=== PATIENT | male | born 1955 | race Caucasian/White ===

== ENCOUNTER → 2018-02-17 12:24 | Outpatient (CLI) | payer MEDICARE, SELFPAY ==
[2018-02-17 13:35] VITALS: PULSE 75; PULSE 78; PULSE 81; PULSE 89; PULSE 92; PULSE 93; PULSE 96; O2SAT 96; O2SAT 97; O2SAT 98
--- NOTE | 2018-02-17 17:23 | WT_ITS ---
PSN 6 Minute Walk Test - 6 Minute Walk Test 6 Minute Walk Test: 6 Minute Walk Test PSN:6-Minute Walk Test Start: 02/17/18 13: 35 Freq: Status: Active Protocol: RESP.6MINW Document 02/17/18 13:35 [facility] (Rec: 02/17/18 13:38 [facility] [id number]) 6 Minute Walk Test Date Performed 02/17/18 Time Performed 12:30 Height 6 ft 3 in Weight: 109.316 kg Weight in Pounds 241.[address]: Lexi Arceo Assistive device used: None Pre-test Oxygen Delivery Method Room Air Pulse Ox (%) 97 Pulse Rate (60-100 beats/min) 75 Dyspnea Jeimy Scale (0-10) 1 1st minute Oxygen Delivery Method Room Air Pulse Ox (%) 98 Pulse Rate (60-100 beats/min) 78 Dyspnea Jeimy Scale (0-10) 1 2nd minute Oxygen Delivery Method Room Air Pulse Ox (%) 96 Pulse Rate (60-100 beats/min) 81 Dyspnea Jeimy Scale (0-10) 1 3rd minute Oxygen Delivery Method Room Air Pulse Ox (%) 97 Pulse Rate (60-100 beats/min) 89 Dyspnea Jeimy Scale (0-10) 2 Reported Symptoms Increased Work of Breathing 4th minute Oxygen Delivery Method Room Air Pulse Ox (%) 98 Pulse Rate (60-100 beats/min) 92 Dyspnea Jeimy Scale (0-10) 2 Reported Symptoms Increased Work of Breathing 5th minute Oxygen Delivery Method Room Air Pulse Ox (%) 97 Pulse Rate (60-100 beats/min) 93 Dyspnea Jeimy Scale (0-10) 2 Reported Symptoms Increased Work of Breathing 6th minute Oxygen Delivery Method Room Air Pulse Ox (%) 97 Pulse Rate (60-100 beats/min) 96 Dyspnea Jeimy Scale (0-10) 2 Reported Symptoms Increased Work of Breathing Post-test Oxygen Delivery Method Room Air Pulse Ox (%) 98 Pulse Rate (60-100 beats/min) 78 Dyspnea Jeimy Scale (0-10) 1 Full Laps Walked 21 Partial Lap, Number of Tiles Walked 22 Total Distance Walked (ft) 1261 - Interpretation Interpretation: The patient was able to ambulate 1261 feet over the course of 6 minutes on room air with no significant desaturation or tachycardia. These findings are consistent with a normal exercise oximetry. - Recommendations Recommendations: No supplemental oxygen is indicated at this time.
== END ==
PROVIDERS: Visit Provider Nurse Practitioner Acute Care
DX: R06.02 Shortness of breath (principal)
CPT/HCPCS: 94618

== ENCOUNTER → 2018-02-18 09:44 | Outpatient (CLI) | payer MEDICARE, SELFPAY ==
--- NOTE | 2018-02-19 06:58 | PFTCOMP_ITS ---
COMPLETE PULMONARY FUNCTION TEST INTERPRETATION Brief HPI: Patient is a 62 year old male, currently under the care of Lexi Arceo, who presents to [facility] for complete pulmonary function tests secondary to diagnosis of dyspnea. Respiratory therapist reports good effort and reproducible results. Interpretation: Forced expiration spirometry shows a mild large airways obstructive ventilatory defect with an FEV1 of 72 % predicted. There is no significant bronchodilator response by ATS criteria. Spirograms are of good quality and plateau slowly, indicating slowly emptying areas of the lungs. The respiratory flow volume loop shows decreased expiratory flow rates at high lung volumes consistent with small airways obstruction. Lung volumes by body plethysmography show a normal total lung capacity at 7.5 L , 102 % predicted. All other lung volumes are within normal limits. Diffusion capacity by carbon monoxide is normal at 79 % predicted. The airway resistance is normal. No previous pulmonary function tests were available for review. Impression: Irreversible mild large airways obstructive ventilatory defect with preserved lung volumes and diffusing capacity, consistent with a diagnosis of chronic bronchitis.
== END ==
PROVIDERS: Visit Provider Nurse Practitioner Acute Care
DX: R06.02 Shortness of breath (principal)
CPT/HCPCS: 94060; 94726; 94729

== ENCOUNTER → 2018-09-22 15:25 | Outpatient (CLI) | payer MEDICARE, SELFPAY | PROVIDERS: Referring Provider Nurse Practitioner Acute Care; Visit Provider Nurse Practitioner Acute Care | DX: R05 Cough (principal) | CPT/HCPCS: 87070; 87205 ==

== ENCOUNTER 2018-10-07 12:44 | Emergency (ER) | payer MEDICARE, SELFPAY ==
[2018-10-07 12:47] VITALS: BP 174/97; PULSE 81; RESP 20; TEMP 36.6; O2SAT 97; BMI 33.1
--- NOTE | 2018-10-07 12:56 | EKG12_ITS ---
Test Reason : CP/SOB Blood Pressure : / mmHG Vent. Rate : 080 BPM Atrial Rate : 080 BPM P-R Int : 162 ms QRS Dur : 088 ms QT Int : 384 ms P-R-T Axes : 033 007 025 degrees QTc Int : 442 ms Normal sinus rhythm Inferior infarct , age undetermined Abnormal ECG Confirmed by KAITLIN TARANGO ([id number]), editorial project manager BETSY FLEMING ([id number]) on 10/11/2018 2:25:59 PM Referred By: ANA/TERENCE Confirmed By:KAITLIN TARANGO
[2018-10-07 13:08] LABS: Absolute Lymphocyte Count 2.49 X10^3/ul (0.83-4.51); Absolute Neutrophil Count 6.1 X10^3/uL (2.0-7.7); Basophil# 0.02 X10^3/uL; Basophil% 0.2 % (0-1); Eosinophils% 1.1 % (0-5); Hematocrit 47.9 % (40-54); Hemoglobin 16.8 g/dl (13.0-16.5); Lymphocyte # 2.49 X10^3/ul (4.0); Lymphocyte % 26.7 % (19-41); Mean Corp Hgb Conc 35.1 g/gl (32-36); Mean Corpuscular Hgb 30.7 pg (27.0-32.0); Mean Corpuscular Volume 87.4 fL (80-94); Mean Platelet Vol. 11.1 fl (6.2-12.0); Monocyte% 6.4 % (0-10); Neutrophil # 6.06 X10^3/uL (2.7-7.7); Neutrophil % 65.2 % (47-70); POSITIVE COUNT NO; POSITIVE DIFFERENTIAL NO; POSITIVE MORPHOLOGY NO; Platelet Count 191 K/mm3 (150-450); RBC Distribution Width CV 12.5 % (11.6-14.6); Red Blood Count 5.48 M/mm3 (4.6-6.2); White Blood Count 9.3 K/mm3 (4.4-11.0)
--- NOTE | 2018-10-07 13:10 | RAD_ITS ---
STUDY: X-RAY CHEST REASON FOR EXAM: Male, 63 years old. Chest pain. TECHNIQUE: Single AP portable view of the chest. COMPARISON: None. FINDINGS: EKG electrodes are seen. Minimal increased markings at the lung bases suggestive of mild basilar linear atelectasis. There is no demonstrated pleural abnormality. Normal size heart. Normal mediastinum and juan diego. Normal visualized pulmonary arteries. There is atherosclerotic tortuosity of the aortic arch and descending thoracic aorta. There are diffuse degenerative changes of the visualized thoracic spine. Normal visualized ribs, clavicles, and shoulders. There is no demonstrated abnormality of the visualized soft tissue structures of the upper abdomen. RAD/Chest 1 View (Portable) IMPRESSION: Mild degree of increased linear markings at the lung bases suggest mild degree of bibasilar atelectasis. Electronically Signed: Boris Huff MD at 13:33 EST Tel [phone], Service support ,
[2018-10-07] MEDS: 0.9% Normal Saline 1,000 ML 150 ML IV (13:21)
[2018-10-07] MEDS: Aspirin 81 MG TAB.CHEW 324 MG PO (13:21)
[2018-10-07 13:24] LABS: Anion Gap 7 (5-15); BUN 14 mg/dL (7-18); BUN/Creat Ratio 12.6 RATIO (10-20); Calcium,Total 9.1 mg/dL (8.5-10.1); Chloride 101 mmol/L (98-107); Creatinine, Serum 1.11 mg/dL (0.70-1.30); EST Glomerular Filtration Rate 71 mL/min (>60); Est Glom Filt Rate - Afr Amer 86 mL/min (>60); Estimated Creatinine Clearance 77.98 ml/min; Glucose 67 mg/dL (74-106); Potassium 3.7 mmol/L (3.5-5.1); Sodium Level 136 mmol/L (136-145)
--- NOTE | 2018-10-07 13:57 | ED.VISSUMM ---
- ER Visit Summary Date of Service: 10/07/18 Chief Complaint: Chest pain History of Present Illness: The patient is a [address] Trujillo, Dr. Elijah Estrada, and Dr. Rossi. He reports that he was admitted at [facility] on September 24 for shortness of breath and chest pain. At that time he had a CT of the chest that showed no PE. It showed atelectasis. No infiltrate or effusion. He had an extensive workup obtained which ultimately showed that he had human rhinovirus. He reports that he saw Dr. Rossi yesterday and was scheduled to have PFTs today. Patient reports that today he walked a distance through the parking lot that was further than he walked since September 13. He had to sit down when he got to the entrance because he was short of breath and was having chest pain. States that the chest pain actually began on the drive here. It is a pressure that is 8 out of 10 at worst and 3-10 currently. Is worsened by exertion relieved by rest. He denies any associated nausea, vomiting, or diaphoresis. Physical Examination: Vitals: Stable. Afebrile. General: Well-nourished and well-developed. Head: Normocephalic atraumatic. Neck: Supple, no lymphadenopathy. No JVD. Nontender. Cardiovascular: Regular rate and rhythm. No murmurs. Respiratory: No respiratory distress. Clear to auscultation bilaterally. Abdominal: Soft, nontender, nondistended, normal bowel sounds. No guarding, rebound, or peritoneal signs. Back: Nontender. Extremities: Nontender, no edema. Skin: Normal color, no rash. Neurologic: Alert and oriented ?3. Cranial nerves II through XII are intact. Normal strength and sensation. Psych: Normal affect. Test Results: EKG is sinus at [address] changes. Troponin is negative despite greater than 3 hours of constant pain. Chem-7 is more for glucose 67. CBC is more for hemoglobin 16.8. Chest x-ray shows atelectasis. Emergency Department Course and Treatment: Patient was treated with aspirin. He is resting comfortably. Treatment Plan: Patient was discussed with Dr. Rossi who states patient will need to reschedule his PFTs and from a pulmonary perspective is fine to go home. I had a prolonged discussion with the patient about the possible cardiac etiology of this. He states that he is spoken with his philosophy faculty and it is felt that this is not cardiac in nature. His last stress test was in January of this year. I did offer to admit him for rule out and stress test and he does not want to do this. He has an appointment to see his primary care physician tomorrow. I did discuss with him the possibility that his primary care physician could arrange a stress test as an outpatient if he does not want to be hospitalized. He is instructed to follow-up with his philosophy faculty as soon as possible. Return to the emergency department for any worsening symptoms. Disposition: To home in improved and stable condition. Impression: 1. Atypical chest pain. 2. Dyspnea. 3. Recent infection with human rhinovirus. This note was generated with [employer] dictation software. It may contain incorrect words, spelling, and punctuation that were not noted in review of the chart prior to signing ED Disposition - Plan for ED Patient: Disposition: Home or Assisted Living Chief Complaint: Chest Pain Instructions: ED Dyspnea Shortness of Breath Referrals: Doctor,Your [STAFF PHYSICIAN] - 1 Day for another exam Additional Instructions: Follow up with Dr. Trujillo as soon as possible.
[2018-10-07 15:03] VITALS: BP 164/99; PULSE 76; RESP 18; O2SAT 98
== END 2018-10-07 15:05 | disposition home or self-care (01) ==
PROVIDERS: Emergency Provider Emergency Medicine
DX: R07.89 Other chest pain (principal); R06.02 Shortness of breath; Z86.19 Personal history of other infectious and parasitic diseases; I25.10 Atherosclerotic heart disease of native coronary artery without angina pectoris; I10 Essential (primary) hypertension; I73.9 Peripheral vascular disease, unspecified; J45.909 Unspecified asthma, uncomplicated; F32.9 Major depressive disorder, single episode, unspecified; M19.90 Unspecified osteoarthritis, unspecified site; G47.33 Obstructive sleep apnea (adult) (pediatric); Z87.891 Personal history of nicotine dependence; Z79.82 Long term (current) use of aspirin; Z79.899 Other long term (current) drug therapy; Z86.73 Personal history of transient ischemic attack (TIA), and cerebral infarction without residual deficits
CPT/HCPCS: 71045; 80048; 84484; 85025; 93005; 96360; 96361; 99284; J7030; A4216

== ENCOUNTER → 2018-10-18 09:33 | Outpatient (CLI) | payer MEDICARE, SELFPAY ==
--- NOTE | 2018-10-18 11:50 | PFT ---
INTRODUCTION: The patient is a 63-year-old male that presents for pulmonary function studies secondary to a diagnosis of chronic bronchitis. Respiratory therapy reports good patient effort. Bronchodilators were used during testing. INTERPRETATION: Forced expiration spirometry demonstrates the presence of a severe large airways obstructive ventilatory defect. Although there was no significant response to aerosolized bronchodilators, based upon strict ATS criteria, the patient did have a relatively robust mid flow bronchodilator response. Spirograms are of good quality do not plateau indicating slow emptying of the lungs. Body plethysmography was performed and reveals a decreased TLC to 5.8 L, 77% of predicted, indicative of a mild restrictive ventilatory defect. The remainder of the lung volumes are symmetrically reduced. Diffusing capacity by single breath CO is mildly reduced at 64% of predicted. When compared to previous pulmonary function studies dated January 2018, there has been a 35% reduction in the patient's FEV1, 23% reduction in TLC and 17% reduction in DLCO. IMPRESSION: These pulmonary function studies demonstrate the presence of an irreversible severe mixed ventilatory defect with a mild reduction in diffusing capacity. There has been significant changes in the patient's PFTs since they were last completed in January 2018, as noted above.
== END ==
PROVIDERS: Referring Provider Internal Medicine Critical Care Medicine; Visit Provider Internal Medicine Critical Care Medicine
DX: T73.2XXA Exhaustion due to exposure, initial encounter (principal); J41.0 Simple chronic bronchitis
CPT/HCPCS: 94060; 94726; 94729

== ENCOUNTER → 2018-10-22 13:41 | Outpatient (CLI) | payer MEDICARE, SELFPAY ==
--- NOTE | 2018-10-22 13:43 | ECHOCS_ITS ---
Reason For Study: Dyspnea/SOB Procedure This was a 2D Doppler, Color Flow transthoracic echocardiogram. Exam performed in department. Left Ventricle Normal LV size. Left ventricular systolic function is normal. The estimated ejection fraction is 65 %. Stage 1 diastolic dysfunction. No regional wall motion abnormalities noted. Right Ventricle Normal RV size. Normal systolic function. Atria Normal left atrium. Normal right atrium. Mitral Valve Normal mitral valve. Trivial mitral valve insufficiency. Tricuspid Valve Normal tricuspid valve. Mild (1+) tricuspid valve insufficiency. Pulmonary artery systolic pressure is 36 mmHg. Aortic Valve Normal aortic valve. Pulmonic Valve Normal pulmonic valve. Great Vessels Normal aortic root. The pulmonary artery is normal size. Normal inferior vena cava. Pericardium/Pleural No pericardial effusion. Medication [id number] given slow IV push to enhance endocardial definition. MMode/2D Measurements & Calculations LVIDd: 5.3 cm IVSd: 0.87 cm Ao root diam: 3.4 cm LVIDs: 2.6 cm LVPWd: 0.85 cm RVDd: 4.3 cm FS: 50.9 % LAV(MOD-bp): 46.3 ml LVAd ap4: 33.5 cm2 SV(MOD-sp4): 89.8 ml LAV(MOD-bp) Indexed: 19.6 ml/m2 EDV(MOD-sp4): 115.0 ml LAV(MOD-sp2): 53.6 ml EDV(sp4-el): 119.0 ml LAV(MOD-sp4): 35.7 ml LVAs ap4: 13.1 cm2 ESV(MOD-sp4): 25.2 ml ESV(sp4-el): 24.5 ml EF(MOD-sp4): 78.1 % EF(sp4-el): 79.4 % SV(sp4-el): 94.5 ml LA A4 area: 15.1 cm2 LA dimension(2D): 3.3 cm RA A4 area: 16.7 cm2 Doppler Measurements & Calculations MV E max jhony: 79.4 cm/sec Lat Peak E' Jhony: 7.0 cm/sec Med Peak E' Jhony: 6.3 cm/sec MV A max jhony: 101.2 cm/sec E/E' lat: 11.3 E/E' med: 12.5 MV E/A: 0.78 Ao V2 max: 183.3 cm/sec LV V1 max: 167.1 cm/sec PA V2 max: 82.1 cm/sec Ao max P.4 mmHg LV V1 max P.2 mmHg Ao V2 mean: 126.8 cm/sec Ao mean P.2 mmHg Ao V2 VTI: 38.6 cm TR max jhony: 278.8 cm/sec TR max P.1 mmHg Interpretation Summary Normal LV size. Left ventricular systolic function is normal. The estimated ejection fraction is 65 %. Stage 1 diastolic dysfunction. Mild (1+) tricuspid valve insufficiency. Contrast injection was performed. Ordering Physician: Lexi Arceo Referring Physician: Lexi Arceo Performed By: Sue Ricks, NEYMAR, RVT
== END ==
PROVIDERS: Referring Provider Nurse Practitioner Acute Care; Visit Provider Nurse Practitioner Acute Care
DX: R06.02 Shortness of breath (principal)
CPT/HCPCS: 93306; Q9957; A4216; C8929

== ENCOUNTER → 2018-11-01 15:01 | Outpatient (CLI) | payer MEDICARE, SELFPAY ==
[2018-11-01 14:04] VITALS: BMI 33.5
[2018-11-01 15:55] LABS: Rheumatoid Factor < 10.0 IU/mL (<15)
[2018-11-01 23:14] LABS: Xtra Tube EP Lab EXTRA TUBE
[2018-11-03 14:21] LABS: ANTINUCLEAR ANTIBODIES DIRECT Negative (Negative)
[2018-11-04 08:19] LABS: CCP IgG Antibodies 15 units (0-19); Cytoplasmic Ab (C-ANCA) <1:20 titer (Neg:<1:20); Perinuclear Ab (P-ANCA) <1:20 titer (Neg:<1:20)
== END ==
PROVIDERS: Referring Provider Nurse Practitioner Acute Care; Visit Provider Nurse Practitioner Acute Care
DX: R06.02 Shortness of breath (principal)
CPT/HCPCS: 36415; 86038; 86200; 86225; 86235; 86256; 86431

== ENCOUNTER → 2018-11-04 08:37 | Outpatient (CLI) | payer MEDICARE, SELFPAY ==
[2018-11-01 14:04] VITALS: BMI 33.5
[2018-11-04 08:30] VITALS: PULSE 57; PULSE 59; PULSE 60; PULSE 62; PULSE 63; PULSE 64; PULSE 65; PULSE 70; O2SAT 96; O2SAT 97
--- NOTE | 2018-11-04 11:46 | PCM.PSN.6M ---
PSN 6 Minute Walk Test - 6 Minute Walk Test 6 Minute Walk Test: 6 Minute Walk Test PSN:6-Minute Walk Test Start: 11/04/18 09:05 Freq: Status: Active Protocol: RESP.6MINW Document 11/04/18 08:30 [facility] (Rec: 11/04/18 09:08 [facility] [id number]) 6 Minute Walk Test Date Performed 11/04/18 Time Performed 08:30 Height 6 ft 1 in Weight: 254 lb Weight in Pounds 254.[address]: Lexi Arceo Assistive device used: None Pre-test Oxygen Delivery Method Room Air Pulse Ox (%) 96 Pulse Rate (60-100 beats/min) 63 Dyspnea Jeimy Scale (0-10) 3 Exertion Jeimy Scale (6-20) 13 1st minute Oxygen Delivery Method Room Air Pulse Ox (%) 97 Pulse Rate (60-100 beats/min) 70 2nd minute Oxygen Delivery Method Room Air Pulse Ox (%) 96 Pulse Rate (60-100 beats/min) 65 Number of Rests Taken 1 Reported Symptoms Increased Work of Breathing 3rd minute Oxygen Delivery Method Room Air Pulse Ox (%) 96 Pulse Rate (60-100 beats/min) 62 Number of Rests Taken 1 Reported Symptoms Increased Work of Breathing 4th minute Oxygen Delivery Method Room Air Pulse Ox (%) 96 Pulse Rate (60-100 beats/min) 64 Number of Rests Taken 1 Reported Symptoms Increased Work of Breathing 5th minute Oxygen Delivery Method Room Air Pulse Ox (%) 96 Pulse Rate (60-100 beats/min) 60 Number of Rests Taken 1 Reported Symptoms Increased Work of Breathing 6th minute Oxygen Delivery Method Room Air Pulse Ox (%) 96 Pulse Rate (60-100 beats/min) 59 L Post-test Oxygen Delivery Method Room Air Pulse Ox (%) 97 Pulse Rate (60-100 beats/min) 57 L Dyspnea Jeimy Scale (0-10) 4 Exertion Jeimy Scale (6-20) 14 Full Laps Walked 6 Partial Lap, Number of Tiles Walked 0 Total Distance Walked (ft) 354 - Interpretation Interpretation: The patient ambulated 354 feet over the course of 6 minutes beginning on room air without assistive devices or breaks. Pretesting oxygen saturation was noted to be 96% on room air. With ambulation, the katerine oxygen saturation was 96%. Although there was evidence of impaired walk distance, there was no significant exertional oxygen desaturation. - Recommendations Recommendations: There is no indication for the use of supplemental oxygen at this time.
== END ==
PROVIDERS: Referring Provider Nurse Practitioner Acute Care; Visit Provider Nurse Practitioner Acute Care
DX: R06.02 Shortness of breath (principal)
CPT/HCPCS: 94618

== ENCOUNTER 2018-11-15 11:36 | Observation (INO) | payer MEDICARE, SELFPAY ==
[2018-11-01 14:04] VITALS: BMI 33.5
[2018-11-15] VITALS (11 sets, daily range): BP systolic 142–170; BP diastolic 76–90; PULSE 53–70; RESP 13–20; TEMP 36.3–36.6; O2SAT 94–98; BMI 33.3; BMI 33.0
--- NOTE | 2018-11-15 12:01 | RAD_ITS ---
STUDY: X-RAY CHEST REASON FOR EXAM: Male, 63 years old. Chest pain, short of breath TECHNIQUE: Single AP portable view of the chest. COMPARISON: October 07, 2018 FINDINGS: Cardiac monitoring leads are present. The lungs are clear and expanded. Improved appearance of the lung bases when compared to previous study. There is no demonstrated pleural abnormality. Normal size heart. Normal mediastinum and juan diego. Normal visualized pulmonary arteries. Mild tortuosity of the thoracic aorta noted. There are diffuse degenerative changes of the visualized thoracic spine. Normal visualized ribs, clavicles, and shoulders. There is no demonstrated abnormality of the visualized soft tissue structures of the upper abdomen. RAD/Chest 1 View (Portable) IMPRESSION: No acute intrathoracic process. Electronically Signed: Tracie Zelaya MD at 12:27 EST , Service support ,
--- NOTE | 2018-11-15 12:01 | EKG12_ITS ---
Test Reason : PALPITATIONS Blood Pressure : / mmHG Vent. Rate : 091 BPM Atrial Rate : 091 BPM P-R Int : 148 ms QRS Dur : 088 ms QT Int : 350 ms P-R-T Axes : 024 015 046 degrees QTc Int : 430 ms Normal sinus rhythm Inferior infarct , age undetermined Abnormal ECG When compared with ECG of 16-NOV-2018 05:42, MANUAL COMPARISON REQUIRED, DATA IS UNCONFIRMED Confirmed by BEULAH GIMENEZ, RANDALL ([id number]), newspaper photo editor BETSY FLEMING ([id number]) on 11/19/2018 2:12:30 PM Referred By: Ino Vazquez Confirmed By:RANDALL RIOJAS MD
[2018-11-15 12:38] LABS: Absolute Lymphocyte Count 2.12 X10^3/ul (0.83-4.51); Absolute Neutrophil Count 4.6 X10^3/uL (2.0-7.7); Basophil# 0.02 X10^3/uL; Basophil% 0.3 % (0-1); Eosinophil# 0.07 X10^3/uL; Eosinophils% 0.9 % (0-5); Hematocrit 45.3 % (40-54); Hemoglobin 15.2 g/dl (13.0-16.5); Lymphocyte # 2.12 X10^3/ul (4.0); Lymphocyte % 27.6 % (19-41); Mean Corp Hgb Conc 33.6 g/gl (32-36); Mean Corpuscular Hgb 30.1 pg (27.0-32.0); Mean Corpuscular Volume 89.7 fL (80-94); Mean Platelet Vol. 10.9 fl (6.2-12.0); Monocyte# 0.82 X10^3/uL; Monocyte% 10.7 % (0-10); Neutrophil # 4.63 X10^3/uL (2.7-7.7); Neutrophil % 60.4 % (47-70); Platelet Count 180 K/mm3 (150-450); RBC Distribution Width CV 12.5 % (11.6-14.6); RBC Distribution Width SD 40.5 fl (35.1-43.9); Red Blood Count 5.05 M/mm3 (4.6-6.2); White Blood Count 7.7 K/mm3 (4.4-11.0)
[2018-11-15 12:39] LABS: POSITIVE COUNT NO; POSITIVE DIFFERENTIAL NO; POSITIVE MORPHOLOGY NO
[2018-11-15] MEDS: Aspirin 81 MG TAB.CHEW 324 MG PO (12:45)
[2018-11-15 12:59] LABS: Anion Gap 5 (5-15); BUN 13 mg/dL (7-18); BUN/Creat Ratio 11.4 RATIO (10-20); Calcium,Total 8.8 mg/dL (8.5-10.1); Chloride 106 mmol/L (98-107); Creatinine, Serum 1.14 mg/dL (0.70-1.30); EST Glomerular Filtration Rate 69 mL/min (>60); Est Glom Filt Rate - Afr Amer 84 mL/min (>60); Estimated Creatinine Clearance 75.93 ml/min; Glucose 96 mg/dL (74-106); Potassium 3.9 mmol/L (3.5-5.1); Sodium Level 142 mmol/L (136-145)
--- NOTE | 2018-11-15 13:06 | PCM.CONS.C ---
Problem List (1) Atherosclerosis of coronary artery of [place] heart with angina pectoris Status: Acute (2) Atherosclerotic heart disease of [place] coronary artery with other forms of angina pectoris Status: Acute Comment: Acute inferior infarct, SAMSON to ostial-proximal RCA using 2.75 X 32 mm everolimus SAMSON per Dr. Geiger, [facility] 09/05/2014 (3) Pulmonary hypertension Status: Acute Comment: RVSP 36 mmHg (4) SOB (shortness of breath) on exertion Status: Acute (5) Carotid artery disease Status: Chronic Comment: Chronically occluded left ICA (6) PAD (peripheral artery disease) Status: Chronic Comment: Pt on Pletal therapy (7) PTSD (post-traumatic stress disorder) Status: Chronic (8) S/P AAA repair Status: Chronic Comment: 06/03/[address] Stephanie Sosa @ [facility]: Endovascular repair with [place] excluder device (9) Sleep apnea Status: Chronic (10) Stented coronary artery Status: Chronic Comment: Acute inferior infarct, SAMSON to ostial-proximal RCA using 2.75 X 32 mm everolimus SAMSON per Dr. Geiger, [facility] Reason for Consult Date of Consultation: 11/15/18 Reason for Consultation: Coronary disease status post angioplasty and stenting of LAD, peripheral vascular disease status post AAA, occluded left carotid artery, hypertension, pulmonary hypertension, obstructive sleep apnea hypertension and hypercholesterolemia. History of Present Illness: The patient is a 63 year old M with noncombat PTSD, hypertension, hypercholesterolemia, coronary artery disease status post acute ST elevation myocardial infarction and underwent emergent angioplasty and stenting to the RCA by Dr. Edwards at [facility] on 09/05/2014. At that time he received a 2.75 ex-32 Promus Premier stent to his proximal RCA postdilated with a 3.0 mm balloon. His LAD and left circumflex artery apparently had nonobstructive disease. At that time he was reportedly told the rest of his coronary arteries required no intervention. Patient also has a history of peripheral vascular disease status post percutaneous AAA stent grafting, and occluded left carotid artery which is known. He also has a history of pulmonary hypertension, and obstructive sleep apnea but does not use CPAP. He tried CPAP for about a year, was unable to tolerate it. Since August 2018 the patient has had intermittent substernal chest pressure, which is somewhat similar to his previous anginal symptoms, but are both typical and atypical with respect to exertion. He underwent a non-walking dobs echo test apparently at [facility] January 2018, was told it was within normal limits, but has had no subsequent catheterization. Recently the patient has been diagnosed with sinusitis is an outside facility in [facility] at which time he underwent CAT scan and MRI of his head. Those results are not available immediately. More specifically, over the last several weeks patient has had substernal chest pressure which he describes as a 10 out of 10 this past Thursday, with associated nausea but no vomiting, and shortness of breath. He states that this kind of pain appears to be more superficial than his deep pain that he experienced during his STEMI, and this pain appears to be at rest as well as with exertion. He is on chronic baby aspirin and Plavix. He was treated with antibiotic therapy for presumed sinusitis however his headaches have continued. Patient does not formally exercise disease had 4 surgeries on his right knee, and does not use his CPAP currently. He has a [id number] smoking history, who quit several years ago. He did have pulmonary function test and Dr. Rossi's office on 10/18/18 which showed the following: These pulmonary function studies demonstrate the presence of an irreversible severe mixed ventilatory defect with a mild reduction in diffusing capacity. His most recent echocardiogram dated 10/22/18 showed intact LV function with an EF of 65%, mild tricuspid regurgitation, and estimated RVSP of 36 mmHg and stage I diastolic dysfunction. His EKG today demonstrates normal sinus rhythm, no acute changes. Chest x-ray is negative. Troponin is negative. [] Past Medical History Allergies/Adverse Reactions: Allergies chlorzoxazone Adverse Reaction (Severe, Verified 11/15/18 11:39) also known as Parafon Forte: pt becomes disoriented Home Medications: Ambulatory Orders Medication Instructions Recorded aspirin 81 mg tablet,delayed 81 mg PO QDAY tab 02/10/18 release atorvastatin 80 mg tablet 80 mg PO QDAY 02/10/18 cilostazol 100 mg tablet 100 mg PO BID 02/10/18 clopidogrel 75 mg tablet 75 mg PO QDAY tab 02/10/18 lisinopril 20 1 tab PO QDAY tab 02/10/18 mg-hydrochlorothiazide 12.5 mg tablet albuterol sulfate HFA 90 2 puff INHALATION Q4H #1 inh 03/15/18 mcg/actuation aerosol inhaler clonazepam 0.5 mg tablet 0.5 mg PO BID PRN 09/22/18 isosorbide mononitrate ER 30 mg 30 mg PO DAILY 09/22/18 tablet,extended release 24 hr multivit,tx with iron 27 1 tab PO DAILY 09/22/18 ju-mxaoyeq-sjupy acid 0.4 mg-minerals tablet nitroglycerin 0.4 mg sublingual 0.4 mg SUBLINGUAL Q5-15M PRN 09/22/18 tablet trazodone 100 mg tablet 200 mg PO QHS tab 09/22/18 venlafaxine ER 150 mg 75 mg PO QDAY cap 09/22/18 capsule,extended release 24 hr furosemide 40 mg tablet 40 mg PO DAILY #10 tab 09/29/18 metoprolol tartrate 25 mg tablet 25 mg PO BID tab 10/05/18 doxycycline hyclate 50 mg tablet 50 mg PO DAILY tab 11/15/18 gabapentin 300 mg capsule 300 mg PO TID 11/15/18 hydrocodone 5 mg-acetaminophen 325 1 tab PO Q6H PRN 11/15/18 mg tablet lamotrigine 100 mg tablet 100 mg PO BID 11/15/18 Past Medical History (Chronic Problems): Chronic Problems (Last Updated 11/15/18 @ 12:40 by Ruth Echevarria) PAD (peripheral artery disease) (Chronic) Pt on Pletal therapy Carotid artery disease (Chronic) Chronically occluded left ICA PTSD (post-traumatic stress disorder) (Chronic) History of inferior wall myocardial infarction (Chronic 09/05/14) Treated at [facility] Stented coronary artery (Chronic 09/05/14) Acute inferior infarct, SAMSON to ostial-proximal RCA using 2.75 X 32 mm everolimus SAMSON per Dr. Geiger, [facility] Asthma (Chronic) Sleep apnea (Chronic) HTN (hypertension) (Chronic) Peripheral vascular disease (Chronic) Depression (Chronic) S/P AAA repair (Chronic 06/03/15) 06/03/[address] Stephanie Sosa @ [facility]: Endovascular repair with [place] excluder device TIA (transient ischemic attack) (Chronic) 04/13 Chronic bronchitis (Chronic) DIMAS (obstructive sleep apnea) (Chronic) Tobacco abuse (Chronic) Smoking Status: Former smoker Review of Systems - Review of Systems General: Denies: Fever, Night Sweats, Fatigue Cardiovascular: Reports: Chest Discomfort, Chest Discomfort at Rest, Chest Discomfort with Exertion, Shortness of Breath with Exertion. Denies: Shortness of Breath, Orthopnea, PND, Peripheral Edema, Palpitations, Lightheadedness, Dizziness, Near Syncope, Syncope Respiratory: Denies: Cough, Sputum Production, Hemoptysis Gastrointestinal: Denies: Hematemesis, Hematochezia, Melena Genitourinary: Denies: Dysuria, Hematuria Skin: Denies: Rash Subjectve: Patient resting comfortably in the emergency room. No acute distress. Vital signs stable. Objective: Vital Signs Temp Pulse Resp BP Pulse Ox 97.4 F L 59 L 14 160/83 H 97 11/15/18 11:37 11/15/18 13:03 11/15/18 13:03 11/15/18 13:03 11/15/18 13:03 Oxygen Delivery Method Room Air Weight: 252 lb 13.923 oz Body Mass Index (BMI) 33.3 General: Awake, Alert, Oriented x 3 HEENT: PERRL, EOMI, Sclera Non Icteric Neck: Supple, Good ROM, No Lymph Node Enlargement Lungs: Clear to auscultation Cardiovascular: Regular Rhythm, Normal S1, Normal S2, No Murmurs, No Rubs, No Gallops Vascular: No Carotid Bruits, Normal Femoral Pulses, Normal Radial Pulses, Normal Dorsalis Pedal Pulse, Normal Posterior Tibial Pulses Abdomen: Bowel Sounds Present, Soft, Non Tender, No HSM, No Organomegaly Extremities: No Cyanosis, No Clubbing, No edema Neurological: No Focal Motor or Sensory Deficit 11/15/18 12:30: WBC 7.7, RBC 5.05, Hgb 15.2, Hct 45.3, MCV 89.7, MCH 30.1, MCHC 33.6, RDW 12.5, RDW Differential 40.5, Plt Count 180, MPV 10.9, Immature Gran % (Auto) 0.100, Neut % (Auto) 60.4, Lymph % (Auto) 27.6, [place] % (Auto) 10.7 H, Eos % (Auto) 0.9, Baso % (Auto) 0.3, Absolute Neuts (auto) 4.6, Total Counted Not Reportable 11/15/18 12:30: Sodium 142, Potassium 3.9, Chloride 106, Carbon Dioxide 31.0, Anion Gap 5, BUN 13, Creatinine 1.14, Est GFR (MDRD) Af Amer 84, Est GFR (MDRD) Non-Af 69, BUN/Creatinine Ratio 11.4, Glucose 96, Calcium 8.8, Troponin I < 0.015 Rhythm: EKG: ECHO: Stress Test: Cardiac Cath: PCI: CT Surgery: Holter monitor: EPS: PPM: CXR: Chest CT Scan: Assessment/Plan 1. Unstable angina: The patient has new onset angina at least since August 2018, with has both typical and atypical features, but appears to be worsening and accelerating. He had a vitamin stress test according to him in January 2018 was admitted to [facility], and his chest pain was deemed to be atypical in nature.. Patient has had no repeat catheterization since his STEMI in 2013. Given the patient's risk factors, chest pain, normal stress test less than 1 year ago, and accelerating nature of his symptoms, and previous stenting to his RCA in 2013 I recommended he undergo a repeat left her catheterization tomorrow morning. We will use a long 35 cm to negotiate his previous aortoiliac stent graft. He is already on chronic baby aspirin and Plavix as well as cilostazol. Should the patient have any significant coronary disease we will proceed with angioplasty assuming that is appropriate to do so. If his catheterization shows widely patent stents, and no additional disease, we will redirect her efforts to workup his noncardiac chest pain. 2. Hyperlipidemia: We will obtain a fasting lipid profile. Continue statin based medications. His LDL should be less than 70. 3. COPD: Patient is evidence of COPD. 4. Fatigue: The patient complains mostly of fatigue, tiredness, and lack of energy. Patient may require reevaluation for obstructive sleep apnea and may benefit from adjustment of his CPAP. Graft 5. Headaches: The patient is on aspirin Plavix and cilostazol, and that his headaches have not improved despite antibiotic therapy, I recommended the patient undergo a CT scan to determine if he has any significant sinusitis or cerebral vascular event. 5. Thank you very much for the opportunity to participate in the cardiac care of your patient. Consultation time took place between 1230 and 1 PM. Catheterization tomorrow morning to follow. Code Visit Inpatient E&M: 02705 Init Hosp L2
--- NOTE | 2018-11-15 13:10 | CON.PCM_ITS ---
Problem List (1) Atherosclerosis of coronary artery of [place] heart with angina pectoris Status: Acute (2) Atherosclerotic heart disease of [place] coronary artery with other forms of angina pectoris Status: Acute Comment: Acute inferior infarct, SAMSON to ostial-proximal RCA using 2.75 X 32 mm everolimus SAMSON per Dr. Geiger, [facility] 09/05/2014 (3) Pulmonary hypertension Status: Acute Comment: RVSP 36 mmHg (4) SOB (shortness of breath) on exertion Status: Acute (5) Carotid artery disease Status: Chronic Comment: Chronically occluded left ICA (6) PAD (peripheral artery disease) Status: Chronic Comment: Pt on Pletal therapy (7) PTSD (post-traumatic stress disorder) Status: Chronic (8) S/P AAA repair Status: Chronic Comment: 06/03/[address] Stephanie Sosa @ [facility]: Endovascular repair with [place] excluder device (9) Sleep apnea Status: Chronic (10) Stented coronary artery Status: Chronic Comment: Acute inferior infarct, SAMSON to ostial-proximal RCA using 2.75 X 32 mm everolimus SAMSON per Dr. Geiger, [facility] Reason for Consult Date of Consultation: 11/15/18 Reason for Consultation: Coronary disease status post angioplasty and stenting of LAD, peripheral vascular disease status post AAA, occluded left carotid artery, hypertension, pulmonary hypertension, obstructive sleep apnea hypertension and hypercholesterolemia. History of Present Illness: The patient is a 63 year old M with noncombat PTSD, hypertension, hypercholesterolemia, coronary artery disease status post acute ST elevation myocardial infarction and underwent emergent angioplasty and stenting to the RCA by Dr. Edwards at [facility] on 09/05/2014. At that time he received a 2.75 ex-32 Promus Premier stent to his proximal RCA postdilated with a 3.0 mm balloon. His LAD and left circumflex artery apparently had nonobstructive disease. At that time he was reportedly told the rest of his coronary arteries required no intervention. Patient also has a history of peripheral vascular disease status post percutaneous AAA stent grafting, and occluded left carotid artery which is known. He also has a history of pulmonary hypertension, and obstructive sleep apnea but does not use CPAP. He tried CPAP for about a year, was unable to tolerate it. Since August 2018 the patient has had intermittent substernal chest pressure, which is somewhat similar to his previous anginal symptoms, but are both typical and atypical with respect to exertion. He underwent a non-walking dobs echo test apparently at [facility] January 2018, was told it was within normal limits, but has had no subsequent catheterization. Recently the patient has been diagnosed with sinusitis is an outside facility in [facility] at which time he underwent CAT scan and MRI of his head. Those results are not available immediately. More specifically, over the last several weeks patient has had substernal chest pressure which he describes as a 10 out of 10 this past Thursday, with associated nausea but no vomiting, and shortness of breath. He states that this kind of pain appears to be more superficial than his deep pain that he experienced during his STEMI, and this pain appears to be at rest as well as with exertion. He is on chronic baby aspirin and Plavix. He was treated with antibiotic therapy for presumed sinusitis however his headaches have continued. Patient does not formally exercise disease had 4 surgeries on his right knee, and does not use his CPAP currently. He has a [id number] smoking history, who quit several years ago. He did have pulmonary function test and Dr. Rossi's office on 10/18/18 which showed the following: These pulmonary function studies demonstrate the presence of an irreversible severe mixed ventilatory defect with a mild reduction in diffusing capacity. His most recent echocardiogram dated 10/22/18 showed intact LV function with an EF of 65%, mild tricuspid regurgitation, and estimated RVSP of 36 mmHg and stage I diastolic dysfunction. His EKG today demonstrates normal sinus rhythm, no acute changes. Chest x-ray is negative. Troponin is negative. [] Past Medical History Allergies/Adverse Reactions: Allergies chlorzoxazone Adverse Reaction (Severe, Verified 11/15/18 11:39) also known as Parafon Forte: pt becomes disoriented Home Medications: Ambulatory Orders Medication Instructions Recorded aspirin 81 mg tablet,delayed 81 mg PO QDAY tab 02/10/18 release atorvastatin 80 mg tablet 80 mg PO QDAY 02/10/18 cilostazol 100 mg tablet 100 mg PO BID 02/10/18 clopidogrel 75 mg tablet 75 mg PO QDAY tab 02/10/18 lisinopril 20 1 tab PO QDAY tab 02/10/18 mg-hydrochlorothiazide 12.5 mg tablet albuterol sulfate HFA 90 2 puff INHALATION Q4H #1 inh 03/15/18 mcg/actuation aerosol inhaler clonazepam 0.5 mg tablet 0.5 mg PO BID PRN 09/22/18 isosorbide mononitrate ER 30 mg 30 mg PO DAILY 09/22/18 tablet,extended release 24 hr multivit,tx with iron 27 1 tab PO DAILY 09/22/18 zk-gljdygl-dmqcg acid 0.4 mg-minerals tablet nitroglycerin 0.4 mg sublingual 0.4 mg SUBLINGUAL Q5-15M PRN 09/22/18 tablet trazodone 100 mg tablet 200 mg PO QHS tab 09/22/18 venlafaxine ER 150 mg 75 mg PO QDAY cap 09/22/18 capsule,extended release 24 hr furosemide 40 mg tablet 40 mg PO DAILY #10 tab 09/29/18 metoprolol tartrate 25 mg tablet 25 mg PO BID tab 10/05/18 doxycycline hyclate 50 mg tablet 50 mg PO DAILY tab 11/15/18 gabapentin 300 mg capsule 300 mg PO TID 11/15/18 hydrocodone 5 mg-acetaminophen 325 1 tab PO Q6H PRN 11/15/18 mg tablet lamotrigine 100 mg tablet 100 mg PO BID 11/15/18 Past Medical History (Chronic Problems): Chronic Problems (Last Updated 11/15/18 @ 12:40 by Ruth Echevarria) PAD (peripheral artery disease) (Chronic) Pt on Pletal therapy Carotid artery disease (Chronic) Chronically occluded left ICA PTSD (post-traumatic stress disorder) (Chronic) History of inferior wall myocardial infarction (Chronic 09/05/14) Treated at [facility] Stented coronary artery (Chronic 09/05/14) Acute inferior infarct, SAMSON to ostial-proximal RCA using 2.75 X 32 mm everolimus SAMSON per Dr. Geiger, [facility] Asthma (Chronic) Sleep apnea (Chronic) HTN (hypertension) (Chronic) Peripheral vascular disease (Chronic) Depression (Chronic) S/P AAA repair (Chronic 06/03/15) 06/03/[address] Stephanie Sosa @ [facility]: Endovascular repair with [place] excluder device TIA (transient ischemic attack) (Chronic) 04/13 Chronic bronchitis (Chronic) DIMAS (obstructive sleep apnea) (Chronic) Tobacco abuse (Chronic) Smoking Status: Former smoker Review of Systems - Review of Systems General: Denies: Fever, Night Sweats, Fatigue Cardiovascular: Reports: Chest Discomfort, Chest Discomfort at Rest, Chest Discomfort with Exertion, Shortness of Breath with Exertion. Denies: Shortness of Breath, Orthopnea, PND, Peripheral Edema, Palpitations, Lightheadedness, Dizziness, Near Syncope, Syncope Respiratory: Denies: Cough, Sputum Production, Hemoptysis Gastrointestinal: Denies: Hematemesis, Hematochezia, Melena Genitourinary: Denies: Dysuria, Hematuria Skin: Denies: Rash Subjectve: Patient resting comfortably in the emergency room. No acute distress. Vital signs stable. Objective: Vital Signs Temp Pulse Resp BP Pulse Ox 97.4 F L 59 L 14 160/83 H 97 11/15/18 11:37 11/15/18 13:03 11/15/18 13:03 11/15/18 13:03 11/15/18 13:03 Oxygen Delivery Method Room Air Weight: 252 lb 13.923 oz Body Mass Index (BMI) 33.3 General: Awake, Alert, Oriented x 3 HEENT: PERRL, EOMI, Sclera Non Icteric Neck: Supple, Good ROM, No Lymph Node Enlargement Lungs: Clear to auscultation Cardiovascular: Regular Rhythm, Normal S1, Normal S2, No Murmurs, No Rubs, No Gallops Vascular: No Carotid Bruits, Normal Femoral Pulses, Normal Radial Pulses, Normal Dorsalis Pedal Pulse, Normal Posterior Tibial Pulses Abdomen: Bowel Sounds Present, Soft, Non Tender, No HSM, No Organomegaly Extremities: No Cyanosis, No Clubbing, No edema Neurological: No Focal Motor or Sensory Deficit 11/15/18 12:30: WBC 7.7, RBC 5.05, Hgb 15.2, Hct 45.3, MCV 89.7, MCH 30.1, MCHC 33.6, RDW 12.5, RDW Differential 40.5, Plt Count 180, MPV 10.9, Immature Gran % (Auto) 0.100, Neut % (Auto) 60.4, Lymph % (Auto) 27.6, [place] % (Auto) 10.7 H, Eos % (Auto) 0.9, Baso % (Auto) 0.3, Absolute Neuts (auto) 4.6, Total Counted Not Reportable 11/15/18 12:30: Sodium 142, Potassium 3.9, Chloride 106, Carbon Dioxide 31.0, Anion Gap 5, BUN 13, Creatinine 1.14, Est GFR (MDRD) Af Amer 84, Est GFR (MDRD) Non-Af 69, BUN/Creatinine Ratio 11.4, Glucose 96, Calcium 8.8, Troponin I < 0.015 Rhythm: EKG: ECHO: Stress Test: Cardiac Cath: PCI: CT Surgery: Holter monitor: EPS: PPM: CXR: Chest CT Scan: Assessment/Plan 1. Unstable angina: The patient has new onset angina at least since August 2018, with has both typical and atypical features, but appears to be worsening and accelerating. He had a vitamin stress test according to him in January 2018 was admitted to [facility], and his chest pain was deemed to be atypical in nature.. Patient has had no repeat catheterization since his STEMI in 2013. Given the patient's risk factors, chest pain, normal stress test less than 1 year ago, and accelerating nature of his symptoms, and previous stenting to his RCA in 2013 I recommended he undergo a repeat left her catheterization tomorrow morning. We will use a long 35 cm to negotiate his previous aortoiliac stent graft. He is already on chronic baby aspirin and Plavix as well as cilostazol. Should the patient have any significant coronary disease we will proceed with angioplasty assuming that is appropriate to do so. If his catheterization shows widely patent stents, and no additional disease, we will redirect her efforts to workup his noncardiac chest pain. 2. Hyperlipidemia: We will obtain a fasting lipid profile. Continue statin based medications. His LDL should be less than 70. 3. COPD: Patient is evidence of COPD. 4. Fatigue: The patient complains mostly of fatigue, tiredness, and lack of energy. Patient may require reevaluation for obstructive sleep apnea and may benefit from adjustment of his CPAP. Graft 5. Headaches: The patient is on aspirin Plavix and cilostazol, and that his headaches have not improved despite antibiotic therapy, I recommended the patient undergo a CT scan to determine if he has any significant sinusitis or cerebral vascular event. 5. Thank you very much for the opportunity to participate in the cardiac care of your patient. Consultation time took place between 1230 and 1 PM. Catheterization tomorrow morning to follow. Code Visit Inpatient E&M: 93162 Init Hosp L2
--- NOTE | 2018-11-15 13:52 | ED.VISSUMM ---
- ER Visit Summary Date of Service: 11/15/18 Chief Complaint: Chest pain History of Present Illness: The patient is a 63 M who presents with chest pain. Is been intermittent for the past couple of months but worse over the past 24 hours. It is a heaviness in the left side of his chest. Worse with exertion, talking and any activity. It is better with rest. He also has associated shortness of breath. He also admits to a headache behind the left eye for 2 weeks. He tells me he has a history of a blocked internal carotid artery with no residual deficits. He was supposed to follow-up with Dr. Torres tomorrow as a new patient. He does have one stent in the left anterior descending artery. Physical Examination: Pain exam Test Results: EKG is sinus rhythm with a rate of 60. Nonspecific ST and T wave changes. Chest x-ray unremarkable. Laboratory studies normal. Emergency Department Course and Treatment: Patient was given aspirin. Dr. Torres came and physically saw the patient in the emergency department. He is scheduling a heart catheterization for tomorrow. Patient was discussed with hospitalist for admission Treatment Plan: [] Disposition: Admit Impression: Chest pain/unstable angina This note was generated with [employer] dictation software. It may contain incorrect words, spelling, and punctuation that were not noted in review of the chart prior to signing ED Disposition - Plan for ED Patient: Chief Complaint: Chest Pain Referrals: Elijah Perez DO [Primary Care Provider] -
--- NOTE | 2018-11-15 14:28 | CASEMGMT ---
According to the [facility] website, the following are in-network tertiary facilities: [facility], [place], [facility], [place], [facility], [facility], [facility], [facility], and . Antonina ALBERTO CM
--- NOTE | 2018-11-15 15:42 | EKG12_ITS ---
Test Reason : CP Blood Pressure : / mmHG Vent. Rate : 060 BPM Atrial Rate : 060 BPM P-R Int : 174 ms QRS Dur : 094 ms QT Int : 426 ms P-R-T Axes : 049 014 049 degrees QTc Int : 426 ms Normal sinus rhythm Normal ECG Confirmed by BEUALH GIMENEZ, RANDALL ([id number]), senior editor BETSY FLEMING ([id number]) on 11/19/2018 1:20:14 PM Referred By: Ino Vazquez Confirmed By:RANDALL RIOJAS MD
[2018-11-15] MEDS: HYDROcodone Bitartrate/Apap 5/325 Tablet PO (16:12)
[2018-11-15] MEDS: CLARIFY ORDER NOTE (17:44)
--- NOTE | 2018-11-15 19:51 | PCM.HP.STD ---
Problem List (1) Chest pain Status: Acute Qualifiers: Chest pain type: precordial pain Qualified Code(s): R07.2 - Precordial pain History of Present Illness Date of Admission: 11/15/18 Chief Complaint: Precordial chest pain The patient is a 63 year old M who was seen in the emergency room at [facility] with a chief complaint of left-sided precordial chest pain located underneath the left breast and radiating into the left axilla. Patient states that this discomfort started at 3 PM yesterday, patient confirms it was continuous since 3 PM yesterday and had not gone away. Patient has a remote history of MT with stent placement in 2015. Patient states that the chest pain is dull in nature, it does not radiate into the arm or jaw, he does complain of some vague left neck pain that he has had for the past 2 weeks. Patient also complains of shortness of breath with the chest discomfort, he does not complain of any nausea or vomiting however. Finally, patient complains of a headache he has had over the last 2 weeks with left eye pressure. He also states that he has had left neck pain along with this headache. Workup in the emergency room included an EKG which showed a normal sinus rhythm without evidence of ischemic changes, chest x-ray was unremarkable, CBC was unremarkable, chemistry profile was unremarkable, and patient's troponin was negative. Patient was seen in the emergency room by Dr. Torres, he is agreed to perform a heart catheterization tomorrow on the patient, patient will be placed and observation status on PCU, cardiac enzymes will be cycled, he will be monitored on telemetry. Further note: Patient appears to this examiner to have a severe psychological overlay, he admits to having PTSD and some of the patient's symptoms appear very atypical of coronary artery disease, however, due to the patient's history of coronary artery disease, cardiac catheterization appears to be the best route to choose to eliminate obstructive coronary disease. Past Medical History Past Medical History (Chronic Problems): Chronic Problems (Last Updated 11/15/18 @ 20:04 by Ino Vazquez DO) PAD (peripheral artery disease) (Chronic) Pt on Pletal therapy Carotid artery disease (Chronic) Chronically occluded left ICA PTSD (post-traumatic stress disorder) (Chronic) History of inferior wall myocardial infarction (Chronic 09/05/14) Treated at [facility] Atherosclerotic heart disease of [place] coronary artery with other forms of angina pectoris (Chronic) Acute inferior infarct, SAMSON to ostial-proximal RCA using 2.75 X 32 mm everolimus SAMSON per Dr. Geiger, [facility] 09/05/2014 Stented coronary artery (Chronic 09/05/14) Acute inferior infarct, SAMSON to ostial-proximal RCA using 2.75 X 32 mm everolimus SAMSON per Dr. Geiger, [facility] Asthma (Chronic) Sleep apnea (Chronic) HTN (hypertension) (Chronic) Peripheral vascular disease (Chronic) Depression (Chronic) S/P AAA repair (Chronic 06/03/15) 06/03/[address] Stephanie Sosa @ [facility]: Endovascular repair with Sharon excluder device TIA (transient ischemic attack) (Chronic) 04/13 Atherosclerosis of coronary artery of [place] heart with angina pectoris (Chronic) Pulmonary hypertension (Chronic) RVSP 36 mmHg Chronic bronchitis (Chronic) DIMAS (obstructive sleep apnea) (Chronic) Tobacco abuse (Chronic) Medical History: Medical History (Last Updated 11/15/18 @ 20:04 by Ino Vazquez DO) PAD (peripheral artery disease) (Chronic) I73.9 Pt on Pletal therapy Carotid artery disease (Chronic) I77.9 Chronically occluded left ICA PTSD (post-traumatic stress disorder) (Chronic) F43.10 History of inferior wall myocardial infarction (Chronic) Onset Date: 09/05/14 I25.2 Treated at [facility] Atherosclerotic heart disease of [place] coronary artery with other forms of angina pectoris (Chronic) I25.118 Acute inferior infarct, SAMSON to ostial-proximal RCA using 2.75 X 32 mm everolimus SAMSON per Dr. Geiger, [facility] 09/05/2014 History of abdominal aortic aneurysm (Resolved) Z86.[address] Sosa @ [facility] Asthma (Chronic) J45.909 Sleep apnea (Chronic) G47.30 HTN (hypertension) (Chronic) I10 Peripheral vascular disease (Chronic) I73.9 Depression (Chronic) F32.9 TIA (transient ischemic attack) (Chronic) G45.9 04/13 Chronic sinusitis J32.9 Osteoarthritis M19.90 Allergies chlorzoxazone Adverse Reaction (Severe, Verified 11/15/18 11:39) also known as Parafon Forte: pt becomes disoriented Home Medications: Ambulatory Orders Medication Instructions Recorded lisinopril 20 1 tab PO QHS tab 02/10/18 mg-hydrochlorothiazide 12.5 mg tablet multivit,tx with iron 27 1 tab PO DAILY 09/22/18 [id number] acid 0.4 mg-minerals tablet nitroglycerin 0.4 mg sublingual 0.4 mg SUBLINGUAL Q5-15M PRN 09/22/18 tablet Albuterol Sulfate [Ventolin Hfa] 2 puff INHALATION Q4H PRN 11/15/18 Amox/Clavulanate Tablet [Augmentin 875 mg PO Q12H 11/15/18 Tablet] Aspirin [Aspirin, Baby] 81 mg PO QHS 11/15/18 Atorvastatin Calcium [Lipitor] 80 mg PO QHS 11/15/18 Cilostazol [Pletal] 100 mg PO BID 11/15/18 Clonazepam 0.5 mg PO BID PRN 11/15/18 Clopidogrel Bisulfate [Plavix] 75 mg PO QHS 11/15/18 Metoprolol Tartrate [Lopressor 25 mg PO BID 11/15/18 (beta ian)] Venlafaxine HCl [Effexor] 225 mg PO DAILY 11/15/18 doxycycline hyclate 50 mg tablet 50 mg PO DAILY tab 11/15/18 hydrocodone 5 mg-acetaminophen 325 1 tab PO Q8H PRN 11/15/18 mg tablet lamotrigine 100 mg tablet 100 mg PO BID 11/15/18 traZODone [Desyrel] 200 mg PO QHS 11/15/18 Surgical History: Surgical History (Last Updated 11/15/18 @ 12:14 by Ruth Echevarria) Stented coronary artery (Chronic) Onset Date: 09/05/14 Z95.5 Acute inferior infarct, SAMSON to ostial-proximal RCA using 2.75 X 32 mm everolimus SAMSON per Dr. Geiger, [facility] S/P AAA repair (Chronic) Onset Date: 06/03/15 Z98.890, Z86.79 06/03/[address] Stephanie Sosa @ [facility]: Endovascular repair with Sharon excluder device History of total right knee replacement Onset Date: ~2009 Z96.651 Hx of cataract surgery Z98.49 08/16 Surgical History: appendectomy, tonsillectomy, - - Cardiac stent placement 2014, several knee surgeries including knee replacement, AAA repair-endovascular Psychiatric History: Depression, - - PTSD Lives: Spouse/ Significant Other Smoking Status: Former smoker Tobacco Use: Cigarettes, Cigars, Pipe Alcohol: None Drugs: None - *Family History Maternal History Items: No pertinent history - in motor vehicle accident Paternal History Items: Cancer - from brain cancer Review of Systems Constitutional: Denies: Anorexia, Chills, Fever, Night Sweats, Malaise, Weakness, Weight Change, Fatigue Eyes: Reports: Pain - Patient complains of pain in back of his left eye times 2 weeks. Denies: Cataracts, Conjunctivae Inflammation, Double vision, Drainage, Redness, Vision Change HEENT: Denies: Difficulty Hearing, Difficulty Swallowing, Dysphasia, Ear Pain, Eye Pain, Head Aches, Hearing Changes, Nasal bleeding, Nasal Congestion, Post Nasal Drip, Sinus Drainage Cardiovascular: Reports: Chest Pain. Denies: Claudication, Chest Pressure, Chest Tightness, Edema, Heaviness, Orthopnea, Palpitations, Paroxysmal Noc. Dyspnea, Syncope Respiratory: Reports: Shortness of Breath - Since his chest pain started yesterday. Denies: Cough, Hemoptysis, Pleuritic Pain, Shortness of breath at rest, Shortness of breath upon exertion Gastrointestinal: Denies: Abdominal Pain, Constipation, Diarrhea, Hematemesis, Hematochezia, Nausea, Melena, Vomiting Genitourinary: Denies: Dysuria, Frequency, Hematuria, Hesitancy, Incontinence, Nocturia, Urgency Musculoskeletal: Denies: Back Pain, Foot Pain, Hand Pain, Joint Pain, Joint stiffness, Joint swelling Skin: Denies: Dryness, Pruritis, Rash Neurological: Reports: Headaches. Denies: Blurred vision, Double vision, Change in Speech, Slurred speech, Difficulty swallowing, Focal weakness, Incoordination, Numbness, Tingling Psychiatric: Reports: Depression. Denies: Anxiety, Homicidal Ideations, Suicidal Ideations Endocrine: Denies: Change in Body Habitus, Heat/ Cold Intolerance, Polydipsia, Polyuria Hematologic/ Lymphatic: Denies: Adenopathy, Anemia, Easy Bruising, Easy Bleeding, Petechiae, Purpura VTE Information - Inpt Only VTE Present on Admission: No VTE Mechan Device Prophylaxis: None VTE Pharm Prophylaxis ordered?: Yes Patient Problems: Active and Suspected Problems (Last Updated 11/15/18 @ 20:04 by SHERRI Chua Chest pain (Acute) - Physical Exam General: Alert, Oriented x3, Cooperative, No apparent distress, Well developed, Well nourished HEENT: Atraumatic, PERRLA, EOMI, Normocephalic Oral: Moist Mucosa Neck: Supple, No JVD, Negative Carotid Bruits, No Nuchal Rigidity, Trachea Midline, Thyroid Normal Size and Texture Lungs: Clear to auscultation, Normal air movement, No rhonchi, No wheeze, No rales Cardiovascular: Regular rate, Regular Rhythm, Normal S1, Normal S2, No murmurs, No Ectopic Activity, PMI Normal, No rub noted, No Gallop Abdomen: Bowel Sounds Present, Soft, Non Tender, Non-Distended, No hernias noted Extremities: No clubbing, No cyanosis, No edema, Capillary Refill Less than 3 Seconds Skin: No rashes, No breakdown Musculoskeletal: No Tenderness to Palpation of Joints or Extremities Neurological: Cranial nerves II-XII grossly intact, Neuro grossly intact, Sensory exam intact to light touch and pain, Coordination normal Psych/Mental Status: Normal Affect, Appropriate, Alert and oriented to time, place, person, mood and affect Vital Signs Temp Pulse Resp BP Pulse Ox 97.5 F L 70 20 H 147/78 H 97 11/15/18 15:44 11/15/18 19:00 11/15/18 15:44 11/15/18 15:46 11/15/18 15:44 Oxygen Delivery Method Room Air Weight: 113.6 kg Body Mass Index (BMI) 33.0 Intake and Output for Last 24 Hours 11/13/18 11/14/18 11/15/18 23:59 23:59 23:59 Intake Total 360 / 360 Balance 360 / 360 Laboratory Tests Past 24 Hrs 11/15/18 11/15/18 11/15/18 12:30 12:30 15:48 WBC 7.7 RBC 5.05 Hgb 15.2 Hct 45.3 MCV 89.7 MCH 30.1 MCHC 33.6 RDW 12.5 RDW Differential 40.5 Plt Count 180 MPV 10.9 Immature Gran % (Auto) 0.100 Neut % (Auto) 60.4 Lymph % (Auto) 27.6 Avery % (Auto) 10.7 H Eos % (Auto) 0.9 Baso % (Auto) 0.3 Absolute Neuts (auto) 4.6 Absolute Lymphs (auto) 2.12 Total Counted Not Reportable Sodium 142 Potassium 3.9 Chloride 106 Carbon Dioxide 31.0 Anion Gap 5 BUN 13 Creatinine 1.14 Estim Creat Clear Calc 75.93 Est GFR (MDRD) Af Amer 84 Est GFR (MDRD) Non-Af 69 BUN/Creatinine Ratio 11.4 Glucose 96 Calcium 8.8 Troponin I < 0.015 < 0.015 11/15/18 18:54 WBC RBC Hgb Hct MCV MCH MCHC RDW RDW Differential Plt Count MPV Immature Gran % (Auto) Neut % (Auto) Lymph % (Auto) Avery % (Auto) Eos % (Auto) Baso % (Auto) Absolute Neuts (auto) Absolute Lymphs (auto) Total Counted Sodium Potassium Chloride Carbon Dioxide Anion Gap BUN Creatinine Estim Creat Clear Calc Est GFR (MDRD) Af Amer Est GFR (MDRD) Non-Af BUN/Creatinine Ratio Glucose Calcium Troponin I < 0.015 Assessment/Plan All Active Problems (Last Updated 11/15/18 @ 20:04 by Ino Vazquez DO) Chest pain (Acute) History of abdominal aortic aneurysm (Resolved) History of coronary artery stent placement (Resolved) SOB (shortness of breath) on exertion (Acute) #1 chest pain in a patient with known coronary artery disease-this chest pain again appears atypical, patient will be placed and observation status on PCU, serial enzymes will be obtained, if these remain negative, patient will undergo a cardiac catheterization tomorrow by Dr. Torres. #2 shortness of breath-this appears to be chronic in nature as the patient sees pulmonary medicine, patient's showed me the results of the patient's last pulmonary function test which showed a mixed severe pulmonary disease, patient also has a history of obstructive sleep apnea but is noncompliant with CPAP. #3 pulmonary hypertension-patient's showed me the results of the patient's recent echocardiogram which showed mild pulmonary hypertension with a normal EF. #4 posttraumatic stress disorder-unfortunately, I believe this causes additional problems with sorting out whether the patient currently has obstructive coronary artery disease. #5 cephalgia-patient has had a history of headache for the last 2 weeks, he was seen on 11/08/18 at [facility] in [facility] and diagnosed with ethmoid sinusitis, at that time, an MRI of the brain showed no evidence of acute infarct and it was believed that his headache was secondary to sinusitis. It appears that the patient was placed on doxycycline 100 mg every 12 hours for 14 days at that time. It appears the patient was also placed on Diflucan 200 mg 1 every 72 hours for 28 days, I had nursing asked the patient why he was prescribed Diflucan, patient does not know but patient did not have it filled and is not taking this medication. Patient was placed on Augmentin by his PCP and he is not taking doxycycline that was prescribed in [place]. Patient is on chronic low-dose doxycycline for blepharitis. #6 history of left carotid occlusive disease per patient-patient's MRI result on 11/08/18 showed loss of normal flow of the left MCA compatible with occlusion or trickle flow, a follow-up CTA of the head neck was recommended when appropriate for follow-up by the hospital in [facility]. Patient had a remote history of the left carotid occlusion in the past which was total, he had seen Dr. Neves in the past and there was no specific treatment for this. This was diagnosed several years ago. I talked to the patient's kenneth by phone, she says the patient has an appointment to see Dr. Gray this week concerning his headaches, I asked that she bring this recent abnormal MRI of the brain to his attention so she could discuss the need for further testing on this patient. She confirmed that she would discuss this with Dr. Gray. Code Visit OBS E&M: 30030 Initial observation care L3
--- NOTE | 2018-11-15 19:56 | HP.PCM_ITS ---
Problem List (1) Chest pain Status: Acute Qualifiers: Chest pain type: precordial pain Qualified Code(s): R07.2 - Precordial pain History of Present Illness Date of Admission: 11/15/18 Chief Complaint: Precordial chest pain The patient is a 63 year old M who was seen in the emergency room at [facility] with a chief complaint of left-sided precordial chest pain located underneath the left breast and radiating into the left axilla. Patient states that this discomfort started at 3 PM yesterday, patient confirms it was continuous since 3 PM yesterday and had not gone away. Patient has a remote history of [place] with stent placement in 2015. Patient states that the chest pain is dull in nature, it does not radiate into the arm or jaw, he does complain of some vague left neck pain that he has had for the past 2 weeks. Patient also complains of shortness of breath with the chest discomfort, he does not complain of any nausea or vomiting however. Finally, patient complains of a headache he has had over the last 2 weeks with left eye pressure. He also states that he has had left neck pain along with this headache. Workup in the emergency room included an EKG which showed a normal sinus rhythm without evidence of ischemic changes, chest x-ray was unremarkable, CBC was unremarkable, chemistry profile was unremarkable, and patient's troponin was negative. Patient was seen in the emergency room by Dr. Torres, he is agreed to perform a heart catheterization tomorrow on the patient, patient will be placed and observation status on PCU, cardiac enzymes will be cycled, he will be monitored on telemetry. Further note: Patient appears to this examiner to have a severe psychological overlay, he admits to having PTSD and some of the patient's symptoms appear very atypical of coronary artery disease, however, due to the patient's history of coronary artery disease, cardiac catheterization appears to be the best route to choose to eliminate obstructive coronary disease. Past Medical History Past Medical History (Chronic Problems): Chronic Problems (Last Updated 11/15/18 @ 20:04 by Ino Vazquez DO) PAD (peripheral artery disease) (Chronic) Pt on Pletal therapy Carotid artery disease (Chronic) Chronically occluded left ICA PTSD (post-traumatic stress disorder) (Chronic) History of inferior wall myocardial infarction (Chronic 09/05/14) Treated at [facility] Atherosclerotic heart disease of [place] coronary artery with other forms of angina pectoris (Chronic) Acute inferior infarct, SAMSON to ostial-proximal RCA using 2.75 X 32 mm everolimus SAMSON per Dr. Geiger, [facility] 09/05/2014 Stented coronary artery (Chronic 09/05/14) Acute inferior infarct, SAMSON to ostial-proximal RCA using 2.75 X 32 mm everolimus SAMSON per Dr. Geiger, [facility] Asthma (Chronic) Sleep apnea (Chronic) HTN (hypertension) (Chronic) Peripheral vascular disease (Chronic) Depression (Chronic) S/P AAA repair (Chronic 06/03/15) 06/03/[address] Stephanie Sosa @ [facility]: Endovascular repair with Auxier excluder device TIA (transient ischemic attack) (Chronic) 04/13 Atherosclerosis of coronary artery of [place] heart with angina pectoris (Chronic) Pulmonary hypertension (Chronic) RVSP 36 mmHg Chronic bronchitis (Chronic) DIMAS (obstructive sleep apnea) (Chronic) Tobacco abuse (Chronic) Medical History: Medical History (Last Updated 11/15/18 @ 20:04 by Ino Vazquez DO) PAD (peripheral artery disease) (Chronic) I73.9 Pt on Pletal therapy Carotid artery disease (Chronic) I77.9 Chronically occluded left ICA PTSD (post-traumatic stress disorder) (Chronic) F43.10 History of inferior wall myocardial infarction (Chronic) Onset Date: 09/05/14 I25.2 Treated at [facility] Atherosclerotic heart disease of [place] coronary artery with other forms of angina pectoris (Chronic) I25.118 Acute inferior infarct, SAMSON to ostial-proximal RCA using 2.75 X 32 mm everolimus SAMSON per Dr. Geiger, [facility] 09/05/2014 History of abdominal aortic aneurysm (Resolved) Z86.[address] Sosa @ [facility] Asthma (Chronic) J45.909 Sleep apnea (Chronic) G47.30 HTN (hypertension) (Chronic) I10 Peripheral vascular disease (Chronic) I73.9 Depression (Chronic) F32.9 TIA (transient ischemic attack) (Chronic) G45.9 04/13 Chronic sinusitis J32.9 Osteoarthritis M19.90 Allergies chlorzoxazone Adverse Reaction (Severe, Verified 11/15/18 11:39) also known as Parafon Forte: pt becomes disoriented Home Medications: Ambulatory Orders Medication Instructions Recorded lisinopril 20 1 tab PO QHS tab 02/10/18 mg-hydrochlorothiazide 12.5 mg tablet multivit,tx with iron 27 1 tab PO DAILY 09/22/18 or-iycebuz-kdybq acid 0.4 mg-minerals tablet nitroglycerin 0.4 mg sublingual 0.4 mg SUBLINGUAL Q5-15M PRN 09/22/18 tablet Albuterol Sulfate [Ventolin Hfa] 2 puff INHALATION Q4H PRN 11/15/18 Amox/Clavulanate Tablet [Augmentin 875 mg PO Q12H 11/15/18 Tablet] Aspirin [Aspirin, Baby] 81 mg PO QHS 11/15/18 Atorvastatin Calcium [Lipitor] 80 mg PO QHS 11/15/18 Cilostazol [Pletal] 100 mg PO BID 11/15/18 Clonazepam 0.5 mg PO BID PRN 11/15/18 Clopidogrel Bisulfate [Plavix] 75 mg PO QHS 11/15/18 Metoprolol Tartrate [Lopressor 25 mg PO BID 11/15/18 (beta ian)] Venlafaxine HCl [Effexor] 225 mg PO DAILY 11/15/18 doxycycline hyclate 50 mg tablet 50 mg PO DAILY tab 11/15/18 hydrocodone 5 mg-acetaminophen 325 1 tab PO Q8H PRN 11/15/18 mg tablet lamotrigine 100 mg tablet 100 mg PO BID 11/15/18 traZODone [Desyrel] 200 mg PO QHS 11/15/18 Surgical History: Surgical History (Last Updated 11/15/18 @ 12:14 by Ruth Echevarria) Stented coronary artery (Chronic) Onset Date: 09/05/14 Z95.5 Acute inferior infarct, SAMSON to ostial-proximal RCA using 2.75 X 32 mm everolimus SAMSON per Dr. Geiger, [facility] S/P AAA repair (Chronic) Onset Date: 06/03/15 Z98.890, Z86.79 06/03/[address] Stephanie Sosa @ [facility]: Endovascular repair with Auxier excluder device History of total right knee replacement Onset Date: ~2009 Z96.651 Hx of cataract surgery Z98.49 08/16 Surgical History: appendectomy, tonsillectomy, - - Cardiac stent placement 2014, several knee surgeries including knee replacement, AAA repair-endovascular Psychiatric History: Depression, - - PTSD Lives: Spouse/ Significant Other Smoking Status: Former smoker Tobacco Use: Cigarettes, Cigars, Pipe Alcohol: None Drugs: None - *Family History Maternal History Items: No pertinent history - in motor vehicle accident Paternal History Items: Cancer - from brain cancer Review of Systems Constitutional: Denies: Anorexia, Chills, Fever, Night Sweats, Malaise, Weakness, Weight Change, Fatigue Eyes: Reports: Pain - Patient complains of pain in back of his left eye times 2 weeks. Denies: Cataracts, Conjunctivae Inflammation, Double vision, Drainage, Redness, Vision Change HEENT: Denies: Difficulty Hearing, Difficulty Swallowing, Dysphasia, Ear Pain, Eye Pain, Head Aches, Hearing Changes, Nasal bleeding, Nasal Congestion, Post Nasal Drip, Sinus Drainage Cardiovascular: Reports: Chest Pain. Denies: Claudication, Chest Pressure, Chest Tightness, Edema, Heaviness, Orthopnea, Palpitations, Paroxysmal Noc. Dyspnea, Syncope Respiratory: Reports: Shortness of Breath - Since his chest pain started yeste rday. Denies: Cough, Hemoptysis, Pleuritic Pain, Shortness of breath at rest, Shortness of breath upon exertion Gastrointestinal: Denies: Abdominal Pain, Constipation, Diarrhea, Hematemesis, Hematochezia, Nausea, Melena, Vomiting Genitourinary: Denies: Dysuria, Frequency, Hematuria, Hesitancy, Incontinence, Nocturia, Urgency Musculoskeletal: Denies: Back Pain, Foot Pain, Hand Pain, Joint Pain, Joint stiffness, Joint swelling Skin: Denies: Dryness, Pruritis, Rash Neurological: Reports: Headaches. Denies: Blurred vision, Double vision, Change in Speech, Slurred speech, Difficulty swallowing, Focal weakness, Incoordination, Numbness, Tingling Psychiatric: Reports: Depression. Denies: Anxiety, Homicidal Ideations, Suicidal Ideations Endocrine: Denies: Change in Body Habitus, Heat/ Cold Intolerance, Polydipsia, Polyuria Hematologic/ Lymphatic: Denies: Adenopathy, Anemia, Easy Bruising, Easy Bleeding, Petechiae, Purpura VTE Information - Inpt Only VTE Present on Admission: No VTE Mechan Device Prophylaxis: None VTE Pharm Prophylaxis ordered?: Yes Patient Problems: Active and Suspected Problems (Last Updated 11/15/18 @ 20:04 by SHERRI Chua Chest pain (Acute) - Physical Exam General: Alert, Oriented x3, Cooperative, No apparent distress, Well developed, Well nourished HEENT: Atraumatic, PERRLA, EOMI, Normocephalic Oral: Moist Mucosa Neck: Supple, No JVD, Negative Carotid Bruits, No Nuchal Rigidity, Trachea Midline, Thyroid Normal Size and Texture Lungs: Clear to auscultation, Normal air movement, No rhonchi, No wheeze, No rales Cardiovascular: Regular rate, Regular Rhythm, Normal S1, Normal S2, No murmurs, No Ectopic Activity, PMI Normal, No rub noted, No Gallop Abdomen: Bowel Sounds Present, Soft, Non Tender, Non-Distended, No hernias noted Extremities: No clubbing, No cyanosis, No edema, Capillary Refill Less than 3 Seconds Skin: No rashes, No breakdown Musculoskeletal: No Tenderness to Palpation of Joints or Extremities Neurological: Cranial nerves II-XII grossly intact, Neuro grossly intact, Sensory exam intact to light touch and pain, Coordination normal Psych/Mental Status: Normal Affect, Appropriate, Alert and oriented to time, place, person, mood and affect Vital Signs Temp Pulse Resp BP Pulse Ox 97.5 F L 70 20 H 147/78 H 97 11/15/18 15:44 11/15/18 19:00 11/15/18 15:44 11/15/18 15:46 11/15/18 15:44 Oxygen Delivery Method Room Air Weight: 113.6 kg Body Mass Index (BMI) 33.0 Intake and Output for Last 24 Hours 11/13/18 11/14/18 11/15/18 23:59 23:59 23:59 Intake Total 360 / 360 Balance 360 / 360 Laboratory Tests Past 24 Hrs 11/15/18 11/15/18 11/15/18 12:30 12:30 15:48 WBC 7.7 RBC 5.05 Hgb 15.2 Hct 45.3 MCV 89.7 MCH 30.1 MCHC 33.6 RDW 12.5 RDW Differential 40.5 Plt Count 180 MPV 10.9 Immature Gran % (Auto) 0.100 Neut % (Auto) 60.4 Lymph % (Auto) 27.6 [place] % (Auto) 10.7 H Eos % (Auto) 0.9 Baso % (Auto) 0.3 Absolute Neuts (auto) 4.6 Absolute Lymphs (auto) 2.12 Total Counted Not Reportable Sodium 142 Potassium 3.9 Chloride 106 Carbon Dioxide 31.0 Anion Gap 5 BUN 13 Creatinine 1.14 Estim Creat Clear Calc 75.93 Est GFR (MDRD) Af Amer 84 Est GFR (MDRD) Non-Af 69 BUN/Creatinine Ratio 11.4 Glucose 96 Calcium 8.8 Troponin I < 0.015 < 0.015 11/15/18 18:54 WBC RBC Hgb Hct MCV MCH MCHC RDW RDW Differential Plt Count MPV Immature Gran % (Auto) Neut % (Auto) Lymph % (Auto) [place] % (Auto) Eos % (Auto) Baso % (Auto) Absolute Neuts (auto) Absolute Lymphs (auto) Total Counted Sodium Potassium Chloride Carbon Dioxide Anion Gap BUN Creatinine Estim Creat Clear Calc Est GFR (MDRD) Af Amer Est GFR (MDRD) Non-Af BUN/Creatinine Ratio Glucose Calcium Troponin I < 0.015 Assessment/Plan All Active Problems (Last Updated 11/15/18 @ 20:04 by Ino Vazquez DO) Chest pain (Acute) History of abdominal aortic aneurysm (Resolved) History of coronary artery stent placement (Resolved) SOB (shortness of breath) on exertion (Acute) #1 chest pain in a patient with known coronary artery disease-this chest pain again appears atypical, patient will be placed and observation status on PCU, serial enzymes will be obtained, if these remain negative, patient will undergo a cardiac catheterization tomorrow by Dr. Torres. #2 shortness of breath-this appears to be chronic in nature as the patient sees pulmonary medicine, patient's showed me the results of the patient's last pulmonary function test which showed a mixed severe pulmonary disease, patient also has a history of obstructive sleep apnea but is noncompliant with CPAP. #3 pulmonary hypertension-patient's showed me the results of the patient's recent echocardiogram which showed mild pulmonary hypertension with a normal EF. #4 posttraumatic stress disorder-unfortunately, I believe this causes additional problems with sorting out whether the patient currently has obstructive coronary artery disease. #5 cephalgia-patient has had a history of headache for the last 2 weeks, he was seen on 11/08/18 at [facility] in [facility] and diagnosed with ethmoid sinusitis, at that time, an MRI of the brain showed no evidence of acute infarct and it was believed that his headache was secondary to sinusitis. It appears that the patient was placed on doxycycline 100 mg every 12 hours for 14 days at that time. It appears the patient was also placed on Diflucan 200 mg 1 every 72 hours for 28 days, I had nursing asked the patient why he was prescribed Diflucan, patient does not know but patient did not have it filled and is not taking this medication. Patient was placed on Augmentin by his PCP and he is not taking doxycycline that was prescribed in [place]. Patient is on chronic low-dose doxycycline for blepharitis. #6 history of left carotid occlusive disease per patient-patient's MRI result on 11/08/18 showed loss of normal flow of the left MCA compatible with occlusion or trickle flow, a follow-up CTA of the head neck was recommended when appropriate for follow-up by the hospital in [facility]. Patient had a remote history of the left carotid occlusion in the past which was total, he had seen Dr. Neves in the past and there was no specific treatment for this. This was diagnosed several years ago. I talked to the patient's kenneth by phone, she says the patient has an appointment to see Dr. Gray this week concerning his headaches, I asked that she bring this recent abnormal MRI of the brain to his attention so she could discuss the need for further testing on this patient. She confirmed that she would discuss this with Dr. Gray. Code Visit OBS E&M: [id number] Initial observation care L3
[2018-11-15] MEDS: Cilostazol 50 MG Tablet 100 MG PO (21:01)
[2018-11-15] MEDS: clonazePAM 0.5 MG Tablet PO (21:01)
[2018-11-15] MEDS: Metoprolol Tartrate 25 MG Tablet PO (21:01)
[2018-11-15] MEDS: traZODone 100 MG Tablet 200 MG PO (21:02)
[2018-11-15] MEDS: Aspirin E.C. 81 MG Tablet PO (21:02)
[2018-11-15] MEDS: Atorvastatin Calcium 80 MG Tablet PO (21:03)
[2018-11-15] MEDS: lamoTRIgine 100 MG Tablet PO (21:03)
[2018-11-15] MEDS: Amox/Clavulanate 875 MG Tablet PO (21:03)
[2018-11-16] VITALS (21 sets, daily range): BP systolic 109–166; BP diastolic 57–86; PULSE 53–86; RESP 16–20; TEMP 36.4–36.8; O2SAT 94–100
--- NOTE | 2018-11-16 04:00 | EKG12_ITS ---
Test Reason : AM EKG Blood Pressure : / mmHG Vent. Rate : 062 BPM Atrial Rate : 062 BPM P-R Int : 170 ms QRS Dur : 086 ms QT Int : 426 ms P-R-T Axes : 045 017 037 degrees QTc Int : 432 ms Normal sinus rhythm Normal ECG When compared with ECG of 15-NOV-2018 17:20, MANUAL COMPARISON REQUIRED, DATA IS UNCONFIRMED Confirmed by BEULAH GIMENEZ, RANDALL ([id number]), sound editor BETSY FLEMING ([id number]) on 11/19/2018 2:13:58 PM Referred By: Ino Vazquez Confirmed By:RANDALL RIOJAS MD
[2018-11-16 04:16] LABS: Absolute Lymphocyte Count 2.28 X10^3/ul (0.83-4.51); Absolute Neutrophil Count 3.8 X10^3/uL (2.0-7.7); Basophil# 0.02 X10^3/uL; Basophil% 0.3 % (0-1); Eosinophil# 0.06 X10^3/uL; Eosinophils% 0.9 % (0-5); Hemoglobin 14.1 g/dl (13.0-16.5); Lymphocyte # 2.28 X10^3/ul (4.0); Lymphocyte % 33.8 % (19-41); Mean Corp Hgb Conc 33.6 g/gl (32-36); Mean Corpuscular Volume 89.4 fL (80-94); Mean Platelet Vol. 10.7 fl (6.2-12.0); Monocyte# 0.62 X10^3/uL; Monocyte% 9.2 % (0-10); Neutrophil # 3.76 X10^3/uL (2.7-7.7); Neutrophil % 55.7 % (47-70); Platelet Count 161 K/mm3 (150-450); RBC Distribution Width CV 12.5 % (11.6-14.6); RBC Distribution Width SD 40.6 fl (35.1-43.9); White Blood Count 6.8 K/mm3 (4.4-11.0)
[2018-11-16 04:17] LABS: POSITIVE COUNT NO; POSITIVE DIFFERENTIAL NO; POSITIVE MORPHOLOGY NO
[2018-11-16 04:21] LABS: International Normalized Ratio 1.1; Prothrombin Time (Protime)PT. 14.4 SECONDS (11.7-14.9)
[2018-11-16 04:22] LABS: Partial Thromboplast Time 29.3 Seconds (24.1-36.2)
[2018-11-16 04:24] LABS: Anion Gap 6 (5-15); BUN 13 mg/dL (7-18); BUN/Creat Ratio 10.6 RATIO (10-20); Calcium,Total 8.5 mg/dL (8.5-10.1); Chloride 108 mmol/L (98-107); Creatinine, Serum 1.23 mg/dL (0.70-1.30); EST Glomerular Filtration Rate 63 mL/min (>60); Est Glom Filt Rate - Afr Amer 77 mL/min (>60); Estimated Creatinine Clearance 70.37 ml/min; Glucose 88 mg/dL (74-106); Potassium 4.3 mmol/L (3.5-5.1); Sodium Level 144 mmol/L (136-145)
[2018-11-16] MEDS: Metoprolol Tartrate 25 MG Tablet PO ×2 (06:16→21:07)
[2018-11-16] MEDS: Lisinopril 20 MG Tablet PO (06:16)
[2018-11-16] MEDS: Clopidogrel Bisulfate 75 MG Tablet PO (06:16)
[2018-11-16] MEDS: Aspirin E.C. 81 MG Tablet PO (06:16)
[2018-11-16] MEDS: DiphenhydrAMINE 25 MG Capsule 50 MG PO (07:25)
[2018-11-16] MEDS: 0.9% NaCl Peripheral Flush Adult/Peds IV ×2 (07:26→18:10)
--- NOTE | 2018-11-16 07:32 | NURSING ---
Report called to [employer] RN
--- NOTE | 2018-11-16 10:42 | CL.D_ITS ---
Patient Name: ALLEN VALDES Study Date: 11/16/2018 Performing: Sual Torres MD Ht: 73 inches 185 cm : 1955 Wt: 251.7 lbs 114 kg Age: 63 Gender: male BSA: 2.37 PROCEDURE(S) PERFORMED [id number]/COR/LV CLINICAL PROFILE AND INDICATIONS Indications: ACS > 24 hrs, New Onset Angina <= 2 months, Stable Known CAD Heart Failure: None Stress/Imaging Stress Test w/SPECT MPI: Yes Result: NegativeStress Test with SPECT MPI: Negative Angina Classification Anginal Classification w/in 2 Weeks: CCS IV CAD Presentations: Symptom unlikely to be ischemic. Comorbidities/Risk Factors: Hypertension Dyslipidemia Current/Recent Smoker (< 1year) Prior PCI Diabetes Mellitus: Diabetes Therapy: Oral CONCLUSIONS Perserved Left Ventricular systolic function with normal EDP Non obstructive coronary arteries Known occluded small OM#1 with L to L and R to L collaterals; too small and occluded for too long to benefit from PCI. RECOMMENDATIONS Risk factor modification Increase lisinopril to 40mg po qd. Cont DAPT for life given CAD and PVD. Eval for non cardiac, atypical CP. DESCRIPTION OF PROCEDURE The patient arrived to the procedure lab. The risks and benefits of the procedure as well as a full d escription of our services here and current unavailability of surgical backup were fully explained to the patient and/or their significant other prior to the catheterization. The Timeout was completed, verifying the correct patient and procedure. The patient's procedural site was prepped and draped in the usual fashion. Local anesthetic was given subcutaneously to right groin region with Lidocaine 2%. Using a modified Seldinger technique, arterial access was obtained via the right femoral artery, a 4 Fr 45cm sheath was inserted Left Coronary Artery selective angiography was performed in multiple vi ews using a 4 Fr. JL5 catheter. Right Coronary Artery selective angiography was then performed in mul tiple views using a 4 Fr. 3DRC catheter. Left Ventriculography was performed in SINGH projection using a 4 Fr. Pigtail catheter. LV to AO pullback pressures were then recorded.The arterial sheath was pulled and manual compression applied until hemostasis is achieved. CORONARY ANGIOGRAPHY DOMINANCE: Right Dominant LEFT HEART ASSESSMENT Left Ventricular Ejection Fraction: by LV Gram 55 % Inferior Basal Hypokinesis - Mild Depressed Left Ventricular systolic function LEFT MAIN: Angiographically normal LEFT ANTERIOR DECENDING ARTERY: PROX LAD: Non-obstructive DIAGONAL 1: Proximal - Non-obstructive CIRCUMFLEX ARTERY: Non-obstructive OM 1: Proximal - is occluded RIGHT CORONARY ARTERY: PROX RCA: Previously placed stent is patent COLLATERAL FLOW: Collateral flow from Left to Left Collateral flow from Right to Left COMPLICATIONS No Complications PROCEDURE MEDICATIONS Versed 1 mg IV Oxygen: 2 L/min via nasal cannula SUMMARY OF HEMODYNAMIC DATA Time AIR REST ECG 08:15:14 AO 137/79 (105) SA 10:12:21 LV 139/-15, 11 10:18:35 LV 142/-15, 20 10:18:42 LVp 139/52, 52 10:18:48 AOp 145/73 (104) 10:18:53 Signed By Saul Torres MD On 11/16/2018 10:41:07 Saul Torres MD
[2018-11-16] MEDS: lamoTRIgine 100 MG Tablet PO ×2 (12:40→21:06)
[2018-11-16] MEDS: hydroCHLOROthiazide 12.5mg 12.5 MG PO (12:41)
[2018-11-16] MEDS: Cilostazol 50 MG Tablet 100 MG PO ×2 (12:41→21:07)
[2018-11-16] MEDS: Amox/Clavulanate 875 MG Tablet PO ×2 (12:41→21:05)
[2018-11-16] MEDS: Venlafaxine XR 75 MG Capsule 150 MG PO (12:41)
--- NOTE | 2018-11-16 12:50 | NURSING ---
All AM meds given late due to heart cath
--- NOTE | 2018-11-16 13:45 | CPS ---
Nurse called informing this therapist that there was an order for Duoneb x 1. This therapist proceeded to go to accudose to pull med to start aerosol immediately. Nurse called this therapist back while medication was being pulled from accudose to inform that pt did not want the aerosol to be given until he was off of bed rest. Nurse was informed that this therapist will come back at end of rest period. Med dispense was canceled.
--- NOTE | 2018-11-16 14:45 | NURSING ---
RN ambulated pt post heart cath recovery. Tolerated well. Dressing C/D/I.
--- NOTE | 2018-11-16 14:46 | CT_ITS ---
STUDY: CT CHEST WITHOUT CONTRAST REASON FOR EXAM: Male, 63 years old. Chest pain shortness of breath cough RADIATION DOSAGE (If Supplied By Facility): CTDIvol = ( 19.56 ) mGy, DLP = ( 769.51 ) mGycm TECHNIQUE: Transaxial imaging was performed without the administration of intravenous contrast material. Multiplanar coronal and sagittal images were reformatted. Individualized dose optimization techniques were used for this CT. COMPARISON: Chest x-ray November 15, 2018 FINDINGS: There is trace linear scarring within the lung bases. There is no visualized focal consolidation pleural effusion or pulmonary edema and pneumothorax. There is no evidence of large emphysematous blebs or areas of suspicious interstitial thickening or significant fibrotic change. Normal pleura. There is dense calcification of the coronary arteries. There is mild cardiac enlargement. There is a trace pericardial effusion. A few nonspecific subcentimeter lymph nodes. Normal hilar regions. Normal unenhanced pulmonary arteries. There is partial calcification of the aorta. There are minimal multi-level degenerative changes of the thoracic spine. There is abundant stool in the visualized colon is a suggestion of a punctate stone left kidney there is mild thickening of the left greater than right adrenal glands. CT/Chest without Contrast IMPRESSION: Coronary artery calcification. No evidence of focal infiltrate or findings to suggest fibrosis or emphysematous change. Electronically Signed: Melissa Barrera MD at 19:34 EST Tel , Service support ,
--- NOTE | 2018-11-16 14:55 | PCM.PROGNOTE ---
Patient Problems: Active and Suspected Problems (Last Updated 11/15/18 @ 20:04 by Ino Vazquez DO) Chest pain (Acute) Subjective: Pt has ongoing chest pain across the left side of his chest. He is not SOB at rest, but c.o ongoing worsening SOB with mild activity and feels that this is not being appropriately addressed. He follows Dr. Tesfaye as an outpatient. He had a CTA chest in august that was negative for PE. He does have COPD and appears to only use an albuterol inhaler for this. He has had recent PFTs that show his lung function has worsened. He is very upset frustrated today. He also complains of ongoing left eye pain and headache. - Physical Exam General: Alert, Oriented x3, Cooperative HEENT: Atraumatic, PERRLA, EOMI, Normocephalic Neck: Supple, No JVD, Negative Carotid Bruits Lungs: Clear to auscultation, Normal air movement Cardiovascular: Regular rate, No murmurs Abdomen: Bowel Sounds Present, Soft, Non Tender Extremities: No edema, Capillary Refill Less than 3 Seconds Skin: No rashes, No breakdown Musculoskeletal: No Tenderness to Palpation of Joints or Extremities Neurological: Cranial nerves II-XII grossly intact Psych/Mental Status: Normal Affect, Appropriate, Alert and oriented to time, place, person, mood and affect Vital Signs Temp Pulse Resp BP Pulse Ox 97.6 F L 67 18 166/78 H 96 11/16/18 14:30 11/16/18 14:30 11/16/18 14:30 11/16/18 14:30 11/16/18 14:30 Oxygen Delivery Method Room Air Weight: 250 lb 7.122 oz Body Mass Index (BMI) 33.0 Intake and Output for Last 24 Hours 11/14/18 11/15/18 11/16/18 23:59 23:59 23:59 Intake Total 700 / 700 240 / 240 Balance 700 / 700 240 / 240 Laboratory Tests Past 24 Hrs 11/15/18 11/15/18 11/16/18 15:48 18:54 03:55 WBC 6.8 RBC 4.70 Hgb 14.1 Hct 42.0 MCV 89.4 MCH 30.0 MCHC 33.6 RDW 12.5 RDW Differential 40.6 Plt Count 161 MPV 10.7 Immature Gran % (Auto) 0.100 Neut % (Auto) 55.7 Lymph % (Auto) 33.8 [place] % (Auto) 9.2 Eos % (Auto) 0.9 Baso % (Auto) 0.3 Absolute Neuts (auto) 3.8 Absolute Lymphs (auto) 2.28 Total Counted Not Reportable PT INR APTT Sodium Potassium Chloride Carbon Dioxide Anion Gap BUN Creatinine Estim Creat Clear Calc Est GFR (MDRD) Af Amer Est GFR (MDRD) Non-Af BUN/Creatinine Ratio Glucose Calcium Troponin I < 0.015 < 0.015 11/16/18 11/16/18 03:55 03:55 WBC RBC Hgb Hct MCV MCH MCHC RDW RDW Differential Plt Count MPV Immature Gran % (Auto) Neut % (Auto) Lymph % (Auto) [place] % (Auto) Eos % (Auto) Baso % (Auto) Absolute Neuts (auto) Absolute Lymphs (auto) Total Counted PT 14.4 INR 1.1 APTT 29.3 Sodium 144 Potassium 4.3 Chloride 108 H Carbon Dioxide 30.0 Anion Gap 6 BUN 13 Creatinine 1.23 Estim Creat Clear Calc 70.37 Est GFR (MDRD) Af Amer 77 Est GFR (MDRD) Non-Af 63 BUN/Creatinine Ratio 10.6 Glucose 88 Calcium 8.5 Troponin I Medical Necessity - Tobacco Use Smoking Status: Former smoker Tobacco Use: Cigarettes, Cigars, Pipe Assessment/Plan All Active Problems (Last Updated 11/15/18 @ 20:04 by Ino Vazquez DO) Chest pain (Acute) History of abdominal aortic aneurysm (Resolved) History of coronary artery stent placement (Resolved) SOB (shortness of breath) on exertion (Acute) 1. Chest pain, hx CAD, MD - unclear etiology. Negative cath with Dr. Torres today. Trop negs. Will obtain a new CT chest. CXR was negative. Lifelong dual antiplatelets per cardiology. 2. COPD - not acute exacerbation. hanh.w Dr. Goss - he confirmed his last PFTs showed worsening function, and that he does have COPD. Will trial albuterol to see if chest pain improves. May be bronchospasm induced chest pain. He will need close follow up with pulmonary medicine. He has a rheumatoid panel result in the computer that was negative. 3. Pulmonary HTN - mild per recent echo. 4. DIMAS - noncompliant with CPAP, has significant PTSD - hopefully with additional klonopin his anxiety/PTSD will be better controlled to help allow him to tolerate CPAP more. 5. PTSD/anxiety - increase klonopin as above. Also on effexor, lamictal, trazodone. 6. Former heavy smoker - quit in november, smoked since teenager. 7. Obesity - weight loss will also be of benefit to his pulmonary function, but his exercise tolerance is very low. 8. HTN - running high, Dr. Torres increased his lisinopril today. Will monitor. 9. Hx AAA with prior graft, also on pletal 10. Sinusitis - recent dx, on augmentin per PCP. DVT ppx: heparin DC planning: ongoing sob and cp, will be monitored overnight This patient was seen by Mohit Abdi PA-C under the supervision of Doctor Grimes.
[2018-11-16] MEDS: HYDROcodone Bitartrate/Apap 5/325 Tablet PO (15:01)
[2018-11-16] MEDS: ALPRAZolam 0.5 MG Tablet PO (15:01)
[2018-11-16 15:21] LABS: Erythrocyte Sedimentation Rate 2 mm/hr (0-20)
[2018-11-16] MEDS: Ipratropium/Albuterol Sulfate 3 ML AMPUL.NEB INHALATION (15:29)
[2018-11-16 15:38] LABS: CRP < 2.90 mg/L (0.0-3.0)
[2018-11-16] MEDS: MethylPREDNISolone 125 MG/2 ML Vial 60 MG IV (18:07)
--- NOTE | 2018-11-16 18:49 | NURSING ---
Reviewed and agreed on all charting with Daniel Lind RN
[2018-11-16] MEDS: Atorvastatin Calcium 80 MG Tablet PO (21:06)
[2018-11-16] MEDS: traZODone 100 MG Tablet 200 MG PO (21:06)
[2018-11-16] MEDS: clonazePAM 1 MG Tablet PO (21:18)
[2018-11-17] VITALS (13 sets, daily range): BP systolic 120–146; BP diastolic 75–91; PULSE 62–103; RESP 12–23; TEMP 36.3–36.9; O2SAT 93–97
[2018-11-17] MEDS: MethylPREDNISolone 125 MG/2 ML Vial 60 MG IV ×4 (00:20→17:30)
[2018-11-17] MEDS: 0.9% NaCl Peripheral Flush Adult/Peds IV ×9 (00:20→19:36)
[2018-11-17] MEDS: Amox/Clavulanate 875 MG Tablet PO ×2 (09:48→22:18)
[2018-11-17] MEDS: Venlafaxine XR 75 MG Capsule 150 MG PO (09:48)
[2018-11-17] MEDS: Clopidogrel Bisulfate 75 MG Tablet PO (09:49)
[2018-11-17] MEDS: Metoprolol Tartrate 25 MG Tablet PO ×2 (09:49→22:20)
[2018-11-17] MEDS: lamoTRIgine 100 MG Tablet PO ×2 (09:49→22:20)
[2018-11-17] MEDS: Cilostazol 50 MG Tablet 100 MG PO ×2 (09:51→22:20)
[2018-11-17] MEDS: clonazePAM 1 MG Tablet PO ×2 (09:52→22:21)
--- NOTE | 2018-11-17 11:34 | PCM.CONS.GEN ---
Reason for Consult Date of Consultation: 11/17/18 Reason for Consultation: Shortness of breath History of Present Illness: Patient is a 63-year-old male, with a history as outlined below, who initially presented to the emergency department on November 15 with complaints of chest pain and shortness of breath. The patient currently follows with Dr. Rossi in the pulmonary medicine clinic. His shortness of breath has been worked up extensively in the past. The patient was last seen in the pulmonary medicine clinic by our nurse practitioner on November 01. His last pulmonary function studies last completed in mid September revealed evidence of an irreversible severe mixed ventilatory defect with a mild reduction in diffusing capacity. When compared to previous pulmonary function studies dated January 2018, there had been a 35% reduction in the patient's FEV1, 23% reduction in TLC at 17% reduction in DLCO. A 6-minute walk test was also completed at that time. The patient was able to ambulate 354 feet, which indicates impaired walk distance. The katerine oxygen saturation with exertion was 96%. The patient was evaluated by cardiology upon admission to the hospital. On November 16, the patient underwent a cardiac catheterization. The procedure indicated nonobstructive coronary arteries with preserved left ventricular systolic function and normal end-diastolic pressures. Surface echocardiogram last completed in September 2018 revealed evidence of stage I diastolic dysfunction with a mildly elevated pulmonary artery systolic pressure of 36 mmHg. A high resolution chest CT was then obtained on November 16 revealed grossly clear lung parenchyma bilaterally without any evidence of emphysematous changes or interstitial lung disease. Previously, through the pulmonary medicine clinic, the patient has been trialed on both diuretics and albuterol, neither of which she responded to symptomatically. 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 Atherosclerotic heart disease of [place] coronary artery with other forms of angina pectoris (Chronic) Acute inferior infarct, SAMSON to ostial-proximal RCA using 2.75 X 32 mm everolimus SAMSON per Dr. Geiger, [facility] 09/05/2014 Stented coronary artery (Chronic 09/05/14) Acute inferior infarct, SAMSON to ostial-proximal RCA using 2.75 X 32 mm everolimus SAMSON per Dr. Geiger, [facility] Asthma (Chronic) Sleep apnea (Chronic) HTN (hypertension) (Chronic) Peripheral vascular disease (Chronic) Depression (Chronic) S/P AAA repair (Chronic 06/03/15) 06/03/[address] Stephanie Sosa @ [facility]: Endovascular repair with [place] excluder device TIA (transient ischemic attack) (Chronic) 04/13 Atherosclerosis of coronary artery of [place] heart with angina pectoris (Chronic) Pulmonary hypertension (Chronic) RVSP 36 mmHg Chronic bronchitis (Chronic) DIMAS (obstructive sleep apnea) (Chronic) Tobacco abuse (Chronic) Medical History: Medical History (Last Updated 11/15/18 @ 20:04 by Ino Vazquez DO) PAD (peripheral artery disease) (Chronic) I73.9 Pt on Pletal therapy Carotid artery disease (Chronic) I77.9 Chronically occluded left ICA PTSD (post-traumatic stress disorder) (Chronic) F43.10 History of inferior wall myocardial infarction (Chronic) Onset Date: 09/05/14 I25.2 Treated at [facility] Atherosclerotic heart disease of [place] coronary artery with other forms of angina pectoris (Chronic) I25.118 Acute inferior infarct, SAMSON to ostial-proximal RCA using 2.75 X 32 mm everolimus SAMSON per Dr. Geiger, [facility] 09/05/2014 History of abdominal aortic aneurysm (Resolved) Z86.[address] Sosa @ [facility] Asthma (Chronic) J45.909 Sleep apnea (Chronic) G47.30 HTN (hypertension) (Chronic) I10 Peripheral vascular disease (Chronic) I73.9 Depression (Chronic) F32.9 TIA (transient ischemic attack) (Chronic) G45.9 04/13 Chronic sinusitis J32.9 Osteoarthritis M19.90 Allergies chlorzoxazone Adverse Reaction (Severe, Verified 11/15/18 11:39) also known as Parafon Forte: pt becomes disoriented Home Medications: Ambulatory Orders Medication Instructions Recorded lisinopril 20 1 tab PO QHS tab 02/10/18 mg-hydrochlorothiazide 12.5 mg tablet multivit,tx with iron 27 1 tab PO DAILY 09/22/18 vz-[id number]-qpbgl acid 0.4 mg-minerals tablet nitroglycerin 0.4 mg sublingual 0.4 mg SUBLINGUAL Q5-15M PRN 09/22/18 tablet Albuterol Sulfate [Ventolin Hfa] 2 puff INHALATION Q4H PRN 11/15/18 Amox/Clavulanate Tablet [Augmentin 875 mg PO Q12H 11/15/18 Tablet] Aspirin [Aspirin, Baby] 81 mg PO QHS 11/15/18 Atorvastatin Calcium [Lipitor] 80 mg PO QHS 11/15/18 Cilostazol [Pletal] 100 mg PO BID 11/15/18 Clonazepam 0.5 mg PO BID PRN 11/15/18 Clopidogrel Bisulfate [Plavix] 75 mg PO QHS 11/15/18 Metoprolol Tartrate [Lopressor 25 mg PO BID 11/15/18 (beta ian)] Venlafaxine HCl [Effexor] 225 mg PO DAILY 11/15/18 doxycycline hyclate 50 mg tablet 50 mg PO DAILY tab 11/15/18 hydrocodone 5 mg-acetaminophen 325 1 tab PO Q8H PRN 11/15/18 mg tablet lamotrigine 100 mg tablet 100 mg PO BID 11/15/18 traZODone [Desyrel] 200 mg PO QHS 11/15/18 Surgical History: Surgical History (Last Updated 11/15/18 @ 12:14 by Ruth Echevarria) Stented coronary artery (Chronic) Onset Date: 09/05/14 Z95.5 Acute inferior infarct, SAMSON to ostial-proximal RCA using 2.75 X 32 mm everolimus SAMSON per Dr. Geiger, [facility] S/P AAA repair (Chronic) Onset Date: 06/03/15 Z98.890, Z86.79 06/03/[address] Stephanie Sosa @ [facility]: Endovascular repair with [place] excluder device History of total right knee replacement Onset Date: ~2009 Z96.651 Hx of cataract surgery Z98.49 08/16 Surgical History: appendectomy, tonsillectomy, - - Cardiac stent placement 2014, several knee surgeries including knee replacement, AAA repair-endovascular Psychiatric History: Depression, - - PTSD Lives: Spouse/ Significant Other Smoking Status: Former smoker Tobacco Use: Cigarettes, Cigars, Pipe Alcohol: None Drugs: None - *Family History Maternal History Items: No pertinent history - in motor vehicle accident Paternal History Items: Cancer - from brain cancer Review of Systems Constitutional: Denies: Anorexia, Chills, Fever Eyes: Denies: Blurred vision, Double vision HEENT: Denies: Head Aches, Sinus Congestion, Sinus Drainage Cardiovascular: Denies: Chest Pain, Palpitations Respiratory: Reports: Cough, Shortness of Breath Gastrointestinal: Denies: Abdominal Pain, Nausea, Vomiting Genitourinary: Denies: Dysuria Musculoskeletal: Denies: Joint Pain, Joint Tenderness Skin: Denies: Rash, Wounds Neurological: Denies: Numbness, Tingling, Focal weakness Psychiatric: Reports: Anxiety Hematologic/ Lymphatic: Denies: Easy Bruising, Easy Bleeding Patient Problems: Active and Suspected Problems (Last Updated 11/15/18 @ 20:04 by Ino Vazquez DO) Chest pain (Acute) Objective: The patient's most recent lab work, culture data and imaging studies have all been personally reviewed. - Physical Exam General: Alert, Oriented x3, Cooperative, No apparent distress, - - is present at the bedside. HEENT: Atraumatic, PERRLA, Normocephalic Oral: Moist Mucosa, No Gingival or Mucosal Lesions/ Ulcerations Neck: Supple, No Nodes, Trachea Midline Lungs: Normal air movement, No rhonchi, No wheeze, No rales Cardiovascular: Regular rate, Regular Rhythm, Normal S1, Normal S2, No murmurs Abdomen: Bowel Sounds Present, Soft, Non Tender, Obese Extremities: No clubbing, No cyanosis, No edema Skin: No breakdown Musculoskeletal: No Tenderness to Palpation of Joints or Extremities, No Muscle Wasting Lymphatic: No Cervical, Supraclavicular, or Inguinal Adenopathy Neurological: Cranial nerves II-XII grossly intact, Neuro grossly intact Psych/Mental Status: Alert and oriented to time, place, person, mood and affect Vital Signs Temp Pulse Resp BP Pulse Ox 36.6 C 92 16 120/75 94 11/17/18 08:55 11/17/18 09:49 11/17/18 08:55 11/17/18 09:49 11/17/18 08:55 Oxygen Delivery Method Room Air Weight: 250 lb 7.122 oz Body Mass Index (BMI) 33.0 Intake and Output for Last 24 Hours 11/15/18 11/16/18 11/17/18 23:59 23:59 23:59 Intake Total 700 / 700 805 / 805 40 / 40 Output Total 0 / 0 Balance 700 / 700 805 / 805 40 / 40 Laboratory Tests Past 24 Hrs 11/16/18 11/16/18 03:55 03:55 ESR 2 C-React Prot Ext Range < 2.90 Labs (Last 48 Hours) 11/15/18 11/15/18 11/15/18 12:30 12:30 15:48 WBC 7.7 RBC 5.05 Hgb 15.2 Hct 45.3 MCV 89.7 MCH 30.1 MCHC 33.6 RDW 12.5 RDW Differential 40.5 Plt Count 180 MPV 10.9 Immature Gran % (Auto) 0.100 Neut % (Auto) 60.4 Lymph % (Auto) 27.6 [place] % (Auto) 10.7 H Eos % (Auto) 0.9 Baso % (Auto) 0.3 Absolute Neuts (auto) 4.6 Absolute Lymphs (auto) 2.12 Total Counted Not Reportable ESR PT INR APTT Sodium 142 Potassium 3.9 Chloride 106 Carbon Dioxide 31.0 Anion Gap 5 BUN 13 Creatinine 1.14 Estim Creat Clear Calc 75.93 Est GFR (MDRD) Af Amer 84 Est GFR (MDRD) Non-Af 69 BUN/Creatinine Ratio 11.4 Glucose 96 Calcium 8.8 Troponin I < 0.015 < 0.015 C-React Prot Ext Range 11/15/18 11/16/18 11/16/18 18:54 03:55 03:55 WBC 6.8 RBC 4.70 Hgb 14.1 Hct 42.0 MCV 89.4 MCH 30.0 MCHC 33.6 RDW 12.5 RDW Differential 40.6 Plt Count 161 MPV 10.7 Immature Gran % (Auto) 0.100 Neut % (Auto) 55.7 Lymph % (Auto) 33.8 [place] % (Auto) 9.2 Eos % (Auto) 0.9 Baso % (Auto) 0.3 Absolute Neuts (auto) 3.8 Absolute Lymphs (auto) 2.28 Total Counted Not Reportable ESR PT 14.4 INR 1.1 APTT 29.3 Sodium Potassium Chloride Carbon Dioxide Anion Gap BUN Creatinine Estim Creat Clear Calc Est GFR (MDRD) Af Amer Est GFR (MDRD) Non-Af BUN/Creatinine Ratio Glucose Calcium Troponin I < 0.015 C-React Prot Ext Range 11/16/18 11/16/18 11/16/18 03:55 03:55 03:55 WBC RBC Hgb Hct MCV MCH MCHC RDW RDW Differential Plt Count MPV Immature Gran % (Auto) Neut % (Auto) Lymph % (Auto) [place] % (Auto) Eos % (Auto) Baso % (Auto) Absolute Neuts (auto) Absolute Lymphs (auto) Total Counted ESR 2 PT INR APTT Sodium 144 Potassium 4.3 Chloride 108 H Carbon Dioxide 30.0 Anion Gap 6 BUN 13 Creatinine 1.23 Estim Creat Clear Calc 70.37 Est GFR (MDRD) Af Amer 77 Est GFR (MDRD) Non-Af 63 BUN/Creatinine Ratio 10.6 Glucose 88 Calcium 8.5 Troponin I C-React Prot Ext Range < 2.90 Clinical Impression(s) from Imaging Studies Chest X-Ray 11/15/18 12:01 IMPRESSION: No acute intrathoracic process. Electronically Signed: Tracie Zelaya MD at 12:27 EST , Service support , Chest CT 11/16/18 14:46 IMPRESSION: Coronary artery calcification. No evidence of focal infiltrate or findings to suggest fibrosis or emphysematous change. Electronically Signed: Melissa Barrera MD at 19:34 EST Tel , Service support , Assessment/Plan All Active Problems (Last Updated 11/15/18 @ 20:04 by Ino Vazquez DO) Chest pain (Acute) History of abdominal aortic aneurysm (Resolved) History of coronary artery stent placement (Resolved) SOB (shortness of breath) on exertion (Acute) RECOMMENDATIONS: 1. We will proceed with basic bronchoscopy for airway evaluation tomorrow at 8 AM. Please make patient n.p.o. after midnight. 2. If bronchoscopy is unrevealing, may need to consider speech therapy evaluation for laryngeal control therapy. 3. Given the patient's intermittent cough complaints, would recommend discontinuing NIYA inhibitor and transitioning to ARB. IMPRESSIONS: 1. Unexplained dyspnea/cough/baseline obstructive lung disease noted on PFTs Full of the patient's prior pulmonary workup and history has been reviewed. The exact etiology for his underlying dyspnea remains a bit unclear. Extensive cardiac workup has also been completed without significant abnormalities identified. The patient's recent CT chest completed during this hospitalization revealed no significant parenchymal abnormalities that would explain his degree of dyspnea. While the patient did previously have an obstructive ventilatory impairment noted on PFTs, the impairment worsened on follow-up testing from September. Again, the exact reason for this change is a bit unclear, given that no significant findings were noted on CT chest imaging. The patient has never responded favorably to the use of bronchodilators or Lasix. Given all of the aforementioned, I discussed proceeding with a bronchoscopy tomorrow with the patient. This will allow us to evaluate for potential vocal cord dysfunction and for any evidence of tracheomalacia. The patient is in agreement with this plan. The bronchoscopy is currently scheduled for 8 AM tomorrow morning. Please make patient n.p.o. after midnight. 2. Obstructive sleep apnea The patient is noncompliant with use of nocturnal positive pressure ventilation. 3. Prior tobacco dependence/PTSD/anxiety/hypertension Complicates care, management, recovery and prognosis. Continue home medications as indicated. This note was generated with [employer] dictation software. It may contain incorrect words, spelling, and punctuation that were not noted in checking the note before signing. Code Visit Inpatient E&M: 36145 Init Hosp L3
--- NOTE | 2018-11-17 11:42 | CON.PCM_ITS ---
Reason for Consult Date of Consultation: 11/17/18 Reason for Consultation: Shortness of breath History of Present Illness: Patient is a 63-year-old male, with a history as outlined below, who initially presented to the emergency department on November 15 with complaints of chest pain and shortness of breath. The patient currently follows with Dr. Rossi in the pulmonary medicine clinic. His shortness of breath has been worked up extensively in the past. The patient was last seen in the pulmonary medicine clinic by our nurse practitioner on November 01. His last pulmonary function studies last completed in mid September revealed evidence of an irreversible severe mixed ventilatory defect with a mild reduction in diffusing capacity. When compared to previous pulmonary function studies dated January 2018, there had been a 35% reduction in the patient's FEV1, 23% reduction in TLC at 17% reduction in DLCO. A 6-minute walk test was also completed at that time. The patient was able to ambulate 354 feet, which indicates impaired walk distance. The katerine oxygen saturation with exertion was 96%. The patient was evaluated by cardiology upon admission to the hospital. On November 16, the patient underwent a cardiac catheterization. The procedure indicated nonobstructive coronary arteries with preserved left ventricular systolic function and normal end-diastolic pressures. Surface echocardiogram last completed in September 2018 revealed evidence of stage I diastolic dysfunction with a mildly elevated pulmonary artery systolic pressure of 36 mmHg. A high resolution chest CT was then obtained on November 16 revealed grossly clear lung parenchyma bilaterally without any evidence of emphysematous changes or interstitial lung disease. Previously, through the pulmonary medicine clinic, the patient has been trialed on both diuretics and albuterol, neither of which she responded to symptomatically. Past Medical History Past Medical History (Chronic Problems): Chronic Problems (Last Updated 11/15/18 @ 20:04 by Ino Vazquez DO) PAD (peripheral artery disease) (Chronic) Pt on Pletal therapy Carotid artery disease (Chronic) Chronically occluded left ICA PTSD (post-traumatic stress disorder) (Chronic) History of inferior wall myocardial infarction (Chronic 09/05/14) Treated at [facility] Atherosclerotic heart disease of [place] coronary artery with other forms of angina pectoris (Chronic) Acute inferior infarct, SAMSON to ostial-proximal RCA using 2.75 X 32 mm everolimus SAMSON per Dr. Geiger, [facility] 09/05/2014 Stented coronary artery (Chronic 09/05/14) Acute inferior infarct, SAMSON to ostial-proximal RCA using 2.75 X 32 mm everolimus SAMSON per Dr. Geiger, [facility] Asthma (Chronic) Sleep apnea (Chronic) HTN (hypertension) (Chronic) Peripheral vascular disease (Chronic) Depression (Chronic) S/P AAA repair (Chronic 06/03/15) 06/03/[address] 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 with angina pectoris (Chronic) Pulmonary hypertension (Chronic) RVSP 36 mmHg Chronic bronchitis (Chronic) DIMAS (obstructive sleep apnea) (Chronic) Tobacco abuse (Chronic) Medical History: Medical History (Last Updated 11/15/18 @ 20:04 by Ino Vazquez DO) PAD (peripheral artery disease) (Chronic) I73.9 Pt on Pletal therapy Carotid artery disease (Chronic) I77.9 Chronically occluded left ICA PTSD (post-traumatic stress disorder) (Chronic) F43.10 History of inferior wall myocardial infarction (Chronic) Onset Date: 09/05/14 I25.2 Treated at [facility] Atherosclerotic heart disease of [place] coronary artery with other forms of angina pectoris (Chronic) I25.118 Acute inferior infarct, SAMSON to ostial-proximal RCA using 2.75 X 32 mm everolimus SAMSON per Dr. Geiger, [facility] 09/05/2014 History of abdominal aortic aneurysm (Resolved) Z86.[address] Sosa @ [facility] Asthma (Chronic) J45.909 Sleep apnea (Chronic) G47.30 HTN (hypertension) (Chronic) I10 Peripheral vascular disease (Chronic) I73.9 Depression (Chronic) F32.9 TIA (transient ischemic attack) (Chronic) G45.9 04/13 Chronic sinusitis J32.9 Osteoarthritis M19.90 Allergies chlorzoxazone Adverse Reaction (Severe, Verified 11/15/18 11:39) also known as Parafon Forte: pt becomes disoriented Home Medications: Ambulatory Orders Medication Instructions Recorded lisinopril 20 1 tab PO QHS tab 02/10/18 mg-hydrochlorothiazide 12.5 mg tablet multivit,tx with iron 27 1 tab PO DAILY 09/22/18 [id number] acid 0.4 mg-minerals tablet nitroglycerin 0.4 mg sublingual 0.4 mg SUBLINGUAL Q5-15M PRN 09/22/18 tablet Albuterol Sulfate [Ventolin Hfa] 2 puff INHALATION Q4H PRN 11/15/18 Amox/Clavulanate Tablet [Augmentin 875 mg PO Q12H 11/15/18 Tablet] Aspirin [Aspirin, Baby] 81 mg PO QHS 11/15/18 Atorvastatin Calcium [Lipitor] 80 mg PO QHS 11/15/18 Cilostazol [Pletal] 100 mg PO BID 11/15/18 Clonazepam 0.5 mg PO BID PRN 11/15/18 Clopidogrel Bisulfate [Plavix] 75 mg PO QHS 11/15/18 Metoprolol Tartrate [Lopressor 25 mg PO BID 11/15/18 (beta ian)] Venlafaxine HCl [Effexor] 225 mg PO DAILY 11/15/18 doxycycline hyclate 50 mg tablet 50 mg PO DAILY tab 11/15/18 hydrocodone 5 mg-acetaminophen 325 1 tab PO Q8H PRN 11/15/18 mg tablet lamotrigine 100 mg tablet 100 mg PO BID 11/15/18 traZODone [Desyrel] 200 mg PO QHS 11/15/18 Surgical History: Surgical History (Last Updated 11/15/18 @ 12:14 by Ruth Echevarria) Stented coronary artery (Chronic) Onset Date: 09/05/14 Z95.5 Acute inferior infarct, SAMSON to ostial-proximal RCA using 2.75 X 32 mm everolimus SAMSON per Dr. Geiger, [facility] S/P AAA repair (Chronic) Onset Date: 06/03/15 Z98.890, Z86.79 06/03/[address] Stephanie Sosa @ [facility]: Endovascular repair with [place] excluder device History of total right knee replacement Onset Date: ~2009 Z96.651 Hx of cataract surgery Z98.49 08/16 Surgical History: appendectomy, tonsillectomy, - - Cardiac stent placement 2014, several knee surgeries including knee replacement, AAA repair-endovascular Psychiatric History: Depression, - - PTSD Lives: Spouse/ Significant Other Smoking Status: Former smoker Tobacco Use: Cigarettes, Cigars, Pipe Alcohol: None Drugs: None - *Family History Maternal History Items: No pertinent history - in motor vehicle accident Paternal History Items: Cancer - from brain cancer Review of Systems Constitutional: Denies: Anorexia, Chills, Fever Eyes: Denies: Blurred vision, Double vision HEENT: Denies: Head Aches, Sinus Congestion, Sinus Drainage Cardiovascular: Denies: Chest Pain, Palpitations Respiratory: Reports: Cough, Shortness of Breath Gastrointestinal: Denies: Abdominal Pain, Nausea, Vomiting Genitourinary: Denies: Dysuria Musculoskeletal: Denies: Joint Pain, Joint Tenderness Skin: Denies: Rash, Wounds Neurological: Denies: Numbness, Tingling, Focal weakness Psychiatric: Reports: Anxiety Hematologic/ Lymphatic: Denies: Easy Bruising, Easy Bleeding Patient Problems: Active and Suspected Problems (Last Updated 11/15/18 @ 20:04 by Ino Vazquez DO) Chest pain (Acute) Objective: The patient's most recent lab work, culture data and imaging studies have all been personally reviewed. - Physical Exam General: Alert, Oriented x3, Cooperative, No apparent distress, - - is present at the bedside. HEENT: Atraumatic, PERRLA, Normocephalic Oral: Moist Mucosa, No Gingival or Mucosal Lesions/ Ulcerations Neck: Supple, No Nodes, Trachea Midline Lungs: Normal air movement, No rhonchi, No wheeze, No rales Cardiovascular: Regular rate, Regular Rhythm, Normal S1, Normal S2, No murmurs Abdomen: Bowel Sounds Present, Soft, Non Tender, Obese Extremities: No clubbing, No cyanosis, No edema Skin: No breakdown Musculoskeletal: No Tenderness to Palpation of Joints or Extremities, No Muscle Wasting Lymphatic: No Cervical, Supraclavicular, or Inguinal Adenopathy Neurological: Cranial nerves II-XII grossly intact, Neuro grossly intact Psych/Mental Status: Alert and oriented to time, place, person, mood and affect Vital Signs Temp Pulse Resp BP Pulse Ox 36.6 C 92 16 120/75 94 11/17/18 08:55 11/17/18 09:49 11/17/18 08:55 11/17/18 09:49 11/17/18 08:55 Oxygen Delivery Method Room Air Weight: 250 lb 7.122 oz Body Mass Index (BMI) 33.0 Intake and Output for Last 24 Hours 11/15/18 11/16/18 11/17/18 23:59 23:59 23:59 Intake Total 700 / 700 805 / 805 40 / 40 Output Total 0 / 0 Balance 700 / 700 805 / 805 40 / 40 Laboratory Tests Past 24 Hrs 11/16/18 11/16/18 03:55 03:55 ESR 2 C-React Prot Ext Range < 2.90 Labs (Last 48 Hours) 11/15/18 11/15/18 11/15/18 12:30 12:30 15:48 WBC 7.7 RBC 5.05 Hgb 15.2 Hct 45.3 MCV 89.7 MCH 30.1 MCHC 33.6 RDW 12.5 RDW Differential 40.5 Plt Count 180 MPV 10.9 Immature Gran % (Auto) 0.100 Neut % (Auto) 60.4 Lymph % (Auto) 27.6 [place] % (Auto) 10.7 H Eos % (Auto) 0.9 Baso % (Auto) 0.3 Absolute Neuts (auto) 4.6 Absolute Lymphs (auto) 2.12 Total Counted Not Reportable ESR PT INR APTT Sodium 142 Potassium 3.9 Chloride 106 Carbon Dioxide 31.0 Anion Gap 5 BUN 13 Creatinine 1.14 Estim Creat Clear Calc 75.93 Est GFR (MDRD) Af Amer 84 Est GFR (MDRD) Non-Af 69 BUN/Creatinine Ratio 11.4 Glucose 96 Calcium 8.8 Troponin I < 0.015 < 0.015 C-React Prot Ext Range 11/15/18 11/16/18 11/16/18 18:54 03:55 03:55 WBC 6.8 RBC 4.70 Hgb 14.1 Hct 42.0 MCV 89.4 MCH 30.0 MCHC 33.6 RDW 12.5 RDW Differential 40.6 Plt Count 161 MPV 10.7 Immature Gran % (Auto) 0.100 Neut % (Auto) 55.7 Lymph % (Auto) 33.8 [place] % (Auto) 9.2 Eos % (Auto) 0.9 Baso % (Auto) 0.3 Absolute Neuts (auto) 3.8 Absolute Lymphs (auto) 2.28 Total Counted Not Reportable ESR PT 14.4 INR 1.1 APTT 29.3 Sodium Potassium Chloride Carbon Dioxide Anion Gap BUN Creatinine Estim Creat Clear Calc Est GFR (MDRD) Af Amer Est GFR (MDRD) Non-Af BUN/Creatinine Ratio Glucose Calcium Troponin I < 0.015 C-React Prot Ext Range 11/16/18 11/16/18 11/16/18 03:55 03:55 03:55 WBC RBC Hgb Hct MCV MCH MCHC RDW RDW Differential Plt Count MPV Immature Gran % (Auto) Neut % (Auto) Lymph % (Auto) [place] % (Auto) Eos % (Auto) Baso % (Auto) Absolute Neuts (auto) Absolute Lymphs (auto) Total Counted ESR 2 PT INR APTT Sodium 144 Potassium 4.3 Chloride 108 H Carbon Dioxide 30.0 Anion Gap 6 BUN 13 Creatinine 1.23 Estim Creat Clear Calc 70.37 Est GFR (MDRD) Af Amer 77 Est GFR (MDRD) Non-Af 63 BUN/Creatinine Ratio 10.6 Glucose 88 Calcium 8.5 Troponin I C-React Prot Ext Range < 2.90 Clinical Impression(s) from Imaging Studies Chest X-Ray 11/15/18 12:01 IMPRESSION: No acute intrathoracic process. Electronically Signed: Tracie Zelaya MD at 12:27 EST , Service support , Chest CT 11/16/18 14:46 IMPRESSION: Coronary artery calcification. No evidence of focal infiltrate or findings to suggest fibrosis or emphysematous change. Electronically Signed: Melissa Barrera MD at 19:34 EST Tel , Service support , Assessment/Plan All Active Problems (Last Updated 11/15/18 @ 20:04 by Ino Vazquez DO) Chest pain (Acute) History of abdominal aortic aneurysm (Resolved) History of coronary artery stent placement (Resolved) SOB (shortness of breath) on exertion (Acute) RECOMMENDATIONS: 1. We will proceed with basic bronchoscopy for airway evaluation tomorrow at 8 AM. Please make patient n.p.o. after midnight. 2. If bronchoscopy is unrevealing, may need to consider speech therapy evaluation for laryngeal control therapy. 3. Given the patient's intermittent cough complaints, would recommend discontinuing NIYA inhibitor and transitioning to ARB. IMPRESSIONS: 1. Unexplained dyspnea/cough/baseline obstructive lung disease noted on PFTs Full of the patient's prior pulmonary workup and history has been reviewed. The exact etiology for his underlying dyspnea remains a bit unclear. Extensive car diac workup has also been completed without significant abnormalities identified. The patient's recent CT chest completed during this hospitalization revealed no significant parenchymal abnormalities that would explain his degree of dyspnea. While the patient did previously have an obstructive ventilatory impairment noted on PFTs, the impairment worsened on follow-up testing from September. Again, the exact reason for this change is a bit unclear, given that no significant findings were noted on CT chest imaging. The patient has never responded favorably to the use of bronchodilators or Lasix. Given all of the aforementioned, I discussed proceeding with a bronchoscopy tomorrow with the patient. This will allow us to evaluate for potential vocal cord dysfunction and for any evidence of tracheomalacia. The patient is in agreement with this plan. The bronchoscopy is currently scheduled for 8 AM tomorrow morning. Please make patient n.p.o. after midnight. 2. Obstructive sleep apnea The patient is noncompliant with use of nocturnal positive pressure ventilation. 3. Prior tobacco dependence/PTSD/anxiety/hypertension Complicates care, management, recovery and prognosis. Continue home medications as indicated. This note was generated with [employer] dictation software. It may contain incorrect words, spelling, and punctuation that were not noted in checking the note before signing. Code Visit Inpatient E&M: 14694 Init Hosp L3
--- NOTE | 2018-11-17 13:46 | PCM.PROGNOTE ---
Patient Problems: Active and Suspected Problems (Last Updated 11/15/18 @ 20:04 by Ino Vazquez DO) Chest pain (Acute) Subjective: patient complained of more coughing spells, during showering, during CT, where he felt very SOB. He has difficulty with deep breathing due to this as well. He continues to have the same left sided chest pain. The aerosol treatment did not help at all with the chest pain. He states aerosols do not help at all with his SOB either. No LE edema. No wheezing. Non productive cough. No fever or chills. - Physical Exam General: Alert, Oriented x3, Cooperative HEENT: Atraumatic, PERRLA, EOMI, Normocephalic Neck: Supple, No JVD, Negative Carotid Bruits Lungs: Clear to auscultation, Normal air movement Cardiovascular: Regular rate, No murmurs Abdomen: Bowel Sounds Present, Soft, Non Tender, Obese Extremities: No edema, Capillary Refill Less than 3 Seconds Skin: No rashes, No breakdown Musculoskeletal: No Tenderness to Palpation of Joints or Extremities Neurological: Cranial nerves II-XII grossly intact Psych/Mental Status: Normal Affect, Appropriate, Alert and oriented to time, place, person, mood and affect Vital Signs Temp Pulse Resp BP Pulse Ox 97.9 F 79 16 120/75 94 11/17/18 08:55 11/17/18 11:09 11/17/18 08:55 11/17/18 09:49 11/17/18 08:55 Oxygen Delivery Method Room Air Weight: 250 lb 7.122 oz Body Mass Index (BMI) 33.0 Intake and Output for Last 24 Hours 11/15/18 11/16/18 11/17/18 23:59 23:59 23:59 Intake Total 700 / 700 805 / 805 40 / 40 Output Total 0 / 0 Balance 700 / 700 805 / 805 40 / 40 Laboratory Tests Past 24 Hrs 11/16/18 11/16/18 03:55 03:55 ESR 2 C-React Prot Ext Range < 2.90 Medical Necessity - Tobacco Use Smoking Status: Former smoker Tobacco Use: Cigarettes, Cigars, Pipe Assessment/Plan All Active Problems (Last Updated 11/15/18 @ 20:04 by Ino Vazquez DO) Chest pain (Acute) History of abdominal aortic aneurysm (Resolved) History of coronary artery stent placement (Resolved) SOB (shortness of breath) on exertion (Acute) 1. Chest pain, hx CAD, [place] - Negative cath with Dr. Torres yesterday. Trop negs. Will obtain a new CT chest. CXR was negative. Lifelong dual antiplatelets per cardiology. Bronchodilators did not help. August negative CTA chest for PE. 2. COPD - not acute exacerbation. Pulm consulted. High res CT done - some coronary calcification noted by radiology. Negative CRP/ESR, neg ANCA, neg Rheumatoid panel. PFTs did show decline this year. His ambulatory oxygen tests as outpatient did not show hypoxia. Further workup per pulmonary medicine. 3. Pulmonary HTN - mild per recent echo. 4. DIMAS - noncompliant with CPAP, has significant PTSD that interferes with his ability to tolerate this. 5. PTSD/anxiety - increased klonopin yesterday.. Also on effexor, lamictal, trazodone. 6. Former heavy smoker - quit in november, smoked since teenager. 7. Obesity - weight loss will also be of benefit to his pulmonary function, but his exercise tolerance is very low. 8. HTN - running high, Dr. Torres increased his lisinopril today. Will monitor. 9. Hx AAA with prior graft, also on pletal 10. Sinusitis - recent dx, on augmentin per PCP. DVT ppx: heparin DC planning: dispo pending further workup per pulmonary medicine. This patient was seen by Mohit Abdi PA-C under the supervision of Doctor Grimes.
--- NOTE | 2018-11-17 16:00 | CHAPLAIN ---
Type of Pastoral Visit _x__ Initial Visit ___ Follow-up Visit ___ On-call Visit ___ General Patient Visit ___ Spiritual Assessment ___ Family Conference ___ Bereavement ___ Rapid Response ___ Code Blue ___ Other (describe below) Pastoral Care Referral From _x__ Patient ___ Family ___ Nurse ___ Physician ___ Special Projects Coordinator ___ Burr Bench Operator ___ Other (describe below) Sacrament/Intervention _x__ Active listening ___ Anointing ___ Confucianist ___ Bereavement ___ Communion _x__ Gricelda exploration ___ _x__ Life review _x__ Prayer ___ Reconciliation ___ Sacrament of Sick _x__ Supportive presence ___ Wedding ___ Other (describe below) Pastoral Comments
--- NOTE | 2018-11-17 18:14 | NURSING ---
Reviewed and agreed on all charting with Daniel Lind RN
[2018-11-17] MEDS: LORazepam 2 MG/ML Syringe 1 MG IV ×2 (18:29→19:35)
[2018-11-17] MEDS: hydroCHLOROthiazide 12.5mg 12.5 MG PO (22:19)
[2018-11-17] MEDS: traZODone 100 MG Tablet 200 MG PO (22:19)
[2018-11-17] MEDS: Aspirin E.C. 81 MG Tablet PO (22:19)
[2018-11-17] MEDS: Atorvastatin Calcium 80 MG Tablet PO (22:20)
[2018-11-17] MEDS: Lisinopril 40 MG Tablet PO (22:21)
--- NOTE | 2018-11-17 22:23 | NURSING ---
Pt c/o palpitations. EKG ordered. No significant changes noted to EKG.
[2018-11-18] VITALS (16 sets, daily range): BP systolic 105–136; BP diastolic 58–109; PULSE 59–74; RESP 14–18; TEMP 36.2–36.9; O2SAT 78–99; BMI 33.1
[2018-11-18 06:43] LABS: International Normalized Ratio 1.1; Prothrombin Time (Protime)PT. 14.2 SECONDS (11.7-14.9)
[2018-11-18 06:44] LABS: Partial Thromboplast Time 24.9 Seconds (24.1-36.2)
[2018-11-18 06:47] LABS: Platelet Count 186 K/mm3 (150-450)
--- NOTE | 2018-11-18 07:02 | NURSING ---
Report called to [facility] in [place].
--- NOTE | 2018-11-18 07:06 | PN_ITS ---
Patient Problems: Active and Suspected Problems (Last Updated 11/15/18 @ 20:04 by Ino Vazquez DO) Chest pain (Acute) Subjective: The patient was seen and examined at the bedside this morning. Events from the last 24 hours have been reviewed. The patient is currently afebrile, hemodynamically stable and maintaining appropriate oxygen saturations on room air. The patient was evaluated in person prior to his bronchoscopy procedure this morning. There have been no significant interval changes. The patient's bronchoscopy only revealed evidence of a trachea which was mildly oblong in appearance, without any evidence of dynamic airway collapse with respiration. The patient's vocal cords were normal in appearance and moved normally with respiration. Only a scant amount of distal airway secretions were noted. There was nothing from my perspective noted on the patient's bronchoscopy that would explain his dyspnea. Objective: The patient's most recent lab work, culture data and imaging studies have all been personally reviewed. His last pulmonary function studies last completed in mid September revealed evidence of an irreversible severe mixed ventilatory defect with a mild reduction in diffusing capacity. When compared to previous pulmonary function studies dated January 2018, there had been a 35% reduction in the patient's FEV1, 23% reduction in TLC at 17% reduction in DLCO. A 6-minute walk test was also completed at that time. The patient was able to ambulate 354 feet, which indicates impaired walk distance. The katerine oxygen saturation with exertion was 96%. Cardiac catheterization indicated nonobstructive coronary arteries with preserved left ventricular systolic function and normal end- diastolic pressures. Surface echocardiogram last completed in September 2018 revealed evidence of stage I diastolic dysfunction with a mildly elevated pulmonary artery systolic pressure of 36 mmHg. A high resolution chest CT was then obtained on November 16 revealed grossly clear lung parenchyma bilaterally without any evidence of emphysematous changes or interstitial lung disease. - Physical Exam General: Alert, Cooperative, No apparent distress HEENT: Atraumatic, PERRLA, Normocephalic Oral: No Gingival or Mucosal Lesions/ Ulcerations Neck: Supple, No Nodes, Trachea Midline Lungs: Normal air movement, No rhonchi, No wheeze, No rales Cardiovascular: Regular rate, Regular Rhythm, Normal S1, Normal S2, No murmurs Abdomen: Bowel Sounds Present, Soft, Non Tender, Obese Extremities: No clubbing, No cyanosis, No edema Skin: No breakdown Musculoskeletal: No Tenderness to Palpation of Joints or Extremities, No Muscle Wasting Lymphatic: No Cervical, Supraclavicular, or Inguinal Adenopathy Neurological: Cranial nerves II-XII grossly intact, Neuro grossly intact Psych/Mental Status: Alert and oriented to time, place, person, mood and affect Vital Signs Temp Pulse Resp BP Pulse Ox 36.9 C 72 17 106/58 L 95 11/18/18 06:35 11/18/18 06:35 11/18/18 06:35 11/18/18 06:35 11/18/18 06:35 Oxygen Delivery Method Room Air Weight: 250 lb 3.594 oz Body Mass Index (BMI) 33.1 Intake and Output for Last 24 Hours 11/16/18 11/17/18 11/18/18 23:59 23:59 23:59 Intake Total 805 / 805 1297 / 1297 0 / 0 Output Total 0 / 0 Balance 805 / 805 1297 / 1297 0 / 0 Laboratory Tests Past 24 Hrs 11/18/18 11/18/18 06:09 06:09 Plt Count 186 PT 14.2 INR 1.1 APTT 24.9 Labs (Last 48 Hours) 11/16/18 11/16/18 11/18/18 03:55 03:55 06:09 Plt Count 186 ESR 2 PT INR APTT C-React Prot Ext Range < 2.90 11/18/18 06:09 Plt Count ESR PT 14.2 INR 1.1 APTT 24.9 C-React Prot Ext Range Clinical Impression(s) from Imaging Studies Chest X-Ray 11/15/18 12:01 IMPRESSION: No acute intrathoracic process. Electronically Signed: Tracie Zelaya MD at 12:27 EST , Service support , Chest CT 11/16/18 14:46 IMPRESSION: Coronary artery calcification. No evidence of focal infiltrate or findings to suggest fibrosis or emphysematous change. Electronically Signed: Melissa Barrera MD at 19:34 EST Tel , Service support , Medical Necessity - Tobacco Use Smoking Status: Former smoker Tobacco Use: Cigarettes, Cigars, Pipe Assessment/Plan All Active Problems (Last Updated 11/15/18 @ 20:04 by Ino Vazquez DO) Chest pain (Acute) History of abdominal aortic aneurysm (Resolved) History of coronary artery stent placement (Resolved) SOB (shortness of breath) on exertion (Acute) RECOMMENDATIONS: 1. Bronchoscopy revealed no significant etiology that would explain the patient's shortness of breath. Recommend evaluation by speech therapy in consideration for laryngeal control therapy. 2. The patient has been advised to follow-up with Dr. Rossi in the pulmonary medicine clinic as previously scheduled. IMPRESSIONS: 1. Unexplained dyspnea/cough/baseline obstructive lung disease noted on PFTs The patient's prior pulmonary workup and history has been reviewed. The exact etiology for his underlying dyspnea remains a bit unclear. Extensive cardiac workup has also been completed without significant abnormalities identified. The patient's recent CT chest completed during this hospitalization revealed no significant parenchymal abnormalities that would explain his degree of dyspnea. While the patient did previously have an obstructive ventilatory impairment noted on PFTs, the impairment worsened on follow-up testing from September. Again, the exact reason for this change is a bit unclear, given that no significant findings were noted on CT chest imaging. The patient has never responded favorably to the use of bronchodilators or Lasix. Therefore, the patient was taken for a bronchoscopy this morning. While the patient had an oblong appearing trachea, there was no evidence of dynamic airway collapse. The patient's vocal cords were normal in appearance and moved normally with respiration. There was no evidence of any endobronchial lesions that would explain the patient's dyspnea. Given all of this, I recommended that the patient be evaluated by speech therapy for potential laryngeal control therapy. The patient is in agreement. Orders have been placed accordingly. 2. Obstructive sleep apnea The patient is noncompliant with use of nocturnal positive pressure ventilation. 3. Prior tobacco dependence/PTSD/anxiety/hypertension Complicates care, management, recovery and prognosis. Continue home medications as indicated. This note was generated with Out[employer]ination software. It may contain incorrect words, spelling, and punctuation that were not noted in checking the note before signing. Code Visit Inpatient E&M: 23315 Subs Hosp L2
[2018-11-18] MEDS: 0.9% NaCl Peripheral Flush Adult/Peds IV ×2 (07:13→17:24)
--- NOTE | 2018-11-18 08:26 | OP.ENDO_ITS ---
Patient Name: Wally Romero Procedure Date: 11/18/2018 7:27 AM Date of : 1955 Age: 63 Procedure: Bronchoscopy Indications: Shortness of breath Providers: Ralph Goss MD Referring MD: Ino Vazquez Medicines: Fentanyl 75 mcg IV, Midazolam 4 mg IV Complications: No immediate complications Procedure: Pre-Anesthesia Assessment: - The risks and benefits of the procedure and the sedation options and risks were discussed with the patient. All questions were answered and informed consent was obtained. - [place] Protocol: - Pre-procedure Verification: Prior to the procedure, the patient's identity was verified by full name and date of . The patient's identity was verified on all pertinent medical records, including History and Physical. Also prior to the procedure, a History and Physical was performed, and patient medications, allergies and sensitivities were reviewed. The patient's tolerance of previous anesthesia was reviewed. The risks and benefits of the procedure and the sedation options and risks were discussed with the patient. All questions were answered and informed consent was obtained. - Time-Out: Prior to the start of the procedure, the patient's identification, proposed procedure, accurate signed consent, correctly labeled images and records, and need for prophylactic antibiotics were verified by the physician and the nurse in the endoscopy suite. After I obtained informed consent, the scope was passed under direct vision. Throughout the procedure, the patient's blood pressure, pulse, and oxygen saturations were monitored continuously. The bronchoscope was introduced through the mouth and advanced to the tracheobronchial tree. The procedure was accomplished without difficulty. The patient tolerated the procedure well. Moderate Sedation: Moderate (conscious) sedation was administered by the endoscopy nurse and supervised by the endoscopist. The following parameters were monitored: oxygen saturation, heart rate, blood pressure, and response to care. Findings: The oropharynx appears normal. The larynx appears normal. The vocal cords appear normal. The vocal cords investigative writer normally with respiration. The subglottic space is normal. The trachea is a bit oblong in shape. However, there was no evidence of dynamic airway collapse with respiration. The alma rosa is sharp. The tracheobronchial tree was examined to at least the first subsegmental level. Bronchial mucosa and anatomy are normal; there are no endobronchial lesions. Scant non obstructing sccretions were noted in the distal airways. Impression: - Shortness of breath - The airway examination was grossly normal, with only scant secretions noted in the distal airway. - The trachea was somewhat oblong in appearance, but there was not dynamic airway collapse with respiration. - No specimens collected. Recommendation: - Follow up with bronchoscopist as previously scheduled. Procedure Code(s): --- Professional --- 83738, Bronchoscopy, rigid or flexible, including fluoroscopic guidance, when performed; diagnostic, with cell washing, when performed (separate procedure) Diagnosis Code(s): --- Professional --- R06.02, Shortness of breath CPT copyright 2017 [employer]. All rights reserved. The codes documented in this report are preliminary and upon medical biller coder review may be revised to meet current compliance requirements. DO Ralph Aponte MD 11/18/2018 8:26:10 AM This report has been signed electronically. Number of Addenda: 0 Note Initiated On: 11/18/2018 7:27 AM
--- NOTE | 2018-11-18 10:00 | CASEMGMT ---
This RN CM to room with CRUZ form at this time and explanation done. Pt states that he was told in ED by registration that he was admitted as an inpt. This RN CM advised pt that he has been observation since the beginning, pt is upset but is understanding at this time. This RN CM explained inpt vs obs and criteria for inpt admission at this time, pt/ voice understanding. Pt signs form at this time. Original to chart and copy to pt. [place], PCU director, aware of all as she had been in with pt earlier this week regarding some issues, voices understanding. SStaten RN CM
[2018-11-18] MEDS: lamoTRIgine 100 MG Tablet PO (11:02)
[2018-11-18] MEDS: Amox/Clavulanate 875 MG Tablet PO (11:03)
[2018-11-18] MEDS: Clopidogrel Bisulfate 75 MG Tablet PO (11:03)
[2018-11-18] MEDS: Metoprolol Tartrate 25 MG Tablet PO (11:03)
[2018-11-18] MEDS: Cilostazol 50 MG Tablet 100 MG PO (11:04)
[2018-11-18] MEDS: Venlafaxine XR 75 MG Capsule 150 MG PO (11:04)
[2018-11-18] MEDS: clonazePAM 1 MG Tablet PO (11:08)
--- NOTE | 2018-11-18 14:08 | CHAPLAIN ---
Type of Pastoral Visit ___ Initial Visit _x__ Follow-up Visit ___ On-call Visit ___ General Patient Visit ___ Spiritual Assessment ___ Family Conference ___ Bereavement ___ Rapid Response ___ Code Blue ___ Other (describe below) Pastoral Care Referral From _x__ Patient ___ Family ___ Nurse ___ Physician ___ Frit Coater ___ Ed Physicians ___ Other (describe below) Sacrament/Intervention _x__ Active listening ___ Anointing ___ Episcopalian ___ Bereavement ___ Communion _x__ Gricelda exploration ___ _x__ Life review _x__ Prayer ___ Reconciliation ___ Sacrament of Sick _x__ Supportive presence ___ Wedding ___ Other (describe below) Pastoral Comments patient requested follow up visit; pt had difficult night and reveals more life history and emotions today; pt would benefit from further support emotionally and spiritually; pt is seeking answers as well for physical needs
--- NOTE | 2018-11-18 15:01 | CASEMGMT ---
Speech therapy recommends OP speech therapy for pt at this time. Pt given original script for OP at this time and states would like script faxed to [facility] at this time. Referral faxed to [facility] at this time and pt advised to call [facility] if he doesn't hear from them in 2 business days, pt voices understanding. Pt voices no further questions/concerns/needs at this time. SStky ALBERTO CM
--- NOTE | 2018-11-18 16:16 | DCINST_ITS ---
- Discharge Diagnoses Current Active Problems: Current Active and Chronic Problems (Last Updated 11/15/18 @ 20:04 by Ino Vazquez DO) Chest pain (Acute) You will use the following diet at home:: Cardiac Your food should be the consistency of: Regular Your liquids should be the consistency of: Regular/Thin Discharge Activity: - - activity as tolerated May resume sexual activity in: No Restrictions Call your doctor if you observe: Fever of 101 or Higher, Fainting spells, Uncontrolled pain Additional Instructions: The cardiac cath showed no significant narrowing of the coronary arteries. The CT of the chest was normal. The bronchoscopy revealed no abnormalities. The work up for rheumatologic diseases is negative. Dr. Goss recommends that you follow up with speech therapy to work on laryngeal control. I think possibly your anxiety contributesa to the sensation of being short of breath. I recommend you take Klonopin 0.5 mg every 12 H. I have given you a prescription for a weeks worth of Klonopin. Dr. Perez will be able to give you a longer prescription if it is helping. Allergies/Adverse Reactions: Allergies chlorzoxazone Adverse Reaction (Severe, Verified 11/15/18 11:39) also known as Parafon Forte: pt becomes disoriented Medications to take at Discharge lisinopril 20 mg-hydrochlorothiazide 12.5 mg tablet 1 tab PO QHS tab 02/10/18 multivit,tx with iron 27 qh-jmfwgfu-pdaiv acid 0.4 mg-minerals tablet 1 tab PO DAILY 09/22/18 nitroglycerin 0.4 mg sublingual tablet 0.4 mg SUBLINGUAL Q5-15M PRN 09/22/18 Albuterol Sulfate [Ventolin Hfa] 2 puff INHALATION Q4H PRN 11/15/18 Amox/Clavulanate Tablet [Augmentin Tablet] 875 mg PO Q12H 11/15/18 Aspirin [Aspirin, Baby] 81 mg PO QHS 11/15/18 Atorvastatin Calcium [Lipitor] 80 mg PO QHS 11/15/18 Cilostazol [Pletal] 100 mg PO BID 11/15/18 Clopidogrel Bisulfate [Plavix] 75 mg PO QHS 11/15/18 Metoprolol Tartrate [Lopressor (beta ian)] 25 mg PO BID 11/15/18 Venlafaxine HCl [Effexor] 225 mg PO DAILY 11/15/18 doxycycline hyclate 50 mg tablet 50 mg PO DAILY tab 11/15/18 hydrocodone 5 mg-acetaminophen 325 mg tablet 1 tab PO Q8H PRN 11/15/18 lamotrigine 100 mg tablet 100 mg PO BID 11/15/18 traZODone [Desyrel] 200 mg PO QHS 11/15/18 Clonazepam 0.5 mg PO BID 7 Days #14 tab 11/18/18 The following prescriptions were given: Clonazepam 0.5 mg PO BID 7 Days #14 tab Primary Care Physician: Elijah Perez DO [Primary Care Provider] - Test Results: Test results from this visit will be discussed in further detail at your follow- up appointment, if applicable.
--- NOTE | 2018-11-18 16:23 | PCM.DC.SUM ---
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 Atherosclerotic heart disease of [place] coronary artery with other forms of angina pectoris (Chronic) Acute inferior infarct, SAMSON to ostial-proximal RCA using 2.75 X 32 mm everolimus SAMSON per Dr. Geiger, [facility] 09/05/2014 Stented coronary artery (Chronic 09/05/14) Acute inferior infarct, SAMSON to ostial-proximal RCA using 2.75 X 32 mm everolimus SAMSON per Dr. Geiger, [facility] Asthma (Chronic) Sleep apnea (Chronic) HTN (hypertension) (Chronic) Peripheral vascular disease (Chronic) Depression (Chronic) S/P AAA repair (Chronic 06/03/15) 06/03/[address] Stephanie Sosa @ [facility]: Endovascular repair with [place] excluder device TIA (transient ischemic attack) (Chronic) 04/13 Atherosclerosis of coronary artery of [place] heart with angina pectoris (Chronic) Pulmonary hypertension (Chronic) RVSP 36 mmHg Chronic bronchitis (Chronic) DIMAS (obstructive sleep apnea) (Chronic) Tobacco abuse (Chronic) Hospital Course and Treatment Imaging Results: Clinical Impression(s) from Imaging Studies Chest X-Ray 11/15/18 12:01 IMPRESSION: No acute intrathoracic process. Electronically Signed: Tracie Zelaya MD at 12:27 EST , Service support , Chest CT 11/16/18 14:46 IMPRESSION: Coronary artery calcification. No evidence of focal infiltrate or findings to suggest fibrosis or emphysematous change. Electronically Signed: Melissa Barrera MD at 19:34 EST Tel , Service support , Laboratory Tests 11/18/18 11/18/18 11/16/18 Range/Units 06:09 06:09 03:55 WBC (4.4-11.0) K/mm3 RBC (4.6-6.2) M/mm3 Hgb (13.0-16.5) g/dl Hct (40-54) % MCV (80-94) fL MCH (27.0-32.0) pg MCHC (32-36) g/gl RDW (11.6-14.6) % RDW Differential (35.1-43.9) fl Plt Count 186 (150-450) K/mm3 MPV (6.2-12.0) fl Immature Gran % (Auto) (0.0-0.9) % Neut % (Auto) (47-70) % Lymph % (Auto) (19-41) % [place] % (Auto) (0-10) % Eos % (Auto) (0-5) % Baso % (Auto) (0-1) % Absolute Neuts (auto) (2.0-7.7) X10^3/uL Absolute Lymphs (auto) (0.83-4.51) X10^3/ul Total Counted ESR (0-20) mm/hr PT 14.2 (11.7-14.9) SECONDS INR 1.1 APTT 24.9 (24.1-36.2) Seconds Sodium (136-145) mmol/L Potassium (3.5-5.1) mmol/L Chloride (98-107) mmol/L Carbon Dioxide (21.0-32.0) mmol/L Anion Gap (5-15) BUN (7-18) mg/dL Creatinine (0.70-1.30) mg/dL Estim Creat Clear Calc ml/min Est GFR (MDRD) Af Amer (>60) mL/min Est GFR (MDRD) Non-Af (>60) mL/min BUN/Creatinine Ratio (10-20) RATIO Glucose (74-106) mg/dL Calcium (8.5-10.1) mg/dL Troponin I (<0.045) ng/mL C-React Prot Ext Range < 2.90 (0.0-3.0) mg/L 11/16/18 11/16/18 11/16/18 Range/Units 03:55 03:55 03:55 WBC (4.4-11.0) K/mm3 RBC (4.6-6.2) M/mm3 Hgb (13.0-16.5) g/dl Hct (40-54) % MCV (80-94) fL MCH (27.0-32.0) pg MCHC (32-36) g/gl RDW (11.6-14.6) % RDW Differential (35.1-43.9) fl Plt Count (150-450) K/mm3 MPV (6.2-12.0) fl Immature Gran % (Auto) (0.0-0.9) % Neut % (Auto) (47-70) % Lymph % (Auto) (19-41) % [place]vier % (Auto) (0-10) % Eos % (Auto) (0-5) % Baso % (Auto) (0-1) % Absolute Neuts (auto) (2.0-7.7) X10^3/uL Absolute Lymphs (auto) (0.83-4.51) X10^3/ul Total Counted ESR 2 (0-20) mm/hr PT 14.4 (11.7-14.9) SECONDS INR 1.1 APTT 29.3 (24.1-36.2) Seconds Sodium 144 (136-145) mmol/L Potassium 4.3 (3.5-5.1) mmol/L Chloride 108 H (98-107) mmol/L Carbon Dioxide 30.0 (21.0-32.0) mmol/L Anion Gap 6 (5-15) BUN 13 (7-18) mg/dL Creatinine 1.23 (0.70-1.30) mg/dL Estim Creat Clear Calc 70.37 ml/min Est GFR (MDRD) Af Amer 77 (>60) mL/min Est GFR (MDRD) Non-Af 63 (>60) mL/min BUN/Creatinine Ratio 10.6 (10-20) RATIO Glucose 88 (74-106) mg/dL Calcium 8.5 (8.5-10.1) mg/dL Troponin I (<0.045) ng/mL C-React Prot Ext Range (0.0-3.0) mg/L 11/16/18 11/15/18 11/15/18 Range/Units 03:55 18:54 15:48 WBC 6.8 (4.4-11.0) K/mm3 RBC 4.70 (4.6-6.2) M/mm3 Hgb 14.1 (13.0-16.5) g/dl Hct 42.0 (40-54) % MCV 89.4 (80-94) fL MCH 30.0 (27.0-32.0) pg MCHC 33.6 (32-36) g/gl RDW 12.5 (11.6-14.6) % RDW Differential 40.6 (35.1-43.9) fl Plt Count 161 (150-450) K/mm3 MPV 10.7 (6.2-12.0) fl Immature Gran % (Auto) 0.100 (0.0-0.9) % Neut % (Auto) 55.7 (47-70) % Lymph % (Auto) 33.8 (19-41) % [place] % (Auto) 9.2 (0-10) % Eos % (Auto) 0.9 (0-5) % Baso % (Auto) 0.3 (0-1) % Absolute Neuts (auto) 3.8 (2.0-7.7) X10^3/uL Absolute Lymphs (auto) 2.28 (0.83-4.51) X10^3/ul Total Counted Not Reportable ESR (0-20) mm/hr PT (11.7-14.9) SECONDS INR APTT (24.1-36.2) Seconds Sodium (136-145) mmol/L Potassium (3.5-5.1) mmol/L Chloride (98-107) mmol/L Carbon Dioxide (21.0-32.0) mmol/L Anion Gap (5-15) BUN (7-18) mg/dL Creatinine (0.70-1.30) mg/dL Estim Creat Clear Calc ml/min Est GFR (MDRD) Af Amer (>60) mL/min Est GFR (MDRD) Non-Af (>60) mL/min BUN/Creatinine Ratio (10-20) RATIO Glucose (74-106) mg/dL Calcium (8.5-10.1) mg/dL Troponin I < 0.015 < 0.015 (<0.045) ng/mL C-React Prot Ext Range (0.0-3.0) mg/L 11/15/18 11/15/18 Range/Units 12:30 12:30 WBC 7.7 (4.4-11.0) K/mm3 RBC 5.05 (4.6-6.2) M/mm3 Hgb 15.2 (13.0-16.5) g/dl Hct 45.3 (40-54) % MCV 89.7 (80-94) fL MCH 30.1 (27.0-32.0) pg MCHC 33.6 (32-36) g/gl RDW 12.5 (11.6-14.6) % RDW Differential 40.5 (35.1-43.9) fl Plt Count 180 (150-450) K/mm3 MPV 10.9 (6.2-12.0) fl Immature Gran % (Auto) 0.100 (0.0-0.9) % Neut % (Auto) 60.4 (47-70) % Lymph % (Auto) 27.6 (19-41) % [place] % (Auto) 10.7 H (0-10) % Eos % (Auto) 0.9 (0-5) % Baso % (Auto) 0.3 (0-1) % Absolute Neuts (auto) 4.6 (2.0-7.7) X10^3/uL Absolute Lymphs (auto) 2.12 (0.83-4.51) X10^3/ul Total Counted Not Reportable ESR (0-20) mm/hr PT (11.7-14.9) SECONDS INR APTT (24.1-36.2) Seconds Sodium 142 (136-145) mmol/L Potassium 3.9 (3.5-5.1) mmol/L Chloride 106 (98-107) mmol/L Carbon Dioxide 31.0 (21.0-32.0) mmol/L Anion Gap 5 (5-15) BUN 13 (7-18) mg/dL Creatinine 1.14 (0.70-1.30) mg/dL Estim Creat Clear Calc 75.93 ml/min Est GFR (MDRD) Af Amer 84 (>60) mL/min Est GFR (MDRD) Non-Af 69 (>60) mL/min BUN/Creatinine Ratio 11.4 (10-20) RATIO Glucose 96 (74-106) mg/dL Calcium 8.8 (8.5-10.1) mg/dL Troponin I < 0.015 (<0.045) ng/mL C-React Prot Ext Range (0.0-3.0) mg/L Dr. Ralph Goss-pulmonary medicine Dr. Saul Torres-[facility] Operations: None Procedures: Bronchoscopy - 11/[address] Goss.....grossly normal with no evidence of dynamic air way collapse with respiration, Cardiac catheterization - Preserved left ventricular ejection fraction, nonobstructive coronaries, known occluded small OM #1 with left to left and right to left collaterals Summary of Care Provided: The patient is a 63 year old M with a past medical history of carotid artery disease, peripheral arterial disease, posttraumatic stress disorder, prior inferior wall OR, CAD, stented coronary artery, asthma, obstructive sleep apnea, hypertension, depression, TIA, pulmonary hypertension, obstructive sleep apnea and tobacco dependence who presented to the emergency room at [facility] on 11/15/2018 complaining of chest pain which was constant. This has been an ongoing complaint for several weeks. He also complained of shortness of breath and his related that when he attempts to get up and ambulate to the bathroom he looks great and as if he is going to pass out. EKG in the emergency room showed normal sinus rhythm with no evidence of any ischemic change. Chest x-ray was unremarkable. Lab was unremarkable. Troponin was within normal limits. He was seen in the emergency department by Dr. Torres who agreed to perform a heart catheterization and this showed nonobstructive coronary disease with preserved ejection fraction. A high resolution CT scan of the chest was done to look for a pulmonary cause of his symptoms and this showed no evidence of focal infiltrate or findings to suggest fibrosis or emphysematous change. He was seen in consultation by Dr. Ralph Goss from pulmonary who performed a bronchoscopy on 11/18/2018. The airway examination was grossly normal with only scant secretions noted in the distal airway. The trachea was somewhat oblong in appearance but there was not dynamic airway collapse with respiration. No specimens were collected. He was discharged home on 11/18 and will follow up with speech therapy for Laryngeal control training. PHYSICAL EXAM: GENERAL: alert, oriented X 3, Cooperative, NAD ORAL: moist mucosa, no mucosal lesions NECK: No JVD, supple, trachea midline LUNGS: CTA, symmetric chest expansion HEART: RRR, Normal S1 and S2, no rub, no gallop ABDOMEN: soft, NT, ND, BS present, no guarding with palpation EXTREMITIES: no edema, no cyanosis, no calf tenderness SKIN: No rashes, no breakdown NEUROLOGIC: no focal neurologic deficits PSYCH: appropriate, normal affect, pleasant This note was generated with [employer] dictation software. It may contain incorrect words, spelling, and punctuation that were not noted in checking the note before signing. - Physical Exam Vital Signs Temp Pulse Resp BP Pulse Ox 97.5 F L 59 L 14 122/79 H 94 11/18/18 09:53 11/18/18 11:03 11/18/18 09:53 11/18/18 11:03 11/18/18 09:53 Oxygen Delivery Method Room Air Weight: 250 lb 3.594 oz Body Mass Index (BMI) 33.1 Intake and Output for Last 24 Hours 11/16/18 11/17/18 11/18/18 23:59 23:59 23:59 Intake Total 805 / 805 1297 / 1297 580 / 580 Output Total 0 / 0 Balance 805 / 805 1297 / 1297 580 / 580 Laboratory Tests Past 24 Hrs 11/18/18 11/18/18 06:09 06:09 Plt Count 186 PT 14.2 INR 1.1 APTT 24.9 Discharge Activity: - - activity as tolerated May resume sexual activity in: No Restrictions Call your doctor if you observe: Fever of 101 or Higher, Fainting spells, Uncontrolled pain Home Medications: Medications to take at Discharge lisinopril 20 mg-hydrochlorothiazide 12.5 mg tablet 1 tab PO QHS tab 02/10/18 multivit,tx with iron 27 cw-wyspgsn-dcjln acid 0.4 mg-minerals tablet 1 tab PO DAILY 09/22/18 nitroglycerin 0.4 mg sublingual tablet 0.4 mg SUBLINGUAL Q5-15M PRN 09/22/18 Albuterol Sulfate [Ventolin Hfa] 2 puff INHALATION Q4H PRN 11/15/18 Amox/Clavulanate Tablet [Augmentin Tablet] 875 mg PO Q12H 11/15/18 Aspirin [Aspirin, Baby] 81 mg PO QHS 11/15/18 Atorvastatin Calcium [Lipitor] 80 mg PO QHS 11/15/18 Cilostazol [Pletal] 100 mg PO BID 11/15/18 Clopidogrel Bisulfate [Plavix] 75 mg PO QHS 11/15/18 Metoprolol Tartrate [Lopressor (beta ian)] 25 mg PO BID 11/15/18 Venlafaxine HCl [Effexor] 225 mg PO DAILY 11/15/18 doxycycline hyclate 50 mg tablet 50 mg PO DAILY tab 11/15/18 hydrocodone 5 mg-acetaminophen 325 mg tablet 1 tab PO Q8H PRN 11/15/18 lamotrigine 100 mg tablet 100 mg PO BID 11/15/18 traZODone [Desyrel] 200 mg PO QHS 11/15/18 Clonazepam 0.5 mg PO BID 7 Days #14 tab 11/18/18 prednisone 20 mg tablet 40 mg PO QDAY #20 tab 11/22/18 Following Prescrptions Were Given to Patient: Clonazepam 0.5 mg PO BID 7 Days #14 tab Primary Care Physician: Elijah Perez DO [Primary Care Provider] - Disposition: Home Minutes spent on discharge:: 30 Patient Condition:: Good Medical Necessity - Tobacco Use Smoking Status: Former smoker Tobacco Use: Cigarettes, Cigars, Pipe Meaningful Use Info Meaningful Use Diagnoses (Choose all that apply): None applicable Code Visit OBSV E&M: 13511 Observation care discharge
[2018-11-18] MEDS: Metoclopramide 10 MG/2 ML Vial 5 MG IV (17:24)
--- OUTSIDE RECORDS SUMMARY | 2019-02-17 02:32 | XMS RPT_ITS ---
:1955 Author Organization OHIP Support Name Relationship Address Phone D Unavailable Unavailable Unavailable [facility] Unavailable [address] + [place] [address] D Unavailable Unavailable Unavailable [facility] Unavailable [address] + [place] [address] D Unavailable Unavailable Unavailable [facility] Unavailable [address] + [place] [address] D Unavailable Unavailable Unavailable [facility] Unavailable [address] + [place] [address] D Unavailable Unavailable Unavailable [facility] Unavailable [address] + [place] [address] D Unavailable Unavailable Unavailable [facility] Unavailable [address] + [place] [address] D Unavailable Unavailable Unavailable [facility] Unavailable [address] + [place] [address] D Unavailable Unavailable Unavailable [facility] Unavailable [address] + [place] [address] D Unavailable Unavailable Unavailable [facility] Unavailable [address] + [place] [address] D Unavailable Unavailable Unavailable [facility] Unavailable [address] + [place] [address] D Unavailable Unavailable Unavailable [facility] Unavailable [address] + [place] [address] D Unavailable Unavailable Unavailable [facility] Unavailable [address] + [place] [address] D Unavailable Unavailable Unavailable [facility] Unavailable [address] + [place] [address] D Unavailable Unavailable Unavailable [facility] Unavailable [address] + [place] [address] D Unavailable Unavailable Unavailable [facility] Unavailable [address] + [place] [address] D Unavailable Unavailable Unavailable [facility] Unavailable [address] + [place] [address] D Unavailable Unavailable Unavailable [facility] Unavailable [address] + [place] [address] D Unavailable Unavailable Unavailable [facility] Unavailable [address] + [place] [address] D Unavailable Unavailable Unavailable [facility] Unavailable [address] + [place] [address] D Unavailable Unavailable [facility] Unavailable [address] + [place] [address] D Unavailable Unavailable [facility] Unavailable [address] + [place] [address] D Unavailable Unavailable Unavailable [facility] Unavailable [address] + [place] [address] D Unavailable Unavailable [facility] Unavailable [address] + [place] [address] [facility] Unavailable Unavailable + [facility] Unavailable [address] + [place] [address] R Unavailable Unavailable Unavailable [facility] Unavailable [address] + [place] [address] R Unavailable Unavailable Unavailable [facility] Unavailable Unavailable + [facility] Unavailable [address] + [place] [address] R Unavailable Unavailable Unavailable [facility] Unavailable . + [place] [address] R Unavailable Unavailable Unavailable [facility] Unavailable Unavailable + [facility] Unavailable Unavailable + [facility] Unavailable Unavailable + [facility] Unavailable . + [place] [address] R Unavailable Unavailable Unavailable [facility] Unavailable Unavailable + [place] [address] R Unavailable Unavailable Unavailable [facility] Unavailable Unavailable + [facility] Unavailable Unavailable + [place] [address] R Unavailable Unavailable Unavailable [facility] Unavailable Unavailable + [place] [address] R Unavailable Unavailable Unavailable [facility] Unavailable Unavailable + [place] [address] R Unavailable Unavailable Unavailable R Unavailable Unavailable Unavailable [facility] Unavailable [address] + [place] [address] [facility] Unavailable [address] [address] + [place] [address] [facility] Unavailable Unavailable + Care Team Providers Name Role Phone Ino Vazquez Admitting Unavailable Ino Vazquez Referring Unavailable Saul Tarango Consulting Unavailable Alycia Grimes Attending Unavailable Niranjan Soaresa Primary Care Unavailable Ralph Goss D.O. Consulting Unavailable Alycia Grimes Attending Unavailable Alycia Grimes Referring Unavailable Niranjan Soaresa Primary Care Unavailable Saul Tarango Attending Unavailable Ino Vazquez Referring Unavailable Ino Vazquez Admitting Unavailable Ino Vazquez Referring Unavailable Fany Silvestre Primary Care Unavailable Saul Tarango Consulting Unavailable Alycia Grimes Attending Unavailable Ralph Goss D.O. Consulting Unavailable Alycia Grimes Consulting Unavailable Tereletsky, Ino Admitting Unavailable Tereletsky, Ino Attending Unavailable Tereletsky, Ino Referring Unavailable HINA GILLESPIE Primary Care Unavailable Saul Tarango Consulting Unavailable Tereletsky, Ino Consulting Unavailable Saul Tarango Attending Unavailable HINA GILLESPIE Primary Care Unavailable Brayan Lay Attending Unavailable Arceo, Lexi Referring Unavailable Saul Tarango Attending Unavailable DOCTOR, OUT OF TOWN Referring Unavailable Flo, Ruy Attending Unavailable Jopperi, Víctor Referring Unavailable Fol, Ruy Attending Unavailable Arceo, Lexi Referring Unavailable Flo, Ruy Attending Unavailable Arceo, Lexi Referring Unavailable Arceo, Lexi Attending Unavailable Mitri, Osama Referring Unavailable Tereletsky, Ino Admitting Unavailable Sementi, Alycia Attending Unavailable Tereletsky, Ino Referring Unavailable Jopperi, Silvestre Primary Care Unavailable Saul Tarango Consulting Unavailable Ralph Goss D.O. Consulting Unavailable Sementi, Alycia Consulting Unavailable Tereletsky, Ino Admitting Unavailable Ralph Goss D.O. Attending Unavailable Tereletsky, Ino Referring Unavailable Jopperi, Silvestre Primary Care Unavailable Saul Tarango Consulting Unavailable Ralph Goss, D.O. Consulting Unavailable Sementi, Alycia Consulting Unavailable FloRuy Attending Unavailable Jopperi, Silvestre Referring Unavailable Ralph Goss D.O. Attending Unavailable Flo, Ruy Referring Unavailable Arceo, Lexi Attending Unavailable Arceo, Lexi Referring Unavailable HINA GILLESPIE Primary Care Unavailable Arceo, Lexi Attending Unavailable Jopperi, Víctor Referring Unavailable Arceo, Lexi Attending Unavailable Arceo, Lexi Referring Unavailable HINA GILLESPIE Primary Care Unavailable HINA GILLESPIE Primary Care Unavailable Sid Weaver Attending Unavailable FloRuy diego Attending Unavailable FloRuy diego Referring Unavailable HINA GILLESPIE Primary Care Unavailable Arceo, Lexi Attending Unavailable Arceo, Lexi Referring Unavailable Jopperi, Víctor Primary Care Unavailable Arceo, Lexi Attending Unavailable Jopperi, Víctor Referring Unavailable Arceo, Lexi Attending Unavailable Arceo, Lexi Referring Unavailable Jopperi, Víctor Primary Care Unavailable Arceo, Lexi Attending Unavailable Arceo, Lexi Referring Unavailable Jopperi, Víctor Primary Care Unavailable Arceo, Lexi Attending Unavailable Arceo, Lexi Referring Unavailable Jopperi, Víctor Primary Care Unavailable Alireza, Brayan Attending Unavailable Tereletsky, Ino Referring Unavailable Flo, Ruy Attending Unavailable Flo, Ruy Referring Unavailable Jopperi, Silvestre Primary Care Unavailable Sementi, Alycia Attending Unavailable Ino Vazquez Admitting Unavailable Tereletsky, Ino Referring Unavailable Jopperi, Silvestre Primary Care Unavailable Saul Tarango Consulting Unavailable Dameon Aponte.OJose Consulting Unavailable Alycia Grimes Consulting Unavailable Lexi Arceo Attending Unavailable Jopperi, Vítcor Referring Unavailable Ralph Goss D.OJose Attending Unavailable Adis, Lexi Referring Unavailable Adis, Lexi Attending Unavailable Adis, Lexi Referring Unavailable HINA GILLESPIE Primary Care Unavailable uRy Rossi Attending Unavailable Jopperi, Víctor Referring Unavailable Tereletsky, Ino Admitting Unavailable Ralph Goss D.OJose Attending Unavailable George, Ino Referring Unavailable Jopperi, Silvestre Primary Care Unavailable Saul Tarango Consulting Unavailable Ralph Goss D.OJose Consulting Unavailable Alycia Grimes Consulting Unavailable CHANDU MURPHY Attending Unavailable CHANDU MURPHY Referring Unavailable VRABEC, LYNSEY DRIVER Attending Unavailable VRABEC, LYNSEY DRIVER Attending Unavailable VRABEC, LYNSEY DRIVER Attending Unavailable VRABEC, LYNSEY DRIVER Attending Unavailable VRABEC, LYNSEY DRIVER Attending Unavailable STEPHANIE PATTERSON Referring Unavailable STEPHANIE PATTERSON Attending Unavailable NIRANJAN SOARESA ROYA Referring Unavailable SAMMY NEVES JR Attending Unavailable FANY, SILVESTRE ROYA Referring Unavailable SAMMY NEVES JR Referring Unavailable Jopperi, Silvestre Referring Unavailable Jopperi, Silvestre Primary Care Unavailable Ino Cai Attending Unavailable Claudy Trujillo Attending Unavailable Jopperi, Silvestre Referring Unavailable Jopperi, Silvestre Primary Care Unavailable Jopperi, Silvestre Referring Unavailable Jopperi, Silvestre Primary Care Unavailable PROVIDER, UNKNOWN Attending Unavailable Jopperi, Silvestre Attending Unavailable Jopperi, Silvestre Referring Unavailable Jopperi, Silvestre Primary Care Unavailable Jopperi, Silvestre Referring Unavailable Jopperi, Silvestre Primary Care Unavailable Claudy Cunningham Attending Unavailable Jopperi, Islvestre Referring Unavailable Jopperi, Silvestre Primary Care Unavailable Germania Elizondo Attending Unavailable Ruy Rossi Attending Unavailable Jopperi, Silvestre Referring Unavailable Jopperi, Silvestre Primary Care Unavailable NEISHA ROMAN Attending Unavailable SAMMY NEVES JR Attending Unavailable CHANDU MURPHY Attending Unavailable CHANDU MURPHY Referring Unavailable JOPPERI, SILVESTRE A Primary Care Unavailable VRABEC, LYNSEY [place] Attending Unavailable IMCA Referring Unavailable JOPPERI, SILVESTRE A Primary Care Unavailable VRABEC, LYNSEY [place] Attending Unavailable IMCA Referring Unavailable JOPPERI, SILVESTRE A Primary Care Unavailable LIPCHANDU GONZALES Attending Unavailable IMCA Referring Unavailable JOPPERI, SILVESTRE A Primary Care Unavailable VRABEC, LYNSEY [place] Attending Unavailable IMCA Referring Unavailable JOPPERI, SILVESTRE A Primary Care Unavailable VRABEC, LYNSEY A Attending Unavailable IMCA Referring Unavailable JOPPERI, SILVESTRE A Primary Care Unavailable VRABEC, LYNSEY [place] Attending Unavailable IMCA Referring Unavailable JOPPERI, SILVESTRE A Primary Care Unavailable VRABEC, LYNSEY A Attending Unavailable IMCA Referring Unavailable JOPPERI, SILVESTRE A Primary Care Unavailable JULIETTESTEPHANIE Referring Unavailable JOPPERI, SILVESTRE A Primary Care Unavailable MORENA PATTERSONLL Attending Unavailable JOPPERI, SILVESTRE A Referring Unavailable JOPPERI, SILVESTRE A Primary Care Unavailable SAMMY NEVES Attending Unavailable JOPPERI, SILVESTRE A Referring Unavailable JOPPERI, SILVESTRE A Primary Care Unavailable NEVESSAMMY PLUMMER Referring Unavailable JOPPERI, SILVESTRE A Primary Care Unavailable PROBLEMS PROBLEMS DATE TYPE CONDITION / CODE ATTENDING STATUS SOURCE 12/14/2018 Active Headache / NEVES JR, Active [place] R51(ICD-10) [facility] Repository 12/14/2018 Active Weakness / NEVES JR, Active [place] R53.1(ICD-10) [facility] Repository 12/14/2018 Active Shortness of breath DACIA MARTINO, Active [place] / R06.02(ICD-10) [facility] [place] Repository 12/14/2018 Active Other visual DACIA MARTINO, Active [place] disturbances / [facility] Other H53.8(ICD-10) [place] Repository 12/01/2018 Unknown I27.20 - Pulmonary Flo, Ruy Active [place] hypertension, Community unspecified / Hospital I27.20(ICD-10) Repository 12/01/2018 Unknown G47.30 - Sleep Flo, Ruy Active [place] apnea, unspecified Community / G47.30(ICD-10) Hospital Repository 12/09/2018 Unknown R07.9 - Chest pain, Alireza, [place] Active [place] unspecified / Community R07.9(ICD-10) Hospital Repository 11/25/2018 Unknown F41.1 - Generalized Sementi, Active [place] anxiety disorder / Alycia Community F41.1(ICD-10) Hospital Repository 10/27/2018 Active Occlusion and STEPHANIE PATTERSON Active [place] stenosis of Clinic Other bilateral carotid [place] arteries / Repository I65.23(ICD-10) 11/11/2018 Unknown R06.02 - Shortness Alireza, [place] Active [place] of breath / Community R06.02(ICD-10) Hospital Repository 10/07/2018 Unknown T73.2XXA - Flo, Ruy Active [place] Exhaustion due to Community exposure, initial Hospital encounter / Repository T73.2XXA(ICD-10) 10/07/2018 Unknown J41.0 - Simple Flo, Ruy Active [place] chronic bronchitis Community / J41.0(ICD-10) Hospital Repository 10/05/2018 Admitting Simple chronic Flo, Ruy Active [facility] Diagnosis bronchitis / System J41.0(ICD-10) Repository 10/05/2018 Admitting Other fatigue / Flo, Ruy Active [facility] Diagnosis R53.83(ICD-10) System Repository 10/05/2018 Admitting Exhaustion due to Flo, Ruy Active [facility] Diagnosis exposure, initial System encounter / Repository T73.2XXA(ICD-10) 10/05/2018 Unknown J42 - Unspecified Flo, Ruy Active [place] chronic bronchitis Community / J42(ICD-10) Hospital Repository 10/05/2018 Unknown R53.83 - Other Flo, Ruy Active [place] fatigue / Community R53.83(ICD-10) Hospital Repository 10/28/2017 Active Abdominal aortic NA Active [place] aneurysm, without Clinic Other rupture / [place] I71.4(ICD-10) Repository 10/28/2017 Admitting Unknown / NA Active [facility] diagnosis UNK(Unknown) Health System Repository 09/24/2018 Admitting Athscl heart Caro [facility] Diagnosis disease of [place] System coronary artery w/o Repository ang pctrs / I25.10(ICD-10) 09/24/2018 Admitting Presence of Germania Elizondo [facility] Diagnosis coronary System angioplasty implant Repository and graft / Z95.5(ICD-10) 09/24/2018 Admitting Occlusion and Germania Elizondo [facility] Diagnosis stenosis of System unspecified carotid Repository artery / I65.29(ICD-10) 09/24/2018 Admitting Major depressive [facility] disorder, single System episode, Repository unspecified / F32.9(ICD-10) 09/24/2018 Admitting Hyperlipidemia, [facility]iz[facility] Diagnosis unspecified / System E78.5(ICD-10) Repository 09/24/2018 Admitting Essential (primary) Germania [facility]iz[facility] Diagnosis hypertension / System I10(ICD-10) Repository 09/24/2018 Admitting Unspecified [facility]iz[facility] Diagnosis osteoarthritis, System unspecified site / Repository M19.90(ICD-10) 09/24/2018 Admitting Peripheral vascular German[facility]iz[facility] Diagnosis disease, System unspecified / Repository I73.9(ICD-10) 09/24/2018 Admitting Post-traumatic Germania [facility]iz[facility] Diagnosis stress disorder, System unspecified / Repository F43.10(ICD-10) 09/24/2018 Admitting Prsnl hx of TIA Germania [facility]izondo [facility] Diagnosis (TIA), and cereb System infrc w/o resid Repository deficits / Z86.73(ICD-10) 09/24/2018 Admitting Cataract extraction Germania [facility]iz[facility] Diagnosis status, unspecified System eye / Repository Z98.49(ICD-10) 09/24/2018 Admitting MCC (current) Germania Elizondo [facility] Diagnosis use of aspirin / System Z79.82(ICD-10) Repository 09/24/2018 Admitting Allergy status to Germania Elizondo [facility] Diagnosis oth drug/meds/biol System subst status / Repository Z88.8(ICD-10) 09/24/2018 Admitting Personal history of Germania Elizondo [facility] Diagnosis nicotine dependence System / Z87.891(ICD-10) Repository 09/24/2018 Admitting Unspecified asthma, Germania Elizondo [facility] Diagnosis uncomplicated / System J45.909(ICD-10) Repository 09/24/2018 Admitting MCC (current) [facility]iz[facility] Diagnosis use of System antithrombotics/ant Repository iplatelets / Z79.02(ICD-10) 09/24/2018 Admitting Pneumonia, Germania Elizondo Active [facility] Diagnosis unspecified System organism / Repository J18.9(ICD-10) 09/24/2018 Admitting Shortness of breath Germania Elizondo Active [facility] Diagnosis / R06.02(ICD-10) System Repository 09/24/2018 Admitting Abdominal aortic Germania Elizondo Active [facility] Diagnosis aneurysm, without System rupture / Repository I71.4(ICD-10) 09/24/2018 Admitting Acquired absence of Germania Elizondo Active [facility] Diagnosis other organs / System Z90.89(ICD-10) Repository 09/24/2018 Admitting Presence of right Germania Elizondo Active [facility] Diagnosis artificial hip System joint / Repository Z96.641(ICD-10) 09/22/2018 Unknown R05 - Cough / Arceo, Active [place] R05(ICD-10) [facility] Repository 09/19/2018 Admitting Old myocardial Marisa, Active [facility] Diagnosis infarction / Claudy System I25.2(ICD-10) Repository 09/19/2018 Admitting Presence of right Marisa, Active [facility] Diagnosis artificial knee Claudy System joint / Repository Z96.651(ICD-10) 09/19/2018 Admitting Chest pain, Marisa, Active [facility] Diagnosis unspecified / Claudy System R07.9(ICD-10) Repository 09/19/2018 Admitting Pneumonia due to Marisa, Active [facility] Diagnosis other specified Claudy System infectious Repository organisms / J16.8(ICD-10) 2018 Admitting Other disorders of Silvestre Soares Active [facility] Diagnosis lung / System J98.4(ICD-10) Repository 2018 Admitting Atelectasis / Fany Silvestre Active [facility] Diagnosis J98.11(ICD-10) System Repository 09/13/2018 Admitting Occlusion and Unknown Active [facility] Diagnosis stenosis of left System carotid artery / Repository I65.22(ICD-10) 09/13/2018 Admitting Presence of other Unknown Active [facility] Diagnosis vascular implants System and grafts / Repository Z95.828(ICD-10) 06/30/2018 Active Unilateral primary VRABEC, LYNSEY Active [place] osteoarthritis, NEIS[facility] Clinic Other left knee / [place] M17.12(ICD-10) Repository 02/26/2018 Admitting Family hx of ischem Claudy Trujillo [facility] Diagnosis heart dis and oth System dis of the circ sys Repository / Z82.49(ICD-10) 02/26/2018 Admitting Nicotine Claudy Trujillo Active [facility] Diagnosis dependence, System unspecified, Repository uncomplicated / F17.200(ICD-10) 01/17/2018 Admitting Other chest pain / Salestelitae, [facility] Diagnosis R07.89(ICD-10) System Repository 01/17/2018 Admitting Alcohol abuse, Salestelitae, [employer] Diagnosis uncomplicated / System F10.10(ICD-10) Repository 01/17/2018 Admitting Nausea with Salomone, [employer] Diagnosis vomiting, System unspecified / Repository R11.2(ICD-10) 01/17/2018 Admitting Dehydration / Salomone, [facility] Diagnosis E86.0(ICD-10) System Repository 01/17/2018 Admitting Tachycardia, Salomone, [facility] Diagnosis unspecified / System R00.0(ICD-10) Repository 01/17/2018 Admitting Personal history of Salomone, [employer] Diagnosis other diseases of System the circulatory Repository system / Z86.79(ICD-10) 01/17/2018 Admitting Anxiety disorder, Salomone, [employer] [facility] Diagnosis unspecified / System F41.9(ICD-10) Repository 01/17/2018 Admitting Obesity, Salestelitae, Ino [facility] Diagnosis unspecified / System E66.9(ICD-10) Repository 01/17/2018 Admitting Body mass index Salomone, [facility] Diagnosis (BMI) 31.0-31.9, System adult / Repository Z68.31(ICD-10) 01/17/2018 Admitting Acquired absence of Salestelitae, [facility] Diagnosis other specified System parts of digestive Repository tract / Z90.49(ICD-10) 01/17/2018 Admitting licensed nurse practitioner (current) Salomone, [facility] Diagnosis use of opiate System analgesic / Repository Z79.891(ICD-10) 01/12/2018 Active Strain of right VRABEC, LYNSEY Active [facility] quadriceps muscle, NEISHA Clinic Other fascia and tendon, [place] subsequent Repository encounter / S76.111D(ICD-10) 01/11/2016 Active Broken internal VRABEC, LYNSEY Active [facility] joint prosthesis, [facility] Clinic Other other site, sequela [place] / T84.018S(ICD-10) Repository 01/11/2016 Active Presence of VRABEC, LYNSEY Active [facility] unspecified [facility] Other artificial knee [place] joint / Repository Z96.659(ICD-10) 01/05/2018 Active Strain of right VRABEC, LYNSEY Active [place] quadriceps muscle, NEISHA Clinic Other fascia and tendon, [place] initial encounter / Repository S76.111A(ICD-10) 12/30/2017 Active Other cervical disc LIPPITT, CHANDU Active [place] degeneration, DWIGHT [facility] Other unspecified [place] cervical region / Repository M50.30(ICD-10) PROCEDURES PROCEDURES No Procedure Records FoundRESULTS RESULTS ADULT EVALUATION - SP Observed: 12/14/2018 Status: F Source: [place] 1:49 PM [facility] [place] [facility] [address] [place] [address]. [address] [place] [id number] / REHABILITATION SERVICES INITIAL EVALUATION MR#: [id number] Acct: [id number] Name: ALLEN VALDES Rep #: [id number] : 1955 63 From: Duncan Mccurdy M.A., [facility]-STATISTICAL ASSISTANT Referring DrJose: Alycia Grimes Status: REG RCR Insurance: [employer] MEDICARE PPO SELF PAY INSURANCE History - History Date of Eval: 12/08/18 Medical Diagnosis (from RX): Respiration Muscle Discoordination Date of Onset of Diagnosis: January 2018 Previous speech therapy: No Other Relevant Medical History/Diagnoses/Surgery: PAD (peripheral artery disease) (Chronic). Pt on Pletal therapy. Carotid artery disease (Chronic). Chronically occluded left ICA. PTSD (post-traumatic stress disorder) (Chronic). History of inferior wall myocardial infarction (Chronic 09/05/14). Treated at [facility]. Atherosclerotic heart disease of [place] coronary artery with other forms of angina pectoris (Chronic). Acute inferior infarct, SAMSON to ostial-proximal RCA using 2.75 X 32 mm everolimus SAMSON per Dr. Geiger, [facility] 09/05/2014. Stented coronary artery (Chronic 09/05/14). Acute inferior infarct, SAMSON to ostial- proximal RCA using 2.75 X 32 mm everolimus SAMSON per Dr. Geiger, [facility]. Asthma (Chronic). Sleep apnea (Chronic). HTN (hypertension) (Chronic). Peripheral vascular disease (Chronic). Depression (Chronic). S/P AAA repair (Chronic 06/03/15). 06/03/[address] Stephanie Sosa @ [facility]: Endovascular repair with Elbe excluder device. TIA (transient ischemic attack) (Chronic). 04/13. Atherosclerosis of coronary artery of [place] heart with angina pectoris (Chronic). Pulmonary hypertension (Chronic). RVSP 36 mmHg. Chronic bronchitis (Chronic). DIMAS (obstructive sleep apnea) (Chronic). Tobacco abuse (Chronic) Smoking Status: Former smoker Hx Smoking: Yes Years Smokin Hx Smoking Cessation Date: 1 year Hx Tobacco Use: Yes Hx Smoking Exposure: No - Pain Is pain an issue with your current prescribed condition?: Yes - Personal Education History: College Degree Occupation: Disability Right Hearing Abillity: Normal Left Hearing Abillity: Normal Visual Assistive Devices: None Patients Living Arrangements: With Significant Other Patient Allergies - Allergies Allergies chlorzoxazone Adverse Reaction (Severe, Verified 12/01/18 13:19) also known as Parafon Forte: pt becomes disoriented Subjective Voice - Informal Questioner Do you scream (anger, sporting event, work, noisy envirmonment): None Do you raise your voice (e.g. parenting, calling from room to room, etc.): None Do you talk for long periods of time without a break (teacher, donis): None Are you a talker: None Do you clear your throat: More than average Do you cough: More than average How often do you use the telephone: Less than average - Intubation Was the Client intubated: No - Alcoholic Beverage Intake Intake: Never - Other Product Usage Do you use products containing menthol (if yes, list): No Subjective Clinical Impression - Non-Phonatory Behaviors/Respiration Limited breath support for speech: Present Throat clearing/coughing: Present Objective Voice - Objective data Objective Data: Objective data: Sound pressure level (SPL acoustic correlation of vocal loudness) was measured with a sound level meter at a distance of 40 cm from the patient's mouth. Average conversational loudness is 70-80 dB and sustained phonation duration is 15 to 20 seconds for a typical adult. Sustained Phonatin duration (seconds): 5 - Observational Assessment Maximum Phonation Time in seconds: 5 Other Impressions - Comments Short of breath -: This patient is significantly short of breath. He was able to speak in phrases to short sentences. When attempting sustained phonation he had an increase his chest pain (shooting pains to a scale of 5) which then decreased. He also reported feeling dizzy after attempting sustained phonation. He exhibits near constant shortness of breath. Strategies -: At this time the patient reported that hIS physical exertion increases his shortness of breath,however, he is nearly always short of breath to some degree. His shortness of breath increases his anxiety which in turn increases difficulties with breathing. Plan - Plan Plan: Therapy is recommended short term to trial breath support strategies and laryngeal control. - Recommendations Treatment Warranted: Yes - Frequency Frequency: 1x/Week Duration: 4 Weeks - Prognosis Prognosis: Fair - Goals that are Established: Determination:: Goals will be added/modified as deemed necessary and appropriate. Therapy will be discontinued when results of re-evaluation indicate therapy is no longer needed or lack of progress has been documented. - Goal #1-5 Goal #1: The patient will learn breathing methods in order to control and ultimately prevent an. attack by demonstrating said methods with 90% accuracy independently in 2/3 sessions. Education - Patient Instruction Patient Education: Diagnosis, Treatment Plan Person Taught: Patient Teaching Method: Discussion <Electronically signed by Duncan Mccurdy M.A., THOM-STATISTICAL ASSISTANT> 12/14/18 1349 CC: S[facility] Weber JLB Signed SED RATE Collected: 12/14/2018 Status: F Source: [facility] 12:43 PM HEALTH SYSTEM REPOSITORY TYPE CODE TESTS RESULT OUT OF RANGE REFERENCE UNITS LAB ESR(LOINC) 0-15 mm/hr Sed Rate 3 Performed By: #### ESR #### [place] [address] ALBERT BY IFA SCREEN Collected: 12/14/2018 Status: F Source: [facility] 12:43 PM HEALTH SYSTEM REPOSITORY TYPE CODE TESTS RESULT OUT OF REFERENCE UNITS RANGE LAB ANAX(LOINC) ALBERT by IFA SEE BELOW Screen Result Comment: ALBERT Negative NEGAT Normal range : negative at <1:80 serum dilution. Approximately 6% of patients with connective tissue diseases with low positive EIA values are negative by IFA. Recommend follow-up with specific antinuclear antibodies if clinically indicated. ALBERT Titer Negative NEGAT Normal range : negative at <1:80 serum dilution. ALBERT Pattern SEE BELOW Not applicable for negative result. Performing Laboratory: [place] [address] Performed By: #### ANAX #### [place] [address] ACETYL. BINDING AB Collected: 12/14/2018 Status: F Source: [facility] 12:43 PM HEALTH SYSTEM REPOSITORY TYPE CODE TESTS RESULT OUT OF REFERENCE UNITS RANGE LAB ACHRX(LOINC ) Acetyl. SEE BELOW Binding Ab Result Comment: Acetylcholin Rec/Bin <0.3 0.0-0.5 nmol/L Performing Laboratory: [place] [address] Performed By: #### ACHRX #### [place] [address] ACETYLCHOLINE RECEPTOR Collected: 12/14/2018 Status: F Source: [facility] 12:43 PM HEALTH SYSTEM REPOSITORY TYPE CODE TESTS RESULT OUT OF REFERENCE UNITS RANGE LAB ACRBX(LOIN C) Acetylcholine Receptor Blocking SEE BELOW Ab Result Comment: Acetylchol Rec/Block <13 <21 % Inhibitio Performing Laboratory: [place] [address] Performed By: #### ACRBX #### [place] [address] ACETYLCHOLINE RECEPTOR Collected: 12/14/2018 Status: F Source: [facility] 12:43 PM HEALTH SYSTEM REPOSITORY TYPE CODE TESTS RESULT OUT OF REFERENCE UNITS RANGE LAB ACRMX(LOIN C) Acetylcholine Receptor Modulating SEE BELOW Ab Result Comment: Acetylcholin Rec/Mod 0 Reference range: <=45 Unit: % (NOTE) INTERPRETIVE INFORMATION: Acetylcholine Modulating Ab Negative .......... 0-45 percent modulating Positive .......... 46 percent or greater modulating Approximately 85-90 percent of patients with myasthenia gravis (MG) express antibodies to the acetylcholine receptor (AChR), which can be divided into binding, blocking, and modulating antibodies. Binding antibody can activate complement and lead to loss of AChR. Blocking antibody may impair binding of acetylcholine to the receptor, leading to poor muscle contraction. Modulating antibody causes receptor endocytosis resulting in loss of AChR expression, which correlates most closely with clinical severity of disease. Approximately 10-15 percent of individuals with confirmed myasthenia gravis have no measurable binding, blocking, or modulating antibodies. Test developed and characteristics determined by [facility]. See Compliance Statement B: [facility]/CS Performed by [facility], [address] [place] [id number] [email or web address], Rosendo Valerio MD, Lab. Director Performing Laboratory: Performed By: #### ACRMX #### [place] [address] CNOV Observed: 12/14/2018 Status: COMPLETED Source: [facility] 11:00 AM [facility] OTHER [place] REPOSITORY Office Visit (NEURBA) ALLEN VALDES ([id number]) 1955 M Date Time Provider Department 12/14/18 11:00 AM SAMMY NEVES JR During your visit today, we recorded the following information about you: Pulse Respiration Blood pressure Weight 57/minute 17/minute 120/74 114.8 kg Height 1.854 m Sammy Neves MD 12/14/2018 6:19 PM Signed ESTABLISHED PATIENT VISIT HISTORY OF PRESENT ILLNESS: Allen Valdes is a 63 year old male, with past medical history significant for: 1. Occlusion of left carotid artery - ICD9: 433.10, ICD10: I65.22 (primary diagnosis) -on dual antiplt with statin therapy. 2. History of TIAs - ICD9: V12.54, ICD10: Z86.73 See #1 3. Chronic intractable headache, unspecified headache type - ICD9: 784.0, ICD10: R51 Improved last visit on gabapentin. 4. PLMD (periodic limb movement disorder) - ICD9: 327.51, ICD10: G47.61 Improved on gabapentin last visit. 5. Obstructive sleep apnea syndrome - ICD9: 327.23, ICD10: G47.33 Declines PAP. Refered to ENT. 6. Insomnia, unspecified type - ICD9: 780.52, ICD10: G47.00 Likely components of PLMD, untreated DIMAS, and depression. Patient states that on 11/04/18 he performed a six minute walk test for oxygen. Half way through it had a severe headaches. States headache stayed with him a few days. Since then states he felt a thickness in his left neck with constant pressure behind left eye, with blurriness of vision. States more active he is the more pressure he feels and the more pain he has on the left side of his head. States he has had an off and on headache since the test. Was seen in an OSH ER on stating he felt numbness in left side of mouth and weakness of left leg. States they did a CT and CTA and all they did was confirm no stroke or bleeds and that I had a sinus infection on the right side. States has seen PCP but no additional testing ordered. Pt states throughout the summer he has had SOB and CP with evaluations by silk screen etcher Dr. Ruy Rossi and at least 6-7 ER visits and admitted twice and per patient results show nothing. Also had cath performed by Dr. Tarango that was negative and clear. Pt now is having a repeat PSG in [place], as ordered by Dr. Ruy Rossi. Reviewed patient's [place] records from his phone which show a diagnosis of CP - non cardiac in October for which he was treated with Klonopin - appears thought perhaps anxiety related. However, patient states only thing that helps with CP is if he takes 4 aspirin. Despite complaints above, he has not seen an highway engineer for blurred vision. Pt reports only new medication is Effexor XR that was started in the summer and Cymbalta was discontinued. When asked if checks vitals at time of events, he reports that BP may increase to the 140's but was worse before taking Klonopin. Headache is more so left frontal and spreads to right side. No tenderness to touch. Negative photosensitivity. No nausea. Does have dry cough episodes. States he cannot ambulate anywhere or he will immediately become short of breath. He arrived today in a wheelchair. He just was recently on steroids and no effect on vision or headaches. Denies diplopia. States speech has been slower and sloppier. If talks a lot, gets short of breath. States temperature has no influence on symptoms. States: im not afraid to , im not afraid of the heart attack... but I dont want to stroke out. REVIEW OF SYSTEMS GENERAL:No weight loss, malaise or fevers. HEENT: No changes in hearing, no nose bleeds or other nasal problems NECK:Negative for lumps, goiter, pain and significant neck swelling RESPIRATORY: See HPI. CARDIOVASCULAR: See HPI. GASTROINTESTINAL: Negative for abdominal discomfort, blood in stools or black stools or change in bowel habits GENITOURINARY: No history of dysuria, frequency or incontinence MUSCULOSKELETAL: Se HPI.. NEUROLOGIC:See HPI. PSYCHIATRIC: See HPI. HEMATOLOGIC/LYMPHATIC/IMMUNOLOGIC:Negative for prolonged bleeding, bruising easily or swollen nodes. ENDOCRINE: Negative for cold or heat intolerance, polyuria, polydipsia and goiter. The remainder of the ROS was reviewed and is negative. LAB/IMAGING: Those performed since patient's last visit have been reviewed. WBC (thou/cmm) Date Value 06/23/2016 7.4 RBC (mil/cmm) Date Value 06/23/2016 4.88 Hemoglobin (g/dL) Date Value 11/11/2015 13.3 HGB (g/dL) Date Value 06/23/2016 14.9 Hematocrit (%) Date Value 06/23/2016 43.0 MCV (fl) Date Value 06/23/2016 88.1 MCH (pg) Date Value 06/23/2016 30.5 MCHC (%) Date Value 06/23/2016 34.7 Platelet Count (thou/cmm) Date Value 06/23/2016 140 (L) MPV (fl) Date Value 06/23/2016 11.6 Glucose (mg/dL) Date Value 06/24/2016 98 BUN (mg/dL) Date Value 06/24/2016 13 Creatinine (mg/dL) Date Value 06/24/2016 1.10 Sodium (mEq/L) Date Value 06/24/2016 142 Potassium (mEq/L) Date Value 06/24/2016 3.6 Chloride (mEq/L) Date Value 06/24/2016 110 (H) CO2 (mEq/L) Date Value 06/24/2016 26 Protein, Total (g/dL) Date Value 06/01/2015 7.1 Albumin (g/dL) Date Value 06/01/2015 3.7 Calcium (mg/dL) Date Value 06/24/2016 8.2 (L) Alkaline Phosphatase (U/L) Date Value 06/01/2015 146 (H) Bilirubin, Total (mg/dL) Date Value 06/01/2015 0.6 AST (U/L) Date Value 06/01/2015 13 ALT (U/L) Date Value 06/01/2015 29 ALBERT (no units) Date Value 12/28/2014 Negative <1:40 Rheumatoid Factor (IU/mL) Date Value 12/28/2014 <10.0 MEDICATIONS: gabapentin (NEURONTIN) 300 mg capsule Take 4 to 5 capsules at bedtime. venlafaxine (EFFEXOR) 75 mg tablet Take 75 mg by mouth three times daily. NEOMYCIN 3.5 MG/G-POLYMYXIN B 10,000 UNIT/G-DEXAMETH 0.1 % EYE OINT Use 1 application in the right eye twice daily. Apply 0.5 inches into RUL margin and eye 2 times a day. Ketorolac Tromethamine (ACLUAR LS) 0.4 % drop Use 1 Drop in the right eye four times daily. prednisoLONE acetate (PRED FORTE) 1 % ophthalmic suspension Use 1 Drop in the right eye four times daily. BUPROPION HCL ORAL Take by mouth once daily. Ciclopirox (PENLAC) 8 % solution Apply 1 application to affected area daily at bedtime. ALBUTEROL INHALATION Inhale 2 Puffs as instructed every 6 hours as needed (wheezing). KRILL OIL ORAL Take 300 mg by mouth twice daily. HYDROcodone-acetaminophen (NORCO) 5-325 mg per tablet One to Two tablets every 8 hours as needed for pain VENTOLIN HFA 90 mcg/actuation inhaler VIRTUSSIN AC 10-100 mg/5 mL syrup doxycycline (VIBRA-TABS) 100 mg tablet Take 100 mg by mouth once daily. lisinopril-hydrochlorothiazide (PRINZIDE,ZESTORETIC) 20-12.5 mg per tablet Take 1 tablet by mouth once daily. predniSONE (DELTASONE) 20 mg tablet lisinopril (ZESTRIL, PRINIVIL) 20 mg tablet traZODone (DESYREL) 150 mg tablet Take 1 tablet by mouth daily at bedtime. DULoxetine (CYMBALTA) 30 mg capsule 3 caps po daily morning lamoTRIgine (LAMICTAL) 150 mg tablet Take 1 tablet by mouth twice daily. clopidogrel (PLAVIX) 75 mg tablet Take 75 mg by mouth once daily. metoprolol tartrate, short acting, (LOPRESSOR) 100 mg tablet Take 100 mg by mouth once daily. tamsulosin ER (FLOMAX) 0.4 mg cp24 clonazePAM (KLONOPIN) 0.5 mg tablet Take 0.5 mg by mouth twice daily as needed for Anxiety. ACETAMINOPHEN ORAL Take 650 mg by mouth every 4 hours as needed. aspirin, enteric coated (ASPIRIN, ENTERIC COATED) 81 mg EC tablet Take 81 mg by mouth once daily. lisinopril (ZESTRIL, PRINIVIL) 10 mg tablet Take 10 mg by mouth once daily. HYDROcodone-acetaminophen (NORCO) 5-325 mg per tablet One to Two tablets every 8 hours as needed for pain DOCOSAHEXANOIC ACID/EPA (FISH OIL ORAL) Take by mouth. atorvastatin (LIPITOR) 80 mg tablet Take 80 mg by mouth once daily. cilostazol (PLETAL) 100 mg tablet Take 100 mg by mouth twice daily. HISTORIES PAST MEDICAL HISTORY Diagnosis Date - Abdominal aortic aneurysm (HCC) - Abdominal aortic aneurysm without rupture (HCC) - Acute myocardial infarction of inferior wall (HCC) - Adrenal adenoma - Adrenal mass (HCC) - Arthritis - Asthma - Avascular necrosis of bone (HCC) - Chronic obstructive lung disease (HCC) - Closed fracture carpal bone S/p perc screw fixation right. - Closed fracture of hip (HCC) - Closed fracture of patella - Coronary arteriosclerosis OM disease with good collaterals on cardiac catheterization 2010. - Depression - Depressive disorder - Gastroesophageal reflux disease - HTN (hypertension) - Hyperlipidemia - Iron deficiency anemia - Known medical problems Current tear of medial cartilage AND/OR meniscus of knee. S/p repair left knee. Morteza Doherty MD. - Known medical problems Post percutaneous transluminal coronary angioplasty. [facility] 09/12 - Malaise and fatigue - Old anterior cruciate ligament disruption S/p repair, Morteza Doherty MD - Old myocardial infarction - Olecranon bursitis S/p excision bursa Morteza Doherty MD - Osteoarthritis of knee Left. - Pain in finger Right middle, splinting. Que Ruiz MD - Peripheral vascular disease (HCC) - Posttraumatic stress disorder - Skin cancer - Stroke (HCC) - TIA (transient ischemic attack) - Unexplained weight loss FAMILY HISTORY Problem Relation Age of Onset - Cancer Father - other (CARDIAC) Father - other (HTN) Father SOCIAL HISTORY Social History Substance Use Topics - Smoking status: Former Smoker Types: Cigarettes Quit date: 12/01/2017 - Smokeless tobacco: Never Used - Alcohol use 4.0 - 8.0 oz/week 1 Glasses of Wine (5oz), 1 - 3 Cans of Beer (12oz), 1 - 2 Shots of liquor per week Comment: SOCIAL/RARE PHYSICAL EXAMINATION Blood pressure 120/74, pulse (!) 57, resp. rate 17, height 6' 1 (1.854 m), weight 253 lb (114.8 kg), SpO2 98 %. GENERAL EXAM: General appearance: NAD, pleasant. HEENT: NC/AT, nasal congestion absent, no oral lesions, membranes moist. NECK: No masses, supple. Lungs: CTA bilaterally. CV: RRR nl S1, S2. No carotid bruits. Abd: Soft, nontender, nondistended. Bowel sounds present. Extr: No cyanosis, clubbing or edema. Extremity pulses palpable and normal. Skin: Cool to touch. NEUROLOGICAL EXAM: General: Awake, alert, oriented x3 (person,place,time), speech fluent, no dysarthria; comprehension, naming, repetition intact. 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 Fund of knowledge grossly normal by MOCA. CN: PERRL, fundi with no evidence of papilledema, EOMI and without nystagmus, VFF to confrontation, facial sensation and strength are normal and symmetric, hearing is intact to finger rub bilaterally, palate and tongue movements are intact and symmetric. SCM and trapezius strength normal. Motor: Normal tone, bulk and strength (5/5) bilaterally (throughout extremities x4). Reflexes: 1/4 and symmetric, plantar stimulation is flexor. Coordination: FNF, VIKI, HTS intact. No tremors. Sensation: Light touch and pin and vibration intact throughout. No evidence of neglect. Gait: Narrow based and stable with normal stride and arm swing. Romberg normal. Assessment and Plan: ASSESSMENT/PLAN: 1. Acute intractable headache, unspecified headache type - ICD9: 784.0, ICD10: R51 (primary diagnosis) Unclear etiology. Does have history of L carotid occlusion, but he is not endorsing an acutal focal neuro deficit. Note that he has had similar symptoms in the distant past with unremarkable workup. Headache in association with other complaints of SOB and weakness and CP may in fact represent a stress reaction or somatoform type disorder. That said, it would be a diagnosis of exclusion. Thus, given prior history of carotid occlusion, will further evaluate headaches that are associated with visual changes by means of MRI brain as well as MRA brain and carotids - evaluating for intracranial etiology as well as vascular abnormality. In addition will get MRV to evaluate for sinus thrombosis. Will also check ESR and ALBERT for inflammatory disorder. MRI will also allow for imaging of sinuses. If unremarkable workup, again need to consider stress reaction or other. 2. Weakness - ICD9: 780.79, ICD10: R53.1 3. Shortness of breath - ICD9: 786.05, ICD10: R06.02 Generalized weakness and shortness of breath. Etiology uncertain, but appears that he has had extensive and unremarkable cardiac and pulmonary workup. From neuro standpoint, given non-focal exam, still need to consider possible neuro-muscular disorder such as MG. Thus will get Ach receptor Abs and EMG/NCV. 4. Blurred vision - ICD9: 368.8, ICD10: H53.8 No obvious etiology at time of neuro exam. Advised patient to follow up with ophthalmology for formal exam to evaluate for ocular etiology. Sammy Neves MD I spent 45 minutes in the visit, with more than 50% of the total uvcl-uc-[id number] time of the visit in counseling / coordination of care. Referring Provider: SILVESTRE SOARES [[id number]] Allergies As of Date: 12/14/2018 Noted Allergy Reaction PARAFOMik FORTShine DSC (CHLORZOXAZONE) 08/08/2015 9 - Itching Date Reviewed: 12/14/2018 Reviewed by: Sammy Neves Jr. - Fully Assessed Reason for Visit: Follow Up [171] Primary Visit Diagnosis:Acute intractable headache, unspecified headache type [R51] Other Visit Diagnoses:Weakness [R53.1] Shortness of breath [R06.02] Blurred vision [H53.8] Order(s):MRI BRAIN WO IVCON [[id number]] Order #: [id number] FUTURE MRA BRAIN WO IVCON [[id number]] Order #: [id number] FUTURE MRA CAROTID WO IVCON [[id number]] Order #: [id number] FUTURE SED RATE WESTERGREN [SQWSR] Order #: [id number] FUTURE ALBERT BY IFA SCREEN [SQANAIFS] Order #: [id number] FUTURE ACETYLCHO R BIND AB [SQACHRA] Order #: [id number] FUTURE ACETYLCHO R BLOC AB [SQACEBLC] Order #: [id number] FUTURE ACETYLCHO R MOD AB [SQACEMOD] Order #: [id number] FUTURE EMG(NEURO/NI) [[id number]] Order #: [id number]: 1 FUTURE CONSULT TO OPHTHALMOLOGY [9023] Order #: [id number]: 1 Prescriptions as of 12/14/2018 Sig: VENLAFAXINE 75 MG TABLET Take 75 mg by mouth three kang* ALBUTEROL INHALATION Inhale 2 Puffs as instructed * DOXYCYCLINE HYCLATE 100 MG TA* Take 100 mg by mouth once latha* LISINOPRIL 20 MG-HYDROCHLOROT* Take 1 tablet by mouth once d* TRAZODONE 150 MG TABLET Take 1 tablet by mouth daily * Patient taking differently: Take 100 mg by mouth daily at* LAMOTRIGINE 150 MG TABLET Take 1 tablet by mouth twice * CLOPIDOGREL 75 MG TABLET Take 75 mg by mouth once shahla* METOPROLOL TARTRATE 100 MG TA* Take 100 mg by mouth once latha* CLONAZEPAM 0.5 MG TABLET Take 0.5 mg by mouth twice da* ACETAMINOPHEN ORAL Take 650 mg by mouth every 4 * ASPIRIN 81 MG TABLET,DELAYED * Take 81 mg by mouth once shahla* HYDROCODONE 5 MG-ACETAMINOPHE* One to Two tablets every 8 h* ATORVASTATIN 80 MG TABLET Take 80 mg by mouth once shahla* CILOSTAZOL 100 MG TABLET Take 100 mg by mouth twice da* GABAPENTIN 300 MG CAPSULE Take 4 to 5 capsules at bedti* Patient not taking: Reported on 12/14/2018 NEOMYCIN 3.5 MG/G-POLYMYXIN B* Use 1 application in the righ* KETOROLAC 0.4 % EYE DROPS Use 1 Drop in the right eye f* PREDNISOLONE ACETATE 1 % EYE * Use 1 Drop in the right eye f* BUPROPION HCL ORAL Take by mouth once daily. CICLOPIROX 8 % TOPICAL SOLUTI* Apply 1 application to affect* KRILL OIL ORAL Take 300 mg by mouth twice da* HYDROCODONE 5 MG-ACETAMINOPHE* One to Two tablets every 8 ho* Patient not taking: Reported on 10/27/2018 VENTOLIN HFA 90 MCG/ACTUATION* VIRTUSSIN AC 10 MG-100 MG/5 M* PREDNISONE 20 MG TABLET LISINOPRIL 20 MG TABLET DULOXETINE 30 MG CAPSULE,MANUELA* 3 caps po daily morning Patient not taking: Reported on 12/14/2018 TAMSULOSIN 0.4 MG CAPSULE LISINOPRIL 10 MG TABLET Take 10 mg by mouth once shahla* FISH OIL ORAL Take by mouth. Problem List As Of Date 12/14/2018 Noted Resolved Failed total knee arthroplasty (HCC) [T84.018A,*INVALID FOR* Contusion of right knee [S80.01XA] INVALID FOR* Primary osteoarthritis of left knee [M17.12] INVALID FOR* TIA (transient ischemic attack) [G45.9] Severe episode of recurrent major depressive di*INVALID FOR* Chronic post-traumatic stress disorder (PTSD) [*INVALID FOR* Cigarette nicotine dependence with nicotine-ind*INVALID FOR* DIMAS (obstructive sleep apnea) [G47.33] INVALID FOR* 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] INVALID FOR* Tendinitis of right rotator cuff [M75.81] INVALID FOR* Age-related nuclear cataract of right eye [H25.*INVALID FOR* Age-related nuclear cataract of left eye [H25.1*INVALID FOR* AAA (abdominal aortic aneurysm) without rupture*INVALID FOR* Degenerative disc disease, cervical [M50.30] INVALID FOR* Cervical radicular pain [M54.12] INVALID FOR* Quadriceps strain, right, initial encounter [S7*INVALID FOR* Disposition: Return in about 2 months (around 02/11/2019). Follow-up and Disposition History Recorded Encounter Status:Closed by SAMMY NEVES on 12/14/18 PROGRESS Observed: 12/14/2018 Status: COMPLETED Source: [facility] 8:58 AM CLINIC OTHER CAMPUS REPOSITORY HNO ID: [id number] Author: Sammy Neves Jr. Service: (none) Author Type: Physician Type: Progress Notes Filed: 12/14/2018 6:19 PM Note Text: ESTABLISHED PATIENT VISIT HISTORY OF PRESENT ILLNESS: Allen Valdes is a 63 year old male, with past medical history significant for: 1. Occlusion of left carotid artery - ICD9: 433.10, ICD10: I65.22 (primary diagnosis) -on dual antiplt with statin therapy. 2. History of TIAs - ICD9: V12.54, ICD10: Z86.73 See #1 3. Chronic intractable headache, unspecified headache type - ICD9: 784.0, ICD10: R51 Improved last visit on gabapentin. 4. PLMD (periodic limb movement disorder) - ICD9: 327.51, ICD10: G47.61 Improved on gabapentin last visit. 5. Obstructive sleep apnea syndrome - ICD9: 327.23, ICD10: G47.33 Declines PAP. Refered to ENT. 6. Insomnia, unspecified type - ICD9: 780.52, ICD10: G47.00 Likely components of PLMD, untreated DIMAS, and depression. Patient states that on 11/04/18 he performed a six minute walk test for oxygen. Half way through it had a severe headaches. States headache stayed with him a few days. Since then states he felt a thickness in his left neck with constant pressure behind left eye, with blurriness of vision. States more active he is the more pressure he feels and the more pain he has on the left side of his head. States he has had an off and on headache since the test. Was seen in an OSH ER on stating he felt numbness in left side of mouth and weakness of left leg. States they did a CT and CTA and all they did was confirm no stroke or bleeds and that I had a sinus infection on the right side. States has seen PCP but no additional testing ordered. Pt states throughout the summer he has had SOB and CP with evaluations by silk screen etcher Dr. Ruy Rossi and at least 6-7 ER visits and admitted twice and per patient results show nothing. Also had cath performed by Dr. Tarango that was negative and clear. Pt now is having a repeat PSG in [place], as ordered by Dr. Ruy Rossi. Reviewed patient's Jill records from his phone which show a diagnosis of CP - non cardiac in October for which he was treated with Klonopin - appears thought perhaps anxiety related. However, patient states only thing that helps with CP is if he takes 4 aspirin. Despite complaints above, he has not seen an highway engineer for blurred vision. Pt reports only new medication is Effexor XR that was started in the summer and Cymbalta was discontinued. When asked if checks vitals at time of events, he reports that BP may increase to the 140's but was worse before taking Klonopin. Headache is more so left frontal and spreads to right side. No tenderness to touch. Negative photosensitivity. No nausea. Does have dry cough episodes. States he cannot ambulate anywhere or he will immediately become short of breath. He arrived today in a wheelchair. He just was recently on steroids and no effect on vision or headaches. Denies diplopia. States speech has been slower and sloppier. If talks a lot, gets short of breath. States temperature has no influence on symptoms. States: im not afraid to , im not afraid of the heart attack... but I dont want to stroke out. REVIEW OF SYSTEMS GENERAL:No weight loss, malaise or fevers. HEENT: No changes in hearing, no nose bleeds or other nasal problems NECK:Negative for lumps, goiter, pain and significant neck swelling RESPIRATORY: See HPI. CARDIOVASCULAR: See HPI. GASTROINTESTINAL: Negative for abdominal discomfort, blood in stools or black stools or change in bowel habits GENITOURINARY: No history of dysuria, frequency or incontinence MUSCULOSKELETAL: Se HPI.. NEUROLOGIC:See HPI. PSYCHIATRIC: See HPI. HEMATOLOGIC/LYMPHATIC/IMMUNOLOGIC:Negative for prolonged bleeding, bruising easily or swollen nodes. ENDOCRINE: Negative for cold or heat intolerance, polyuria, polydipsia and goiter. The remainder of the ROS was reviewed and is negative. LAB/IMAGING: Those performed since patient's last visit have been reviewed. WBC (thou/cmm) Date Value 06/23/2016 7.4 RBC (mil/cmm) Date Value 06/23/2016 4.88 Hemoglobin (g/dL) Date Value 11/11/2015 13.3 HGB (g/dL) Date Value 06/23/2016 14.9 Hematocrit (%) Date Value 06/23/2016 43.0 MCV (fl) Date Value 06/23/2016 88.1 MCH (pg) Date Value 06/23/2016 30.5 MCHC (%) Date Value 06/23/2016 34.7 Platelet Count (thou/cmm) Date Value 06/23/2016 140 (L) MPV (fl) Date Value 06/23/2016 11.6 Glucose (mg/dL) Date Value 06/24/2016 98 BUN (mg/dL) Date Value 06/24/2016 13 Creatinine (mg/dL) Date Value 06/24/2016 1.10 Sodium (mEq/L) Date Value 06/24/2016 142 Potassium (mEq/L) Date Value 06/24/2016 3.6 Chloride (mEq/L) Date Value 06/24/2016 110 (H) CO2 (mEq/L) Date Value 06/24/2016 26 Protein, Total (g/dL) Date Value 06/01/2015 7.1 Albumin (g/dL) Date Value 06/01/2015 3.7 Calcium (mg/dL) Date Value 06/24/2016 8.2 (L) Alkaline Phosphatase (U/L) Date Value 06/01/2015 146 (H) Bilirubin, Total (mg/dL) Date Value 06/01/2015 0.6 AST (U/L) Date Value 06/01/2015 13 ALT (U/L) Date Value 06/01/2015 29 ALBERT (no units) Date Value 12/28/2014 Negative <1:40 Rheumatoid Factor (IU/mL) Date Value 12/28/2014 <10.0 MEDICATIONS: gabapentin (NEURONTIN) 300 mg capsule Take 4 to 5 capsules at bedtime. venlafaxine (EFFEXOR) 75 mg tablet Take 75 mg by mouth three times daily. NEOMYCIN 3.5 MG/G-POLYMYXIN B 10,000 UNIT/G-DEXAMETH 0.1 % EYE OINT Use 1 application in the right eye twice daily. Apply 0.5 inches into RUL margin and eye 2 times a day. Ketorolac Tromethamine (ACLUAR LS) 0.4 % drop Use 1 Drop in the right eye four times daily. prednisoLONE acetate (PRED FORTE) 1 % ophthalmic suspension Use 1 Drop in the right eye four times daily. BUPROPION HCL ORAL Take by mouth once daily. Ciclopirox (PENLAC) 8 % solution Apply 1 application to affected area daily at bedtime. ALBUTEROL INHALATION Inhale 2 Puffs as instructed every 6 hours as needed (wheezing). KRILL OIL ORAL Take 300 mg by mouth twice daily. HYDROcodone-acetaminophen (NORCO) 5-325 mg per tablet One to Two tablets every 8 hours as needed for pain VENTOLIN HFA 90 mcg/actuation inhaler VIRTUSSIN AC 10-100 mg/5 mL syrup doxycycline (VIBRA-TABS) 100 mg tablet Take 100 mg by mouth once daily. lisinopril-hydrochlorothiazide (PRINZIDE,ZESTORETIC) 20-12.5 mg per tablet Take 1 tablet by mouth once daily. predniSONE (DELTASONE) 20 mg tablet lisinopril (ZESTRIL, PRINIVIL) 20 mg tablet traZODone (DESYREL) 150 mg tablet Take 1 tablet by mouth daily at bedtime. DULoxetine (CYMBALTA) 30 mg capsule 3 caps po daily morning lamoTRIgine (LAMICTAL) 150 mg tablet Take 1 tablet by mouth twice daily. clopidogrel (PLAVIX) 75 mg tablet Take 75 mg by mouth once daily. metoprolol tartrate, short acting, (LOPRESSOR) 100 mg tablet Take 100 mg by mouth once daily. tamsulosin ER (FLOMAX) 0.4 mg cp24 clonazePAM (KLONOPIN) 0.5 mg tablet Take 0.5 mg by mouth twice daily as needed for Anxiety. ACETAMINOPHEN ORAL Take 650 mg by mouth every 4 hours as needed. aspirin, enteric coated (ASPIRIN, ENTERIC COATED) 81 mg EC tablet Take 81 mg by mouth once daily. lisinopril (ZESTRIL, PRINIVIL) 10 mg tablet Take 10 mg by mouth once daily. HYDROcodone-acetaminophen (NORCO) 5-325 mg per tablet One to Two tablets every 8 hours as needed for pain DOCOSAHEXANOIC ACID/EPA (FISH OIL ORAL) Take by mouth. atorvastatin (LIPITOR) 80 mg tablet Take 80 mg by mouth once daily. cilostazol (PLETAL) 100 mg tablet Take 100 mg by mouth twice daily. HISTORIES PAST MEDICAL HISTORY Diagnosis Date - Abdominal aortic aneurysm (HCC) - Abdominal aortic aneurysm without rupture (HCC) - Acute myocardial infarction of inferior wall (HCC) - Adrenal adenoma - Adrenal mass (HCC) - Arthritis - Asthma - Avascular necrosis of bone (HCC) - Chronic obstructive lung disease (HCC) - Closed fracture carpal bone S/p perc screw fixation right. - Closed fracture of hip (HCC) - Closed fracture of patella - Coronary arteriosclerosis OM disease with good collaterals on cardiac catheterization 2010. - Depression - Depressive disorder - Gastroesophageal reflux disease - HTN (hypertension) - Hyperlipidemia - Iron deficiency anemia - Known medical problems Current tear of medial cartilage AND/OR meniscus of knee. S/p repair left knee. Morteza Doherty MD. - Known medical problems Post percutaneous transluminal coronary angioplasty. SAMSON 09/12 - Malaise and fatigue - Old anterior cruciate ligament disruption S/p repair, Morteza Doherty MD - Old myocardial infarction - Olecranon bursitis S/p excision bursa Morteza Doherty MD - Osteoarthritis of knee Left. - Pain in finger Right middle, splinting. Que Ruiz MD - Peripheral vascular disease (HCC) - Posttraumatic stress disorder - Skin cancer - Stroke (HCC) - TIA (transient ischemic attack) - Unexplained weight loss FAMILY HISTORY Problem Relation Age of Onset - Cancer Father - other (CARDIAC) Father - other (HTN) Father SOCIAL HISTORY Social History Substance Use Topics - Smoking status: Former Smoker Types: Cigarettes Quit date: 12/01/2017 - Smokeless tobacco: Never Used - Alcohol use 4.0 - 8.0 oz/week 1 Glasses of Wine (5oz), 1 - 3 Cans of Beer (12oz), 1 - 2 Shots of liquor per week Comment: SOCIAL/RARE PHYSICAL EXAMINATION Blood pressure 120/74, pulse (!) 57, resp. rate 17, height 6' 1 (1.854 m), weight 253 lb (114.8 kg), SpO2 98 %. GENERAL EXAM: General appearance: NAD, pleasant. HEENT: NC/AT, nasal congestion absent, no oral lesions, membranes moist. NECK: No masses, supple. Lungs: CTA bilaterally. CV: RRR nl S1, S2. No carotid bruits. Abd: Soft, nontender, nondistended. Bowel sounds present. Extr: No cyanosis, clubbing or edema. Extremity pulses palpable and normal. Skin: Cool to touch. NEUROLOGICAL EXAM: General: Awake, alert, oriented x3 (person,place,time), speech fluent, no dysarthria; comprehension, naming, repetition intact. 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 Fund of knowledge grossly normal by MOCA. CN: PERRL, fundi with no evidence of papilledema, EOMI and without nystagmus, VFF to confrontation, facial sensation and strength are normal and symmetric, hearing is intact to finger rub bilaterally, palate and tongue movements are intact and symmetric. SCM and trapezius strength normal. Motor: Normal tone, bulk and strength (5/5) bilaterally (throughout extremities x4). Reflexes: 1/4 and symmetric, plantar stimulation is flexor. Coordination: FNF, VIKI, HTS intact. No tremors. Sensation: Light touch and pin and vibration intact throughout. No evidence of neglect. Gait: Narrow based and stable with normal stride and arm swing. Romberg normal. Assessment and Plan: ASSESSMENT/PLAN: 1. Acute intractable headache, unspecified headache type - ICD9: 784.0, ICD10: R51 (primary diagnosis) Unclear etiology. Does have history of L carotid occlusion, but he is not endorsing an acutal focal neuro deficit. Note that he has had similar symptoms in the distant past with unremarkable workup. Headache in association with other complaints of SOB and weakness and CP may in fact represent a stress reaction or somatoform type disorder. That said, it would be a diagnosis of exclusion. Thus, given prior history of carotid occlusion, will further evaluate headaches that are associated with visual changes by means of MRI brain as well as MRA brain and carotids - evaluating for intracranial etiology as well as vascular abnormality. In addition will get MRV to evaluate for sinus thrombosis. Will also check ESR and ALBERT for inflammatory disorder. MRI will also allow for imaging of sinuses. If unremarkable workup, again need to consider stress reaction or other. 2. Weakness - ICD9: 780.79, ICD10: R53.1 3. Shortness of breath - ICD9: 786.05, ICD10: R06.02 Generalized weakness and shortness of breath. Etiology uncertain, but appears that he has had extensive and unremarkable cardiac and pulmonary workup. From neuro standpoint, given non-focal exam, still need to consider possible neuro-muscular disorder such as MG. Thus will get Ach receptor Abs and EMG/NCV. 4. Blurred vision - ICD9: 368.8, ICD10: H53.8 No obvious etiology at time of neuro exam. Advised patient to follow up with ophthalmology for formal exam to evaluate for ocular etiology. Sammy Neves MD I spent 45 minutes in the visit, with more than 50% of the total [id number] time of the visit in counseling / coordination of care. PULMONARY VISIT REPORT Observed: 12/01/2018 Status: F Source: [place] 3:34 PM [facility] [place] [place] [address] [place] [address] OFFICE VISIT Date of Service: 12/01/18 MR#: [id number] Acct: [id number] Name: ALLEN VALDES Rep #: [id number] : 1955 Provider: Ruy Rossi MD Age/Sex: 63/M Location: [facility] [place] Status: Signed Assessment AND Plan 1. Pulmonary hypertension I27.20 Plan Unclear etiology at this time. Patient did have a mildly elevated pulmonary artery pressure in the past, but has had significant decrease in spirometric and lung volumes over relatively short time. Patient is denying any toxic exposures such as reactive airways disease. Patient's inflammatory markers are not elevated. Evaluation for vasculitis was unremarkable. Patient did have a bronchoscopy showing no dynamic airway collapse. Patient will undergo vocal cord training. Will wean patient off of prednisone therapy as this does not appear to be helping. Obtain a complete pulmonary function test walking oximetry prior to next visit. Wean off prednisone. Obtain complete PFT and walking oximetry Orders Orders: Medications New: prednisone 4 tablet daily for 3 days, then 3 tablet for 3 da10 mg PO QDAY 30 tabs 0RF ys then 2 tablet daily for 3 days then 1 tablet daily for 3 day s 2. DIMAS (obstructive sleep apnea) G47.33 Plan Patient has a history of obstructive sleep apnea currently, but is not using therapy. Patient is reporting having difficulty staying asleep and this may be secondary to the development of obstructive events. Patient has been on prednisone therapy and has had some weight gain. Patient is also on several sedative medications. Will obtain a split-night study to see if CPAP may be of help in his overall condition. Obtained split-night study and initiate therapy if indicated Plan Detail Other Orders Orders: [facility] Hospital FU/ still not feeling well: Chief Complaint: Shortness of breath Details: Patient is a 63-year-old male, currently under the care of Dr. Fernandez, who presents for evaluation secondary to continued shortness of breath. Since last visit, patient has been hospitalized and underwent a bronchoscopy. Patient was discharged on 40 mg of prednisone and continued for 2 weeks. Patient feels subjectively unchanged compared to previous. Patient continues to have significant issues with shortness of breath at rest and with exertion. Patient states that he gets winded with minimal exertion. Patient has not reported any significant change in cough. Patient is still having left-sided chest pain and weakness down the left side. Patient has noted this is worse with deep inhalation. Patient states his appetite is doing well, but he is not sleeping well. Patient does report slower recall of information. Patient is having more issues with depression and anxiety. Patient has not been initiated on vocal cord training yet. Patient reports he does wake up at night with significant apneic episodes. Patient does report being tired throughout most of the day. Patient has had some minimal weight gain. Patient is no longer smoking. Patient denies any exposure to toxic fumes, chest trauma or other exposures. Patient's believes that he was slightly improved with the addition of Klonopin therapy. Documentation personally reviewed with the patient Bronchoscopy (11/18/2018): Normal bronchoscopy with no evidence of dynamic airway collapse or splaying of the alma rosa. HPI Comments Details: Intake Vital Signs12/01/18 Height 6 ft 1 in 12/01/18 Weight: 116.573 kg Intake Visit Reasons: Hospital FU/ still not feeling well Accompanied by: Allergies chlorzoxazone Adverse Reaction (Severe, Verified 12/01/18 13:19) also known as Parafon Forte: pt becomes disoriented Medications lisinopril 20 mg-hydrochlorothiazide 12.5 mg tablet 1 tab PO QHS tab 02/10/18 [History Confirmed 12/01/18] multivit,tx with iron 27 lg-pqpwbdn-jezil acid 0.4 mg-minerals tablet 1 tab PO DAILY 09/22/18 [History Confirmed 12/01/18] nitroglycerin 0.4 mg sublingual tablet 0.4 mg SUBLINGUAL Q5- 15M PRN 09/22/18 [History Confirmed 12/01/18] Albuterol Sulfate [Ventolin Hfa] 2 puff INHALATION Q4H PRN 11/15/18 [History Confirmed 12/01/18] Aspirin [Aspirin, Baby] 81 mg PO QHS 11/15/18 [History Confirmed 12/01/18] Atorvastatin Calcium [Lipitor] 80 mg PO QHS 11/15/18 [History Confirmed 12/01/18] Cilostazol [Pletal] 100 mg PO BID 11/15/18 [History Confirmed 12/01/18] Clopidogrel Bisulfate [Plavix] 75 mg PO QHS 11/15/18 [History Confirmed 12/01/18] Metoprolol Tartrate [Lopressor (beta ian)] 25 mg PO BID 11/15/18 [History Confirmed 12/01/18] Venlafaxine HCl [Effexor] 225 mg PO DAILY 11/15/18 [History Confirmed 12/01/18] doxycycline hyclate 50 mg tablet 50 mg PO DAILY tab 11/15/18 [History Confirmed 12/01/18] hydrocodone 5 mg-acetaminophen 325 mg tablet 1 tab PO Q8H PRN 11/15/18 [History Confirmed 12/01/18] lamotrigine 100 mg tablet 100 mg PO BID 11/15/18 [History Confirmed 12/01/18] traZODone [Desyrel] 200 mg PO QHS 11/15/18 [History Confirmed 12/01/18] prednisone 20 mg tablet 40 mg PO QDAY #20 tab 11/22/18 [Rx Confirmed 12/01/18] prednisone 10 mg tablet 10 mg PO QDAY #30 tab 12/01/18 [Rx Confirmed 12/01/18] [facility] Medical History PAD (peripheral artery disease) (Chronic) Carotid artery disease (Chronic) PTSD (post-traumatic stress disorder) (Chronic) History of inferior wall myocardial infarction (Chronic 09/05/14) Atherosclerotic heart disease of pechanga coronary artery with other forms of angina pectoris (Chronic) History of abdominal aortic aneurysm (Resolved) Asthma (Chronic) Sleep apnea (Chronic) HTN (hypertension) (Chronic) Peripheral vascular disease (Chronic) Depression (Chronic) TIA (transient ischemic attack) (Chronic) Chronic sinusitis (Chronic) Osteoarthritis (Chronic) Surgical History Stented coronary artery (Chronic 09/05/14) S/P AAA repair (Chronic 06/03/15) History of total right knee replacement (Chronic 2010) Hx of cataract surgery (Chronic) Social History household members: spouse housing: house pets and animals: Yes pets and animals: dog(s) Smoking Status: Former smoker quit date: 11/30/17 how long ago did patient quit smokin, 1.5p/d second hand exposure: No alcohol intake: never substance use type: does not use Review of Systems Const CONSTITUTIONAL: Positive fatigue and headache(s) (constant ); negative anorexia, body ache, chills, daytime sleepiness, fever(s), night sweats, oral thrush, stops breathing during sleep, weight loss, sleeping in chair, weight loss, weight gain, frequent colds, seasonal allergies, other or orthopnea EETM Ear Nose Throat Mouth: Positive hearing normal, eye pain and headache(s) (constant ); negative hard of hearing, hoarseness, dry mouth in morning, change in vision, itchy eyes, swallowing Difficulty, ear pain, nose bleed, mouth pain, nasal congestion, nasal discharge, post nasal drip, sinus pain, sinus pressure, sore throat or other (blurry vision left eye) Cardio Cardiovascular: Negative chest pain, chest pain at rest, chest pain with activity, irregular heart rhythm, edema, shortness of breath when lying down, palpitations, murmur or other Resp Respiratory: Positive as per HPI and shortness of breath shortness of breath: Positive with activity; negative pain with cough, wheezing, chest congestion, cough, chest tightness, pain on inspiration, inhalers, increase use of rescue inhalers, snoring, apnea or other Gastro Gastrointestional: Negative bloody stools, change in appetite, difficulty swallowing, reflux, hematemesis, melena stool, loose stool, constipation or other Genitourinary: Negative blood in urine, nocturia, pain with urination or other Musc Musculoskeletal: Negative body pain, back pain, neck pain or other Skin/Breast Skin/Breast: Negative dry skin, itching, rash, unusual bruising, breast lump or other Neuro Neurological: Positive weakness (lt side ); negative restless legs, confusion or other Psych Psychocological: Positive hopelessness; negative abnormal sleep pattern, anxiety, thoughts of hurting self/others or other Lymph Lymphatic: Negative easy bleeding, easy bruising, swollen lymph nodes or other Exam Const Constitutional: Positive cooperative, in no acute respiratory distress, healthy appearing, well developed, well nourished, good hygiene, appears older than stated age and obese; negative smells of smoke, wearing supplemental oxygen or ill appearing Head Head: Positive normocephalic and atraumatic; negative cyanosis of lips/distal nose, frontal sinus tenderness or maxillary sinus tenderness Eyes Eye: Positive clear conjunctiva; negative nystagmus, scleral abnormality or cataract present Ears Ear: Positive hearing normal and external ears normal; negative hard of hearing Nose Nose: Positive external nose normal, septum normal and no nasal discharge; negative epistaxis or nasal polyp Mouth Mouth: Positive oral mucosae normal, no lesions and crowded posterior oropharynx; negative post nasal drip, malodorous breath or oral thrush present Mallampati Score: II: Mallampati Score Neck Neck: Positive normal visual inspection, full ROM, trachea midline and male neck greater than 43 cm (17 in); negative lymphadenopathy or JVD Chest Wall Chest: Positive normal inspection of the chest and symmetric chest movement; negative crepitus or tenderness Resp lung sounds: Positive diminished, prolonged expiratory time, increased work of breathing and other (Cough noted with deep inhalation); negative wheezes, rhonchi, rales, use of accessory muscles, dullness to percussion or wheeze present on forced exhalation Cardio Cardiac: Positive regular rate, regular rhythm, S1 normal and S2 normal; negative murmur, rub or gallop GI GI: Positive normal to inspection, normal bowel sounds and obese; negative distended, ascites or epigastric tenderness Genitourinary: Positive deferred Musc Musculoskeletal: Positive steady gait; negative using an assistive device for ambulation, kyphosis or scoliosis Skin Pulmonary Skin Exam: Positive intact; negative rash, lesion, ulcers, erythema or dermal atrophy Pulses Pulse: Yes radial pulses present Extremities Extremities: Yes capillary refill normal, No clubbing, No cyanosis, No edema, No stasis dermatitis Neuro Neurologic: Yes no focal neuro deficits, Yes normal concentration, Yes understands questions, No normal cognition (Slower cognition noted.), No normal coordination Lymph Lymphatic: No lymphadenopathy Psych Appearance: Negative eye contact Mental Status: Negative mental status grossly normal Mood: Positive dysthymic mood Affect: Positive withdrawn, indifferent and flat Coding Level of Care Code Off vis,est,level 5 Diagnoses Pulmonary hypertension I27.20 DIMAS (obstructive sleep apnea) G47.33 12/01/18 1534 <Electronically signed by Ruy Rossi MD> Date Ruy Rossi MD Cosigner Signature: Date (if applicable) CC: Silvestre Soares DO DISCHARGE SUMMARY Observed: 11/23/2018 Status: F Source: [place] 4:29 PM [facility] [place] [facility] Medical Records Department [address] [place] [address] Discharge Summary 11/18/18 1623 MR#: [id number] Acct: [id number] Name: ALLEN VALDES Rep #: [id number] : [id number] 63 From: Chelsy Grimes DO PCP: Silvestre Soares DO Status: DIS CHRISTIANO Y Location: [place] [id number] Discharge Date and Diagnosis Date of Admission: 11/15/18 Date of Discharge: 11/18/18 - Primary Discharge Diagnosis Active and Suspected Problems (Last Updated 11/15/18 @ 20:04 by Ino Vazquez DO) Chest pain (Acute)- non-cardiac - Secondary Discharge Diagnosis Chronic Problems (Last Updated 11/15/18 @ 20:04 by Ino Vazquez DO) PAD (peripheral artery disease) (Chronic) Pt on Pletal therapy Carotid artery disease (Chronic) Chronically occluded left ICA PTSD (post-traumatic stress disorder) (Chronic) History of inferior wall myocardial infarction (Chronic 09/05/14) Treated at [facility] Atherosclerotic heart disease of pechanga coronary artery with other forms of angina pectoris (Chronic) Acute inferior infarct, SAMSON to ostial-proximal RCA using 2.75 X 32 mm everolimus SAMSON per Dr. Geiger, [facility] 09/05/2014 Stented coronary artery (Chronic 09/05/14) Acute inferior infarct, SAMSON to ostial-proximal RCA using 2.75 X 32 mm everolimus SAMSON per Dr. Geiger, [facility] Asthma (Chronic) Sleep apnea (Chronic) HTN (hypertension) (Chronic) Peripheral vascular disease (Chronic) Depression (Chronic) S/P AAA repair (Chronic 06/03/15) 06/03/[address] Stephanie Sosa @ [facility]: Endovascular repair with Elbe excluder device TIA (transient ischemic attack) (Chronic) 04/13 Atherosclerosis of coronary artery of pechanga heart with angina pectoris (Chronic) Pulmonary hypertension (Chronic) RVSP 36 mmHg Chronic bronchitis (Chronic) DIMAS (obstructive sleep apnea) (Chronic) Tobacco abuse (Chronic) Hospital Course and Treatment Imaging Results: Clinical Impression(s) from Imaging Studies Chest X-Ray 11/15/18 12:01 IMPRESSION: No acute intrathoracic process. Electronically Signed: Tracie Zelaya MD at 12:27 EST , Service support , Chest CT 11/16/18 14:46 IMPRESSION: Coronary artery calcification. No evidence of focal infiltrate or findings to suggest fibrosis or emphysematous change. Electronically Signed: Melissa Barrera MD at 19:34 EST Tel , Service support , Laboratory Tests WBC (4.4-11.0) K/mm3 RBC (4.6-6.2) M/mm3 Hgb (13.0-16.5) g/dl WBC (4.4-11.0) K/mm3 RBC (4.6-6.2) M/mm3 Hgb (13.0-16.5) g/dl Hct (40-54) % Dr. Ralph Goss-pulmonary medicine Dr. Saul Tarango-[facility] Operations: None Procedures: Bronchoscopy - 11/[address] Goss.....grossly normal with no evidence of dynamic air way collapse with respiration, Cardiac catheterization - Preserved left ventricular ejection fraction, nonobstructive coronaries, known occluded small OM #1 with left to left and right to left collaterals Summary of Care Provided: The patient is a 63 year old M with a past medical history of carotid artery disease, peripheral arterial disease, posttraumatic stress disorder, prior inferior wall PR, CAD, stented coronary artery, asthma, obstructive sleep apnea, hypertension, depression, TIA, pulmonary hypertension, obstructive sleep apnea and tobacco dependence who presented to the emergency room at [facility] on 11/15/2018 complaining of chest pain which was constant. This has been an ongoing complaint for several weeks. He also complained of shortness of breath and his related that when he attempts to get up and ambulate to the bathroom he looks great and as if he is going to pass out. EKG in the emergency room showed normal sinus rhythm with no evidence of any ischemic change. Chest x-ray was unremarkable. Lab was unremarkable. Troponin was within normal limits. He was seen in the emergency department by Dr. Tarango who agreed to perform a heart catheterization and this showed nonobstructive coronary disease with preserved ejection fraction. A high resolution CT scan of the chest was done to look for a pulmonary cause of his symptoms and this showed no evidence of focal infiltrate or findings to suggest fibrosis or emphysematous change. He was seen in consultation by Dr. Ralph Goss from pulmonary who performed a bronchoscopy on 11/18/2018. The airway examination was grossly normal with only scant secretions noted in the distal airway. The trachea was somewhat oblong in appearance but there was not dynamic airway collapse with respiration. No specimens were collected. He was discharged home on 11/18 and will follow up with speech therapy for Laryngeal control training. PHYSICAL EXAM: GENERAL: alert, oriented X 3, Cooperative, NAD ORAL: moist mucosa, no mucosal lesions NECK: No JVD, supple, trachea midline LUNGS: CTA, symmetric chest expansion HEART: RRR, Normal S1 and S2, no rub, no gallop ABDOMEN: soft, NT, ND, BS present, no guarding with palpation EXTREMITIES: no edema, no cyanosis, no calf tenderness SKIN: No rashes, no breakdown NEUROLOGIC: no focal neurologic deficits PSYCH: appropriate, normal affect, pleasant This note was generated with [employer] dictation software. It may contain incorrect words, spelling, and punctuation that were not noted in checking the note before signing. - Physical Exam Vital Signs Temp Pulse Resp BP Pulse Ox 97.5 F L 59 L 14 122/79 H 94 11/18/18 09:53 11/18/18 11:03 11/18/18 09:53 11/18/18 11:03 11/18/18 09:53 Oxygen Delivery Method Room Air Weight: 250 lb 3.594 oz Body Mass Index (BMI) 33.1 Intake and Output for Last 24 Hours Intake Total 805 / 805 1297 / 1297 580 / 580 Output Total 0 / 0 Balance 805 / 805 1297 / 1297 580 / 580 Laboratory Tests Past 24 Hrs Plt Count 186 PT 14.2 INR 1.1 APTT 24.9 Discharge Activity: - - activity as tolerated May resume sexual activity in: No Restrictions Call your doctor if you observe: Fever of 101 or Higher, Fainting spells, Uncontrolled pain Home Medications: Medications to take at Discharge lisinopril 20 mg-hydrochlorothiazide 12.5 mg tablet 1 tab PO QHS tab 02/10/18 multivit,tx with iron 27 ac-jayzpng-podqf acid 0.4 mg-minerals tablet 1 tab PO DAILY 09/22/18 nitroglycerin 0.4 mg sublingual tablet 0.4 mg SUBLINGUAL Q5- 15M PRN 09/22/18 Albuterol Sulfate [Ventolin Hfa] 2 puff INHALATION Q4H PRN 11/15/18 Amox/Clavulanate Tablet [Augmentin Tablet] 875 mg PO Q12H 11/15/18 Aspirin [Aspirin, Baby] 81 mg PO QHS 11/15/18 Atorvastatin Calcium [Lipitor] 80 mg PO QHS 11/15/18 Cilostazol [Pletal] 100 mg PO BID 11/15/18 Clopidogrel Bisulfate [Plavix] 75 mg PO QHS 11/15/18 Metoprolol Tartrate [Lopressor (beta ian)] 25 mg PO BID 11/15/18 Venlafaxine HCl [Effexor] 225 mg PO DAILY 11/15/18 doxycycline hyclate 50 mg tablet 50 mg PO DAILY tab 11/15/18 hydrocodone 5 mg-acetaminophen 325 mg tablet 1 tab PO Q8H PRN 11/15/18 lamotrigine 100 mg tablet 100 mg PO BID 11/15/18 traZODone [Desyrel] 200 mg PO QHS 11/15/18 Clonazepam 0.5 mg PO BID 7 Days #14 tab 11/18/18 prednisone 20 mg tablet 40 mg PO QDAY #20 tab 11/22/18 Following Prescrptions Were Given to Patient: Clonazepam 0.5 mg PO BID 7 Days #14 tab Primary Care Physician: Silvestre Soares DO [Primary Care Provider] - Disposition: Home Minutes spent on discharge:: 30 Patient Condition:: Good Medical Necessity - Tobacco Use Smoking Status: Former smoker Tobacco Use: Cigarettes, Cigars, Pipe Meaningful Use Info Meaningful Use Diagnoses (Choose all that apply): None applicable Code Visit OBSAdam WILKINS: 45007 Observation care discharge 11/23/18 1629 <Electronically signed by Chelsy Grimes DO> Date Chelsy Grimes DO Cosigner Signature (if applicable): Date CC: Silvestre Soares DO; Alycia Grimes; Saul Tarango MD; Ralph Goss D.O. Signed 12 LEAD ELECTROCARDIOGRAM Observed: 11/19/2018 Status: F Source: [facility] 2:14 PM [facility] Cardiovascular Services [address] [place] [address] 12 Lead EKG 11/16/18 0542 MR#: [id number] Acct: [id number] Name: ALLEN VALDES Rep #: [id number] : 1955 63 From: Brayan Lay MD Attending Dr: Alycia Grimes Status: DIS CHRISTIANO Ordering Dr: Saul Tarango MD Date: 11/16/18 Location: [facility] Sex: M C Admitted: 11/15/18 Test Reason : AM EKG Blood Pressure : / mmHG Vent. Rate : 062 BPM Atrial Rate : 062 BPM P-R Int : 170 ms QRS Dur : 086 ms QT Int : 426 ms P-R-T Axes : 045 017 037 degrees QTc Int : 432 ms Normal sinus rhythm Normal ECG When compared with ECG of 15-NOV-2018 17:20, MANUAL COMPARISON REQUIRED, DATA IS UNCONFIRMED Confirmed by ALIREZA GIMENEZ, BRAYAN ([id number]), supervising film or videotape editor BETSY FLEMING ([id number]) on 11/19/2018 2:13:58 PM Referred By: Ino Vazquez Confirmed By:BRAYAN LAY MD 11/19/18 1414 Date Brayan Lay MD CC: Silvestre Soares DO; Alycia Grimes; Saul Tarango MD; Ino Vazquez DO Signed 12 LEAD ELECTROCARDIOGRAM Observed: 11/19/2018 Status: F Source: [place] 2:[place] PM [facility] [place] [facility] Cardiovascular Services [address] [place] [address] 12 Lead EKG 11/17/182124 MR#: [id number] Acct: [id number] Name: ALLEN VALDES Rep #: [id number] : 1955 63 From: Brayan Lay MD Attending Dr: Alycia Grimes Status: DIS CHRISTIANO Ordering Dr: Will Lynne MD Date: 11/15/18 Location: [facility] Sex: M C Admitted: 11/15/18 Test Reason : PALPITATIONS Blood Pressure : / mmHG Vent. Rate : 091 BPM Atrial Rate : 091 BPM P-R Int : 148 ms QRS Dur : 088 ms QT Int : 350 ms P-R-T Axes : 024 015 046 degrees QTc Int : 430 ms Normal sinus rhythm Inferior infarct , age undetermined Abnormal ECG When compared with ECG of 16-NOV-2018 05:42, MANUAL COMPARISON REQUIRED, DATA IS UNCONFIRMED Confirmed by BRAYAN LAY MD ([id number]), supervising film or videotape editor BETSY FLEMING ([id number]) on 11/19/2018 2:12:30 PM Referred By: Ino Vazquez Confirmed By:BRAYAN LAY MD 11/19/18 141 Date Brayan Lay MD CC: Silvestre Soares DO; Alycia Grimes; Will Lynne MD; Ino Vazquez DO Signed 12 LEAD ELECTROCARDIOGRAM Observed: 11/19/2018 Status: F Source: [place] 1:20 PM [facility], [facility] HOSPITAL REPOSITORY [facility] Cardiovascular Services [address] [place] [address] 12 Lead EKG 11/15/18 1145 MR#: [id number] Acct: [id number] Name: ALLEN VALDES Rep #: [id number] : 1955 63 From: Brayan Lay MD Attending Dr: Alycia Grimes Status: DIS CHRISTIANO Ordering Dr: Ino Vazquez DO Date: 11/15/18 Location: [facility] Sex: M C Admitted: 11/15/18 Test Reason : CP Blood Pressure : / mmHG Vent. Rate : 060 BPM Atrial Rate : 060 BPM P-R Int : 174 ms QRS Dur : 094 ms QT Int : 426 ms P-R-T Axes : 049 014 049 degrees QTc Int : 426 ms Normal sinus rhythm Normal ECG Confirmed by ALIREZA GIMENEZ, BRAYAN ([id number]), supervising film or videotape editor BETSY FLEMING ([id number]) on 11/19/2018 1:20:14 PM Referred By: Ino Vazquez Confirmed By:BRAYAN LAY MD 11/19/18 1320 Date Brayan Lay MD CC: Silvestre Soares DO; Alycia Grimes; Ino Vazquez DO Signed DISCHARGE INSTRUCTION Observed: 11/18/2018 Status: F Source: [place] 4:22 PM [facility] [place] [facility] Medical Records Department [address] [place] [address] Instructions for Home/Discharge Instructions 11/18/18 1610 MR#: [id number] Acct: [id number] Name: ALLEN VALDES Rep #: [id number] : 1955 63 From: Chelsy Grimes DO PCP: Silvestre Soares DO Status: ADM CHRISTIANO - Discharge Diagnoses Current Active Problems: Current Active and Chronic Problems (Last Updated 11/15/18 @ 20:04 by Ino Vazquez DO) Chest pain (Acute) You will use the following diet at home:: Cardiac Your food should be the consistency of: Regular Your liquids should be the consistency of: Regular/Thin Discharge Activity: - - activity as tolerated May resume sexual activity in: No Restrictions Call your doctor if you observe: Fever of 101 or Higher, Fainting spells, Uncontrolled pain Additional Instructions: The cardiac cath showed no significant narrowing of the coronary arteries. The CT of the chest was normal. The bronchoscopy revealed no abnormalities. The work up for rheumatologic diseases is negative. Dr. Goss recommends that you follow up with speech therapy to work on laryngeal control. I think possibly your anxiety contributesa to the sensation of being short of breath. I recommend you take Klonopin 0.5 mg every 12 H. I have given you a prescription for a weeks worth of Klonopin. Dr. Soares will be able to give you a longer prescription if it is helping. Allergies/Adverse Reactions: Allergies chlorzoxazone Adverse Reaction (Severe, Verified 11/15/18 11:39) also known as Parafon Forte: pt becomes disoriented Medications to take at Discharge lisinopril 20 mg-hydrochlorothiazide 12.5 mg tablet 1 tab PO QHS tab 02/10/18 multivit,tx with iron 27 tm-rbfgata-upjek acid 0.4 mg-minerals tablet 1 tab PO DAILY 09/22/18 nitroglycerin 0.4 mg sublingual tablet 0.4 mg SUBLINGUAL Q5- 15M PRN 09/22/18 Albuterol Sulfate [Ventolin Hfa] 2 puff INHALATION Q4H PRN 11/15/18 Amox/Clavulanate Tablet [Augmentin Tablet] 875 mg PO Q12H 11/15/18 Aspirin [Aspirin, Baby] 81 mg PO QHS 11/15/18 Atorvastatin Calcium [Lipitor] 80 mg PO QHS 11/15/18 Cilostazol [Pletal] 100 mg PO BID 11/15/18 Clopidogrel Bisulfate [Plavix] 75 mg PO QHS 11/15/18 Metoprolol Tartrate [Lopressor (beta ian)] 25 mg PO BID 11/15/18 Venlafaxine HCl [Effexor] 225 mg PO DAILY 11/15/18 doxycycline hyclate 50 mg tablet 50 mg PO DAILY tab 11/15/18 hydrocodone 5 mg-acetaminophen 325 mg tablet 1 tab PO Q8H PRN 11/15/18 lamotrigine 100 mg tablet 100 mg PO BID 11/15/18 traZODone [Desyrel] 200 mg PO QHS 11/15/18 Clonazepam 0.5 mg PO BID 7 Days #14 tab 11/18/18 The following prescriptions were given: Clonazepam 0.5 mg PO BID 7 Days #14 tab Primary Care Physician: Silvestre Soares DO [Primary Care Provider] - Test Results: Test results from this visit will be discussed in further detail at your follow-up appointment, if applicable. 11/18/18 1622 <Electronically signed by Chelsy Grimes DO> Date Chelsy Grimes DO CC: Silvestre Soares DO; Saul Tarango MD; Ralph Goss D.O. OPERATIVE REPORT - Observed: 11/18/2018 Status: F Source: [facility] [facility] 8:26 AM [facility] [place] [facility] Medical Records Department [address] [place] [address] Operative Report - Endoscopy MR#: [id number] Acct: [id number] Name: ALLEN VALDES Rep #: [id number] : 1955 63 From: Ralph Goss DO PCP: Silvestre Soares DO Status: ADM CHRISTIANO Patient Name: Allen Valdes Procedure Date: 11/18/2018 7:27 AM Date of : 1955 Age: 63 Procedure: Bronchoscopy Indications: Shortness of breath Providers: Ralph Goss MD Referring MD: Ino Vazquez Medicines: Fentanyl 75 mcg IV, Midazolam 4 mg IV Complications: No immediate complications Procedure: Pre-Anesthesia Assessment: - The risks and benefits of the procedure and the sedation options and risks were discussed with the patient. All questions were answered and informed consent was obtained. - Slade Protocol: - Pre-procedure Verification: Prior to the procedure, the patient's identity was verified by full name and date of . The patient's identity was verified on all pertinent medical records, including History and Physical. Also prior to the procedure, a History and Physical was performed, and patient medications, allergies and sensitivities were reviewed. The patient's tolerance of previous anesthesia was reviewed. The risks and benefits of the procedure and the sedation options and risks were discussed with the patient. All questions were answered and informed consent was obtained. - Time-Out: Prior to the start of the procedure, the patient's identification, proposed procedure, accurate signed consent, correctly labeled images and records, and need for prophylactic antibiotics were verified by the physician and the nurse in the endoscopy suite. After I obtained informed consent, the scope was passed under direct vision. Throughout the procedure, the patient's blood pressure, pulse, and oxygen saturations were monitored continuously. The bronchoscope was introduced through the mouth and advanced to the tracheobronchial tree. The procedure was accomplished without difficulty. The patient tolerated the procedure well. Moderate Sedation: Moderate (conscious) sedation was administered by the endoscopy nurse and supervised by the endoscopist. The following parameters were monitored: oxygen saturation, heart rate, blood pressure, and response to care. Findings: The oropharynx appears normal. The larynx appears normal. The vocal cords appear normal. 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 The subglottic space is normal. The trachea is a bit oblong in shape. However, there was no evidence of dynamic airway collapse with respiration. The alma rosa is sharp. The tracheobronchial tree was examined to at least the first subsegmental level. Bronchial mucosa and anatomy are normal; there are no endobronchial lesions. Scant non obstructing sccretions were noted in the distal airways. Impression: - Shortness of breath - The airway examination was grossly normal, with only scant secretions noted in the distal airway. - The trachea was somewhat oblong in appearance, but there was not dynamic airway collapse with respiration. - No specimens collected. Recommendation: - Follow up with bronchoscopist as previously scheduled. Procedure Code(s): --- Professional --- 93809, Bronchoscopy, rigid or flexible, including fluoroscopic guidance, when performed; diagnostic, with cell washing, when performed (separate procedure) Diagnosis Code(s): --- Professional --- R06.02, Shortness of breath CPT copyright 2017 [employer]. All rights reserved. The codes documented in this report are preliminary and upon marine engineering technicians review may be revised to meet current compliance requirements. DO Ralph Aponte MD 11/18/2018 8:26:10 AM This report has been signed electronically. Number of Addenda: 0 Note Initiated On: 11/18/2018 7:27 AM 11/18/18825 Date Ralph Goss DO Cosigner Signature: Date (if indicated) CC: Silvestre Soares DO; Alycia Grimes; Saul Tarango MD; Ralph Goss D.O.; Ino Vazquez DO Date Dictated: 11/18/18726 Date Transcribed: Sugar Refiner: LUBNA Signed PROTHROMBIN TIME W/INR Collected: 11/18/2018 Status: F Source: [place] 6:09 AM [facility] [place] CODE TESTS RESULT OUT OF RANGE REFERENCE UNITS LAB L300.4150 11.7-14.9 SECONDS Normal PROTIME 14.2 LAB L300.4200 Normal INR 1.1 Performed By: #### L300.3900, L300.4310 #### [facility] [address] [place], [place], [id number] PARTIAL THROMBOPLAST Collected: 11/18/2018 Status: F Source: [place] TIME 6:09 AM [facility] [place] TYPE CODE TESTS RESULT OUT OF RANGE REFERENCE UNITS LAB L300.4310 24.1-36.2 Seconds Normal PTT 24.9 Performed By: #### L300.3900, L300.4310 #### [facility] [address] [place], [address] PLATELET COUNT Collected: 11/18/2018 Status: F Source: [place] 6:09 AM [facility] [place] TYPE CODE TESTS RESULT OUT OF RANGE REFERENCE UNITS LAB L100.1900 150-450 K/mm3 Normal PLT 186 Performed By: #### L100.1900 #### [facility] [address] [place], [place], [id number] CONSULTATION Observed: 11/17/2018 Status: F Source: [place] 2:24 PM [facility] [place] [facility] Medical Records Department [address] [place] [address] Consultation 11/17/18 1134 MR#: [id number] Acct: [id number] Name: ALLEN VALDES Rep #: [id number] : 1955 63 From: Ralph Goss DO PCP: Silvestre Soares DO Status: ADM CHRISTIANO Y Location: [place] [address] Reason for Consult Date of Consultation: 11/17/18 Reason for Consultation: Shortness of breath History of Present Illness: Patient is a 63-year-old male, with a history as outlined below, who initially presented to the emergency department on November 15 with complaints of chest pain and shortness of breath. The patient currently follows with Dr. Rossi in the pulmonary medicine clinic. His shortness of breath has been worked up extensively in the past. The patient was last seen in the pulmonary medicine clinic by our nurse practitioner on November 01. His last pulmonary function studies last completed in mid September revealed evidence of an irreversible severe mixed ventilatory defect with a mild reduction in diffusing capacity. When compared to previous pulmonary function studies dated January 2018, there had been a 35% reduction in the patient's FEV1, 23% reduction in TLC at 17% reduction in DLCO. A 6-minute walk test was also completed at that time. The patient was able to ambulate 354 feet, which indicates impaired walk distance. The katerine oxygen saturation with exertion was 96%. The patient was evaluated by cardiology upon admission to the hospital. On November 16, the patient underwent a cardiac catheterization. The procedure indicated nonobstructive coronary arteries with preserved left ventricular systolic function and normal end-diastolic pressures. Surface echocardiogram last completed in September 2018 revealed evidence of stage I diastolic dysfunction with a mildly elevated pulmonary artery systolic pressure of 36 mmHg. A high resolution chest CT was then obtained on November 16 revealed grossly clear lung parenchyma bilaterally without any evidence of emphysematous changes or interstitial lung disease. Previously, through the pulmonary medicine clinic, the patient has been trialed on both diuretics and albuterol, neither of which she responded to symptomatically. 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 Geiger, [facility] 09/05/2014 Stented coronary artery (Chronic 09/05/14) Acute inferior infarct, SAMSON to ostial-proximal RCA using 2.75 X 32 mm everolimus SAMSON per Dr. Geiger, [facility] Asthma (Chronic) Sleep apnea (Chronic) HTN (hypertension) (Chronic) Peripheral vascular disease (Chronic) Depression (Chronic) S/P AAA repair (Chronic 06/03/15) 06/03/[address] Stephanie Sosa @ [facility]: Endovascular repair with Elbe excluder device TIA (transient ischemic attack) (Chronic) 04/13 Atherosclerosis of coronary artery of pechanga heart with angina pectoris (Chronic) Pulmonary hypertension (Chronic) RVSP 36 mmHg Chronic bronchitis (Chronic) DIMAS (obstructive sleep apnea) (Chronic) Tobacco abuse (Chronic) Medical History: Medical History (Last Updated 11/15/18 @ 20:04 by Ino Vazquez DO) PAD (peripheral artery disease) (Chronic) I73.9 Pt on Pletal therapy Carotid artery disease (Chronic) I77.9 Chronically occluded left ICA PTSD (post-traumatic stress disorder) (Chronic) F43.10 History of inferior wall myocardial infarction (Chronic) Onset Date: 09/05/14 I25.2 Treated at [facility] 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 Geiger, [facility] 09/05/2014 History of abdominal aortic aneurysm (Resolved) Z86.[address] Sosa @ [facility] Asthma (Chronic) J45.909 Sleep apnea (Chronic) G47.30 HTN (hypertension) (Chronic) I10 Peripheral vascular disease (Chronic) I73.9 Depression (Chronic) F32.9 TIA (transient ischemic attack) (Chronic) G45.9 04/13 Chronic sinusitis J32.9 Osteoarthritis M19.90 Allergies chlorzoxazone Adverse Reaction (Severe, Verified 11/15/18 11:39) also known as Parafon Forte: pt becomes disoriented Home Medications: Ambulatory Orders Medication Instructions Recorded lisinopril 20 1 tab PO QHS tab 02/10/18 Surgical History: Surgical History (Last Updated 11/15/18 @ 12:14 by Ruth Echevarria) Stented coronary artery (Chronic) Onset Date: 09/05/14 Z95.5 Acute inferior infarct, SAMSON to ostial-proximal RCA using 2.75 X 32 mm everolimus SAMSON per Dr. Geiger, [facility] S/P AAA repair (Chronic) Onset Date: 06/03/15 Z98.890, Z86.79 06/03/[address] Stephanie Sosa @ [facility]: Endovascular repair with Elbe excluder device History of total right knee replacement Onset Date: 2009 Z96.651 Hx of cataract surgery Z98.49 08/16 Surgical History: appendectomy, tonsillectomy, - - Cardiac stent placement 2014, several knee surgeries including knee replacement, AAA repair-endovascular Psychiatric History: Depression, - - PTSD Lives: Spouse/ Significant Other Smoking Status: Former smoker Tobacco Use: Cigarettes, Cigars, Pipe Alcohol: None Drugs: None - *Family History Maternal History Items: No pertinent history - in motor vehicle accident Paternal History Items: Cancer - from brain cancer Review of Systems Constitutional: Denies: Anorexia, Chills, Fever Eyes: Denies: Blurred vision, Double vision HEENT: Denies: Head Aches, Sinus Congestion, Sinus Drainage Cardiovascular: Denies: Chest Pain, Palpitations Respiratory: Reports: Cough, Shortness of Breath Gastrointestinal: Denies: Abdominal Pain, Nausea, Vomiting Genitourinary: Denies: Dysuria Musculoskeletal: Denies: Joint Pain, Joint Tenderness Skin: Denies: Rash, Wounds Neurological: Denies: Numbness, Tingling, Focal weakness Psychiatric: Reports: Anxiety Hematologic/ Lymphatic: Denies: Easy Bruising, Easy Bleeding Patient Problems: Active and Suspected Problems (Last Updated 11/15/18 @ 20:04 by Ino Vazquez DO) Chest pain (Acute) Objective: The patient's most recent lab work, culture data and imaging studies have all been personally reviewed. - Physical Exam General: Alert, Oriented x3, Cooperative, No apparent distress, - - is present at the bedside. HEENT: Atraumatic, PERRLA, Normocephalic Oral: Moist Mucosa, No Gingival or Mucosal Lesions/ Ulcerations Neck: Supple, No Nodes, Trachea Midline Lungs: Normal air movement, No rhonchi, No wheeze, No rales Cardiovascular: Regular rate, Regular Rhythm, Normal S1, Normal S2, No murmurs Abdomen: Bowel Sounds Present, Soft, Non Tender, Obese Extremities: No clubbing, No cyanosis, No edema Skin: No breakdown Musculoskeletal: No Tenderness to Palpation of Joints or Extremities, No Muscle Wasting Lymphatic: No Cervical, Supraclavicular, or Inguinal Adenopathy Neurological: Cranial nerves II-XII grossly intact, Neuro grossly intact Psych/Mental Status: Alert and oriented to time, place, person, mood and affect Vital Signs Temp Pulse Resp BP Pulse Ox 36.6 C 92 16 120/75 94 11/17/18 08:55 11/17/18 09:49 11/17/18 08:55 11/17/18 09:49 11/17/18 08:55 Oxygen Delivery Method Room Air Weight: 250 lb 7.122 oz Body Mass Index (BMI) 33.0 Intake and Output for Last 24 Hours Intake Total 700 / 700 805 / 805 40 / 40 Output Total 0 / 0 Balance 700 / 700 805 / 805 40 / 40 Laboratory Tests Past 24 Hrs ESR 2 C-React Prot Ext Range < 2.90 Labs (Last 48 Hours) WBC 7.7 WBC RBC Hgb Hct MCV MCH MCHC RDW RDW Differential Clinical Impression(s) from Imaging Studies Chest X-Ray 11/15/18 12:01 IMPRESSION: No acute intrathoracic process. Electronically Signed: Tracie Zelaya MD at 12:27 EST , Service support , Chest CT 11/16/18 14:46 IMPRESSION: Coronary artery calcification. No evidence of focal infiltrate or findings to suggest fibrosis or emphysematous change. Electronically Signed: Melissa Barrera MD at 19:34 EST Tel , Service support , Assessment/Plan All Active Problems (Last Updated 11/15/18 @ 20:04 by Ino Vazquez DO) Chest pain (Acute) History of abdominal aortic aneurysm (Resolved) History of coronary artery stent placement (Resolved) SOB (shortness of breath) on exertion (Acute) RECOMMENDATIONS: 1. We will proceed with basic bronchoscopy for airway evaluation tomorrow at 8 AM. Please make patient n.p.o. after midnight. 2. If bronchoscopy is unrevealing, may need to consider speech therapy evaluation for laryngeal control therapy. 3. Given the patient's intermittent cough complaints, would recommend discontinuing NIYA inhibitor and transitioning to ARB. IMPRESSIONS: 1. Unexplained dyspnea/cough/baseline obstructive lung disease noted on PFTs Full of the patient's prior pulmonary workup and history has been reviewed. The exact etiology for his underlying dyspnea remains a bit unclear. Extensive cardiac workup has also been completed without significant abnormalities identified. The patient's recent CT chest completed during this hospitalization revealed no significant parenchymal abnormalities that would explain his degree of dyspnea. While the patient did previously have an obstructive ventilatory impairment noted on PFTs, the impairment worsened on follow-up testing from September. Again, the exact reason for this change is a bit unclear, given that no significant findings were noted on CT chest imaging. The patient has never responded favorably to the use of bronchodilators or Lasix. Given all of the aforementioned, I discussed proceeding with a bronchoscopy tomorrow with the patient. This will allow us to evaluate for potential vocal cord dysfunction and for any evidence of tracheomalacia. The patient is in agreement with this plan. The bronchoscopy is currently scheduled for 8 AM tomorrow morning. Please make patient n.p.o. after midnight. 2. Obstructive sleep apnea The patient is noncompliant with use of nocturnal positive pressure ventilation. 3. Prior tobacco dependence/PTSD/anxiety/hypertension Complicates care, management, recovery and prognosis. Continue home medications as indicated. This note was generated with TeraFirrmaation software. It may contain incorrect words, spelling, and punctuation that were not noted in checking the note before signing. Code Visit Inpatient E AND M: [id number] Init Hosp L3 11/17/18 1424 <Electronically signed by Ralph Goss DO> Date Ralph Goss DO Cosigner Signature (if applicable): Date CC: Silvester Soares DO; Saul Tarango MD; Ralph Goss D.O.; Ino Vazquez DO Signed CHEST WITHOUT Observed: 11/16/2018 Status: F Source: [place] CONTRAST 2:50 PM [facility] [facility] Imaging Services [address] [place] [address] Chest without Contrast MR#: [id number] Acct: [id number] Name: ALLEN VALDES Rep #: [id number] : 1955 M 63 From: Melissa Barrera MD PCP: Silvestre Soares DO Status: ADM CHRISTIANO Study: Chest without Contrast Date of Exam: 11/16/18 Exam# [id number] Ordering Dr: Chelsy Grimes DO STUDY: CT CHEST WITHOUT CONTRAST REASON FOR EXAM: Male, 63 years old. Chest pain shortness of breath cough RADIATION DOSAGE (If Supplied By Facility): CTDIvol = ( 19.56 ) mGy, DLP = ( 769.51 ) mGycm TECHNIQUE: Transaxial imaging was performed without the administration of intravenous contrast material. Multiplanar coronal and sagittal images were reformatted. Individualized dose optimization techniques were used for this CT. COMPARISON: Chest x-ray November 15, 2018 FINDINGS: There is trace linear scarring within the lung bases. There is no visualized focal consolidation pleural effusion or pulmonary edema and pneumothorax. There is no evidence of large emphysematous blebs or areas of suspicious interstitial thickening or significant fibrotic change. Normal pleura. There is dense calcification of the coronary arteries. There is mild cardiac enlargement. There is a trace pericardial effusion. A few nonspecific subcentimeter lymph nodes. Normal hilar regions. Normal unenhanced pulmonary arteries. There is partial calcification of the aorta. There are minimal multi-level degenerative changes of the thoracic spine. There is abundant stool in the visualized colon is a suggestion of a punctate stone left kidney there is mild thickening of the left greater than right adrenal glands. CT/Chest without Contrast IMPRESSION: Coronary artery calcification. No evidence of focal infiltrate or findings to suggest fibrosis or emphysematous change. Electronically Signed: Melissa Barrera MD at 19:34 EST Tel , Service support , CC: Silvestre Soares DO; Alycia Grimes Sugar Refiner: Signed CBC W/DIFF, AUTOMATED Collected: 11/16/2018 Status: F Source: [place] 3:55 AM [facility] [place] TYPE CODE TESTS RESULT OUT OF RANGE REFERENCE UNITS LAB L100.1000 4.4-11.0 K/mm3 Normal WBC 6.8 LAB L100.1200 4.6-6.2 M/mm3 Normal RBC 4.70 LAB L100.1300 13.0-16.5 g/dl Normal HGB 14.1 LAB L100.1400 40-54 % Normal HCT 42.0 LAB L100.1500 80-94 fL Normal MCV 89.4 LAB L100.1600 27.0-32.0 pg Normal MCH 30.0 LAB L100.1700 32-36 g/gl Normal MCHC 33.6 LAB L100.1810 11.6-14.6 % Normal RDW CV 12.5 LAB L100.1820 35.1-43.9 fl Normal RDW SD 40.6 LAB L100.1900 150-450 K/mm3 Normal PLT 161 LAB L100.2000 6.2-12.0 fl Normal MPV 10.7 LAB L100.2100 47-70 % Normal NEUT% 55.7 LAB L100.2200 19-41 % Normal LY% 33.8 LAB L100.2300 0-10 % Normal MONO% 9.2 LAB L100.2400 0-5 % Normal EO% 0.9 LAB L100.2500 0-1 % Normal BASO% 0.3 LAB L100.2550 0.0-0.9 % Normal IM GRAN % 0.100 Result Comment: IG% - Immature Granulocytes (promyelocytes, myelocytes and metamyelocytes) > 1% indicates that a LEFT SHIFT is Present. LAB L100.2620 2.0-7.7 X10 3/uL Normal Absolute Neut 3.8 LAB L100.2720 0.83-4.51 X10 3/ul Normal Absolute Lymph 2.28 Performed By: #### L100.0100 #### [facility] [address] [place], [address] PROTHROMBIN TIME W/INR Collected: 11/16/2018 Status: F Source: [place] 3:55 AM [facility] [place] TYPE CODE TESTS RESULT OUT OF RANGE REFERENCE UNITS LAB L300.4150 11.7-14.9 SECONDS Normal PROTIME 14.4 LAB L300.4200 Normal INR 1.1 Performed By: #### L300.3900, L300.4310 #### [facility] [address] [place], [address] PARTIAL THROMBOPLAST Collected: 11/16/2018 Status: F Source: [place] TIME 3:55 AM [facility] [place] TYPE CODE TESTS RESULT OUT OF RANGE REFERENCE UNITS LAB L300.4310 24.1-36.2 Seconds Normal PTT 29.3 Performed By: #### L300.3900, L300.4310 #### [facility] [address] [place], [address] BASIC METABOLIC Collected: 11/16/2018 Status: F Source: [place] PROFILE (BMP) 3:55 AM [facility] [place] TYPE CODE TESTS RESULT OUT OF RANGE REFERENCE UNITS LAB L501.0100 74-106 mg/dL Normal GLU 88 Result Comment: Please note revised GLUCOSE reference range effective 2018. LAB L501.1000 7-18 mg/dL Normal BUN 13 LAB L501.1100 0.70-1.30 mg/dL Normal CREAT,SERUM 1.23 Result Comment: The validity of the calculated GFR AND GFRAA in patients over 70 years has not been determined. Clinical correlation is essential. LAB L501.1110 >60 mL/min Normal EST GFR 63 Result Comment: Non- GFR Calc LAB L501.1115 >60 mL/min Normal EST GFR - AA 77 Result Comment: GFR Calc LAB L501.1255 ml/min Normal Estimated CRCL 70.37 LAB L501.1300 10-20 RATIO Normal BUN/CRE 10.6 LAB L501.2200 8.5-10 mg/dL Normal .1 CA 8.5 LAB L501.5300 136-14 mmol/L Normal 5 NA 144 LAB L501.5600 3.5-5. mmol/L Normal 1 K 4.3 LAB L501.5900 98-107 mmol/L High CL 108 LAB L501.6100 21.0-3 mmol/L Normal 2.0 CO2 30.0 LAB L501.6200 5-15 Normal GAP 6 Performed By: #### L500.2500 #### [facility] [facility] [place], [place], [id number] ERYTHROCYTE SED RATE Collected: 11/16/2018 Status: F Source: [place] 3:55 AM [facility] [place] TYPE CODE TESTS RESULT OUT OF RANGE REFERENCE UNITS LAB L102.0000 0-20 mm/hr Normal SED RATE 2 Performed By: #### L101.9900 #### [facility] [address] [place] [address]. [place], [place], [id number] CRP Collected: 11/16/2018 Status: F Source: [place] 3:55 AM [facility] [place] TYPE CODE TESTS RESULT OUT OF RANGE REFERENCE UNITS LAB L501.6710 0.0-3.0 mg/L Normal < 2.90 C-REACTIVE PROT Result Comment: C-Reactive Protein (CRP) provides useful information for the diagnosis, therapy and monitoring of inflammatory processes and associated diseases. For the evaluation of Relative Risk for Cardiovascular Disease, a High Sensitivity CRP (HSCRP) should be ordered. Performed By: #### L501.6710 #### [facility] [address] [place], [place], [address] HISTORY AND PHYSICAL Observed: 11/15/2018 Status: F Source: [place] EXAM 8:41 PM [facility] [place] [facility] Medical Records Department [address] [place] [address] History and Physical 11/15/181950 MR#: [id number] Acct: [id number] Name: ALLEN VALDES Rep #: [id number] : 1955 63 From: Ino Vazquez DO PCP: Silvestre Soares, DO Status: ADM CHRISTIANO Y Location: [place] [address] Problem List (1) Chest pain Status: Acute Qualifiers: Chest pain type: precordial pain Qualified Code(s): R07.2 - Precordial pain History of Present Illness Date of Admission: 11/15/18 Chief Complaint: Precordial chest pain The patient is a 63 year old M who was seen in the emergency room at [facility] with a chief complaint of left-sided precordial chest pain located underneath the left breast and radiating into the left axilla. Patient states that this discomfort started at 3 PM yesterday, patient confirms it was continuous since 3 PM yesterday and had not gone away. Patient has a remote history of PR with stent placement in 2014. Patient states that the chest pain is dull in nature, it does not radiate into the arm or jaw, he does complain of some vague left neck pain that he has had for the past 2 weeks. Patient also complains of shortness of breath with the chest discomfort, he does not complain of any nausea or vomiting however. Finally, patient complains of a headache he has had over the last 2 weeks with left eye pressure. He also states that he has had left neck pain along with this headache. Workup in the emergency room included an EKG which showed a normal sinus rhythm without evidence of ischemic changes, chest x-ray was unremarkable, CBC was unremarkable, chemistry profile was unremarkable, and patient's troponin was negative. Patient was seen in the emergency room by Dr. Tarango, he is agreed to perform a heart catheterization tomorrow on the patient, patient will be placed and observation status on PCU, cardiac enzymes will be cycled, he will be monitored on telemetry. Further note: Patient appears to this examiner to have a severe psychological overlay, he admits to having PTSD and some of the patient's symptoms appear very atypical of coronary artery disease, however, due to the patient's history of coronary artery disease, cardiac catheterization appears to be the best route to choose to eliminate obstructive coronary disease. 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 Geiger, [facility] 09/05/2014 Stented coronary artery (Chronic 09/05/14) Acute inferior infarct, SAMSON to ostial-proximal RCA using 2.75 X 32 mm everolimus SAMSON per Dr. Geiger, [facility] Asthma (Chronic) Sleep apnea (Chronic) HTN (hypertension) (Chronic) Peripheral vascular disease (Chronic) Depression (Chronic) S/P AAA repair (Chronic 06/03/15) 06/03/[address] Stephanie Sosa @ [facility]: Endovascular repair with Elbe excluder device TIA (transient ischemic attack) (Chronic) 04/13 Atherosclerosis of coronary artery of pechanga heart with angina pectoris (Chronic) Pulmonary hypertension (Chronic) RVSP 36 mmHg Chronic bronchitis (Chronic) DIMAS (obstructive sleep apnea) (Chronic) Tobacco abuse (Chronic) Medical History: Medical History (Last Updated 11/15/18 @ 20:04 by Ino Vazquez DO) PAD (peripheral artery disease) (Chronic) I73.9 Pt on Pletal therapy Carotid artery disease (Chronic) I77.9 Chronically occluded left ICA PTSD (post-traumatic stress disorder) (Chronic) F43.10 History of inferior wall myocardial infarction (Chronic) Onset Date: 09/05/14 I25.2 Treated at [facility] 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 Geiger, [facility] 09/05/2014 History of abdominal aortic aneurysm (Resolved) Z86.[address] Sosa @ [facility] Asthma (Chronic) J45.909 Sleep apnea (Chronic) G47.30 HTN (hypertension) (Chronic) I10 Peripheral vascular disease (Chronic) I73.9 Depression (Chronic) F32.9 TIA (transient ischemic attack) (Chronic) G45.9 04/13 Chronic sinusitis J32.9 Osteoarthritis M19.90 Allergies chlorzoxazone Adverse Reaction (Severe, Verified 11/15/18 11:39) also known as Parafon Forte: pt becomes disoriented Home Medications: Ambulatory Orders Medication Instructions Recorded lisinopril 20 1 tab PO QHS tab 02/10/18 Surgical History: Surgical History (Last Updated 11/15/18 @ 12:14 by Ruth Echevarria) Stented coronary artery (Chronic) Onset Date: 09/05/14 Z95.5 Acute inferior infarct, SAMSON to ostial-proximal RCA using 2.75 X 32 mm everolimus SAMSON per Dr. Geiger, [facility] S/P AAA repair (Chronic) Onset Date: 06/03/15 Z98.890, Z86.79 06/03/[address] Stephanie Sosa @ [facility]: Endovascular repair with Elbe excluder device History of total right knee replacement Onset Date: 2009 Z96.651 Hx of cataract surgery Z98.49 08/16 Surgical History: appendectomy, tonsillectomy, - - Cardiac stent placement 2014, several knee surgeries including knee replacement, AAA repair-endovascular Psychiatric History: Depression, - - PTSD Lives: Spouse/ Significant Other Smoking Status: Former smoker Tobacco Use: Cigarettes, Cigars, Pipe Alcohol: None Drugs: None - *Family History Maternal History Items: No pertinent history - in motor vehicle accident Paternal History Items: Cancer - from brain cancer Review of Systems Constitutional: Denies: Anorexia, Chills, Fever, Night Sweats, Malaise, Weakness, Weight Change, Fatigue Eyes: Reports: Pain - Patient complains of pain in back of his left eye times 2 weeks. Denies: Cataracts, Conjunctivae Inflammation, Double vision, Drainage, Redness, Vision Change HEENT: Denies: Difficulty Hearing, Difficulty Swallowing, Dysphasia, Ear Pain, Eye Pain, Head Aches, Hearing Changes, Nasal bleeding, Nasal Congestion, Post Nasal Drip, Sinus Drainage Cardiovascular: Reports: Chest Pain. Denies: Claudication, Chest Pressure, Chest Tightness, Edema, Heaviness, Orthopnea, Palpitations, Paroxysmal Noc. Dyspnea, Syncope Respiratory: Reports: Shortness of Breath - Since his chest pain started yesterday. Denies: Cough, Hemoptysis, Pleuritic Pain, Shortness of breath at rest, Shortness of breath upon exertion Gastrointestinal: Denies: Abdominal Pain, Constipation, Diarrhea, Hematemesis, Hematochezia, Nausea, Melena, Vomiting Genitourinary: Denies: Dysuria, Frequency, Hematuria, Hesitancy, Incontinence, Nocturia, Urgency Musculoskeletal: Denies: Back Pain, Foot Pain, Hand Pain, Joint Pain, Joint stiffness, Joint swelling Skin: Denies: Dryness, Pruritis, Rash Neurological: Reports: Headaches. Denies: Blurred vision, Double vision, Change in Speech, Slurred speech, Difficulty swallowing, Focal weakness, Incoordination, Numbness, Tingling Psychiatric: Reports: Depression. Denies: Anxiety, Homicidal Ideations, Suicidal Ideations Endocrine: Denies: Change in Body Habitus, Heat/ Cold Intolerance, Polydipsia, Polyuria Hematologic/ Lymphatic: Denies: Adenopathy, Anemia, Easy Bruising, Easy Bleeding, Petechiae, Purpura VTE Information - Inpt Only VTE Present on Admission: No VTE Mechan Device Prophylaxis: None VTE Pharm Prophylaxis ordered?: Yes Patient Problems: Active and Suspected Problems (Last Updated 11/15/18 @ 20:04 by Ino Vazquez DO) Chest pain (Acute) - Physical Exam General: Alert, Oriented x3, Cooperative, No apparent distress, Well developed, Well nourished HEENT: Atraumatic, PERRLA, EOMI, Normocephalic Oral: Moist Mucosa Neck: Supple, No JVD, Negative Carotid Bruits, No Nuchal Rigidity, Trachea Midline, Thyroid Normal Size and Texture Lungs: Clear to auscultation, Normal air movement, No rhonchi, No wheeze, No rales Cardiovascular: Regular rate, Regular Rhythm, Normal S1, Normal S2, No murmurs, No Ectopic Activity, PMI Normal, No rub noted, No Gallop Abdomen: Bowel Sounds Present, Soft, Non Tender, Non-Distended, No hernias noted Extremities: No clubbing, No cyanosis, No edema, Capillary Refill Less than 3 Seconds Skin: No rashes, No breakdown Musculoskeletal: No Tenderness to Palpation of Joints or Extremities Neurological: Cranial nerves II-XII grossly intact, Neuro grossly intact, Sensory exam intact to light touch and pain, Coordination normal Psych/Mental Status: Normal Affect, Appropriate, Alert and oriented to time, place, person, mood and affect Vital Signs Temp Pulse Resp BP Pulse Ox 97.5 F L 70 20 H 147/78 H 97 11/15/18 15:44 11/15/18 19:00 11/15/18 15:44 11/15/18 15:46 11/15/18 15:44 Oxygen Delivery Method Room Air Weight: 113.6 kg Body Mass Index (BMI) 33.0 Intake and Output for Last 24 Hours Intake Total 360 / 360 Balance 360 / 360 Laboratory Tests Past 24 Hrs WBC 7.7 RBC 5.05 Hgb 15.2 Hct 45.3 MCV 89.7 MCH 30.1 MCHC 33.6 RDW 12.5 RDW Differential 40.5 Plt Count 180 WBC RBC Hgb Hct MCV MCH MCHC RDW RDW Differential Plt Count MPV Immature Gran % (Auto) Assessment/Plan All Active Problems (Last Updated 11/15/18 @ 20:04 by Ino Vazquez DO) Chest pain (Acute) History of abdominal aortic aneurysm (Resolved) History of coronary artery stent placement (Resolved) SOB (shortness of breath) on exertion (Acute) #1 chest pain in a patient with known coronary artery disease- this chest pain again appears atypical, patient will be placed and observation status on PCU, serial enzymes will be obtained, if these remain negative, patient will undergo a cardiac catheterization tomorrow by Dr. Tarango. #2 shortness of breath-this appears to be chronic in nature as the patient sees pulmonary medicine, patient's showed me the results of the patient's last pulmonary function test which showed a mixed severe pulmonary disease, patient also has a history of obstructive sleep apnea but is noncompliant with CPAP. #3 pulmonary hypertension-patient's showed me the results of the patient's recent echocardiogram which showed mild pulmonary hypertension with a normal EF. #4 posttraumatic stress disorder-unfortunately, I believe this causes additional problems with sorting out whether the patient currently has obstructive coronary artery disease. #5 cephalgia-patient has had a history of headache for the last 2 weeks, he was seen on 11/08/18 at [facility] in [facility] and diagnosed with ethmoid sinusitis, at that time, an MRI of the brain showed no evidence of acute infarct and it was believed that his headache was secondary to sinusitis. It appears that the patient was placed on doxycycline 100 mg every 12 hours for 14 days at that time. It appears the patient was also placed on Diflucan 200 mg 1 every 72 hours for 28 days, I had nursing asked the patient why he was prescribed Diflucan, patient does not know but patient did not have it filled and is not taking this medication. Patient was placed on Augmentin by his PCP and he is not taking doxycycline that was prescribed in [place]. Patient is on chronic low- dose doxycycline for blepharitis. #6 history of left carotid occlusive disease per patient-patient's MRI result on 11/08/18 showed loss of normal flow of the left MCA compatible with occlusion or trickle flow, a follow-up CTA of the head neck was recommended when appropriate for follow-up by the hospital in [facility]. Patient had a remote history of the left carotid occlusion in the past which was total, he had seen Dr. Neves in the past and there was no specific treatment for this. This was diagnosed several years ago. I talked to the patient's kenneth by phone, she says the patient has an appointment to see Dr. rGay this week concerning his headaches, I asked that she bring this recent abnormal MRI of the brain to his attention so she could discuss the need for further testing on this patient. She confirmed that she would discuss this with Dr. Gray. Code Visit OBSV E AND M: [id number] Initial observation care L3 11/15/182040 <Electronically signed by Ino Vazquez DO> Date Ino Vazquez DO Cosigner Signature: Date (if applicable) CC: Silvestre Soares DO; Ino Vazquez DO; OUT OF TOWN DOCTOR Signed TROPONIN-I Collected: 11/15/2018 Status: F Source: JILL 6:54 [facility] [place] Order Comment: 'TROP' Serial specimen #1, #2 or #3: 3 TYPE CODE TESTS RESULT OUT OF RANGE REFERENCE UNITS LAB L501.4010 <0.045 ng/mL Normal < 0.015 TROPONIN-I Result Comment: TROPONIN-I EXPECTED VALUES <0.045 Negative 0.045 - 0.590 Consistent with Cardiac Damage > OR = 0.600 Critical Value Not every elevated troponin is indicative of PR. These values should be used with clinical judgement in examining the patient's clinical picture for diagnosis. To establish a diagnosis of PR versus myocardial injury, there must be a demonstrated rise and/or fall in the troponin values, in addition to ischemic symptoms, EKG changes, new regional wall motion abnormality, and/or angiographical evidence. PLEASE NOTE: REFERENCE RANGES EDITED 18 Performed By: #### L501.4010 #### [facility] [address] [place], [place], [address] TROPONIN-I Collected: 11/15/2018 Status: F Source: [place] 3:48 PM [facility] [place] Order Comment: 'TROP' Serial specimen #1, #2 or #3: 2 TYPE CODE TESTS RESULT OUT OF RANGE REFERENCE UNITS LAB L501.4010 <0.045 ng/mL Normal < 0.015 TROPONIN-I Result Comment: TROPONIN-I EXPECTED VALUES <0.045 Negative 0.045 - 0.590 Consistent with Cardiac Damage > OR = 0.600 Critical Value Not every elevated troponin is indicative of PR. These values should be used with clinical judgement in examining the patient's clinical picture for diagnosis. To establish a diagnosis of PR versus myocardial injury, there must be a demonstrated rise and/or fall in the troponin values, in addition to ischemic symptoms, EKG changes, new regional wall motion abnormality, and/or angiographical evidence. PLEASE NOTE: REFERENCE RANGES EDITED 18 Performed By: #### L501.4010 #### [facility] [address] [place], [place], [address] EMERGENCY DEPARTMENT Observed: 11/15/2018 Status: F Source: [place] SUMMARY 1:54 PM [facility] [place] [facility] Medical Records Department [address] [place] [address] Emergency Department Summary 11/15/18 1352 MR#: [id number] Acct: [id number] Name: ALLEN VALDES Rep #: [id number] : 1955 63 From: Will Lynne MD PCP: Silvestre Soares DO Status: REG ER - ER Visit Summary Date of Service: 11/15/18 Chief Complaint: Chest pain History of Present Illness: The patient is a 63 M who presents with chest pain. Is been intermittent for the past couple of months but worse over the past 24 hours. It is a heaviness in the left side of his chest. Worse with exertion, talking and any activity. It is better with rest. He also has associated shortness of breath. He also admits to a headache behind the left eye for 2 weeks. He tells me he has a history of a blocked internal carotid artery with no residual deficits. He was supposed to follow-up with Dr. Tarango tomorrow as a new patient. He does have one stent in the left anterior descending artery. Physical Examination: Pain exam Test Results: EKG is sinus rhythm with a rate of 60. Nonspecific ST and T wave changes. Chest x-ray unremarkable. Laboratory studies normal. Emergency Department Course and Treatment: Patient was given aspirin. Dr. Tarango came and physically saw the patient in the emergency department. He is scheduling a heart catheterization for tomorrow. Patient was discussed with hospitalist for admission Treatment Plan: [] Disposition: Admit Impression: Chest pain/unstable angina This note was generated with [employer] dictation software. It may contain incorrect words, spelling, and punctuation that were not noted in review of the chart prior to signing ED Disposition - Plan for ED Patient: Chief Complaint: Chest Pain Referrals: Silvestre Soares DO [Primary Care Provider] - What to do if you have Problems For any increased pain, shortness of breath, bleeding, nausea or vomiting, chest pain, or any unexpected problems, contact your Primary Care Provider. Call [facility] ([phone]) or report to the closest Emergency Room. Call 911 if necessary. 11/15/18 1354 <Electronically signed by Will Lynne MD> Date Will De La Cruzigner Signature (If Indicated): Date CC: Silvestre Soares DO; OUT OF TOWN DOCTOR CONSULTATION Observed: 11/15/2018 Status: F Source: BELLE 1:22 PM [facility] [place] [facility] Medical Records Department [address] [place] [address] Consultation 11/15/18 1306 MR#: [id number] Acct: [id number] Name: ALLEN VALDES Rep #: [id number] : 1955 63 From: Saul Tarango MD PCP: Silvestre Soares DO Status: REG ER Y Location: ED Problem List (1) Atherosclerosis of coronary artery of pechanga heart with angina pectoris Status: Acute (2) Atherosclerotic heart disease of pe[place]anga coronary artery with other forms of angina pectoris Status: Acute Comment: Acute inferior infarct, SAMSON to ostial- proximal RCA using 2.75 X 32 mm everolimus SAMSON per Dr. Geiger, [facility] 09/05/2014 (3) Pulmonary hypertension Status: Acute Comment: RVSP 36 mmHg (4) SOB (shortness of breath) on exertion Status: Acute (5) Carotid artery disease Status: Chronic Comment: Chronically occluded left ICA (6) PAD (peripheral artery disease) Status: Chronic Comment: Pt on Pletal therapy (7) PTSD (post-traumatic stress disorder) Status: Chronic (8) S/P AAA repair Status: Chronic Comment: 06/03/[address] Stephanie Sosa @ [facility]: Endovascular repair with Elbe excluder device (9) Sleep apnea Status: Chronic (10) Stented coronary artery Status: Chronic Comment: Acute inferior infarct, SAMSON to ostial-proximal RCA using 2.75 X 32 mm everolimus SAMSON per Dr. Geiger, [facility] Reason for Consult Date of Consultation: 11/15/18 Reason for Consultation: Coronary disease status post angioplasty and stenting of LAD, peripheral vascular disease status post AAA, occluded left carotid artery, hypertension, pulmonary hypertension, obstructive sleep apnea hypertension and hypercholesterolemia. History of Present Illness: The patient is a 63 year old M with noncombat PTSD, hypertension, hypercholesterolemia, coronary artery disease status post acute ST elevation myocardial infarction and underwent emergent angioplasty and stenting to the RCA by Dr. Edwards at [facility] on 09/05/2014. At that time he received a 2.75 ex-32 Promus Premier stent to his proximal RCA postdilated with a 3.0 mm balloon. His LAD and left circumflex artery apparently had nonobstructive disease. At that time he was reportedly told the rest of his coronary arteries required no intervention. Patient also has a history of peripheral vascular disease status post percutaneous AAA stent grafting, and occluded left carotid artery which is known. He also has a history of pulmonary hypertension, and obstructive sleep apnea but does not use CPAP. He tried CPAP for about a year, was unable to tolerate it. Since August 2018 the patient has had intermittent substernal chest pressure, which is somewhat similar to his previous anginal symptoms, but are both typical and atypical with respect to exertion. He underwent a non-walking dobs echo test apparently at [facility] January 2018, was told it was within normal limits, but has had no subsequent catheterization. Recently the patient has been diagnosed with sinusitis is an outside facility in [facility] at which time he underwent CAT scan and MRI of his head. Those results are not available immediately. More specifically, over the last several weeks patient has had substernal chest pressure which he describes as a 10 out of 10 this past Thursday, with associated nausea but no vomiting, and shortness of breath. He states that this kind of pain appears to be more superficial than his deep pain that he experienced during his STEMI, and this pain appears to be at rest as well as with exertion. He is on chronic baby aspirin and Plavix. He was treated with antibiotic therapy for presumed sinusitis however his headaches have continued. Patient does not formally exercise disease had 4 surgeries on his right knee, and does not use his CPAP currently. He has a [id number] smoking history, who quit several years ago. He did have pulmonary function test and Dr. Rossi's office on 10/18/18 which showed the following: These pulmonary function studies demonstrate the presence of an irreversible severe mixed ventilatory defect with a mild reduction in diffusing capacity. His most recent echocardiogram dated 10/22/18 showed intact LV function with an EF of 65%, mild tricuspid regurgitation, and estimated RVSP of 36 mmHg and stage I diastolic dysfunction. His EKG today demonstrates normal sinus rhythm, no acute changes. Chest x-ray is negative. Troponin is negative. [] Past Medical History Allergies/Adverse Reactions: Allergies chlorzoxazone Adverse Reaction (Severe, Verified 11/15/18 11:39) also known as Parafon Forte: pt becomes disoriented Home Medications: Ambulatory Orders Medication Instructions Recorded aspirin 81 mg tablet,delayed 81 mg PO QDAY tab 02/10/18 Past Medical History (Chronic Problems): Chronic Problems (Last Updated 11/15/18 @ 12:40 by Ruth Echevarria) PAD (peripheral artery disease) (Chronic) Pt on Pletal therapy Carotid artery disease (Chronic) Chronically occluded left ICA PTSD (post-traumatic stress disorder) (Chronic) History of inferior wall myocardial infarction (Chronic 09/05/14) Treated at [facility] Stented coronary artery (Chronic 09/05/14) Acute inferior infarct, SAMSON to ostial-proximal RCA using 2.75 X 32 mm everolimus SAMSON per Dr. Geiger, [facility] Asthma (Chronic) Sleep apnea (Chronic) HTN (hypertension) (Chronic) Peripheral vascular disease (Chronic) Depression (Chronic) S/P AAA repair (Chronic 06/03/15) 06/03/[address] Stephanie Sosa @ [facility]: Endovascular repair with Elbe excluder device TIA (transient ischemic attack) (Chronic) 04/13 Chronic bronchitis (Chronic) DIMAS (obstructive sleep apnea) (Chronic) Tobacco abuse (Chronic) Smoking Status: Former smoker Review of Systems - Review of Systems General: Denies: Fever, Night Sweats, Fatigue Cardiovascular: Reports: Chest Discomfort, Chest Discomfort at Rest, Chest Discomfort with Exertion, Shortness of Breath with Exertion. Denies: Shortness of Breath, Orthopnea, PND, Peripheral Edema, Palpitations, Lightheadedness, Dizziness, Near Syncope, Syncope Respiratory: Denies: Cough, Sputum Production, Hemoptysis Gastrointestinal: Denies: Hematemesis, Hematochezia, Melena Genitourinary: Denies: Dysuria, Hematuria Skin: Denies: Rash Subjectve: Patient resting comfortably in the emergency room. No acute distress. Vital signs stable. Objective: Vital Signs Temp Pulse Resp BP Pulse Ox 97.4 F L 59 L 14 160/83 H 97 11/15/18 11:37 11/15/18 13:03 11/15/18 13:03 11/15/18 13:03 11/15/18 13:03 Oxygen Delivery Method Room Air Weight: 252 lb 13.923 oz Body Mass Index (BMI) 33.3 General: Awake, Alert, Oriented x 3 HEENT: PERRL, EOMI, Sclera Non Icteric Neck: Supple, Good ROM, No Lymph Node Enlargement Lungs: Clear to auscultation Cardiovascular: Regular Rhythm, Normal S1, Normal S2, No Murmurs, No Rubs, No Gallops Vascular: No Carotid Bruits, Normal Femoral Pulses, Normal Radial Pulses, Normal Dorsalis Pedal Pulse, Normal Posterior Tibial Pulses Abdomen: Bowel Sounds Present, Soft, Non Tender, No HSM, No Organomegaly Extremities: No Cyanosis, No Clubbing, No edema Neurological: No Focal Motor or Sensory Deficit 11/15/18 12:30: WBC 7.7, RBC 5.05, Hgb 15.2, Hct 45.3, MCV 89.7, MCH 30.1, MCHC 33.6, RDW 12.5, RDW Differential 40.5, Plt Count 180, MPV 10.9, Immature Gran % (Auto) 0.100, Neut % (Auto) 60.4, Lymph % (Auto) 27.6, Howard % (Auto) 10.7 H, Eos % (Auto) 0.9, Baso % (Auto) 0.3, Absolute Neuts (auto) 4.6, Total Counted Not Reportable 11/15/18 12:30: Sodium 142, Potassium 3.9, Chloride 106, Carbon Dioxide 31.0, Anion Gap 5, BUN 13, Creatinine 1.14, Est GFR (MDRD) Af Amer 84, Est GFR (MDRD) Non-Af 69, BUN/Creatinine Ratio 11.4, Glucose 96, Calcium 8.8, Troponin I < 0.015 Rhythm: EKG: ECHO: Stress Test: Cardiac Cath: PCI: CT Surgery: Holter monitor: EPS: PPM: CXR: Chest CT Scan: Assessment/Plan 1. Unstable angina: The patient has new onset angina at least since August 2018, with has both typical and atypical features, but appears to be worsening and accelerating. He had a vitamin stress test according to him in January 2018 was admitted to [facility], and his chest pain was deemed to be atypical in nature.. Patient has had no repeat catheterization since his STEMI in 2014. Given the patient's risk factors, chest pain, normal stress test less than 1 year ago, and accelerating nature of his symptoms, and previous stenting to his RCA in 2013 I recommended he undergo a repeat left her catheterization tomorrow morning. We will use a long 35 cm to negotiate his previous aortoiliac stent graft. He is already on chronic baby aspirin and Plavix as well as cilostazol. Should the patient have any significant coronary disease we will proceed with angioplasty assuming that is appropriate to do so. If his catheterization shows widely patent stents, and no additional disease, we will redirect her efforts to workup his noncardiac chest pain. 2. Hyperlipidemia: We will obtain a fasting lipid profile. Continue statin based medications. His LDL should be less than 70. 3. COPD: Patient is evidence of COPD. 4. Fatigue: The patient complains mostly of fatigue, tiredness, and lack of energy. Patient may require reevaluation for obstructive sleep apnea and may benefit from adjustment of his CPAP. Graft 5. Headaches: The patient is on aspirin Plavix and cilostazol, and that his headaches have not improved despite antibiotic therapy, I recommended the patient undergo a CT scan to determine if he has any significant sinusitis or cerebral vascular event. 5. Thank you very much for the opportunity to participate in the cardiac care of your patient. Consultation time took place between 1230 and 1 PM. Catheterization tomorrow morning to follow. Code Visit Inpatient E AND M: 40612 Init Hosp L2 11/15/18 1322 <Electronically signed by Saul Tarango MD> Date Saul Tarango MD Cosigner Signature (if applicable): Date CC: Silvestre Soares DO; OUT OF TOWN DOCTOR Signed CBC W/DIFF, AUTOMATED Collected: 11/15/2018 Status: F Source: [place] 12:30 PM [facility] [place] CODE TESTS RESULT OUT OF RANGE REFERENCE UNITS LAB L100.1000 4.4-11.0 K/mm3 Normal WBC 7.7 LAB L100.1200 4.6-6.2 M/mm3 Normal RBC 5.05 LAB L100.1300 13.0-16.5 g/dl Normal HGB 15.2 LAB L100.1400 40-54 % Normal HCT 45.3 LAB L100.1500 80-94 fL Normal MCV 89.7 LAB L100.1600 27.0-32.0 pg Normal MCH 30.1 LAB L100.1700 32-36 g/gl Normal MCHC 33.6 LAB L100.1810 11.6-14.6 % Normal RDW CV 12.5 LAB L100.1820 35.1-43.9 fl Normal RDW SD 40.5 LAB L100.1900 150-450 K/mm3 Normal PLT 180 LAB L100.2000 6.2-12.0 fl Normal MPV 10.9 LAB L100.2100 47-70 % Normal NEUT% 60.4 LAB L100.2200 19-41 % Normal LY% 27.6 LAB L100.2300 0-10 % High MONO% 10.7 LAB L100.2400 0-5 % Normal EO% 0.9 LAB L100.2500 0-1 % Normal BASO% 0.3 LAB L100.2550 0.0-0.9 % Normal IM GRAN % 0.100 Result Comment: IG% - Immature Granulocytes (promyelocytes, myelocytes and metamyelocytes) > 1% indicates that a LEFT SHIFT is Present. LAB L100.2620 2.0-7.7 X10 3/uL Normal Absolute Neut 4.6 LAB L100.2720 0.83-4.51 X10 3/ul Normal Absolute Lymph 2.12 Performed By: #### L100.0100 #### [facility] [address] [place], [address] BASIC METABOLIC Collected: 11/15/2018 Status: F Source: JILL PROFILE (BMP) 12:30 PM [facility] [place] TYPE CODE TESTS RESULT OUT OF RANGE REFERENCE UNITS LAB L501.0100 74-106 mg/dL Normal GLU 96 Result Comment: Please note revised GLUCOSE reference range effective 2018. LAB L501.1000 7-18 mg/dL Normal BUN 13 LAB L501.1100 0.70-1.30 mg/dL Normal CREAT,SERUM 1.14 Result Comment: The validity of the calculated GFR AND GFRAA in patients over 70 years has not been determined. Clinical correlation is essential. LAB L501.1110 >60 mL/min Normal EST GFR 69 Result Comment: Non- GFR Calc LAB L501.1115 >60 mL/min Normal EST GFR - AA 84 Result Comment: GFR Calc LAB L501.1255 ml/min Normal Estimated CRCL 75.93 LAB L501.1300 10-20 RATIO Normal BUN/CRE 11.4 LAB L501.2200 8.5-10 mg/dL Normal .1 CA 8.8 LAB L501.5300 136-14 mmol/L Normal 5 NA 142 LAB L501.5600 3.5-5. mmol/L Normal 1 K 3.9 LAB L501.5900 98-107 mmol/L Normal CL 106 LAB L501.6100 21.0-3 mmol/L Normal 2.0 CO2 31.0 LAB L501.6200 5-15 Normal GAP 5 Performed By: #### L500.2500, L501.4010 #### [facility] [address] [place], [place], [id number] TROPONIN-I Collected: 11/15/2018 Status: F Source: BEL[place] 12:30 PM [facility] [place] TYPE CODE TESTS RESULT OUT OF RANGE REFERENCE UNITS LAB L501.4010 <0.045 ng/mL Normal < 0.015 TROPONIN-I Result Comment: TROPONIN-I EXPECTED VALUES <0.045 Negative 0.045 - 0.590 Consistent with Cardiac Damage > OR = 0.600 Critical Value Not every elevated troponin is indicative of PR. These values should be used with clinical judgement in examining the patient's clinical picture for diagnosis. To establish a diagnosis of PR versus myocardial injury, there must be a demonstrated rise and/or fall in the troponin values, in addition to ischemic symptoms, EKG changes, new regional wall motion abnormality, and/or angiographical evidence. PLEASE NOTE: REFERENCE RANGES EDITED 18 Performed By: #### L500.2500, L501.4010 #### [facility] [address] [place], [address] CHEST 1 VIEW Observed: 11/15/2018 Status: F Source: JILL (PORTABLE) 12:02 PM FORMERLY [facility], [facility]1983 HOSPITAL REPOSITORY [facility] Imaging Services [address] [place] [address] Chest 1 View (Portable) MR#: [id number] Acct: [id number] Name: ALLEN VALDES Rep #: [id number] : 1955 63 From: Tracie Zelaya MD PCP: Silvestre Soares DO Status: REG ER Study: Chest 1 View (Portable) Date of Exam: 11/15/18 Exam# [id number] Ordering Dr: Will Lynne MD STUDY: X-RAY CHEST REASON FOR EXAM: Male, 63 years old. Chest pain, short of breath TECHNIQUE: Single AP portable view of the chest. COMPARISON: October 07, 2018 FINDINGS: Cardiac monitoring leads are present. The lungs are clear and expanded. Improved appearance of the lung bases when compared to previous study. There is no demonstrated pleural abnormality. Normal size heart. Normal mediastinum and juan diego. Normal visualized pulmonary arteries. Mild tortuosity of the thoracic aorta noted. There are diffuse degenerative changes of the visualized thoracic spine. Normal visualized ribs, clavicles, and shoulders. There is no demonstrated abnormality of the visualized soft tissue structures of the upper abdomen. RAD/Chest 1 View (Portable) IMPRESSION: No acute intrathoracic process. Electronically Signed: Tracie Zelaya MD at 12:27 EST , Service support , CC: Silvestre Soares DO; Will Lynne MD Sugar Refiner: Signed 6 MINUTE WALK TEST Observed: 11/04/2018 Status: F Source: JILL 11:47 AM [facility], [facility] HOSPITAL REPOSITORY [facility] Pulmonary Services/Neurology [address] [place] [address] MR#: [id number] Acct: [id number] Name: ALLEN VALDES Rep #: [id number] : 1955 63 From: Ralph Goss DO Referring Dr: Lexi Arceo LAUNCHMAN Date: Ordering Dr: [place]: Chelsy C Location: PSN PSN 6 Minute Walk Test - 6 Minute Walk Test 6 Minute Walk Test: 6 Minute Walk Test PSN:6-Minute Walk Test Start: 11/04/18 09:05 Freq: Status: Active Protocol: RESP.6MINW Document 11/04/18 08:30 HG (Rec: 11/04/18 09:08 HG [id number]) 6 Minute Walk Test Date Performed 11/04/18 Time Performed 08:30 Height 6 ft 1 in Weight: 254 lb Weight in Pounds 254.[address]: Lexi Arceo Assistive device used: None Pre-test Oxygen Delivery Method Room Air Pulse Ox (%) 96 Pulse Rate (60-100 beats/min) 63 Dyspnea Jeimy Scale (0-10) 3 Exertion Jeimy Scale (6-20) 13 1st minute Oxygen Delivery Method Room Air Pulse Ox (%) 97 Pulse Rate (60-100 beats/min) 70 2nd minute Oxygen Delivery Method Room Air Pulse Ox (%) 96 Pulse Rate (60-100 beats/min) 65 Number of Rests Taken 1 Reported Symptoms Increased Work of Breathing 3rd minute Oxygen Delivery Method Room Air Pulse Ox (%) 96 Pulse Rate (60-100 beats/min) 62 Number of Rests Taken 1 Reported Symptoms Increased Work of Breathing 4th minute Oxygen Delivery Method Room Air Pulse Ox (%) 96 Pulse Rate (60-100 beats/min) 64 Number of Rests Taken 1 Reported Symptoms Increased Work of Breathing 5th minute Oxygen Delivery Method Room Air Pulse Ox (%) 96 Pulse Rate (60-100 beats/min) 60 Number of Rests Taken 1 Reported Symptoms Increased Work of Breathing 6th minute Oxygen Delivery Method Room Air Pulse Ox (%) 96 Pulse Rate (60-100 beats/min) 59 L Post-test Oxygen Delivery Method Room Air Pulse Ox (%) 97 Pulse Rate (60-100 beats/min) 57 L Dyspnea Jeimy Scale (0-10) 4 Exertion Jeimy Scale (6-20) 14 Full Laps Walked 6 Partial Lap, Number of Tiles Walked 0 Total Distance Walked (ft) 354 - Interpretation Interpretation: The patient ambulated 354 feet over the course of 6 minutes beginning on room air without assistive devices or breaks. Pretesting oxygen saturation was noted to be 96% on room air. With ambulation, the katerine oxygen saturation was 96%. Although there was evidence of impaired walk distance, there was no significant exertional oxygen desaturation. - Recommendations Recommendations: There is no indication for the use of supplemental oxygen at this time. 11/04/18 1147 <Electronically signed by Ralph Goss DO> Date Ralph Goss DO CC: Date Dictated: 11/04/18 114 Date Transcribed: 11/04/181145 Sugar Refiner: Ralph Goss DO Signed PULMONARY VISIT REPORT Observed: 11/02/2018 Status: F Source: BELLE 8:[address] [facility] Pulmonary Medicine [address] [place] [address] OFFICE VISIT Date of Service: 11/01/18 MR#: [id number] Acct: [id number] Name: ALLEN VALDES Rep #: [id number] : 1955 Provider: Lexi Arceo Age/Sex: 63/M Location: [facility] Status: Signed with Addenda ADDENDUM by Lexi Arceo on 11/02/18 at 0825 Addendum entered and electronically signed by PROSPER Bella 11/02/18 08:25: Patient would like to seek a second opinion for cardiology, possibly establish care with a new capsule machine operator. Sending him to the [facility] for input. Assessment AND Plan 1. Pulmonary hypertension I27.20 Plan - PROSPER Bella New. Likely causing the shortness of breath on exertion. Need to identify potential causes for the pulmonary hypertension. Will obtain blood work to rule out an autoimmune process. Also discussed with the patient that it could be from his untreated sleep apnea. He reports that he was trying to be compliant with Pap therapy but suffers from PTSD and had significant struggles. It has been a few years since he last tried therapy, and is now currently being treated for his PTSD. Follow-up with Dr. Rossi in approximately 3 weeks to discuss test results and continue to develop a plan. We will also obtain a pulmonary stress test to rule out exertional hypoxia, if hypoxia is identified submental oxygen will be ordered. The patient and his both can be understanding and are agreeable with this plan. 2. SOB (shortness of breath) on exertion R06.02 Plan - PROSPER Bella Possibly multifactorial. Further workup pending. Evaluating for possible exertional hypoxia. Orders Orders: Referrals: 3. DIMAS (obstructive sleep apnea) G47.33 Plan - PROSPER Bella Deteriorated. Has been noncompliant. Understands the importance of treating DIMAS and is willing to retry Pap therapy. Likelihood of success has increased, now that the patient is on therapy for his PTSD. Follow-up with Dr. Rossi in approximately 2-3 weeks. Plan Detail Follow Up 2 Weeks ([facility]) 11/02/18 0853 <Electronically signed by Lexi CHENG> Date Lexi Arceo cc: Víctor Soares DO * Signed Assessment AND Plan 1. Pulmonary hypertension I27.20 Plan New. Likely causing the shortness of breath on exertion. Need to identify potential causes for the pulmonary hypertension. Will obtain blood work to rule out an autoimmune process. Also discussed with the patient that it could be from his untreated sleep apnea. He reports that he was trying to be compliant with Pap therapy but suffers from PTSD and had significant struggles. It has been a few years since he last tried therapy, and is now currently being treated for his PTSD. Follow-up with Dr. Rossi in approximately 3 weeks to discuss test results and continue to develop a plan. We will also obtain a pulmonary stress test to rule out exertional hypoxia, if hypoxia is identified submental oxygen will be ordered. The patient and his both can be understanding and are agreeable with this plan. 2. SOB (shortness of breath) on exertion R06.02 Plan Possibly multifactorial. Further workup pending. Evaluating for possible exertional hypoxia. Orders Orders: Referrals: 3. DIMAS (obstructive sleep apnea) G47.33 Plan Deteriorated. Has been noncompliant. Understands the importance of treating DIMAS and is willing to retry Pap therapy. Likelihood of success has increased, now that the patient is on therapy for his PTSD. Follow-up with Dr. Rossi in approximately 2-3 weeks. Plan Detail Follow Up 2 Weeks ([facility]) HPI Results of Echo: Chief Complaint: Shortness of breath HPI Comments Details: This patient presents the office today to follow- up on recent test results and continue to evaluate causes for his shortness of breath. He is ambulatory and currently on room air, he is accompanied today by his . He reports that his shortness of breath on exertion is getting worse. He reports that very little activity causes him to come trigger breath and making him pauses activity. Rest provides him with relief from his shortness of breath. He feels as though the only thing he can do with comfort anymore is just sit still. He occasionally has some chest discomfort which he points to the area across the front of his chest approximately the location of the diaphragm. He describes it as stabbing and shooting occasionally it does radiate to his left chest. Rest relieves the chest discomfort. He denies any cough, sputum production or hemoptysis. He denies any wheezing, chest tightness, or chest congestion. He has not experienced any fever, chills or body aches. He does report some lower extremity edema. He was previously tried on Lasix. He states that while on Lasix his weight did not change in his urinary output did not increase. He also reports that his shortness of breath did not improve. Echocardiogram completed on October 22, 2018 shows an EF of 65% with stage I diastolic dysfunction and a PAS P estimated to be 36 mmHg. Pulmonary function test completed on October 18, 2018 interpreted as showing a reversible severe mixed ventilatory defect with a mild reduction in diffusing capacity, since the previous study there has been a 35% reduction in the FEV1, 23% reduction in the TLC and a 17% reduction in DLCO. FVC 49% of predicted, FEV1 48% of predicted, FEV1/FVC 74% of predicted, TLC 77% of predicted, RV 111% of predicted and DLCO 64% of predicted. Intake Vital Signs11/01/18 Height 6 ft 1 in 11/01/18 Weight: 254 lb Intake Visit Reasons: Results of Echo Accompanied by: Allergies chlorzoxazone Allergy (Severe, Verified 11/01/18 14:05) Unknown Medications aspirin 81 mg tablet,delayed release 81 mg PO QDAY tab 02/10/18 [History Confirmed 11/01/18] atorvastatin 80 mg tablet 80 mg PO QDAY 02/10/18 [History Confirmed 11/01/18] cilostazol 100 mg tablet 100 mg PO BID 02/10/18 [History Confirmed 11/01/18] clopidogrel 75 mg tablet 75 mg PO QDAY tab 02/10/18 [History Confirmed 11/01/18] lamotrigine 25 mg tablet 50 mg PO BID tab 02/10/18 [History Confirmed 11/01/18] lisinopril 20 mg-hydrochlorothiazide 12.5 mg tablet 1 tab PO QDAY tab 02/10/18 [History Confirmed 11/01/18] albuterol sulfate HFA 90 mcg/actuation aerosol inhaler 2 puff INHALATION Q4H #1 inh 03/15/18 [Rx Confirmed 11/01/18] clonazepam 0.5 mg tablet 0.5 mg PO BID PRN 09/22/18 [History Confirmed 11/01/18] hydrocodone 5 mg-acetaminophen 325 mg tablet 1 tab PO Q6H PRN 09/22/18 [History Confirmed 11/01/18] isosorbide mononitrate ER 30 mg tablet,extended release 24 hr 30 mg PO DAILY 09/22/18 [History Confirmed 11/01/18] multivit,tx with iron 27 wf-tdxyoxo-tqofb acid 0.4 mg-minerals tablet 1 tab PO DAILY 09/22/18 [History Confirmed 11/01/18] nitroglycerin 0.4 mg sublingual tablet 0.4 mg SUBLINGUAL Q5- 15M PRN 09/22/18 [History Confirmed 11/01/18] trazodone 100 mg tablet 200 mg PO QHS tab 09/22/18 [History Confirmed 11/01/18] venlafaxine ER 150 mg capsule,extended release 24 hr 75 mg PO QDAY cap 09/22/18 [History Confirmed 11/01/18] furosemide 40 mg tablet 40 mg PO DAILY #10 tab 09/29/18 [Rx Confirmed 11/01/18] metoprolol tartrate 25 mg tablet 25 mg PO BID tab 10/05/18 [History Confirmed 11/01/18] [facility] Medical History Heart attack (Acute) TIA (transient ischemic attack) (Acute) Asthma (Chronic) Coronary heart disease (Chronic) Depression (Chronic) HTN (hypertension) (Chronic) Osteoarthritis (Chronic) Peripheral vascular disease (Chronic) Sleep apnea (Chronic) Surgical History H/O heart artery stent (Resolved) H/O knee surgery (Resolved) Hx of cataract surgery (Resolved) S/P AAA repair (Resolved) Social History household members: spouse housing: house pets and animals: Yes pets and animals: dog(s) Smoking Status: Former smoker quit date: 11/30/17 how long ago did patient quit smokin, 1.5p/d second hand exposure: No alcohol intake: never substance use type: does not use RVSP RVSP: 36 mmHg Review of Systems Const CONSTITUTIONAL: Positive fatigue; negative anorexia, body ache, chills, daytime sleepiness, fever(s), night sweats, oral thrush, stops breathing during sleep, weight loss, sleeping in chair, weight loss, weight gain, frequent colds, seasonal allergies, other, headache(s) or orthopnea EETM Ear Nose Throat Mouth: Positive hearing normal; negative hard of hearing, hoarseness, dry mouth in morning, change in vision, itchy eyes, eye pain, swallowing Difficulty, ear pain, nose bleed, headache(s), mouth pain, nasal congestion, nasal discharge, post nasal drip, sinus pain, sinus pressure, sore throat or other Cardio Cardiovascular: Positive chest pain, chest pain at rest and chest pain with activity; negative irregular heart rhythm, edema, shortness of breath when lying down, palpitations or other Resp Respiratory: Positive as per HPI, shortness of breath shortness of breath: Positive with activity, lying down and worsening and chest tightness; negative pain with cough, wheezing, chest congestion, cough, pain on inspiration, inhalers, increase use of rescue inhalers, snoring, apnea or other Gastro Gastrointestional: Negative bloody stools, change in appetite, difficulty swallowing, reflux, hematemesis, melena stool, loose stool, constipation or other Genitourinary: Negative blood in urine, nocturia, pain with urination or other Musc Musculoskeletal: Negative body pain, back pain, neck pain or other Skin/Breast Skin/Breast: Negative dry skin, itching, rash, unusual bruising, breast lump or other Neuro Neurological: Negative restless legs, confusion, weakness or other Psych Psychocological: Positive hopelessness; negative abnormal sleep pattern, anxiety, thoughts of hurting self/others or other Lymph Lymphatic: Negative easy bleeding, easy bruising, swollen lymph nodes or other Exam Const Constitutional: Positive conversant, cooperative, in no acute respiratory distress, well developed, well nourished, good hygiene and dyspenic Head Head: Positive normocephalic and atraumatic; negative cyanosis of lips/distal nose Eyes Eye: Positive clear conjunctiva; negative nystagmus or scleral abnormality Ears Ear: Positive hearing normal and external ears normal; negative hard of hearing Nose Nose: Positive external nose normal and no nasal discharge; negative epistaxis Mouth Mouth: Positive oral mucosae normal, no lesions, good dentition and crowded posterior oropharynx; negative post nasal drip, malodorous breath or oral thrush present Mallampati Score: III: Mallampati Score Neck Neck: Positive normal visual inspection, full ROM and trachea midline; negative lymphadenopathy, JVD or tender Chest Wall Chest: Positive normal inspection of the chest and symmetric chest movement; negative increased A/P diameter Resp lung sounds: Positive clear to auscultation, good air exchange, normal expiratory time and normal respiratory effort; negative diminished, wheezes, rhonchi, rales, dullness to percussion or wheeze present on forced exhalation Cardio Cardiac: Positive regular rate, regular rhythm, S1 normal and S2 normal GI GI: Positive normal to inspection; negative distended Genitourinary: Positive deferred Musc Musculoskeletal: Positive steady gait and ROM normal; negative kyphosis or scoliosis Skin Pulmonary Skin Exam: Positive intact; negative rash Pulses Pulse: Yes pulses normal x4 extremities Extremities Extremities: Yes capillary refill normal, No clubbing, No cyanosis, No edema Neuro Neurologic: Yes conversant, Yes no focal neuro deficits, Yes normal concentration, Yes understands questions, Yes cooperative, Yes normal cognition, Yes normal coordination, No tremor Lymph Lymphatic: No lymphadenopathy, No tenderness, No cervical adenopathy Psych Appearance: Positive grossly normal, eye contact and well kempt Mental Status: Positive mental status grossly normal Mood: Positive congruent mood Affect: Positive normal affect Coding Level of Care Code Off vis,est,level 4 Diagnoses Pulmonary hypertension I27.20 SOB (shortness of breath) on exertion R06.02 DIMAS (obstructive sleep apnea) G47.33 Time Spent (min) 30 11/02/18 0824 <Electronically signed by Lexi Arceo LAUNCHMAN-C> Date Lexi Arceo LAUNCHMAN-C Cosigner Signature: Date (if applicable) CC: Víctor Soares DO RHEUMATOID FACTOR Collected: 11/01/2018 Status: F Source: [place] 3[place] [facility] [place] CODE TESTS RESULT OUT OF RANGE REFERENCE UNITS LAB L505.7010 <15 IU/mL Normal RHEUMATOID FAC < 10.0 Performed By: #### L505.7010 #### [facility] [address] [place] [address], [address] ALBERT W/ REFLEX MULT Collected: 11/01/2018 Status: F Source: [facility] 3:[facility] [place] [facility] [place] CODE TESTS RESULT OUT OF RANGE REFERENCE UNITS LAB L3100.5475 Negative Normal Negative ALBERT-DIRECT Result Comment: Performed at: [facility] [id number] Vending Machine Collector: Maximiliano Vizcarra PhD, Phone: [phone] Performed By: #### L3100.5450 #### [facility] (refer to report for specific site) refer to report for address and phone number ANCA Collected: 11/01/2018 Status: F Source: [place] 3:[place] [facility] [place] CODE TESTS RESULT OUT OF RANGE REFERENCE UNITS LAB L3300.1225 Neg:<1:20 titer CYTOPLASMIC Normal Ab <1:20 Result Comment: Please Note: Specimen is lipemic. LAB L3300.1250 Neg:<1:20 titer Normal PERINUCLEAR Ab <1:20 Result Comment: Please Note: Specimen is lipemic. The presence of positive fluorescence exhibiting P-ANCA or C-ANCA patterns alone is not specific for the diagnosis of Tod's Granulomatosis (WG) or microscopic polyangiitis. Decisions about treatment should not be based solely on ANCA IFA results. The [employer] ANCA [employer] Consensus recommends follow up testing of positive sera with both FL- 3 and MPO-ANCA enzyme immunoassays. As many as 5% serum samples are positive only by EIA. Ref. AM J Clin Pathol 1999;111:507-513. LAB L3300.1285 Neg:<1:20 titer Normal Atypical pANCA <1:20 Result Comment: Please Note: Specimen is lipemic. The atypical pANCA pattern has been observed in a significant percentage of patients with ulcerative colitis, primary sclerosing cholangitis and autoimmune hepatitis. Performed By: #### L3300.1200, L4600.0100 #### [facility] (refer to report for specific site) refer to report for address and phone number CCP IGG ANTIBODIES Collected: 11/01/2018 Status: F Source: [place] 3:[place] [facility] [place] CODE TESTS RESULT OUT OF RANGE REFERENCE UNITS LAB L4600.0100 0-19 units Normal ANTI-CCP 15 [id number] Result Comment: Negative <20 Weak positive 20 - 39 Moderate positive 40 - 59 Strong positive >59 Performed at: - [facility] [id number] Vending Machine Collector: Maximiliano Vizcarra PhD, Phone: [phone] Performed at: [facility] [id number] Vending Machine Collector: Yuliet Rojas MD, Phone: [phone] Performed By: #### L3300.1200, L4600.0100 #### [facility] (refer to report for specific site) refer to report for address and phone number PROGRESS Observed: 10/27/2018 Status: COMPLETED Source: [facility] 3:58 PM [facility] OTHER CAMPUS REPOSITORY HNO ID: [id number] Author: Elma Camacho Service: (none) Author Type: (none) Type: Progress Notes Filed: 10/27/2018 3:58 PM Note Text: Reminder set in for a future task PROGRESS Observed: 10/27/2018 Status: COMPLETED Source: [facility] 2:15 PM [facility] OTHER CAMPUS REPOSITORY HNO ID: [id number] Author: Stephanie Patterson Service: (none) Author Type: Physician Type: Progress Notes Filed: 10/27/2018 2:33 PM Note Text: Allen Valdes is a 63 year old male who presents to follow up for Aneurysm (Allen is here to review CTA abd/pelvis done 10/08/18) This patient has undergone repair of an infranrenal abdominal aortic aneurysm using a aortobi-iliac replacement graft in 2014. No new vascular problems have occurred since that time, and he now returns for his annual follow-up exam. The aneurysm continues to decrease in size and measures 4 cm x 3.5 cm on most recent CTA. At this point it has been many years and we will move towards screening with US. The patient has no new complaints. He denies abdominal pain. He denies new symptoms of PVD. The abdominal exam otherwise is unremarkable. The pts questions were answered. We again reviewed the need for yearly imaging to diagnose endoleak or graft migration. The pt understands that if they fail to follow up it could result in sac reperfusion or rupture of the aneurysm. We also reviewed the need to discuss the presence of an AAA with any children, especially males or those who have smoked. If applicable, we again discussed the importance of smoking cessation. In addition, the pt has a known L CCCA and ICA occlusion and minimal stenosis of the R ICA on a CTA done in 2015. He states he recently had carotid imaging done at [facility]. He is going to get the results if able but states there was not significant change. He denies s/sx of tia or stroke. MEDICATIONS: Current Outpatient Prescriptions: venlafaxine (EFFEXOR) 75 mg tablet Take 75 mg by mouth three times daily. Disp: Rfl: Ketorolac Tromethamine (ACLUAR LS) 0.4 % drop Use 1 Drop in the right eye four times daily. Disp: Rfl: ALBUTEROL INHALATION Inhale 2 Puffs as instructed every 6 hours as needed (wheezing). Disp: Rfl: lisinopril-hydrochlorothiazide (PRINZIDE,ZESTORETIC) 20-12.5 mg per tablet Take 1 tablet by mouth once daily. Disp: Rfl: traZODone (DESYREL) 150 mg tablet Take 1 tablet by mouth daily at bedtime. (Patient taking differently: Take 100 mg by mouth daily at bedtime. ) Disp: 30 tablet Rfl: 6 lamoTRIgine (LAMICTAL) 150 mg tablet Take 1 tablet by mouth twice daily. Disp: 60 tablet Rfl: 6 clopidogrel (PLAVIX) 75 mg tablet Take 75 mg by mouth once daily. Disp: Rfl: metoprolol tartrate, short acting, (LOPRESSOR) 100 mg tablet Take 100 mg by mouth once daily. Disp: Rfl: clonazePAM (KLONOPIN) 0.5 mg tablet Take 0.5 mg by mouth twice daily as needed for Anxiety. Disp: Rfl: ACETAMINOPHEN ORAL Take 650 mg by mouth every 4 hours as needed. Disp: Rfl: aspirin, enteric coated (ASPIRIN, ENTERIC COATED) 81 mg EC tablet Take 81 mg by mouth once daily. Disp: Rfl: HYDROcodone-acetaminophen (NORCO) 5-325 mg per tablet One to Two tablets every 8 hours as needed for pain Disp: 60 tablet Rfl: 0 atorvastatin (LIPITOR) 80 mg tablet Take 80 mg by mouth once daily. Disp: Rfl: cilostazol (PLETAL) 100 mg tablet Take 100 mg by mouth twice daily. Disp: Rfl: gabapentin (NEURONTIN) 300 mg capsule Take 4 to 5 capsules at bedtime. Disp: 450 capsule Rfl: 0 NEOMYCIN 3.5 MG/G-POLYMYXIN B 10,000 UNIT/G-DEXAMETH 0.1 % EYE OINT Use 1 application in the right eye twice daily. Apply 0.5 inches into RUL margin and eye 2 times a day. Disp: Rfl: prednisoLONE acetate (PRED FORTE) 1 % ophthalmic suspension Use 1 Drop in the right eye four times daily. Disp: Rfl: BUPROPION HCL ORAL Take by mouth once daily. Disp: Rfl: Ciclopirox (PENLAC) 8 % solution Apply 1 application to affected area daily at bedtime. Disp: Rfl: KRILL OIL ORAL Take 300 mg by mouth twice daily. Disp: Rfl: HYDROcodone-acetaminophen (NORCO) 5-325 mg per tablet One to Two tablets every 8 hours as needed for pain (Patient not taking: Reported on 10/27/2018 ) Disp: 50 tablet Rfl: 0 VENTOLIN HFA 90 mcg/actuation inhaler Disp: Rfl: VIRTUSSIN AC 10-100 mg/5 mL syrup Disp: Rfl: doxycycline (VIBRA-TABS) 100 mg tablet Take 100 mg by mouth once daily. Disp: Rfl: predniSONE (DELTASONE) 20 mg tablet Disp: Rfl: lisinopril (ZESTRIL, PRINIVIL) 20 mg tablet Disp: Rfl: DULoxetine (CYMBALTA) 30 mg capsule 3 caps po daily morning Disp: 90 capsule Rfl: 6 tamsulosin ER (FLOMAX) 0.4 mg cp24 Disp: Rfl: lisinopril (ZESTRIL, PRINIVIL) 10 mg tablet Take 10 mg by mouth once daily. Disp: Rfl: DOCOSAHEXANOIC ACID/EPA (FISH OIL ORAL) Take by mouth. Disp: Rfl: No current facility-administered medications for this visit. ALLERGIES Allergen Reactions - Parafomik Faye Dsc [* Itching BP 138/72 Pulse 76 Resp 20 Ht 6' 1 (1.85m) Wt 250 lb (113.4kg) BMI 32.99 kg/(m2). PHYSICAL EXAM: PHYSICAL EXAMINATION: General appearance: Well appearing, alert, in no acute distress, well-hydrated, well nourished. Skin: Skin color, texture, turgor normal, no suspicious rashes or lesions Head: wnl Lungs: breathing unlabored Heart: Abdomen: wnl Extremities: Musculoskeletal: Peripheral pulses: Neuro: Gait normal. Reflexes normal and symmetric. Sensation grossly intact. ASSESSMENT: AAA s/p EVAR, L carotid occlusion PLAN: Abd US in 1 year Carotid US in 1 year Call with questions or changes in symptoms. Stephanie Patterson MD I spent 15 minutes in the visit, with more than 50% of the total [id number] time of the visit in counseling / coordination of care. CNOV Observed: 10/27/2018 Status: COMPLETED Source: [facility] 2:00 PM [facility] OTHER CAMPUS REPOSITORY Office Visit (AGVASACC) ALLEN VALDES ([id number]) 1955 M Date Time Provider Department 10/27/18 2:00 PM [facility] [place] During your visit today, we recorded the following information about you: Pulse Respiration Blood pressure Weight 76/minute 20/minute 138/72 113.4 kg Height 1.854 m Stephanie Patterson MD 10/27/2018 2:33 PM Signed Allen Valdes is a 63 year old male who presents to follow up for Aneurysm (Allen is here to review CTA abd/pelvis done 10/08/18) This patient has undergone repair of an infranrenal abdominal aortic aneurysm using a aortobi-iliac replacement graft in 2014. No new vascular problems have occurred since that time, and he now returns for his annual follow-up exam. The aneurysm continues to decrease in size and measures 4 cm x 3.5 cm on most recent CTA. At this point it has been many years and we will move towards screening with US. The patient has no new complaints. He denies abdominal pain. He denies new symptoms of PVD. The abdominal exam otherwise is unremarkable. The pts questions were answered. We again reviewed the need for yearly imaging to diagnose endoleak or graft migration. The pt understands that if they fail to follow up it could result in sac reperfusion or rupture of the aneurysm. We also reviewed the need to discuss the presence of an AAA with any children, especially males or those who have smoked. If applicable, we again discussed the importance of smoking cessation. In addition, the pt has a known L CCCA and ICA occlusion and minimal stenosis of the R ICA on a CTA done in 2015. He states he recently had carotid imaging done at [facility]. He is going to get the results if able but states there was not significant change. He denies s/sx of tia or stroke. MEDICATIONS: Current Outpatient Prescriptions: venlafaxine (EFFEXOR) 75 mg tablet Take 75 mg by mouth three times daily. Disp: Rfl: Ketorolac Tromethamine (ACLUAR LS) 0.4 % drop Use 1 Drop in the right eye four times daily. Disp: Rfl: ALBUTEROL INHALATION Inhale 2 Puffs as instructed every 6 hours as needed (wheezing). Disp: Rfl: lisinopril-hydrochlorothiazide (PRINZIDE,ZESTORETIC) 20-12.5 mg per tablet Take 1 tablet by mouth once daily. Disp: Rfl: traZODone (DESYREL) 150 mg tablet Take 1 tablet by mouth daily at bedtime. (Patient taking differently: Take 100 mg by mouth daily at bedtime. ) Disp: 30 tablet Rfl: 6 lamoTRIgine (LAMICTAL) 150 mg tablet Take 1 tablet by mouth twice daily. Disp: 60 tablet Rfl: 6 clopidogrel (PLAVIX) 75 mg tablet Take 75 mg by mouth once daily. Disp: Rfl: metoprolol tartrate, short acting, (LOPRESSOR) 100 mg tablet Take 100 mg by mouth once daily. Disp: Rfl: clonazePAM (KLONOPIN) 0.5 mg tablet Take 0.5 mg by mouth twice daily as needed for Anxiety. Disp: Rfl: ACETAMINOPHEN ORAL Take 650 mg by mouth every 4 hours as needed. Disp: Rfl: aspirin, enteric coated (ASPIRIN, ENTERIC COATED) 81 mg EC tablet Take 81 mg by mouth once daily. Disp: Rfl: HYDROcodone-acetaminophen (NORCO) 5-325 mg per tablet One to Two tablets every 8 hours as needed for pain Disp: 60 tablet Rfl: 0 atorvastatin (LIPITOR) 80 mg tablet Take 80 mg by mouth once daily. Disp: Rfl: cilostazol (PLETAL) 100 mg tablet Take 100 mg by mouth twice daily. Disp: Rfl: gabapentin (NEURONTIN) 300 mg capsule Take 4 to 5 capsules at bedtime. Disp: 450 capsule Rfl: 0 NEOMYCIN 3.5 MG/G-POLYMYXIN B 10,000 UNIT/G-DEXAMETH 0.1 % EYE OINT Use 1 application in the right eye twice daily. Apply 0.5 inches into RUL margin and eye 2 times a day. Disp: Rfl: prednisoLONE acetate (PRED FORTE) 1 % ophthalmic suspension Use 1 Drop in the right eye four times daily. Disp: Rfl: BUPROPION HCL ORAL Take by mouth once daily. Disp: Rfl: Ciclopirox (PENLAC) 8 % solution Apply 1 application to affected area daily at bedtime. Disp: Rfl: KRILL OIL ORAL Take 300 mg by mouth twice daily. Disp: Rfl: HYDROcodone-acetaminophen (NORCO) 5-325 mg per tablet One to Two tablets every 8 hours as needed for pain (Patient not taking: Reported on 10/27/2018 ) Disp: 50 tablet Rfl: 0 VENTOLIN HFA 90 mcg/actuation inhaler Disp: Rfl: VIRTUSSIN AC 10-100 mg/5 mL syrup Disp: Rfl: doxycycline (VIBRA-TABS) 100 mg tablet Take 100 mg by mouth once daily. Disp: Rfl: predniSONE (DELTASONE) 20 mg tablet Disp: Rfl: lisinopril (ZESTRIL, PRINIVIL) 20 mg tablet Disp: Rfl: DULoxetine (CYMBALTA) 30 mg capsule 3 caps po daily morning Disp: 90 capsule Rfl: 6 tamsulosin ER (FLOMAX) 0.4 mg cp24 Disp: Rfl: lisinopril (ZESTRIL, PRINIVIL) 10 mg tablet Take 10 mg by mouth once daily. Disp: Rfl: DOCOSAHEXANOIC ACID/EPA (FISH OIL ORAL) Take by mouth. Disp: Rfl: No current facility-administered medications for this visit. ALLERGIES Allergen Reactions - Parafon Forte Dsc [* Itching BP 138/72 Pulse 76 Resp 20 Ht 6' 1 (1.85m) Wt 250 lb (113.4kg) BMI 32.99 kg/(m2). PHYSICAL EXAM: PHYSICAL EXAMINATION: General appearance: Well appearing, alert, in no acute distress, well-hydrated, well nourished. Skin: Skin color, texture, turgor normal, no suspicious rashes or lesions Head: wnl Lungs: breathing unlabored Heart: Abdomen: wnl Extremities: Musculoskeletal: Peripheral pulses: Neuro: Gait normal. Reflexes normal and symmetric. Sensation grossly intact. ASSESSMENT: AAA s/p EVAR, L carotid occlusion PLAN: Abd US in 1 year Carotid US in 1 year Call with questions or changes in symptoms. Stephanie Patterson MD I spent 15 minutes in the visit, with more than 50% of the total [id number] time of the visit in counseling / coordination of care. Referring Provider: SILVESTRE SOARES [[id number]] Allergies As of Date: 10/27/2018 Noted Allergy Reaction PARAFON FORTE DSC (CHLORZOXAZONE) 08/08/2015 9 - Itching Date Reviewed: 10/27/2018 Reviewed by: Stephanie Patterson - Fully Assessed Reason for Visit: Aneurysm [496] Cmt: Allen is here to review CTA abd/pelvis done 10/08/18 Reason For Visit History Recorded Primary Visit Diagnosis:AAA (abdominal aortic aneurysm) without rupture (HCC) [I71.4] Other Visit Diagnosis:Carotid stenosis, asymptomatic, bilateral [I65.23] Order(s):US ABD AORTA [[id number]] Order #: [id number] FUTURE US CAROTID BILAT [[id number]] Order #: [id number] FUTURE Prescriptions as of 10/27/2018 Sig: VENLAFAXINE 75 MG TABLET Take 75 mg by mouth three kang* KETOROLAC 0.4 % EYE DROPS Use 1 Drop in the right eye f* ALBUTEROL INHALATION Inhale 2 Puffs as instructed * LISINOPRIL 20 MG-HYDROCHLOROT* Take 1 tablet by mouth once d* TRAZODONE 150 MG TABLET Take 1 tablet by mouth daily * Patient taking differently: Take 100 mg by mouth daily at* LAMOTRIGINE 150 MG TABLET Take 1 tablet by mouth twice * CLOPIDOGREL 75 MG TABLET Take 75 mg by mouth once shahla* METOPROLOL TARTRATE 100 MG TA* Take 100 mg by mouth once latha* CLONAZEPAM 0.5 MG TABLET Take 0.5 mg by mouth twice da* ACETAMINOPHEN ORAL Take 650 mg by mouth every 4 * ASPIRIN 81 MG TABLET,DELAYED * Take 81 mg by mouth once shahla* HYDROCODONE 5 MG-ACETAMINOPHE* One to Two tablets every 8 h* ATORVASTATIN 80 MG TABLET Take 80 mg by mouth once shahla* CILOSTAZOL 100 MG TABLET Take 100 mg by mouth twice da* GABAPENTIN 300 MG CAPSULE Take 4 to 5 capsules at bedti* NEOMYCIN 3.5 MG/G-POLYMYXIN B* Use 1 application in the righ* PREDNISOLONE ACETATE 1 % EYE * Use 1 Drop in the right eye f* BUPROPION HCL ORAL Take by mouth once daily. CICLOPIROX 8 % TOPICAL SOLUTI* Apply 1 application to affect* KRILL OIL ORAL Take 300 mg by mouth twice da* HYDROCODONE 5 MG-ACETAMINOPHE* One to Two tablets every 8 ho* Patient not taking: Reported on 10/27/2018 VENTOLIN HFA 90 MCG/ACTUATION* VIRTUSSIN AC 10 MG-100 MG/5 M* DOXYCYCLINE HYCLATE 100 MG TA* Take 100 mg by mouth once latha* PREDNISONE 20 MG TABLET LISINOPRIL 20 MG TABLET DULOXETINE 30 MG CAPSULE,MANUELA* 3 caps po daily morning TAMSULOSIN 0.4 MG CAPSULE LISINOPRIL 10 MG TABLET Take 10 mg by mouth once shahla* FISH OIL ORAL Take by mouth. 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,*INVALID FOR* Contusion of right knee [S80.01XA] INVALID FOR* Primary osteoarthritis of left knee [M17.12] INVALID FOR* TIA (transient ischemic attack) [G45.9] Severe episode of recurrent major depressive di*INVALID FOR* Chronic post-traumatic stress disorder (PTSD) [*INVALID FOR* Cigarette nicotine dependence with nicotine-ind*INVALID FOR* DIMAS (obstructive sleep apnea) [G47.33] INVALID FOR* 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 Follow-up and Disposition History Recorded Encounter Status:Closed by STEPHANIE PATTERSON MD on 10/27/18 ECHO, COMPLETE W/ Observed: 10/22/2018 Status: F Source: [place] CONTR[place] 3:24 PM [facility] [place] [facility] Cardiovascular Services [address] [place] [address] Echo Complete W/ Contrast 10/22/18 1358 MR#: [id number] Acct: [id number] Name: ALLEN VALDES Rep #: [id number] : 1955 63 From: Brayan Lay MD Attending Dr: Lexi Areco LAUNCHMAN Status: REG CLI Ordering Dr: Lexi Arceo LAUNCHMAN-C Date: 10/22/18 Location: [facility] Sex: M C Admitted: Reason For Study: Dyspnea/SOB Procedure This was a 2D Doppler, Color Flow transthoracic echocardiogram. Exam performed in department. Left Ventricle Normal LV size. Left ventricular systolic function is normal. The estimated ejection fraction is 65 %. Stage 1 diastolic dysfunction. No regional wall motion abnormalities noted. Right Ventricle Normal RV size. Normal systolic function. Atria Normal left atrium. Normal right atrium. Mitral Valve Normal mitral valve. Trivial mitral valve insufficiency. Tricuspid Valve Normal tricuspid valve. Mild (1+) tricuspid valve insufficiency. Pulmonary artery systolic pressure is 36 mmHg. Aortic Valve Normal aortic valve. Pulmonic Valve Normal pulmonic valve. Great Vessels Normal aortic root. The pulmonary artery is normal size. Normal inferior vena cava. Pericardium/Pleural No pericardial effusion. Medication Roxjaijw4st given slow IV push to enhance endocardial definition. MMode/2D Measurements AND Calculations LVIDd: 5.3 cm IVSd: 0.87 cm Ao root diam: 3.4 cm LVIDs: 2.6 cm LVPWd: 0.85 cm RVDd: 4.3 cm FS: 50.9 % LAV(MOD-bp): 46.3 ml LVAd ap4: 33.5 cm2 SV(MOD-sp4): 89.8 ml LAV(MOD-bp) Indexed: 19.6 ml/m2 EDV(MOD-sp4): 115.0 ml LAV(MOD-sp2): 53.6 ml EDV(sp4-el): 119.0 ml LAV(MOD-sp4): 35.7 ml LVAs ap4: 13.1 cm2 ESV(MOD-sp4): 25.2 ml ESV(sp4-el): 24.5 ml EF(MOD-sp4): 78.1 % EF(sp4-el): 79.4 % SV(sp4-el): 94.5 ml LA A4 area: 15.1 cm2 LA dimension(2D): 3.3 cm RA A4 area: 16.7 cm2 Doppler Measurements AND Calculations MV E max prasanth: 79.4 cm/sec Lat Peak E' Prasanth: 7.0 cm/sec Med Peak E' Prasanth: 6.3 cm/sec MV A max prasanth: 101.2 cm/sec E/E' lat: 11.3 E/E' med: 12.5 MV E/A: 0.78 Ao V2 max: 183.3 cm/sec LV V1 max: 167.1 cm/sec PA V2 max: 82.1 cm/sec Ao max P.4 mmHg LV V1 max P.2 mmHg Ao V2 mean: 126.8 cm/sec Ao mean P.2 mmHg Ao V2 VTI: 38.6 cm TR max prasanth: 278.8 cm/sec TR max P.1 mmHg Interpretation Summary Normal LV size. Left ventricular systolic function is normal. The estimated ejection fraction is 65 %. Stage 1 diastolic dysfunction. Mild (1+) tricuspid valve insufficiency. Contrast injection was performed. Ordering Physician: Lexi Arceo Referring Physician: Lexi Arceo Performed By: Sue Ricks, NEYMAR, RVT 10/22/18 1523 Date Brayan Lay MD CC: Lexi Arceo; OUT OF TOWN DOCTOR Date Dictated: 10/22/18 1358 Date Transcribed: 10/22/18 1523 Sugar Refiner: Signed PULMONARY FUNCTION Observed: 10/18/2018 Status: F Source: [place] TEST 11:54 AM [facility] [place] [facility] Pulmonary Services/Neurology [address] [place] [address] MR#: [id number] Acct: [id number] Name: ALLEN VALDES Rep #: [id number] : 1955 63 From: Ralph Goss DO Referring Dr: Ruy Rossi MD Status: REG CLI Ordering Dr: Date: Location: [facility] Sex: M C INTRODUCTION: The patient is a 63-year-old male that presents for pulmonary function studies secondary to a diagnosis of chronic bronchitis. Respiratory therapy reports good patient effort. Bronchodilators were used during testing. INTERPRETATION: Forced expiration spirometry demonstrates the presence of a severe large airways obstructive ventilatory defect. Although there was no significant response to aerosolized bronchodilators, based upon strict ATS criteria, the patient did have a relatively robust mid flow bronchodilator response. Spirograms are of good quality do not plateau indicating slow emptying of the lungs. Body plethysmography was performed and reveals a decreased TLC to 5.8 L, 77% of predicted, indicative of a mild restrictive ventilatory defect. The remainder of the lung volumes are symmetrically reduced. Diffusing capacity by single breath CO is mildly reduced at 64% of predicted. When compared to previous pulmonary function studies dated January 2018, there has been a 35% reduction in the patient's FEV1, 23% reduction in TLC and 17% reduction in DLCO. IMPRESSION: These pulmonary function studies demonstrate the presence of an irreversible severe mixed ventilatory defect with a mild reduction in diffusing capacity. There has been significant changes in the patient's PFTs since they were last completed in January 2018, as noted above. 10/18/18 1154 <Electronically signed by Ralph Goss DO> Date Ralph Goss DO CC: Ruy Rossi MD; OUT OF TOWN DOCTOR Date Dictated: 10/18/18 1150 Date Transcribed: 10/18/181149 Sugar Refiner: DB Signed 12 LEAD ELECTROCARDIOGRAM Observed: 10/11/2018 Status: F Source: [place] 2:26 PM [facility] [place] [facility] Cardiovascular Services [address] [place] [address] 12 Lead EKG 10/07/18 1243 MR#: [id number] Acct: [id number] Name: ALLEN VALDES Rep #: [id number] : 1955 63 From: Saul Tarango MD Attending Dr: Status: DEP ER Ordering Dr: Sid Weaver MD Date: 10/07/18 Location: ED Sex: M C Admitted: Test Reason : CP/SOB Blood Pressure : / mmHG Vent. Rate : 080 BPM Atrial Rate : 080 BPM P-R Int : 162 ms QRS Dur : 088 ms QT Int : 384 ms P-R-T Axes : 033 007 025 degrees QTc Int : 442 ms Normal sinus rhythm Inferior infarct , age undetermined Abnormal ECG Confirmed by SAUL TARANGO ([id number]), supervising film or videotape editor BETSY FLEMING ([id number]) on 10/11/2018 2:25:59 PM Referred By: ANA/TERENCE Confirmed By:SAUL TARANGO 10/11/18 1426 Date Saul Tarango MD CC: OUT OF TOWN DOCTOR; Sid Weaver MD Signed EMERGENCY DEPARTMENT Observed: 10/07/2018 Status: F Source: [place] SUMMARY 5:46 PM [facility] [place] [facility] Medical Records Department [address] [place] [address] Emergency Department Summary 10/07/18 1357 MR#: [id number] Acct: [id number] Name: ALLEN VALDES Rep #: [id number] : 1955 63 From: Sid Weaver MD PCP: OUT OF TOWN DOCTOR Status: DEP ER - ER Visit Summary Date of Service: 10/07/18 Chief Complaint: Chest pain History of Present Illness: The patient is a [address] Trujillo, Dr. Silvestre Estrada, and Dr. Rossi. He reports that he was admitted at [facility] on September 24 for shortness of breath and chest pain. At that time he had a CT of the chest that showed no PE. It showed atelectasis. No infiltrate or effusion. He had an extensive workup obtained which ultimately showed that he had human rhinovirus. He reports that he saw Dr. Rossi yesterday and was scheduled to have PFTs today. Patient reports that today he walked a distance through the parking lot that was further than he walked since September 13. He had to sit down when he got to the entrance because he was short of breath and was having chest pain. States that the chest pain actually began on the drive here. It is a pressure that is 8 out of 10 at worst and 3-10 currently. Is worsened by exertion relieved by rest. He denies any associated nausea, vomiting, or diaphoresis. Physical Examination: Vitals: Stable. Afebrile. General: Well-nourished and well-developed. Head: Normocephalic atraumatic. Neck: Supple, no lymphadenopathy. No JVD. Nontender. Cardiovascular: Regular rate and rhythm. No murmurs. Respiratory: No respiratory distress. Clear to auscultation bilaterally. Abdominal: Soft, nontender, nondistended, normal bowel sounds. No guarding, rebound, or peritoneal signs. Back: Nontender. Extremities: Nontender, no edema. Skin: Normal color, no rash. Neurologic: Alert and oriented 3. Cranial nerves II through XII are intact. Normal strength and sensation. Psych: Normal affect. Test Results: EKG is sinus at [address] changes. Troponin is negative despite greater than 3 hours of constant pain. Chem-7 is more for glucose 67. CBC is more for hemoglobin 16.8. Chest x-ray shows atelectasis. Emergency Department Course and Treatment: Patient was treated with aspirin. He is resting comfortably. Treatment Plan: Patient was discussed with Dr. Rossi who states patient will need to reschedule his PFTs and from a pulmonary perspective is fine to go home. I had a prolonged discussion with the patient about the possible cardiac etiology of this. He states that he is spoken with his capsule machine operator and it is felt that this is not cardiac in nature. His last stress test was in January of this year. I did offer to admit him for rule out and stress test and he does not want to do this. He has an appointment to see his primary care physician tomorrow. I did discuss with him the possibility that his primary care physician could arrange a stress test as an outpatient if he does not want to be hospitalized. He is instructed to follow-up with his capsule machine operator as soon as possible. Return to the emergency department for any worsening symptoms. Disposition: To home in improved and stable condition. Impression: 1. Atypical chest pain. 2. Dyspnea. 3. Recent infection with human rhinovirus. This note was generated with [employer] dictation software. It may contain incorrect words, spelling, and punctuation that were not noted in review of the chart prior to signing ED Disposition - Plan for ED Patient: Disposition: Home or Assisted Living Chief Complaint: Chest Pain Instructions: ED Dyspnea Shortness of Breath Referrals: Doctor,Your [STAFF PHYSICIAN] - 1 Day for another exam Additional Instructions: Follow up with Dr. Trujillo as soon as possible. What to do if you have Problems For any increased pain, shortness of breath, bleeding, nausea or vomiting, chest pain, or any unexpected problems, contact your Primary Care Provider. Call [facility] ([phone]) or report to the closest Emergency Room. Call 911 if necessary. 10/07/18 1746 <Electronically signed by Sid Weaver MD> Date Sid Weaver MD Cosigner Signature (If Indicated): Date CC: OUT OF TOWN DOCTOR CHEST 1 VIEW Observed: 10/07/2018 Status: F Source: BEL[place] (PORTABLE) 12:57 PM [facility] [place] [facility] Imaging Services [address] [place] [address] Chest 1 View (Portable) MR#: [id number] Acct: [id number] Name: ALLEN VALDES Rep #: [id number] : 1955 63 From: Boris Huff MD PCP: OUT OF TOWN DOCTOR Status: PRE ER Study: Chest 1 View (Portable) Date of Exam: 10/07/18 Exam# [id number] Ordering Dr: Sid Weaver MD STUDY: X-RAY CHEST REASON FOR EXAM: Male, 63 years old. Chest pain. TECHNIQUE: Single AP portable view of the chest. COMPARISON: None. FINDINGS: EKG electrodes are seen. Minimal increased markings at the lung bases suggestive of mild basilar linear atelectasis. There is no demonstrated pleural abnormality. Normal size heart. Normal mediastinum and juan diego. Normal visualized pulmonary arteries. There is atherosclerotic tortuosity of the aortic arch and descending thoracic aorta. There are diffuse degenerative changes of the visualized thoracic spine. Normal visualized ribs, clavicles, and shoulders. There is no demonstrated abnormality of the visualized soft tissue structures of the upper abdomen. RAD/Chest 1 View (Portable) IMPRESSION: Mild degree of increased linear markings at the lung bases suggest mild degree of bibasilar atelectasis. Electronically Signed: Boris Huff MD at 13:33 EST Tel [phone], Service support , CC: OUT OF TOWN DOCTOR; Sid Weaver MD Sugar Refiner: Signed CBC W/DIFF, AUTOMATED Collected: 10/07/2018 Status: F Source: [place] 12:45 PM [facility] [place] TYPE CODE TESTS RESULT OUT OF RANGE REFERENCE UNITS LAB L100.1000 4.4-11.0 K/mm3 Normal WBC 9.3 LAB L100.1200 4.6-6.2 M/mm3 Normal RBC 5.48 LAB L100.1300 13.0-16.5 g/dl High HGB 16.8 LAB L100.1400 40-54 % Normal HCT 47.9 LAB L100.1500 80-94 fL Normal MCV 87.4 LAB L100.1600 27.0-32.0 pg Normal MCH 30.7 LAB L100.1700 32-36 g/gl Normal MCHC 35.1 LAB L100.1810 11.6-14.6 % Normal RDW CV 12.5 LAB L100.1820 35.1-43.9 fl Normal RDW SD 40.0 LAB L100.1900 150-450 K/mm3 Normal PLT 191 LAB L100.2000 6.2-12.0 fl Normal MPV 11.1 LAB L100.2100 47-70 % Normal NEUT% 65.2 LAB L100.2200 19-41 % Normal LY% 26.7 LAB L100.2300 0-10 % Normal MONO% 6.4 LAB L100.2400 0-5 % Normal EO% 1.1 LAB L100.2500 0-1 % Normal BASO% 0.2 LAB L100.2550 0.0-0.9 % Normal IM GRAN % 0.400 Result Comment: IG% - Immature Granulocytes (promyelocytes, myelocytes and metamyelocytes) > 1% indicates that a LEFT SHIFT is Present. LAB L100.2620 2.0-7.7 X10 3/uL Normal Absolute Neut 6.1 LAB L100.2720 0.83-4.51 X10 3/ul Normal Absolute Lymph 2.49 Performed By: #### L100.0100 #### [facility] [address] [place], [place], [id number] BASIC METABOLIC Collected: 10/07/2018 Status: F Source: BELLE PROFILE (BMP) 12:45 PM [facility] [place] TYPE CODE TESTS RESULT OUT OF RANGE REFERENCE UNITS LAB L501.0100 74-106 mg/dL Low GLU 67 Result Comment: Please note revised GLUCOSE reference range effective 2018. LAB L501.1000 7-18 mg/dL Normal BUN 14 LAB L501.1100 0.70-1.30 mg/dL Normal CREAT,SERUM 1.11 Result Comment: The validity of the calculated GFR AND GFRAA in patients over 70 years has not been determined. Clinical correlation is essential. LAB L501.1110 >60 mL/min Normal EST GFR 71 Result Comment: Non- GFR Calc LAB L501.1115 >60 mL/min Normal EST GFR - AA 86 Result Comment: GFR Calc LAB L501.1255 ml/min Normal Estimated CRCL 77.98 LAB L501.1300 10-20 RATIO Normal BUN/CRE 12.6 LAB L501.2200 8.5-10 mg/dL Normal .1 CA 9.1 LAB L501.5300 136-14 mmol/L Normal 5 NA 136 LAB L501.5600 3.5-5. mmol/L Normal 1 K 3.7 LAB L501.5900 98-107 mmol/L Normal CL 101 LAB L501.6100 21.0-3 mmol/L Normal 2.0 CO2 28.0 LAB L501.6200 5-15 Normal GAP 7 Performed By: #### L500.2500, L501.4010 #### [facility] [address] [place], [place], [address] TROPONIN-I Collected: 10/07/2018 Status: F Source: BELLE 12:45 PM [facility] [place] TYPE CODE TESTS RESULT OUT OF RANGE REFERENCE UNITS LAB L501.4010 <0.045 ng/mL Normal < 0.015 TROPONIN-I Result Comment: TROPONIN-I EXPECTED VALUES <0.045 Negative 0.045 - 0.590 Consistent with Cardiac Damage > OR = 0.600 Critical Value Not every elevated troponin is indicative of PR. These values should be used with clinical judgement in examining the patient's clinical picture for diagnosis. To establish a diagnosis of PR versus myocardial injury, there must be a demonstrated rise and/or fall in the troponin values, in addition to ischemic symptoms, EKG changes, new regional wall motion abnormality, and/or angiographical evidence. PLEASE NOTE: REFERENCE RANGES EDITED 18 Performed By: #### L500.2500, L501.4010 #### [facility] [place], [address] HEMOGRAM W/ AUTODIFF Collected: 10/05/2018 Status: F Source: [place] 2:25 PM SYSTEM REPOSITORY TYPE CODE TESTS RESULT OUT OF REFERENCE UNITS RANGE LAB IWBC 3.6-10.7 10*3/uL WBC Normal 8.5 LAB RBC 4.40-5.90 10*6/uL RBC Normal 5.04 LAB HGB 13.0-18.0 g/dL Hemoglobin Normal 15.6 LAB HCT 40.0-52.0 % Hematocrit Normal 44.8 LAB MCV 80.0-98.0 fL MCV Normal 88.9 LAB MCH 26.0-34.0 pg MCH Normal 30.9 LAB MCHC 32.0-36.0 % MCHC Normal 34.8 LAB RDW 11.5-14.5 % RDW Normal 13.5 LAB PLT 140-440 10*3/uL Platelet Normal 191 LAB MPV 7.4-10.4 fL MPV Normal 9.6 LAB GRAN% 40.0-80.0 % Granulocytes Normal 66.1 LAB LYMP% 20.0-40.0 % Lymphocytes Normal 26.1 LAB MONO% 2.0-10.0 % Monocytes Normal 6.3 LAB EOS% 1.0-6.0 % Eosinophils Normal 1.0 LAB BAS% 0.0-2.0 % Basophils Normal 0.5 LAB ANC 1.8-7.0 10*3/uL Abs Normal Neutrophile Cnt 5.6 LAB ALC 1.0-4.3 10*3/uL Abs Lymph Cnt Normal 2.2 LAB AMC 0.0-0.8 10*3/uL Abs Monocyte Normal Cnt 0.5 LAB AEC 0.0-0.5 10*3/uL Abs Eosin Cnt Normal 0.1 LAB ABC 0.0-0.2 10*3/uL Abs Baso Cnt Normal 0.0 Performed By: #### HEMDF, TSH5, MONO1 #### [facility] [employer] [address] [place], [place] #### LYMER #### [facility] THYROID STIM. Collected: 10/05/2018 Status: F Source: [place] HORMONE 2:25 PM SYSTEM REPOSITORY TYPE CODE TESTS RESULT OUT OF RANGE REFERENCE UNITS LAB TSH5 0.465-4.680 u[IU]/mL Normal Thyroid Stim. 1.293 Hormone Performed By: #### HEMDF, TSH5, MONO1 #### [facility] [address] [place] [address] #### LYMER #### [facility] MONO TEST Collected: 10/05/2018 Status: F Source: [place] 2:25 PM SYSTEM REPOSITORY TYPE CODE TESTS RESULT OUT OF RANGE REFERENCE UNITS LAB MONO1 Negative NA Normal MONO Negative Test Performed By: #### HEMDF, TSH5, MONO1 #### [employer] [address] [place] [address] #### LYMER #### [facility] LYME AB SHANNON, Collected: 10/05/2018 Status: F Source: [place] REFLEX WB 2:25 PM SYSTEM REPOSITORY TYPE CODE TESTS RESULT OUT OF REFERENCE UNITS RANGE LAB LYMEI Non Reactive NA Lyme SHANNON, Interpretation Non-Reactiv e LAB PTOD NA Patient OD 0.042 LAB BODC NA Borderline OD Cutoff 0.116 LAB RODC NA Reactive OD Cutoff 0.145 Performed By: #### HEMDF, TSH5, MONO1 #### [employer] [address] [place] [address] #### LYMER #### [facility] PULMONARY VISIT REPORT Observed: 10/05/2018 Status: F Source: BEL[place] 9:46 AM [facility] [place] [facility] [place] [address] [address] [facility] [address] [place], [place] [id number] OFFICE VISIT Date of Service: 10/05/18 MR#: [id number] Acct: [id number] Name: ALLEN VALDES Rep #: [id number] : 1955 Provider: Ruy Rossi MD Age/Sex: 63/M Location: [facility] Status: Signed Assessment AND Plan Problems 1. Simple chronic bronchitis J41.0 2. Postviral fatigue syndrome G93.3 Plan Patient is reporting significant daytime fatigue and shortness of breath on exertion. Patient does not appear to be an acute exacerbation of COPD at this time. Patient did test positive for enterovirus in mid to late August. Will obtain a Lyme titer as patient reports he was camping just prior to the onset. We will also obtain a Monospot. Will obtain a CBC for evaluation of anemia and persistent leukocytosis. We will also obtain a repeat pulmonary function test to ensure stability. Obtain CBC, TSH, Lyme titer and Monospot. Repeat pulmonary function test. No steroids at this time Orders Orders: Plan Detail Follow Up 6 Months (CSM) HPI 6 M FU: Details: Patient is a 63-year-old male, currently under the care of Dr. Fernandez, who presents for evaluation secondary to shortness of breath on exertion and fatigue. Patient reports that he presented to [facility] in the middle of August with complaints of chest pain. Patient was concerned that he was having another heart attack, but hospital workup was reportedly unremarkable. Patient states that since discharge he has noticed significant dyspnea on exertion and it takes me forever to recover from a shower. Patient has noted some dyspnea on exertion, but overall feels overwhelming sense of fatigue. Patient denies any current chest pain, but states he will have an upper abdominal pain that is crampy to sharp in nature. This tends to be in the upper abdomen, but is not consistently in the 1 quadrant over the mother. Patient denies any change in his cough. Patient is not bringing up any significant sputum that is of different color. Patient states that he has not resumed smoking since his cessation in November. Patient does report some improvement in nasal congestion with the Dymista. Patient reports that he was increased on his ian by his capsule machine operator. Patient has noted significant fatigue, depression and nightmares. Patient has called his capsule machine operator and this has been taken back to previous levels. Patient reports resolution of those symptoms does not believe that this is the cause of his current fatigue. Patient does report that he had a CT of the abdomen for a AAA. 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5 mg tablet 1 tab PO QDAY tab 02/10/18 [History Confirmed 10/05/18] albuterol sulfate HFA 90 mcg/actuation aerosol inhaler 2 puff INHALATION Q4H #1 inh 03/15/18 [Rx Confirmed 10/05/18] clonazepam 0.5 mg tablet 0.5 mg PO BID PRN 09/22/18 [History Confirmed 10/05/18] hydrocodone 5 mg-acetaminophen 325 mg tablet 1 tab PO Q6H PRN 09/22/18 [History Confirmed 10/05/18] isosorbide mononitrate ER 30 mg tablet,extended release 24 hr 30 mg PO DAILY 09/22/18 [History Confirmed 10/05/18] multivit,tx with iron 27 aa-lfnxjdw-tzrhn acid 0.4 mg-minerals tablet 1 tab PO DAILY 09/22/18 [History Confirmed 10/05/18] nitroglycerin 0.4 mg sublingual tablet 0.4 mg SUBLINGUAL Q5- 15M PRN 09/22/18 [History Confirmed 10/05/18] trazodone 100 mg tablet 200 mg PO QHS tab 09/22/18 [History Confirmed 10/05/18] venlafaxine ER 150 mg capsule,extended release 24 hr 75 mg PO QDAY cap 09/22/18 [History Confirmed 10/05/18] furosemide 40 mg tablet 40 mg PO DAILY #10 tab 09/29/18 [Rx Confirmed 10/05/18] metoprolol tartrate 25 mg tablet 25 mg PO BID tab 10/05/18 [History Confirmed 10/05/18] [facility] Medical History Heart attack (Acute) TIA (transient ischemic attack) (Acute) Asthma (Chronic) Coronary heart disease (Chronic) Depression (Chronic) HTN (hypertension) (Chronic) Osteoarthritis (Chronic) Peripheral vascular disease (Chronic) Sleep apnea (Chronic) Surgical History H/O heart artery stent (Resolved) H/O knee surgery (Resolved) Hx of cataract surgery (Resolved) S/P AAA repair (Resolved) Social History household members: spouse housing: house pets and animals: Yes pets and animals: dog(s) Smoking Status: Former smoker quit date: 11/30/17 how long ago did patient quit smokin, 1.5p/d second hand exposure: No alcohol intake: never substance use type: does not use Review of Systems Const CONSTITUTIONAL: Positive fatigue; negative anorexia, body ache, chills, daytime sleepiness, fever(s), night sweats, oral thrush, stops breathing during sleep, weight loss, sleeping in chair, weight loss, weight gain, frequent colds, seasonal allergies, other, headache(s) or orthopnea EETM Ear Nose Throat Mouth: Positive hearing normal; negative hard of hearing, hoarseness, dry mouth in morning, change in vision, itchy eyes, eye pain, swallowing Difficulty, ear pain, nose bleed, headache(s), mouth pain, nasal congestion, nasal discharge, post nasal drip, sinus pain, sinus pressure, sore throat or other Cardio Cardiovascular: Negative chest pain, chest pain at rest, chest pain with activity, irregular heart rhythm, edema, shortness of breath when lying down, palpitations, murmur or other Resp Respiratory: Positive as per HPI, shortness of breath, cough cough: Positive non-productive and chest tightness; negative pain with cough, wheezing, chest congestion, pain on inspiration, inhalers, increase use of rescue inhalers, snoring, apnea or other Gastro Gastrointestional: Negative bloody stools, change in appetite, difficulty swallowing, reflux, hematemesis, melena stool, loose stool, constipation or other Genitourinary: Negative blood in urine, nocturia, pain with urination or other Musc Musculoskeletal: Negative body pain, back pain, neck pain or other Skin/Breast Skin/Breast: Negative dry skin, itching, rash, unusual bruising, breast lump or other Neuro Neurological: Negative restless legs, confusion, weakness or other Psych Psychocological: Negative abnormal sleep pattern, anxiety, thoughts of hurting self/others, hopelessness or other Lymph Lymphatic: Negative easy bleeding, easy bruising, swollen lymph nodes or other Exam Const Constitutional: Positive conversant, cooperative, in no acute respiratory distress, healthy appearing, well developed, well nourished, good hygiene and obese; negative smells of smoke, dyspenic or wearing supplemental oxygen Head Head: Positive normocephalic and atraumatic; negative cyanosis of lips/distal nose, frontal sinus tenderness or maxillary sinus tenderness Eyes Eye: Positive clear conjunctiva; negative nystagmus, scleral abnormality or cataract present Ears Ear: Positive hearing normal and external ears normal; negative hard of hearing Nose Nose: Positive external nose normal, septum normal and no nasal discharge; negative epistaxis or nasal polyp Mouth Mouth: Positive oral mucosae normal, no lesions and posterior oropharynx is adequate; negative post nasal drip, malodorous breath or oral thrush present Mallampati Score: II: Mallampati Score Neck Neck: Positive normal visual inspection, full ROM and trachea midline; negative lymphadenopathy or JVD Chest Wall Chest: Positive normal inspection of the chest and symmetric chest movement; negative crepitus or tenderness Resp lung sounds: Positive clear to auscultation, good air exchange, normal expiratory time and normal respiratory effort; negative wheezes, rhonchi, rales, use of accessory muscles, wheeze present on forced exhalation or dullness to percussion Cardio Cardiac: Positive regular rate, regular rhythm, S1 normal and S2 normal; negative murmur, rub or gallop GI GI: Positive normal to inspection, normal bowel sounds and obese; negative distended, ascites or epigastric tenderness Genitourinary: Positive deferred Musc Musculoskeletal: Positive steady gait; negative using an assistive device for ambulation, kyphosis or scoliosis Skin Pulmonary Skin Exam: Positive intact and dermal atrophy; negative rash, ulcers, erythema or lesion Pulses Pulse: Yes radial pulses present Extremities Extremities: Yes capillary refill normal, No clubbing, No cyanosis, No edema, No stasis dermatitis Neuro Neurologic: Yes conversant, Yes no focal neuro deficits, Yes normal concentration, Yes understands questions, Yes cooperative, Yes normal cognition, Yes normal coordination Lymph Lymphatic: No lymphadenopathy Psych Appearance: Positive grossly normal Mental Status: Positive mental status grossly normal Mood: Positive congruent mood Affect: Positive normal affect Coding Level of Care Code Off vis,est,level 5 Diagnoses Simple chronic bronchitis J41.0 Chronic bronchitis type: simple Postviral fatigue syndrome G93.3 Fatigue type: postviral fatigue syndrome 10/05/18 0946 <Electronically signed by Ruy Rossi MD> Date Ruy Rossi MD Cosigner Signature: Date (if applicable) CC: Víctor Soares DO CTA ABD/PEL W IV CON Observed: 10/04/2018 Status: F Source: [facility] 10:54 AM HEALTH SYSTEM REPOSITORY Performed at [facility] APPROVED BY: Sandor Angela MD Exam: CT Angiogram of the Abdomen and Pelvis with and without contrast dated 10/04/2018 10:32. 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 Comparison: 10/09/2017. Technical Factors: Helically acquired images were obtained from the lung bases to the upper thigh prior to and following administration of 150 mL Omnipaque intravenous contrast. Images were reconstructe d at a slice thickness of 10, 2.5, and 1.25 mm. MIP, MPR, and 3D rendered images were performed using a separate 3-D workstation. CT Radiation Dose: Integrated Dose-length product (DLP) = 4101.89 mGy*cm. CT Dose Reduction Employed: Automated Exposure Control (AEC). Findings: Lower Chest / Abdomen / Pelvis Evaluation of the lower chest reveals clear lung bases. The liver, spleen, pancreas, and adrenal glands are normal in appearance. The gallbladder is normal in CT appearance. The kidneys demonstrate no suspicious mass or evidence of hydronephrosis. The small and large bowel are normal in caliber. There is no mesenteric or pericolonic fat infiltration appreciated. The bladder is unremarkable. There is metallic hardware within the right hip producing streak artifact within the pelvis. There is no lymphadenopathy, significant free fluid, or organized fluid collections appreciated in the abdomen or pelvis. No suspicious osseous lesions are appreciated. Vascular There is an infrarenal abdominal aortobiiliac endograft present. There is no evidence of endoleak. The residual aneurysm sac demonstrates slight decrease in size measuring 4 x 3.5 cm (S4, 97). The celiac artery remains patent. There is standard hepatic arterial supply. No replaced or accessory hepatic arteries are identified. The superior mesenteric artery is patent. The inferior mesenteric artery excluded by the endograft demonstrates reconstitution through SMA collaterals. There is a single right and a single left renal artery, which remain patent. Scattered aphthous chronic calcifications present in the iliac artery, which remain unobstructed. IMPRESSION: Abdominal aortic endograft demonstrates no evidence of endoleak with continued decrease of residual aneurysm sac. CREATININE WHOLE BLOOD Collected: 10/04/2018 Status: F Source: [facility] 10:35 AM HEALTH SYSTEM REPOSITORY TYPE CODE TESTS RESULT OUT OF REFERENCE UNITS RANGE LAB PCREA(LOIN 0.6-1.3 mg/dL C) Creatinine Whole 1.3 Blood Performed By: #### PCREA #### [place] [address] PULMONARY VISIT REPORT Observed: 09/30/2018 Status: F Source: [facility] 8:28 AM [facility] [facility] Medicine of [address] [place] [address] OFFICE VISIT Date of Service: 09/29/18 MR#: [id number] Acct: [id number] Name: ALLEN VALDES Rep #: [id number] : 1955 Provider: Lexi Arceo Age/Sex: 63/M Location: [facility] Status: Signed Assessment AND Plan Problems 1. SOB (shortness of breath) on exertion R06.02 Plan Deteriorated. Placing the patient on 40 mg of Lasix daily. Encourage the patient contact the office if he develops any leg cramps, at which time potassium will be added. He does have a short interval follow-up with Dr. Rossi on October 05, 2018, which he should keep. I would like him to repeat a BMP and a BMP either the day before or the day of his follow-up with Dr. Rossi prior to that visit. Contact the office with any new or worsening symptoms. Avoid sodium intake. Echocardiogram with focus on right-sided heart pressures. Concern for pulmonary hypertension, diastolic heart failure. The patient reports that he was ambulated at [facility] prior to being discharged and did not require submental oxygen at the time. If symptoms persist or worsen I may order a repeat formal pulmonary stress test. This was discussed with the patient and he is agreeable with the plan. Orders Orders: Medications New: HPI HPI Comments Details: This patient presents the office today for continued follow- up on his persistent shortness of breath on exertion, and at times even at rest. He is ambulatory and currently on room air. The patient was last seen in the office and treated for an exacerbation of his chronic bronchitis with antibiotics and a steroid burst. His symptoms of shortness of breath persisted and he was seen and admitted to [facility]. The patient reported that they did multiple tests and stated that there is nothing that they can find. Laboratories from that hospital stay was reviewed and showed a BNP slightly elevated at 130, kidney function remains adequate with a BUN of 15 and a creatinine of 0.98. Hospital documentation was not readily available for me to review but the patient did have access to his chart from his smart phone. Currently the patient reports that he has shortness of breath that is exaggerated with activity but is also present at rest. He reports that the Anoro that he was started on recently did not give him any relief from his shortness of breath and actually caused him to cough persistently. Use the medication for a few days and then stopped taking it because of the bronchospasm it caused. He does have a cough that is productive of clear sputum. He reports chest tightness and chest heaviness. He is depressed and at this point he feels frustrated. He states that he has seen multiple doctors and have tried several different things and has been unable to resolve his shortness of breath. He has occasional periods where he can feel his heart beating in his chest but does not describe it as palpitations. He does not have any yonas chest pain. He denies any hemoptysis. He denies any lower extremity edema. He has not experienced any fevers, chills or body aches. He did not feel any relief when taking the steroids or antibiotics. 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 Accompanied by: Self Is patient in pain?: Yes Allergies chlorzoxazone Allergy (Severe, Verified 09/29/18 06:29) Unknown Medications aspirin 81 mg tablet,delayed release 81 mg PO QDAY tab 02/10/18 [History Confirmed 09/29/18] atorvastatin 80 mg tablet 80 mg PO QDAY 02/10/18 [History Confirmed 09/29/18] cilostazol 100 mg tablet 100 mg PO BID 02/10/18 [History Confirmed 09/29/18] clopidogrel 75 mg tablet 75 mg PO QDAY tab 02/10/18 [History Confirmed 09/29/18] lamotrigine 25 mg tablet 50 mg PO BID tab 02/10/18 [History Confirmed 09/29/18] lisinopril 20 mg-hydrochlorothiazide 12.5 mg tablet 1 tab PO QDAY tab 02/10/18 [History Confirmed 09/29/18] albuterol sulfate HFA 90 mcg/actuation aerosol inhaler 2 puff INHALATION Q4H #1 inh 03/15/18 [Rx Confirmed 09/29/18] clonazepam 0.5 mg tablet 0.5 mg PO BID PRN 09/22/18 [History Confirmed 09/29/18] hydrocodone 5 mg-acetaminophen 325 mg tablet 1 tab PO Q6H PRN 09/22/18 [History Confirmed 09/29/18] isosorbide mononitrate ER 30 mg tablet,extended release 24 hr 30 mg PO DAILY 09/22/18 [History Confirmed 09/29/18] metoprolol tartrate 25 mg tablet 50 mg PO BID tab 09/22/18 [History Confirmed 09/29/18] multivit,tx with iron 27 ge-oduqgni-ojulh acid 0.4 mg-minerals tablet 1 tab PO DAILY 09/22/18 [History Confirmed 09/29/18] nitroglycerin 0.4 mg sublingual tablet 0.4 mg SUBLINGUAL Q5- 15M PRN 09/22/18 [History Confirmed 09/29/18] trazodone 100 mg tablet 200 mg PO QHS tab 09/22/18 [History Confirmed 09/29/18] venlafaxine ER 150 mg capsule,extended release 24 hr 75 mg PO QDAY cap 09/22/18 [History Confirmed 09/29/18] furosemide 40 mg tablet 40 mg PO DAILY #10 tab 09/29/18 [Rx Confirmed 09/29/18] [facility] Medical History Heart attack (Acute) TIA (transient ischemic attack) (Acute) Asthma (Chronic) Coronary heart disease (Chronic) Depression (Chronic) HTN (hypertension) (Chronic) Osteoarthritis (Chronic) Peripheral vascular disease (Chronic) Sleep apnea (Chronic) Surgical History H/O heart artery stent (Resolved) H/O knee surgery (Resolved) Hx of cataract surgery (Resolved) S/P AAA repair (Resolved) Social History household members: spouse housing: house pets and animals: Yes pets and animals: dog(s) Smoking Status: Former smoker quit date: 11/30/17 how long ago did patient quit smokin, 1.5p/d second hand exposure: No alcohol intake: never substance use type: does not use Review of Systems Const CONSTITUTIONAL: Positive fatigue; negative anorexia, body ache, chills, daytime sleepiness, fever(s), night sweats, oral thrush, stops breathing during sleep, weight loss, sleeping in chair, weight loss, weight gain, frequent colds, seasonal allergies, other, headache(s) or orthopnea EETM Ear Nose Throat Mouth: Positive hearing normal and nasal discharge; negative hard of hearing, hoarseness, dry mouth in morning, change in vision, itchy eyes, eye pain, swallowing Difficulty, ear pain, nose bleed, headache(s), mouth pain, nasal congestion, sinus pain, sinus pressure, sore throat or other Cardio Cardiovascular: Negative chest pain, chest pain at rest, chest pain with activity, irregular heart rhythm, edema, shortness of breath when lying down, palpitations, murmur or other Resp Respiratory: Positive as per HPI, shortness of breath, cough cough: Positive productive color: Positive clear, chest tightness and inhalers; negative pain with cough, wheezing, chest congestion, pain on inspiration, increase use of rescue inhalers, snoring, apnea or other Gastro Gastrointestional: Negative bloody stools, change in appetite, difficulty swallowing, reflux, hematemesis, melena stool, loose stool, constipation or other Genitourinary: Negative blood in urine, nocturia, pain with urination or other Musc Musculoskeletal: Positive body pain; negative back pain, neck pain or other Skin/Breast Skin/Breast: Negative dry skin, itching, rash, unusual bruising, breast lump or other Neuro Neurological: Negative restless legs, confusion, weakness or other Psych Psychocological: Negative abnormal sleep pattern, anxiety, thoughts of hurting self/others, hopelessness or other Lymph Lymphatic: Negative easy bleeding, easy bruising, swollen lymph nodes or other Exam Const Constitutional: Positive conversant, cooperative, in no acute respiratory distress, well developed, well nourished and good hygiene Head Head: Positive normocephalic and atraumatic; negative cyanosis of lips/distal nose Eyes Eye: Positive clear conjunctiva; negative nystagmus or scleral abnormality Ears Ear: Positive hearing normal and external ears normal; negative hard of hearing Nose Nose: Positive external nose normal and no nasal discharge; negative epistaxis Mouth Mouth: Positive oral mucosae normal, no lesions, good dentition and crowded posterior oropharynx; negative malodorous breath or oral thrush present Mallampati Score: III: Mallampati Score Neck Neck: Positive normal visual inspection, full ROM and trachea midline; negative lymphadenopathy, JVD or tender Chest Wall Chest: Positive normal inspection of the chest and symmetric chest movement; negative increased A/P diameter Resp lung sounds: Positive clear to auscultation, good air exchange, normal expiratory time and normal respiratory effort; negative diminished, wheezes, rhonchi, rales, dullness to percussion or wheeze present on forced exhalation Cardio Cardiac: Positive regular rate, regular rhythm, S1 normal and S2 normal; negative murmur GI GI: Positive normal to inspection; negative distended Genitourinary: Positive deferred Musc Musculoskeletal: Positive steady gait and ROM normal; negative kyphosis or scoliosis Skin Pulmonary Skin Exam: Positive intact; negative rash or lesion Pulses Pulse: Yes pulses normal x4 extremities Extremities Extremities: Yes capillary refill normal, No clubbing, No cyanosis, No edema Neuro Neurologic: Yes conversant, Yes no focal neuro deficits, Yes normal concentration, Yes understands questions, Yes cooperative, Yes normal cognition, Yes normal coordination Lymph Lymphatic: No lymphadenopathy, No tenderness, No cervical adenopathy Psych Appearance: Positive grossly normal, eye contact and well kempt Mental Status: Positive mental status grossly normal Affect: Positive sad Coding Level of Care Code Off vis,est,level 4 Diagnoses SOB (shortness of breath) on exertion R06.02 Time Spent (min) 30 09/30/18 0828 <Electronically signed by Lexi SANTIAGOC> Date Lexi SANTIAGOC Cosigner Signature: Date (if applicable) CC: DISCHARGE SUMMARY Observed: 09/24/2018 Status: F Source: [facility] 6:37 PM SYSTEM REPOSITORY [facility] Discharge Summary and Transition Note Allen Valdes : 1955 ADMIT DATE: 09/24/2018 DISCHARGE DATE: 09/25/2018 PRIMARY CARE PHYSICIAN: Silvestre Soares DO VISIT STATUS: Observation CODE STATUS: Prior DISCHARGE DIAGNOSES: Principal Problem: Bronchitis Active Problems: CAD (coronary artery disease) PTSD (post-traumatic stress disorder) Community acquired pneumonia of left lower lobe of lung (HCC) Pneumonia due to organism Resolved Problems: * No resolved hospital problems. * HOSPITAL COURSE: 63 yo male presented to the ED complaining of persistent SOB and atypical CP. He has been seen multiple times by multiple providers about these symptoms this month. This hospitalization he was seen by pulmonology and cardiology. His evaluation was unrevealing. Consultants and IM feel he has resolving viral bronchitis and AECOPD. He is discharged home in improved condition. PROCEDURES: n/a CONSULTANTS: Pulmonology - Dr. Mittal Cardiology - Dr. Gastelum DISCHARGE MEDICATIONS: Allen Valdes Home Medication Instructions RAJI:[id number] Printed on:09/25/18 3833 Medication Information albuterol sulfate HFA 108 (90 BASE) MCG/ACT inhaler Inhale 2 puffs into the lungs every 6 hours as needed for Wheezing aspirin 81 MG tablet Take 81 mg by mouth nightly atorvastatin (LIPITOR) 80 MG tablet TAKE 1 TABLET BY MOUTH ONCE DAILY cilostazol (PLETAL) 100 MG tablet Take 100 mg by mouth 2 times daily clonazePAM (KLONOPIN) 0.5 MG tablet Take 1 tablet by mouth 2 times daily as needed for Anxiety clopidogrel (PLAVIX) 75 MG tablet Take 1 tablet by mouth daily doxycycline (ADOXA) 50 MG tablet Take 25 mg by mouth daily gabapentin (NEURONTIN) 300 MG capsule Take 1 capsule by mouth 3 times daily HYDROcodone-acetaminophen (NORCO) 5-325 MG per tablet Take 1 tablet by mouth 4 times daily as needed for Pain . isosorbide mononitrate (IMDUR) 30 MG extended release tablet Take 1 tablet by mouth daily lamoTRIgine (LAMICTAL) 150 MG tablet Take 100 mg by mouth 2 times daily lisinopril-hydrochlorothiazide (PRINZIDE;ZESTORETIC) 20-12.5 MG per tablet TAKE 1 TABLET BY MOUTH DAILY metoprolol tartrate (LOPRESSOR) 50 MG tablet Take 1 tablet by mouth 2 times daily Multiple Vitamins-Minerals (THERAPEUTIC MULTIVITAMIN-MINERALS) tablet Take 1 tablet by mouth daily nitroGLYCERIN (NITROSTAT) 0.4 MG SL tablet up to max of 3 total doses. If no relief after 1 dose, call 911. nitroGLYCERIN (NITROSTAT) 0.[address] 1 tablet under the tongue every 5 minutes as needed for Chest pain up to max of 3 total doses. If no relief after 1 dose, call 911. ondansetron (ZOFRAN-ODT) 4 MG disintegrating tablet Take 1 tablet by mouth every 8 hours as needed for Nausea or Vomiting traZODone (DESYREL) 100 MG tablet Take 200 mg by mouth nightly venlafaxine (EFFEXOR) 75 MG tablet Take 75 mg by mouth every morning DIET: regular ACTIVITY: resume regular activity SIGNIFICANT DIAGNOSTIC STUDIES: n/a COMPLEXITY OF FOLLOW UP: [x] Moderate Complexity: follow up within 7-14 calendar days (41594) [] Severe Complexity: follow up within 7 calendar days (51478) FOLLOW UP TESTING, PENDING RESULTS OR REFERRALS AT TRANSITIONAL CARE VISIT: [] Yes [x] No DISPOSITION: Home FACILITY/HOME CARE AGENCY NAME: n/a Follow up with Silvestre Soares DO to be scheduled . Notification (telephone encounter) to PCP initiated: [x] Yes [] No INSTRUCTIONS TO MA/SW: Please call patient on day after discharge (must document patient contacted within 2 business days of discharge). FOLLOW UP QUESTIONS FOR MA/SW: 1. Did you get medications filled and taking them as instructed from discharge? 2. Are you following your discharge instructions from your hospital stay? 3. Please confirm patient is scheduled for a follow up appointment within the above time frame. DISCHARGE TIME: n/a Observed: 09/24/2018 Status: F Source: [facility] RESPIRATORY PCR PANEL 3:52 PM SYSTEM REPOSITORY RESPIRATORY PCR PANEL --> Status: F POSITIVE: Human Rhinovirus/Enterovirus DETECTED. The [employer] Upper Respiratory Pathogens PCR Panel detects the following targets: Adenovirus Coronavirus 229E Coronavirus HKU1 Coronavirus NL63 Coronavirus OC43 Human Metapneumovirus Human Rhinovirus/Enterovirus Influenza A Influenza B Parainfluenza Virus 1 Parainfluenza Virus 2 Parainfluenza Virus 3 Parainfluenza Virus 4 Respiratory Syncytial Virus Bordetella pertussis Bordetella parapertussis Chlamydia pneumoniae Mycoplasma pneumoniae The [employer] Upper Respiratory Pathogens PCR Panel detects the following targets: Adenovirus Coronavirus 229E Coronavirus HKU1 Coronavirus NL63 Coronavirus OC43 Human Metapneumovirus Human Rhinovirus/Enterovirus Influenza A Influenza B Parainfluenza Virus 1 Parainfluenza Virus 2 Parainfluenza Virus 3 Parainfluenza Virus 4 Respiratory Syncytial Virus Bordetella pertussis Bordetella parapertussis Chlamydia pneumoniae Mycoplasma pneumoniae Performed By: #### RESBF #### [employer] [address] [place] [id number] Observed: 09/24/2018 Status: F Source: [facility] INFLUENZA/RSV BY PCR 3:26 PM SYSTEM REPOSITORY Order Comment: Specimen Source Comment:Nasopharyngeal Flu A PCR --> Status: F NEGATIVE Flu B PCR --> Status: F NEGATIVE RSV PCR --> Status: F NEGATIVE Method: FDA-Approved PCR Assay by [employer] Method: FDA-Approved PCR Assay by [employer] Performed By: #### INFPC #### [employer] [address] [place] [id number] PULMONARY VISIT REPORT Observed: 09/24/2018 Status: F Source: [facility] 1:53 PM [facility] [place] [facility] [place] [address] [place] [address] OFFICE VISIT Date of Service: 09/22/18 MR#: [id number] Acct: [id number] Name: ALLEN VALDES Rep #: [id number] : 1955 Provider: Lexi Arceo Age/Sex: 63/M Location: [facility] Status: Signed Assessment AND Plan 1. SOB (shortness of breath) on exertion R06.02 Plan Deteriorating. Kenalog injection today, prednisone burst and obtain and send sputum. Antibiotic use pending sputum culture results. Continue to use Anoro and rescue inhaler as necessary. Call the office if shortness of breath or other symptoms increase or if use of rescue inhaler becomes necessary to use more than 4 times a day. Follow up with [facility] in 1 week after prednisone is completed. 2. DIMAS (obstructive sleep apnea) G47.33 Plan Deteriorating. Continue with PAP therapy. Patient will benefit from PAP therapy and its use. Use of PAP therapy will help to decrease fatigue and open airways, decreasing shortness of breath. Plan Detail Other Orders Orders: Other Medications New: Discontinued: Kenalog (triamcinolone acetonide) Discontinued 60 mg (1.5 mL) IM ONCE 1.5 mL 0RF NS R05 Reason: Office Medication has been Documented as given Follow Up 1 Week (CSM) HPI not feeling well: Chief Complaint: cough HPI Comments Details: This is a 63 year old male that is following up after an ER visit for chest pain and tightness. He a acute cardiac event was ruled out. He then followed up with his PCP where he obtained a chest xray. He was prescribed a Z-pack for his symptoms. He presents today not feeling well, unable to take a deep breath, and has a strong productive cough with clear sputum containing green colored specks. He denies fever, chills or nasal drainage. He uses his Anoro daily, and his rescue inhaler at least 1-3 times daily depending upon his level of activity. He complains of fatigue, and poor appetite. He is not wearing his PAP therapy because he has pain with deep inspiration, and wearing the PAP increases his discomfort. He reports nasal drainage that can be anywhere from a clear to light green in color. He is wheezing and chest tightness is only temporarily relieved with the use of his rescue inhaler. He does have a cough that is productive of clear to light green to even dark green sputum. He reports that with a really deep cough he does have green flecks that are dark in nature in his sputum. 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 Accompanied by: Is patient in pain?: Yes Allergies chlorzoxazone Allergy (Severe, Verified 09/22/18 11:12) Unknown Medications aspirin 81 mg tablet,delayed release 81 mg PO QDAY tab 02/10/18 [History Confirmed 09/22/18] atorvastatin 80 mg tablet 80 mg PO QDAY 02/10/18 [History Confirmed 09/22/18] cilostazol 100 mg tablet 100 mg PO BID 02/10/18 [History Confirmed 09/22/18] clopidogrel 75 mg tablet 75 mg PO QDAY tab 02/10/18 [History Confirmed 09/22/18] lamotrigine 25 mg tablet 50 mg PO BID tab 02/10/18 [History Confirmed 09/22/18] lisinopril 20 mg-hydrochlorothiazide 12.5 mg tablet 1 tab PO QDAY tab 02/10/18 [History Confirmed 09/22/18] albuterol sulfate HFA 90 mcg/actuation aerosol inhaler 2 puff INHALATION Q4H #1 inh 03/15/18 [Rx Confirmed 09/22/18] clonazepam 0.5 mg tablet 0.5 mg PO BID PRN 09/22/18 [History Confirmed 09/22/18] hydrocodone 5 mg-acetaminophen 325 mg tablet 1 tab PO Q6H PRN 09/22/18 [History Confirmed 09/22/18] isosorbide mononitrate ER 30 mg tablet,extended release 24 hr 30 mg PO DAILY 09/22/18 [History Confirmed 09/22/18] metoprolol tartrate 25 mg tablet 50 mg PO BID tab 09/22/18 [History Confirmed 09/22/18] multivit,tx with iron 27 fj-gbunnbo-asssp acid 0.4 mg-minerals tablet 1 tab PO DAILY 09/22/18 [History Confirmed 09/22/18] nitroglycerin 0.4 mg sublingual tablet 0.4 mg SUBLINGUAL Q5- 15M PRN 09/22/18 [History Confirmed 09/22/18] prednisone 20 mg tablet 60 mg PO QDAY #15 tab 09/22/18 [Rx Confirmed 09/22/18] trazodone 100 mg tablet 200 mg PO QHS tab 09/22/18 [History Confirmed 09/22/18] venlafaxine ER 150 mg capsule,extended release 24 hr 75 mg PO QDAY cap 09/22/18 [History Confirmed 09/22/18] [facility] Medical History Heart attack (Acute) TIA (transient ischemic attack) (Acute) Asthma (Chronic) Coronary heart disease (Chronic) Depression (Chronic) HTN (hypertension) (Chronic) Osteoarthritis (Chronic) Peripheral vascular disease (Chronic) Sleep apnea (Chronic) Surgical History H/O heart artery stent (Resolved) H/O knee surgery (Resolved) Hx of cataract surgery (Resolved) S/P AAA repair (Resolved) Social History household members: spouse housing: house pets and animals: Yes pets and animals: dog(s) Smoking Status: Former smoker quit date: 11/30/17 how long ago did patient quit smokin, 1.5p/d second hand exposure: No alcohol intake: never substance use type: does not use Review of Systems Const CONSTITUTIONAL: Positive fatigue; negative anorexia, body ache, chills, daytime sleepiness, fever(s), night sweats, oral thrush, stops breathing during sleep, weight loss, sleeping in chair, weight loss, weight gain, frequent colds, seasonal allergies, other, headache(s) or orthopnea EETM Ear Nose Throat Mouth: Positive nasal discharge and hearing normal; negative hoarseness, dry mouth in morning, change in vision, itchy eyes, eye pain, swallowing Difficulty, ear pain, headache(s), mouth pain, nasal congestion, sinus pain, sinus pressure, sore throat, other, hard of hearing, nose bleed or post nasal drip Cardio Cardiovascular: Negative chest pain, chest pain at rest, chest pain with activity, irregular heart rhythm, edema, shortness of breath when lying down, palpitations, other or murmur Resp Respiratory: Positive as per HPI; negative shortness of breath, pain with cough, wheezing, chest congestion, cough, chest tightness, pain on inspiration, inhalers, increase use of rescue inhalers, snoring, apnea or other Gastro Gastrointestional: Negative bloody stools, change in appetite, difficulty swallowing, reflux, hematemesis, melena stool, loose stool, constipation or other Genitourinary: Negative blood in urine, nocturia, pain with urination or other Musc Musculoskeletal: Negative body pain, back pain, neck pain or other Skin/Breast Skin/Breast: Negative dry skin, itching, unusual bruising, breast lump, other or rash Neuro Neurological: Negative restless legs, confusion, weakness or other Psych Psychocological: Negative abnormal sleep pattern, anxiety, thoughts of hurting self/others, hopelessness or other Lymph Lymphatic: Negative easy bleeding, easy bruising, other or swollen lymph nodes Exam Const Constitutional: Positive cooperative, dyspenic, ill appearing, obese and conversant; negative in no acute respiratory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 5 MG-ACETAMINOPHE* One tablet every 8 hours as * GABAPENTIN 300 MG CAPSULE Take 4 to 5 capsules at bedti* VENLAFAXINE 75 MG TABLET Take 75 mg by mouth three kang* NEOMYCIN 3.5 MG/G-POLYMYXIN B* Use 1 application in the righ* KETOROLAC 0.4 % EYE DROPS Use 1 Drop in the right eye f* PREDNISOLONE ACETATE 1 % EYE * Use 1 Drop in the right eye f* BUPROPION HCL ORAL Take by mouth once daily. CICLOPIROX 8 % TOPICAL SOLUTI* Apply 1 application to affect* ALBUTEROL INHALATION Inhale 2 Puffs as instructed * KRILL OIL ORAL Take 300 mg by mouth twice da* HYDROCODONE 5 MG-ACETAMINOPHE* One to Two tablets every 8 ho* VENTOLIN HFA 90 MCG/ACTUATION* VIRTUSSIN AC 10 MG-100 MG/5 M* DOXYCYCLINE HYCLATE 100 MG TA* LISINOPRIL 20 MG-HYDROCHLOROT* Take 1 tablet by mouth once d* PREDNISONE 20 MG TABLET LISINOPRIL 20 MG TABLET TRAZODONE 150 MG TABLET Take 1 tablet by mouth daily * DULOXETINE 30 MG CAPSULE,MANUELA* 3 caps po daily morning LAMOTRIGINE 150 MG TABLET Take 1 tablet by mouth twice * CLOPIDOGREL 75 MG TABLET Take 75 mg by mouth once shahla* METOPROLOL TARTRATE 100 MG TA* Take 100 mg by mouth once latha* TAMSULOSIN 0.4 MG CAPSULE CLONAZEPAM 0.5 MG TABLET Take 0.5 mg by mouth twice da* ACETAMINOPHEN ORAL Take 650 mg by mouth every 4 * ASPIRIN 81 MG TABLET,DELAYED * Take 81 mg by mouth once shahla* LISINOPRIL 10 MG TABLET Take 10 mg by mouth once shahla* HYDROCODONE 5 MG-ACETAMINOPHE* One to Two tablets every 8 h* FISH OIL ORAL Take by mouth. 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,*INVALID FOR* Contusion of right knee [S80.01XA] INVALID FOR* Primary osteoarthritis of left knee [M17.12] INVALID FOR* TIA (transient ischemic attack) [G45.9] Severe episode of recurrent major depressive di*INVALID FOR* Chronic post-traumatic stress disorder (PTSD) [*INVALID FOR* Cigarette nicotine dependence with nicotine-ind*INVALID FOR* DIMAS (obstructive sleep apnea) [G47.33] INVALID FOR* 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] INVALID FOR* Tendinitis of right rotator cuff [M75.81] INVALID FOR* Age-related nuclear cataract of right eye [H25.*INVALID FOR* Age-related nuclear cataract of left eye [H25.1*INVALID FOR* AAA (abdominal aortic aneurysm) without rupture*INVALID FOR* Degenerative disc disease, cervical [M50.30] INVALID FOR* Cervical radicular pain [M54.12] INVALID FOR* Quadriceps strain, right, initial encounter [S7*INVALID FOR* Prescriptions ordered this encounter Disp Refills Start End SODIUM HYALURONATE 10 MG/ML(MW 2.4-3* 07/14/2018 07/14/2018 Route: IAtc Disposition: Return in about 6 months (around 01/14/2019). Follow-up and Disposition History Recorded Encounter Status:Closed by LYNSEY LYONS MD on 07/14/18 PROGRESS Observed: 07/06/2018 Status: COMPLETED Source: [place] 9:12 AM [facility] RE[facility] O ID: [id number] Author: Lynsey Lyons Service: (none) Author Type: Physician Type: Progress Notes Filed: 07/06/2018 9:34 AM Note Text: Procedure Note: Allen Valdes was in for followup of theirLEFT knee arthritis. Risks and Benefits of the procedure were discussed with the patient, including but not limited to: infection, allergic reaction, and post injection inflammatory flare. Patient consented to the procedure. Time Out:: Team confirmed the correct patient, correct procedure and correct site. The patient was given an injection under strict aseptic technique of 2 cc of EUFLEXXA was injected to theLEFTknee using the superolateral approach. Patient tolerated the procedure well. Advised in rest and ice for the joint for 24 hours. Patient will follow up in 1 week. Lynsey Lyons MD REVIEW OF SYSTEMS: GENERAL: Well developed, well nourished. No acute distress PAIN: Pain Left knee CARDIOVASCULAR: Negative for chest pain, leg swelling and palpations. MSK: joint pain Left knee SKIN: Negative for lesions, rash, itching, metal sensitivity NEURO: Negative for seizure, trauma, numbness/tingling of extremities. ENDOCRINE: Negative for Diabetes Type 1 and Type 2 HEMATOLOGY: clot hx OBSOLETE Observed: 07/06/2018 Status: COMPLETED Source: [place] 9:00 AM [facility] OTHER CAMPUS REPOSITORY Procedure (AGPOB1) ALLEN VALDES ([id number]) 1955 M Date Time Provider Department 07/06/18 9:00 AM LYNSEY LYONS AGPOB1 During your visit today, we recorded the following information about you: Respiration Weight Height 14/minute 109.8 kg 1.829 m Lynsey Lyons MD 07/06/2018 9:34 AM Signed Procedure Note: Allen Valdes was in for followup of theirLEFT knee arthritis. Risks and Benefits of the procedure were discussed with the patient, including but not limited to: infection, allergic reaction, and post injection inflammatory flare. Patient consented to the procedure. Time Out:: Team confirmed the correct patient, correct procedure and correct site. The patient was given an injection under strict aseptic technique of 2 cc of EUFLEXXA was injected to theLEFTknee using the superolateral approach. Patient tolerated the procedure well. Advised in rest and ice for the joint for 24 hours. Patient will follow up in 1 week. Lynsey Lyons MD REVIEW OF SYSTEMS: GENERAL: Well developed, well nourished. No acute distress PAIN: Pain Left knee CARDIOVASCULAR: Negative for chest pain, leg swelling and palpations. MSK: joint pain Left knee SKIN: Negative for lesions, rash, itching, metal sensitivity NEURO: Negative for seizure, trauma, numbness/tingling of extremities. ENDOCRINE: Negative for Diabetes Type 1 and Type 2 HEMATOLOGY: clot hx Lynsey Lyons MD 07/06/2018 9:55 AM Signed Addended by: LYNSEY LYONS MD on: 07/06/2018 09:55 AM Modules accepted: Orders Referring Provider: SELF [200] Allergies As of Date: 07/06/2018 Noted Allergy Reaction ESTELITA FAYE DSC (CHLORZOXAZONE) 08/08/2015 9 - Itching Date Reviewed: 06/30/2018 Reviewed by: Marisela (Inocencio) Carlotta - Fully Assessed Reason for Visit: Follow Up [171] Cmt: Euflexxa 2/3 left knee Primary Visit Diagnosis:Primary osteoarthritis of left knee [M17.12] Other Visit Diagnosis:Failure of total knee replacement, sequela [T84.018S, Z96.659] Order(s):DRAIN/INJECT LARGE JOINT/BURSA [[id number]] Order #: [id number] [] sodium hyaluronate 20 mg injection (EUFLEXXA)Disp: Rfl: HYDROcodone-acetaminophen (NORCO) 5-325 mg per tabletOne tablet every 8 hours as needed for painDisp: 30 tabletRfl: 0 Prescriptions as of 07/06/2018 Sig: KETOROLAC 0.4 % EYE DROPS Use 1 Drop in the right eye f* BUPROPION HCL ORAL Take by mouth once daily. CICLOPIROX 8 % TOPICAL SOLUTI* Apply 1 application to affect* ALBUTEROL INHALATION Inhale 2 Puffs as instructed * HYDROCODONE 5 MG-ACETAMINOPHE* One to Two tablets every 8 ho* LISINOPRIL 20 MG-HYDROCHLOROT* Take 1 tablet by mouth once d* TRAZODONE 150 MG TABLET Take 1 tablet by mouth daily * LAMOTRIGINE 150 MG TABLET Take 1 tablet by mouth twice * CLOPIDOGREL 75 MG TABLET Take 75 mg by mouth once shahla* METOPROLOL TARTRATE 100 MG TA* Take 100 mg by mouth once latha* CLONAZEPAM 0.5 MG TABLET Take 0.5 mg by mouth twice da* ACETAMINOPHEN ORAL Take 650 mg by mouth every 4 * ASPIRIN 81 MG TABLET,DELAYED * Take 81 mg by mouth once shahla* HYDROCODONE 5 MG-ACETAMINOPHE* One to Two tablets every 8 h* ATORVASTATIN 80 MG TABLET Take 80 mg by mouth once shahla* HYDROCODONE 5 MG-ACETAMINOPHE* One tablet every 8 hours as * GABAPENTIN 300 MG CAPSULE Take 4 to 5 capsules at bedti* VENLAFAXINE 75 MG TABLET Take 75 mg by mouth three kang* NEOMYCIN 3.5 MG/G-POLYMYXIN B* Use 1 application in the righ* PREDNISOLONE ACETATE 1 % EYE * Use 1 Drop in the right eye f* KRILL OIL ORAL Take 300 mg by mouth twice da* VENTOLIN HFA 90 MCG/ACTUATION* VIRTUSSIN AC 10 MG-100 MG/5 M* DOXYCYCLINE HYCLATE 100 MG TA* PREDNISONE 20 MG TABLET LISINOPRIL 20 MG TABLET DULOXETINE 30 MG CAPSULE,MANUELA* 3 caps po daily morning TAMSULOSIN 0.4 MG CAPSULE LISINOPRIL 10 MG TABLET Take 10 mg by mouth once shahla* FISH OIL ORAL Take by mouth. 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] INVALID FOR* Tendinitis of right rotator cuff [M75.81] INVALID FOR* Age-related nuclear cataract of right eye [H25.*INVALID FOR* Age-related nuclear cataract of left eye [H25.1*INVALID FOR* AAA (abdominal aortic aneurysm) without rupture*INVALID FOR* Degenerative disc disease, cervical [M50.30] INVALID FOR* Cervical radicular pain [M54.12] INVALID FOR* Quadriceps strain, right, initial encounter [S7*INVALID FOR* Prescriptions ordered this encounter Disp Refills Start End SODIUM HYALURONATE 10 MG/ML(MW 2.4-3* 07/06/2018 07/06/2018 Route: IAtc HYDROCODONE 5 MG-ACETAMINOPHEN 325 M* 30 t* 0 07/06/2018 07/27/2018 Class: Print RX Sig: One tablet every 8 hours as needed for pain Disposition: Return in about 1 week (around 07/13/2018). Follow-up and Disposition History Recorded Encounter Status:Closed by LYNSEY LYONS MD on 07/06/18 PROGRESS Observed: 06/30/2018 Status: COMPLETED Source: [place] 10:03 AM [facility] REPOSITORY HNO ID: [id number] Author: Marisela Laguerre Service: (none) Author Type: LICENSED NURSE Type: Progress Notes Filed: 06/30/2018 10:04 AM Note Text: REVIEW OF SYSTEMS: GENERAL: Well developed, well nourished. No acute distress PAIN: Pain left knee CARDIOVASCULAR: Negative for chest pain, leg swelling and palpations. MSK: joint pain left knee SKIN: Negative for lesions, rash, itching, metal sensitivity NEURO: Negative for seizure, trauma, numbness/tingling of extremities. ENDOCRINE: Negative for Diabetes Type 1 and Type 2 HEMATOLOGY: Negative for excessive bleeding, clots, bleeding disorders. PROGRESS Observed: 06/30/2018 Status: COMPLETED Source: [place] 9:42 AM [facility] REPOSITORY HNO ID: [id number] Author: Lynsey Lyons Service: (none) Author Type: Physician Type: Progress Notes Filed: 06/30/2018 9:49 AM Note Text: Procedure Note: Allen Valdes was in for followup of theirLEFT knee arthritis. Risks and Benefits of the procedure were discussed with the patient, including but not limited to: infection, allergic reaction, and post injection inflammatory flare. Patient consented to the procedure. Time Out:: Team confirmed the correct patient, correct procedure and correct site. The patient was given an injection under strict aseptic technique of 2 cc of EUFLEXXA was injected to theLEFTknee using the superolateral approach. Patient tolerated the procedure well. Advised in rest and ice for the joint for 24 hours. Patient will follow up in 1 week. yLnsey Lyosn MD OBSOLETE Observed: 06/30/2018 Status: COMPLETED Source: [place] 9:15 AM [facility] OTHER [place] REPOSITORY Procedure (AGPOB1) KEISHAALLEN Valentino ([id number]) 1955 M Date Time Provider Department 06/30/18 9:15 AM LYNSEY LYONS AGPOB1 During your visit today, we recorded the following information about you: Respiration Weight Height 18/minute 109.8 kg 1.829 m Lynsey Lyons MD 06/30/2018 9:49 AM Signed Procedure Note: Allen Valdes was in for followup of theirLEFT knee arthritis. Risks and Benefits of the procedure were discussed with the patient, including but not limited to: infection, allergic reaction, and post injection inflammatory flare. Patient consented to the procedure. Time Out:: Team confirmed the correct patient, correct procedure and correct site. The patient was given an injection under strict aseptic technique of 2 cc of EUFLEXXA was injected to theLEFTknee using the superolateral approach. Patient tolerated the procedure well. Advised in rest and ice for the joint for 24 hours. Patient will follow up in 1 week. MD Marisela Carrero LPN 06/30/2018 10:04 AM Signed REVIEW OF SYSTEMS: GENERAL: Well developed, well nourished. No acute distress PAIN: Pain left knee CARDIOVASCULAR: Negative for chest pain, leg swelling and palpations. MSK: joint pain left knee SKIN: Negative for lesions, rash, itching, metal sensitivity NEURO: Negative for seizure, trauma, numbness/tingling of extremities. ENDOCRINE: Negative for Diabetes Type 1 and Type 2 HEMATOLOGY: Negative for excessive bleeding, clots, bleeding disorders. Referring Provider: SELF [200] Allergies As of Date: 06/30/2018 Noted Allergy Reaction PARAFON FORTShine DSC (CHLORZOXAZONE) 08/08/2015 9 - Itching Date Reviewed: 06/30/2018 Reviewed by: Marisela (Inocencio) Carlotta - Fully Assessed Reason for Visit: Follow Up [171] Cmt: left knee pain/OA; euflexxa #1/3 Primary Visit Diagnosis:Primary osteoarthritis of left knee [M17.12] Order(s):DRAIN/INJECT LARGE JOINT/BURSA [[id number]] Order #: [id number] [] sodium hyaluronate 20 mg injection (EUFLEXXA)Disp: Rfl: Prescriptions as of 06/30/2018 Sig: GABAPENTIN 300 MG CAPSULE Take 4 to 5 capsules at bedti* VENLAFAXINE 75 MG TABLET Take 75 mg by mouth three kang* NEOMYCIN 3.5 MG/G-POLYMYXIN B* Use 1 application in the righ* KETOROLAC 0.4 % EYE DROPS Use 1 Drop in the right eye f* PREDNISOLONE ACETATE 1 % EYE * Use 1 Drop in the right eye f* BUPROPION HCL ORAL Take by mouth once daily. CICLOPIROX 8 % TOPICAL SOLUTI* Apply 1 application to affect* ALBUTEROL INHALATION Inhale 2 Puffs as instructed * KRILL OIL ORAL Take 300 mg by mouth twice da* HYDROCODONE 5 MG-ACETAMINOPHE* One to Two tablets every 8 ho* VENTOLIN HFA 90 MCG/ACTUATION* VIRTUSSIN AC 10 MG-100 MG/5 M* DOXYCYCLINE HYCLATE 100 MG TA* LISINOPRIL 20 MG-HYDROCHLOROT* Take 1 tablet by mouth once d* PREDNISONE 20 MG TABLET LISINOPRIL 20 MG TABLET TRAZODONE 150 MG TABLET Take 1 tablet by mouth daily * DULOXETINE 30 MG CAPSULE,MANUELA* 3 caps po daily morning LAMOTRIGINE 150 MG TABLET Take 1 tablet by mouth twice * CLOPIDOGREL 75 MG TABLET Take 75 mg by mouth once shahla* METOPROLOL TARTRATE 100 MG TA* Take 100 mg by mouth once latha* TAMSULOSIN 0.4 MG CAPSULE CLONAZEPAM 0.5 MG TABLET Take 0.5 mg by mouth twice da* ACETAMINOPHEN ORAL Take 650 mg by mouth every 4 * ASPIRIN 81 MG TABLET,DELAYED * Take 81 mg by mouth once shahla* LISINOPRIL 10 MG TABLET Take 10 mg by mouth once shahla* HYDROCODONE 5 MG-ACETAMINOPHE* One to Two tablets every 8 h* FISH OIL ORAL Take by mouth. 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,*INVALID FOR* Contusion of right knee [S80.01XA] INVALID FOR* Primary osteoarthritis of left knee [M17.12] INVALID FOR* TIA (transient ischemic attack) [G45.9] Severe episode of recurrent major depressive di*INVALID FOR* Chronic post-traumatic stress disorder (PTSD) [*INVALID FOR* Cigarette nicotine dependence with nicotine-ind*INVALID FOR* DIMAS (obstructive sleep apnea) [G47.33] INVALID FOR* 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] INVALID FOR* Tendinitis of right rotator cuff [M75.81] INVALID FOR* Age-related nuclear cataract of right eye [H25.*INVALID FOR* Age-related nuclear cataract of left eye [H25.1*INVALID FOR* AAA (abdominal aortic aneurysm) without rupture*INVALID FOR* Degenerative disc disease, cervical [M50.30] INVALID FOR* Cervical radicular pain [M54.12] INVALID FOR* Quadriceps strain, right, initial encounter [S7*INVALID FOR* Prescriptions ordered this encounter Disp Refills Start End SODIUM HYALURONATE 10 MG/ML(MW 2.4-3* 06/30/2018 06/30/2018 Route: IAtc Disposition: Return in about 1 week (around 07/07/2018). Follow-up and Disposition History Recorded Encounter Status:Closed by LYNSEY LYONS MD on 06/30/18 CNCO Observed: 06/17/2018 Status: COMPLETED Source: [place] 12:00 AM [facility] REPOSITORY Letter Text Sammy Neves MD [facility] [address] [place] [address] Allen Valdes June 17, 2018 Allen Valdes [address] [facility] [address] Dear Allen Valdes: Due to a change in your provider's schedule, it has become necessary to reschedule the following appointment: Sammy Neves MD Date: 08/06/2018 Time: 11:20 AM We apologize for any inconvenience to you, however your provider would still like to see you. Please call us at [phone] to reschedule your appointment. Sincerely, Appointment Staff NISREEN Observed: 06/01/2018 Status: COMPLETED Source: [facility] 12:00 AM [facility] REPOSITORY Telephone (AGPOB1) ALLEN VALDES ([id number]) 1955 M Date Time Provider Department 06/01/18 LYNSEY LYOSN AGPOB1 During your visit today, we recorded the following information about you: Debbie Cowart 06/07/2018 9:04 AM Addendum Testing/Procedure Name: EUFLEXXA Testing/Procedure Date: 06/01/2018 Diagnosis code: M17.12 CPT code (if applicable): J7323, 86813 Medical reason details for testing/procdeure: OA LEFT KNEE Insurance Company contacted: [employer] contact name: [employer] contact phone: Authorization: APPROVED Authorization number: [id number] Approval valid date range: 06/01/2018-12/01/2018 Number of Days/Visits approved: 3 Authorization information provided to [employer] Debbie Cowart June 04, 2018 2:27 PM ADDEND: APPROVAL NUMBER UPDATED 06/07/2018 FROM [id number] TO [id number], PER THE PLAN NOTICE OF APPROVAL LETTER. Eli Borjas 06/04/2018 2:58 PM Signed I called patient and left a voice mail to call back and schedule. Eli Borjas June 04, 2018 2:58 PM Eli Borjas 06/07/2018 12:01 PM Signed I called the patient and left a voice mail to call back to schedule injections. Eli Borjas June 07, 2018 12:01 PM Eli Borjas 06/30/2018 9:56 AM Signed Patient presented with his for an appt. So his series was started today and the next 2 appts. Scheduled. Eli Borjas June 30, 2018 9:56 AM Allergies As of Date: 06/01/2018 Noted Allergy Reaction ESTELITA FAYE DSC (CHLORZOXAZONE) 08/08/2015 9 - Itching Date Reviewed: 04/12/2018 Reviewed by: Neisha Roman - Fully Assessed Reason for Visit: Insurance Authorization [[id number]] Injection (Hyaluronic Acid) [1130] Prescriptions as of 06/01/2018 Sig: VENLAFAXINE 75 MG TABLET Take 75 mg by mouth three kang* NEOMYCIN 3.5 MG/G-POLYMYXIN B* Use 1 application in the righ* KETOROLAC 0.4 % EYE DROPS Use 1 Drop in the right eye f* PREDNISOLONE ACETATE 1 % EYE * Use 1 Drop in the right eye f* BUPROPION HCL ORAL Take by mouth once daily. CICLOPIROX 8 % TOPICAL SOLUTI* Apply 1 application to affect* ALBUTEROL INHALATION Inhale 2 Puffs as instructed * KRILL OIL ORAL Take 300 mg by mouth twice da* HYDROCODONE 5 MG-ACETAMINOPHE* One to Two tablets every 8 ho* VENTOLIN HFA 90 MCG/ACTUATION* VIRTUSSIN AC 10 MG-100 MG/5 M* DOXYCYCLINE HYCLATE 100 MG TA* LISINOPRIL 20 MG-HYDROCHLOROT* Take 1 tablet by mouth once d* PREDNISONE 20 MG TABLET LISINOPRIL 20 MG TABLET TRAZODONE 150 MG TABLET Take 1 tablet by mouth daily * DULOXETINE 30 MG CAPSULE,MANUELA* 3 caps po daily morning LAMOTRIGINE 150 MG TABLET Take 1 tablet by mouth twice * CLOPIDOGREL 75 MG TABLET Take 75 mg by mouth once shahla* METOPROLOL TARTRATE 100 MG TA* Take 100 mg by mouth once latha* TAMSULOSIN 0.4 MG CAPSULE CLONAZEPAM 0.5 MG TABLET Take 0.5 mg by mouth twice da* ACETAMINOPHEN ORAL Take 650 mg by mouth every 4 * ASPIRIN 81 MG TABLET,DELAYED * Take 81 mg by mouth once shahla* LISINOPRIL 10 MG TABLET Take 10 mg by mouth once shahla* HYDROCODONE 5 MG-ACETAMINOPHE* One to Two tablets every 8 h* FISH OIL ORAL Take by mouth. 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,*INVALID FOR* Contusion of right knee [S80.01XA] INVALID FOR* Primary osteoarthritis of left knee [M17.12] INVALID FOR* TIA (transient ischemic attack) [G45.9] Severe episode of recurrent major depressive di*INVALID FOR* Chronic post-traumatic stress disorder (PTSD) [*INVALID FOR* Cigarette nicotine dependence with nicotine-ind*INVALID FOR* DIMAS (obstructive sleep apnea) [G47.33] INVALID FOR* 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] INVALID FOR* Tendinitis of right rotator cuff [M75.81] INVALID FOR* Age-related nuclear cataract of right eye [H25.*INVALID FOR* Age-related nuclear cataract of left eye [H25.1*INVALID FOR* AAA (abdominal aortic aneurysm) without rupture*INVALID FOR* Degenerative disc disease, cervical [M50.30] INVALID FOR* Cervical radicular pain [M54.12] INVALID FOR* Quadriceps strain, right, initial encounter [S7*INVALID FOR* Encounter Status:Closed by DEBBIE COWART on 06/04/18 PROGRESS Observed: 04/12/2018 Status: COMPLETED Source: [facility] 11:34 AM [facility] [place] REPOSITORY O ID: [id number] Author: Neisha Roman Service: (none) Author Type: Physician Type: Progress Notes Filed: 04/12/2018 12:21 PM Note Text: This consult is seen at the kind request of Dr. Kwesi Neves of [facility] , and my final recommendations will be communicated to the requesting health care provider by way of the shared electronic medical record. This note is formatted with the impression and plan first and the history and physical to follow. IMPRESSION Obstructive sleep apnea RECOMMENDATION/PLAN The patient's sleep study from the [facility] dated February 15, 2013 showed an apnea hypopnea index of 10. At this previous level of apnea the patient would not be a candidate for surgical intervention. The patient was requested to have a new polysomnogram because of his significant cardiac and vascular history. I will contact the patient via phone or my chart with the results. We did discuss the possibility of a dental device if his apnea hypopnea index is in the mild range and he may be interested in considering this. Chief Complaint Obstructive sleep apnea History of Present Illness Allen Valdes is a 62 year old Gentleman who is been diagnosed with obstructive sleep apnea. The patient had a sleep study approximate 3 years ago. He was given a prescription for CPAP and tried but could not keep it on through the night due to his PTSD. The patient notes that he goes to bed at 9 or 10 PM. The patient wakes up 2 or 3 times during the night. He can be up for an hour or sometimes several hours. He gets out of bed at 5 or 6 in the morning. He does have some daytime fatigue. He naps approximately 4 days per week. He can sleep between 1 and 3 hours for his nap. The patient had an apnea hypopnea index of 10 based on a sleep study from the [facility] dated February 15, 2013. This was positional in nature being worse on his back. PAST MEDICAL HISTORY Diagnosis Date - Abdominal aortic aneurysm (HCC) - Abdominal aortic aneurysm without rupture (HCC) - Acute myocardial infarction of inferior wall (HCC) - Adrenal adenoma - Adrenal mass (HCC) - Arthritis - Asthma - Avascular necrosis of bone (HCC) - Chronic obstructive lung disease (HCC) - Closed fracture carpal bone S/p perc screw fixation right. - Closed fracture of hip ([facility]) - Closed fracture of patella - Coronary arteriosclerosis OM disease with good collaterals on cardiac catheterization 2010. - Depression - Depressive disorder - Gastroesophageal reflux disease - HTN (hypertension) - Hyperlipidemia - Iron deficiency anemia - Known medical problems Current tear of medial cartilage AND/OR meniscus of knee. S/p repair left knee. Morteza Doherty MD. - Known medical problems Post percutaneous transluminal coronary angioplasty. SAMSON 09/12 - Malaise and fatigue - Old anterior cruciate ligament disruption S/p repair, Morteza Doherty MD - Old myocardial infarction - Olecranon bursitis S/p excision bursa Morteza Doherty MD - Osteoarthritis of knee Left. - Pain in finger Right middle, splinting. Que Ruiz MD - Peripheral vascular disease (HCC) - Posttraumatic stress disorder - Skin cancer - Stroke (HCC) - TIA (transient ischemic attack) - Unexplained weight loss PAST SURGICAL HISTORY Procedure Laterality Date - ABD AORTIC ANEURYSM REPAIR 2014 - CARDIAC CATH 09/05/2014 Single vessel CAD. - KNEE ARTHROSCOPY/SURGERY 02/01/1999 EUA, joint lavage, chondroplasty medial femoral condyle and patella. Huey Doherty MD - KNEE SURGERY HX 05/24/2010 Removal of cemented spacer and insertion of Shaina II constrained condylar total knee replacement. Morteza Doherty MD - PAST SURGICAL HISTORY OF Right 04/26/2002 Anesth, elbow area surgery. Excision olecranon bursa right elbow. Morteza Doherty MD - PAST SURGICAL HISTORY OF 09/05/2014 Cardiac Stent. SAMSON ostial/prox RCA - PAST SURGICAL HISTORY OF 06/03/2015 Endovascr repair abd aortic aneur - REVISION OF KNEE JOINT Right 2009 - TOTAL KNEE REPLACEMENT 01/25/2010 Right posterior stabilized Shaina II total knee replacements. Morteza Doherty MD - TREAT HIP FRACTURE(S) Right 08/30/2011 Percutaneous screw fixation of right femoral neck fracture with fluoroscopic interpretation. Hina Huggins MD - TREAT HIP FRACTURE(S) Right 2011 FAMILY HISTORY Problem Relation Age of Onset - Cancer Father - CARDIAC [OTHER] Father - HTN [OTHER] Father CURRENT OUTPATIENT MEDICATIONS Current Outpatient Prescriptions on File Prior to Visit: gabapentin (NEURONTIN) 300 mg capsule Take 4 to 5 capsules at bedtime. venlafaxine (EFFEXOR) 75 mg tablet Take 75 mg by mouth three times daily. NEOMYCIN 3.5 MG/G-POLYMYXIN B 10,000 UNIT/G-DEXAMETH 0.1 % EYE OINT Use 1 application in the right eye twice daily. Apply 0.5 inches into RUL margin and eye 2 times a day. Ketorolac Tromethamine (ACLUAR LS) 0.4 % drop Use 1 Drop in the right eye four times daily. prednisoLONE acetate (PRED FORTE) 1 % ophthalmic suspension Use 1 Drop in the right eye four times daily. BUPROPION HCL ORAL Take by mouth once daily. Ciclopirox (PENLAC) 8 % solution Apply 1 application to affected area daily at bedtime. ALBUTEROL INHALATION Inhale 2 Puffs as instructed every 6 hours as needed (wheezing). KRILL OIL ORAL Take 300 mg by mouth twice daily. HYDROcodone-acetaminophen (NORCO) 5-325 mg per tablet One to Two tablets every 8 hours as needed for pain VENTOLIN HFA 90 mcg/actuation inhaler VIRTUSSIN AC 10-100 mg/5 mL syrup doxycycline (VIBRA-TABS) 100 mg tablet lisinopril-hydrochlorothiazide (PRINZIDE,ZESTORETIC) 20-12.5 mg per tablet Take 1 tablet by mouth once daily. predniSONE (DELTASONE) 20 mg tablet lisinopril (ZESTRIL, PRINIVIL) 20 mg tablet traZODone (DESYREL) 150 mg tablet Take 1 tablet by mouth daily at bedtime. DULoxetine (CYMBALTA) 30 mg capsule 3 caps po daily morning lamoTRIgine (LAMICTAL) 150 mg tablet Take 1 tablet by mouth twice daily. clopidogrel (PLAVIX) 75 mg tablet Take 75 mg by mouth once daily. metoprolol tartrate, short acting, (LOPRESSOR) 100 mg tablet Take 100 mg by mouth once daily. tamsulosin ER (FLOMAX) 0.4 mg cp24 clonazePAM (KLONOPIN) 0.5 mg tablet Take 0.5 mg by mouth twice daily as needed for Anxiety. ACETAMINOPHEN ORAL Take 650 mg by mouth every 4 hours as needed. aspirin, enteric coated (ASPIRIN, ENTERIC COATED) 81 mg EC tablet Take 81 mg by mouth once daily. lisinopril (ZESTRIL, PRINIVIL) 10 mg tablet Take 10 mg by mouth once daily. HYDROcodone-acetaminophen (NORCO) 5-325 mg per tablet One to Two tablets every 8 hours as needed for pain DOCOSAHEXANOIC ACID/EPA (FISH OIL ORAL) Take by mouth. atorvastatin (LIPITOR) 80 mg tablet Take 80 mg by mouth once daily. cilostazol (PLETAL) 100 mg tablet Take 100 mg by mouth twice daily. No current facility-administered medications on file prior to visit. ALLERGIES ALLERGIES Allergen Reactions - Estelita Faye Dsc [* Itching The remainder of the patient's history and review of systems is on the outpatient questionaire which was reviewed by me and placed in the outpatient chart. PHYSICAL EXAMINATION Appearance: General examination of the patient's external face, head and neck reveals no abnormalities. The patient is mildly retrognathic The patient's voice is strong and clear and they communicate easily. Ears: Exam of the ears revealed normal appearing external auditory canals, tympanic membranes, and middle ears. No signs of infection or fluid were seen. Nose: Anterior rhinoscopy revealed a bilaterally deviated septum. The turbinates were mildly congested. The mucosa was pink and moist without signs of infection. The airway was adequate. Throat: There were no lesions to visualization or palpation of the lips, cheeks, gums, floor of mouth, tongue, hard and soft palate, tonsillar pillars or posterior pharyngeal wall. The patient is a Gray Tongue Position 3 and has surgically absent tonsils. Neck: Palpation of the neck revealed no adenopathy, salivary gland masses or asymmetry, or thyroid masses or enlargement. Procedure Flexible laryngoscopy was performed because of the following indication: hyperactive gag and in order to assess the dynamic airway: After spraying the nose with xylocaine/neosynephrine, the flexible scope was placed in a transnasal fashion. The nasopharynx, oropharynx, hypopharynx including the pyriform sinuses were normal. The base of tongue showed no gross lesions and no fullness. The larynx itself showed no lesions. The vocal cords moved well bilaterally. Mishra Maneuver: VOTE Scoring Direction of Collapse Severity Velum: None None (0-25%) Oropharynx: None None (0-25%) Tongue Base: None None (0-25%) Epiglottis: None None (0-25%) Neisha Roman MD Cc: Dr. Kwesi Neves CNOV Observed: 04/12/2018 Status: COMPLETED Source: [facility] 11:00 AM [facility] REPOSITORY Office Visit (OTOLBD) ALLEN VALDES ([id number]) 1955 M Date Time Provider Department 04/12/18 11:00 AM NEISHA ROMAN OTOLBD During your visit today, we recorded the following information about you: Weight Height 109.8 kg 1.854 m Neisha Roman 04/12/2018 12:21 PM Signed This consult is seen at the kind request of Dr. Kwesi Neves of [facility] , and my final recommendations will be communicated to the requesting health care provider by way of the shared electronic medical record. This note is formatted with the impression and plan first and the history and physical to follow. IMPRESSION Obstructive sleep apnea RECOMMENDATION/PLAN The patient's sleep study from the [facility] dated February 15, 2013 showed an apnea hypopnea index of 10. At this previous level of apnea the patient would not be a candidate for surgical intervention. The patient was requested to have a new polysomnogram because of his significant cardiac and vascular history. I will contact the patient via phone or my chart with the results. We did discuss the possibility of a dental device if his apnea hypopnea index is in the mild range and he may be interested in considering this. Chief Complaint Obstructive sleep apnea History of Present Illness Allen Valdes is a 62 year old Gentleman who is been diagnosed with obstructive sleep apnea. The patient had a sleep study approximate 3 years ago. He was given a prescription for CPAP and tried but could not keep it on through the night due to his PTSD. The patient notes that he goes to bed at 9 or 10 PM. The patient wakes up 2 or 3 times during the night. He can be up for an hour or sometimes several hours. He gets out of bed at 5 or 6 in the morning. He does have some daytime fatigue. He naps approximately 4 days per week. He can sleep between 1 and 3 hours for his nap. The patient had an apnea hypopnea index of 10 based on a sleep study from the [facility] dated February 15, 2013. This was positional in nature being worse on his back. PAST MEDICAL HISTORY Diagnosis Date - Abdominal aortic aneurysm (HCC) - Abdominal aortic aneurysm without rupture (HCC) - Acute myocardial infarction of inferior wall (HCC) - Adrenal adenoma - Adrenal mass (HCC) - Arthritis - Asthma - Avascular necrosis of bone (HCC) - Chronic obstructive lung disease (HCC) - Closed fracture carpal bone S/p perc screw fixation right. - Closed fracture of hip (HCC) - Closed fracture of patella - Coronary arteriosclerosis OM disease with good collaterals on cardiac catheterization 2010. - Depression - Depressive disorder - Gastroesophageal reflux disease - HTN (hypertension) - Hyperlipidemia - Iron deficiency anemia - Known medical problems Current tear of medial cartilage AND/OR meniscus of knee. S/p repair left knee. Morteza Doherty MD. - Known medical problems Post percutaneous transluminal coronary angioplasty. SAMSON 09/12 - Malaise and fatigue - Old anterior cruciate ligament disruption S/p repair, Morteza Doherty MD - Old myocardial infarction - Olecranon bursitis S/p excision bursa Morteza Doherty MD - Osteoarthritis of knee Left. - Pain in finger Right middle, splinting. Que Ruiz MD - Peripheral vascular disease (HCC) - Posttraumatic stress disorder - Skin cancer - Stroke (HCC) - TIA (transient ischemic attack) - Unexplained weight loss PAST SURGICAL HISTORY Procedure Laterality Date - ABD AORTIC ANEURYSM REPAIR 2014 - CARDIAC CATH 09/05/2014 Single vessel CAD. - KNEE ARTHROSCOPY/SURGERY 02/01/1999 EUA, joint lavage, chondroplasty medial femoral condyle and patella. Huey Doherty MD - KNEE SURGERY HX 05/24/2010 Removal of cemented spacer and insertion of Shaina II constrained condylar total knee replacement. Morteza Doherty MD - PAST SURGICAL HISTORY OF Right 04/26/2002 Anesth, elbow area surgery. Excision olecranon bursa right elbow. Morteza Doherty MD - PAST SURGICAL HISTORY OF 09/05/2014 Cardiac Stent. SAMSON ostial/prox RCA - PAST SURGICAL HISTORY OF 06/03/2015 Endovascr repair abd aortic aneur - REVISION OF KNEE JOINT Right 2009 - TOTAL KNEE REPLACEMENT 01/25/2010 Right posterior stabilized Shaina II total knee replacements. Morteza Doherty MD - TREAT HIP FRACTURE(S) Right 08/30/2011 Percutaneous screw fixation of right femoral neck fracture with fluoroscopic interpretation. Hina Huggins MD - TREAT HIP FRACTURE(S) Right 2011 FAMILY HISTORY Problem Relation Age of Onset - Cancer Father - CARDIAC [OTHER] Father - HTN [OTHER] Father CURRENT OUTPATIENT MEDICATIONS Current Outpatient Prescriptions on File Prior to Visit: gabapentin (NEURONTIN) 300 mg capsule Take 4 to 5 capsules at bedtime. venlafaxine (EFFEXOR) 75 mg tablet Take 75 mg by mouth three times daily. NEOMYCIN 3.5 MG/G-POLYMYXIN B 10,000 UNIT/G-DEXAMETH 0.1 % EYE OINT Use 1 application in the right eye twice daily. Apply 0.5 inches into RUL margin and eye 2 times a day. Ketorolac Tromethamine (ACLUAR LS) 0.4 % drop Use 1 Drop in the right eye four times daily. prednisoLONE acetate (PRED FORTE) 1 % ophthalmic suspension Use 1 Drop in the right eye four times daily. BUPROPION HCL ORAL Take by mouth once daily. Ciclopirox (PENLAC) 8 % solution Apply 1 application to affected area daily at bedtime. ALBUTEROL INHALATION Inhale 2 Puffs as instructed every 6 hours as needed (wheezing). KRILL OIL ORAL Take 300 mg by mouth twice daily. HYDROcodone-acetaminophen (NORCO) 5-325 mg per tablet One to Two tablets every 8 hours as needed for pain VENTOLIN HFA 90 mcg/actuation inhaler VIRTUSSIN AC 10-100 mg/5 mL syrup doxycycline (VIBRA-TABS) 100 mg tablet lisinopril-hydrochlorothiazide (PRINZIDE,ZESTORETIC) 20-12.5 mg per tablet Take 1 tablet by mouth once daily. predniSONE (DELTASONE) 20 mg tablet lisinopril (ZESTRIL, PRINIVIL) 20 mg tablet traZODone (DESYREL) 150 mg tablet Take 1 tablet by mouth daily at bedtime. DULoxetine (CYMBALTA) 30 mg capsule 3 caps po daily morning lamoTRIgine (LAMICTAL) 150 mg tablet Take 1 tablet by mouth twice daily. clopidogrel (PLAVIX) 75 mg tablet Take 75 mg by mouth once daily. metoprolol tartrate, short acting, (LOPRESSOR) 100 mg tablet Take 100 mg by mouth once daily. tamsulosin ER (FLOMAX) 0.4 mg cp24 clonazePAM (KLONOPIN) 0.5 mg tablet Take 0.5 mg by mouth twice daily as needed for Anxiety. ACETAMINOPHEN ORAL Take 650 mg by mouth every 4 hours as needed. aspirin, enteric coated (ASPIRIN, ENTERIC COATED) 81 mg EC tablet Take 81 mg by mouth once daily. lisinopril (ZESTRIL, PRINIVIL) 10 mg tablet Take 10 mg by mouth once daily. HYDROcodone-acetaminophen (NORCO) 5-325 mg per tablet One to Two tablets every 8 hours as needed for pain DOCOSAHEXANOIC ACID/EPA (FISH OIL ORAL) Take by mouth. atorvastatin (LIPITOR) 80 mg tablet Take 80 mg by mouth once daily. cilostazol (PLETAL) 100 mg tablet Take 100 mg by mouth twice daily. No current facility-administered medications on file prior to visit. ALLERGIES ALLERGIES Allergen Reactions - Estelita Faye Dsc [* Itching The remainder of the patient's history and review of systems is on the outpatient questionaire which was reviewed by me and placed in the outpatient chart. PHYSICAL EXAMINATION Appearance: General examination of the patient's external face, head and neck reveals no abnormalities. The patient is mildly retrognathic The patient's voice is strong and clear and they communicate easily. Ears: Exam of the ears revealed normal appearing external auditory canals, tympanic membranes, and middle ears. No signs of infection or fluid were seen. Nose: Anterior rhinoscopy revealed a bilaterally deviated septum. The turbinates were mildly congested. The mucosa was pink and moist without signs of infection. The airway was adequate. Throat: There were no lesions to visualization or palpation of the lips, cheeks, gums, floor of mouth, tongue, hard and soft palate, tonsillar pillars or posterior pharyngeal wall. The patient is a Rgay Tongue Position 3 and has surgically absent tonsils. Neck: Palpation of the neck revealed no adenopathy, salivary gland masses or asymmetry, or thyroid masses or enlargement. Procedure Flexible laryngoscopy was performed because of the following indication: hyperactive gag and in order to assess the dynamic airway: After spraying the nose with xylocaine/neosynephrine, the flexible scope was placed in a transnasal fashion. The nasopharynx, oropharynx, hypopharynx including the pyriform sinuses were normal. The base of tongue showed no gross lesions and no fullness. The larynx itself showed no lesions. The vocal cords moved well bilaterally. Mishra Maneuver: VOTE Scoring Direction of Collapse Severity Velum: None None (0-25%) Oropharynx: None None (0-25%) Tongue Base: None None (0-25%) Epiglottis: None None (0-25%) Neisha Roman MD Cc: Dr. Kwesi Neves Referring Provider: SELF [200] Allergies As of Date: 04/12/2018 Noted Allergy Reaction PARAFON FORTE DSC (CHLORZOXAZONE) 08/08/2015 9 - Itching Date Reviewed: 04/12/2018 Reviewed by: Neisha Roman - Fully Assessed Reason for Visit: Consult [173] Primary Visit Diagnosis:DIMAS (obstructive sleep apnea) [G47.33] Order(s):POLYSOMNOGRAM (PSG)/HOME SLEEP APNEA TESTING (HSAT) [[id number]] Order #: [id number] FUTURE Prescriptions as of 04/12/2018 Sig: GABAPENTIN 300 MG CAPSULE Take 4 to 5 capsules at bedti* VENLAFAXINE 75 MG TABLET Take 75 mg by mouth three kang* NEOMYCIN 3.5 MG/G-POLYMYXIN B* Use 1 application in the righ* KETOROLAC 0.4 % EYE DROPS Use 1 Drop in the right eye f* PREDNISOLONE ACETATE 1 % EYE * Use 1 Drop in the right eye f* BUPROPION HCL ORAL Take by mouth once daily. CICLOPIROX 8 % TOPICAL SOLUTI* Apply 1 application to affect* ALBUTEROL INHALATION Inhale 2 Puffs as instructed * KRILL OIL ORAL Take 300 mg by mouth twice da* HYDROCODONE 5 MG-ACETAMINOPHE* One to Two tablets every 8 ho* VENTOLIN HFA 90 MCG/ACTUATION* VIRTUSSIN AC 10 MG-100 MG/5 M* DOXYCYCLINE HYCLATE 100 MG TA* LISINOPRIL 20 MG-HYDROCHLOROT* Take 1 tablet by mouth once d* PREDNISONE 20 MG TABLET LISINOPRIL 20 MG TABLET TRAZODONE 150 MG TABLET Take 1 tablet by mouth daily * DULOXETINE 30 MG CAPSULE,MANUELA* 3 caps po daily morning LAMOTRIGINE 150 MG TABLET Take 1 tablet by mouth twice * CLOPIDOGREL 75 MG TABLET Take 75 mg by mouth once shahla* METOPROLOL TARTRATE 100 MG TA* Take 100 mg by mouth once latha* TAMSULOSIN 0.4 MG CAPSULE CLONAZEPAM 0.5 MG TABLET Take 0.5 mg by mouth twice da* ACETAMINOPHEN ORAL Take 650 mg by mouth every 4 * ASPIRIN 81 MG TABLET,DELAYED * Take 81 mg by mouth once shahla* LISINOPRIL 10 MG TABLET Take 10 mg by mouth once shahla* HYDROCODONE 5 MG-ACETAMINOPHE* One to Two tablets every 8 h* FISH OIL ORAL Take by mouth. ATORVASTATIN 80 MG TABLET Take 80 mg by mouth once shahla* CILOSTAZOL 100 MG TABLET Take 100 mg by mouth twice da* Problem List As Of Date 04/12/2018 Noted Resolved Failed total knee arthroplasty (HCC) [T84.018A,*INVALID FOR* Contusion of right knee [S80.01XA] INVALID FOR* Primary osteoarthritis of left knee [M17.12] INVALID FOR* TIA (transient ischemic attack) [G45.9] Severe episode of recurrent major depressive di*INVALID FOR* Chronic post-traumatic stress disorder (PTSD) [*INVALID FOR* Cigarette nicotine dependence with nicotine-ind*INVALID FOR* DIMAS (obstructive sleep apnea) [G47.33] INVALID FOR* 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] INVALID FOR* Tendinitis of right rotator cuff [M75.81] INVALID FOR* Age-related nuclear cataract of right eye [H25.*INVALID FOR* Age-related nuclear cataract of left eye [H25.1*INVALID FOR* AAA (abdominal aortic aneurysm) without rupture*INVALID FOR* Degenerative disc disease, cervical [M50.30] INVALID FOR* Cervical radicular pain [M54.12] INVALID FOR* Quadriceps strain, right, initial encounter [S7*INVALID FOR* Follow-up and Disposition History Recorded Encounter Status:Closed by NEISHA ROMAN MD on 04/12/18 PULMONARY VISIT REPORT Observed: 04/08/2018 Status: F Source: [place] 10:52 AM [facility] [address] [place] [address] OFFICE VISIT Date of Service: 04/08/18 MR#: [id number] Acct: [id number] Name: ALLEN VALDES Rep #: [id number] : 1955 Provider: Ruy Rossi MD Age/Sex: 62/M Location: [facility] [place].[facility] Status: Signed Assessment AND Plan 1. DIMAS (obstructive sleep apnea) G47.33 Plan Patient has not been able to tolerate noninvasive therapy in the past. Patient states that he is going to [facility] to be evaluated for the Inspire device. Patient would be optimized from a pulmonary perspective to proceed with surgery if indicated. Patient states he will call and inform us if he proceeds with the procedure. Await information inspire device. Okay to proceed with surgery from a pulmonary perspective. 2. Tobacco abuse Z72.0 Plan Patient has not smoked since November. Patient has no desire to resume smoking at this time. Encourage continued smoking cessation. 3. Simple chronic bronchitis J41.0 Plan Patient's pulmonary function tests are consistent with mild, irreversible obstruction. Patient does have an extensive smoking history in the past. Patient has a smoking cessation. Patient was given a trial of bevespi. Patient understands that alternatives are available at insurance prefers another option. Patient's echocardiogram was received from [facility]. This does appear to be consistent with type II pulmonary hypertension from diastolic dysfunction. This is likely also adding to patient's current dyspnea on exertion. However, walking oximetry did not show any significant desaturation. Defer to cardiology whether right heart catheterization for quantification and clarification of lung pressures would be necessary. Await response to Bevespi Plan Detail Other Medications New: Follow Up 6 Months (GENE) HPI 2 M FU: Chief Complaint: Shortness of breath on exertion Details: Patient is a 62-year-old male, known to me from my previous practice, who presents for evaluation secondary to shortness of breath on exertion. Patient has been seen by my nurse practitioner and testing was completed prior to this visit. Since last visit, patient denies any ER visits, hospitalizations or prednisone burst. Patient did attempt the use of the rescue inhaler, but states that this resulted only in increased tremor and palpitations, so was discontinued. This did not have any effect on patients shooting pain in the chest. Patient reports that he has quit smoking on December 02. Patient has noted no change in his overall condition after smoking cessation. Patient continues to have a periodic cough that is typically dry. Patient does report some chest pain that is described as shooting, 2 out of 10 and localized to the left anterior chest. This does not radiate anywhere. Patient states that he can get pain at rest or with exertion. Patient does report that he is to be evaluated by [facility] secondary to some neck findings and a possible insertion of inspire device. Testing personally reviewed with the patient Complete PFT (02/18/2018): Irreversible mild large airways obstructive ventilatory defect entheses FVC 82%, FEV1 72%, TLC 102%, DLCO 79%) Walking oximetry (02/17/2018): Ambulated 1261 feet without significant desaturation Echo (2017): EF 69% with 1+ mitral regurgitation and pulmonary artery pressure of 37 mmHg Intake Vital Signs04/08/18 Height 6 ft 3 in 04/08/18 Weight: 108.409 kg Intake Visit Reasons: 2 M FU Chief Complaint: shortness of breath Accompanied by: Self Allergies chlorzoxazone Allergy (Severe, Verified 04/08/18 08:03) Unknown Medications aspirin 81 mg tablet,delayed release 81 mg PO QDAY tab 02/10/18 [History Confirmed 04/08/18] atorvastatin 80 mg tablet 80 mg PO QDAY 02/10/18 [History Confirmed 04/08/18] cilostazol 100 mg tablet 100 mg PO BID 02/10/18 [History Confirmed 04/08/18] clopidogrel 75 mg tablet 75 mg PO QDAY tab 02/10/18 [History Confirmed 04/08/18] gabapentin 300 mg capsule 900 mg PO QDAY cap 02/10/18 [History Confirmed 04/08/18] lamotrigine 25 mg tablet 50 mg PO BID tab 02/10/18 [History Confirmed 04/08/18] lisinopril 20 mg-hydrochlorothiazide 12.5 mg tablet 1 tab PO QDAY tab 02/10/18 [History Confirmed 04/08/18] metoprolol tartrate 25 mg tablet 25 mg PO BID 02/10/18 [History Confirmed 04/08/18] trazodone 100 mg tablet 100 mg PO QHS 02/10/18 [History Confirmed 04/08/18] venlafaxine ER 150 mg capsule,extended release 24 hr 150 mg PO QDAY 02/10/18 [History Confirmed 04/08/18] albuterol sulfate HFA 90 mcg/actuation aerosol inhaler 2 puff INHALATION Q4H #1 inh 03/15/18 [Rx Confirmed 04/08/18] doxycycline hyclate 50 mg capsule 50 mg PO ONCE cap 04/08/18 [History Confirmed 04/08/18] glycopyrrolate 9 mcg-formoterol 4.8 mcg HFA aerosol inhaler 2 puff INHALATION BID #10.7 g 04/08/18 [Rx Confirmed 04/08/18] PFS Medical History Heart attack (Acute) TIA (transient ischemic attack) (Acute) Asthma (Chronic) Coronary heart disease (Chronic) Depression (Chronic) HTN (hypertension) (Chronic) Osteoarthritis (Chronic) Peripheral vascular disease (Chronic) Sleep apnea (Chronic) Surgical History H/O heart artery stent (Resolved) H/O knee surgery (Resolved) Hx of cataract surgery (Resolved) S/P AAA repair (Resolved) Social History household members: spouse housing: house pets and animals: Yes pets and animals: dog(s) Smoking Status: Former smoker quit date: 11/30/17 how long ago did patient quit smokin, 1.5p/d second hand exposure: No alcohol intake: never substance use type: does not use Review of Systems Const CONSTITUTIONAL: Negative anorexia, body ache, chills, daytime sleepiness, fever(s), night sweats, oral thrush, stops breathing during sleep, weight loss, sleeping in chair, fatigue, weight loss, weight gain, frequent colds, seasonal allergies, other, headache(s) or orthopnea EETM Ear Nose Throat Mouth: Positive hearing normal; negative hard of hearing, hoarseness, dry mouth in morning, change in vision, itchy eyes, eye pain, swallowing Difficulty, ear pain, nose bleed, headache(s), mouth pain, nasal congestion, nasal discharge, post nasal drip, sinus pain, sinus pressure, sore throat or other Cardio Cardiovascular: Positive chest pain (on left side only ); negative chest pain at rest, chest pain with activity, irregular heart rhythm, edema, shortness of breath when lying down, palpitations, murmur or other Resp Respiratory: Positive as per HPI and shortness of breath; negative pain with cough, wheezing, chest congestion, cough, chest tightness, pain on inspiration, inhalers, increase use of rescue inhalers, snoring, apnea or other Gastro Gastrointestional: Negative bloody stools, change in appetite, difficulty swallowing, reflux, hematemesis, melena stool, loose stool, constipation or other Genitourinary: Negative blood in urine, nocturia, pain with urination or other Musc Musculoskeletal: Negative body pain, back pain, neck pain or other Skin/Breast Skin/Breast: Negative dry skin, itching, rash, unusual bruising, breast lump or other Neuro Neurological: Negative restless legs, confusion, weakness or other Psych Psychocological: Negative abnormal sleep pattern, anxiety, thoughts of hurting self/others, hopelessness or other Lymph Lymphatic: Negative easy bleeding, easy bruising, swollen lymph nodes or other Exam Const Constitutional: Positive conversant, cooperative, in no acute respiratory distress, healthy appearing, well developed, well nourished and good hygiene; negative ill appearing, dyspenic or wearing supplemental oxygen Head Head: Positive normocephalic and atraumatic; negative cyanosis of lips/distal nose, frontal sinus tenderness or maxillary sinus tenderness Eyes Eye: Positive clear conjunctiva; negative nystagmus, scleral abnormality or cataract present Ears Ear: Positive hearing normal and external ears normal; negative hard of hearing Nose Nose: Positive external nose normal, septum normal and clear nasal discharge; negative epistaxis or nasal polyp Mouth Mouth: Positive oral mucosae normal, no lesions, good dentition, crowded posterior oropharynx and other (Slight retrognathia noted); negative post nasal drip or oral thrush present Mallampati Score: III: Mallampati Score Neck Neck: Positive normal visual inspection, full ROM and trachea midline; negative lymphadenopathy or JVD Chest Wall Chest: Positive normal inspection of the chest and symmetric chest movement; negative crepitus or tenderness Resp lung sounds: Positive clear to auscultation, good air exchange and prolonged expiratory time; negative wheezes, rhonchi, rales, use of accessory muscles, wheeze present on forced exhalation or dullness to percussion Cardio Cardiac: Positive regular rate, regular rhythm, S1 normal and S2 normal; negative murmur, rub or gallop GI GI: Positive normal to inspection and normal bowel sounds; negative distended, ascites or epigastric tenderness Genitourinary: Positive deferred Musc Musculoskeletal: Positive steady gait; negative using an assistive device for ambulation, kyphosis or scoliosis Skin Pulmonary Skin Exam: Positive intact; negative rash, lesion, ulcers, erythema or dermal atrophy Pulses Pulse: Yes radial pulses present Extremities Extremities: Yes capillary refill normal, No clubbing, No cyanosis, No edema, Yes stasis dermatitis Neuro Neurologic: Yes conversant, Yes no focal neuro deficits, Yes understands questions, Yes normal concentration, Yes cooperative, Yes normal cognition, Yes normal coordination Lymph Lymphatic: No lymphadenopathy Psych Appearance: Positive grossly normal Mental Status: Positive mental status grossly normal Mood: Positive congruent mood Affect: Positive normal affect Coding Level of Care Code Off vis,est,level 4 Diagnoses DIMAS (obstructive sleep apnea) G47.33 Tobacco abuse Z72.0 Simple chronic bronchitis J41.0 Chronic bronchitis type: simple 04/08/18 1052 <Electronically signed by Ruy Rossi MD> Date Ruy Rossi MD Cosigner Signature: Date (if applicable) CC: LUKE Observed: 03/30/2018 Status: COMPLETED Source: [facility] 12:00 AM CLINIC OTHER CAMPUS REPOSITORY Consults (AGPOB1) ALLEN VALDES ([id number]) 1955 M Date Time Provider [facility] your visit today, we recorded the following information about you: Allergies As of Date: 03/30/2018 Noted Allergy Reaction ESTELITA FAYE DSC (CHLORZOXAZONE) 08/08/2015 9 - Itching Date Reviewed: 01/21/2018 Reviewed by: Sammy Neves Jr. - Fully Assessed Primary Visit Diagnosis:Degenerative disc disease, cervical [M50.30] Order(s):CONSULT TO ORTHOPAEDICS [9026] Order #: [id number]: 1 Prescriptions as of 03/30/2018 Sig: VENLAFAXINE 75 MG TABLET Take 75 mg by mouth three kang* NEOMYCIN 3.5 MG/G-POLYMYXIN B* Use 1 application in the righ* KETOROLAC 0.4 % EYE DROPS Use 1 Drop in the right eye f* PREDNISOLONE ACETATE 1 % EYE * Use 1 Drop in the right eye f* BUPROPION HCL ORAL Take by mouth once daily. CICLOPIROX 8 % TOPICAL SOLUTI* Apply 1 application to affect* ALBUTEROL INHALATION Inhale 2 Puffs as instructed * KRILL OIL ORAL Take 300 mg by mouth twice da* HYDROCODONE 5 MG-ACETAMINOPHE* One to Two tablets every 8 ho* VENTOLIN HFA 90 MCG/ACTUATION* VIRTUSSIN AC 10 MG-100 MG/5 M* DOXYCYCLINE HYCLATE 100 MG TA* LISINOPRIL 20 MG-HYDROCHLOROT* Take 1 tablet by mouth once d* PREDNISONE 20 MG TABLET LISINOPRIL 20 MG TABLET TRAZODONE 150 MG TABLET Take 1 tablet by mouth daily * DULOXETINE 30 MG CAPSULE,MANUELA* 3 caps po daily morning LAMOTRIGINE 150 MG TABLET Take 1 tablet by mouth twice * CLOPIDOGREL 75 MG TABLET Take 75 mg by mouth once shahla* METOPROLOL TARTRATE 100 MG TA* Take 100 mg by mouth once latha* TAMSULOSIN 0.4 MG CAPSULE CLONAZEPAM 0.5 MG TABLET Take 0.5 mg by mouth twice da* ACETAMINOPHEN ORAL Take 650 mg by mouth every 4 * ASPIRIN 81 MG TABLET,DELAYED * Take 81 mg by mouth once shahla* LISINOPRIL 10 MG TABLET Take 10 mg by mouth once shahla* HYDROCODONE 5 MG-ACETAMINOPHE* One to Two tablets every 8 h* FISH OIL ORAL Take by mouth. 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,*INVALID FOR* Contusion of right knee [S80.01XA] INVALID FOR* Primary osteoarthritis of left knee [M17.12] INVALID FOR* TIA (transient ischemic attack) [G45.9] Severe episode of recurrent major depressive di*INVALID FOR* Chronic post-traumatic stress disorder (PTSD) [*INVALID FOR* Cigarette nicotine dependence with nicotine-ind*INVALID FOR* DIMAS (obstructive sleep apnea) [G47.33] INVALID FOR* 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] INVALID FOR* Tendinitis of right rotator cuff [M75.81] INVALID FOR* Age-related nuclear cataract of right eye [H25.*INVALID FOR* Age-related nuclear cataract of left eye [H25.1*INVALID FOR* AAA (abdominal aortic aneurysm) without rupture*INVALID FOR* Degenerative disc disease, cervical [M50.30] INVALID FOR* Cervical radicular pain [M54.12] INVALID FOR* Quadriceps strain, right, initial encounter [S7*INVALID FOR* Encounter Status:Closed by LYNSEY LYONS MD on 03/31/18 ECHO DOBUTAMINE STRESS Observed: 02/26/2018 Status: F Source: [place] ECHO W/WO CONT 8:16 AM SYSTEM REPOSITORY Patient Name: ALLEN VALDES Ultrasound Exam Date/Time 02/26/2018 09:20:01 EDT Exam Echo Dobutamine Stress Echo w/wo Cont Ordering Physician MD DADA, CLAUDY Tafoya Number [id number] Reason For Exam chest pain Report STRESS ECHOCARDIOGRAM Dobutamine PATIENT: Allen Valdes STUDY DATE: 02/26/2018 : 1955 AGE: 62 HT/WT: 185.4 cm (73 111.1 kg in) (244.5 lb) GENDER: M BP: 135 / 78 LOCATION: [facility] and PATIENT Outpatient [facility] STATUS: *ORDERING PHYSICIAN: * Claudy Trujillo MD *FELLOW: * Zulma Sethi *SUPERVISING PHYSICIAN: * Dilan Pascual MD *RN: * Jose Johnson RN *READING PHYSICIAN: * Dilan Pascual MD *LOAN REVIEW MANAGER: * Marimar Richmond --- INDICATIONS: Chest pain. --- HISTORY: Dyslipidemia. Peripheral vascular disease. Transient ischemic attack. Family history of cardiovascular disease. Asthma. Chest Pain/ discomfort without exertion. Tobacco use current AAA repair Hypertension treated The last beta ian was taken by the patient on 02/26/2018 06:00 AM. Medications: Clopidogrel (Plavix). Metoprolol (Lopressor, Toprol). Atorvastatin (Lipitor). Aspirin. Albuterol. Hydrochlorothiazide (Microzide). Lisinopril (Zestril). Pletal. Allergies: Parafon forte allergy. Patient is NPO per policy. Catheterization (2013). There was a stenosis which was treated with a stent. --- CONCLUSIONS SUMMARY: 1. Procedure narrative: Dobutamine stress test. Stress testing was performed, with dobutamine by intravenous infusion from 10 to 40 mcg/kg/min. Heart rate response was augmented by the addition of hand leather production artisan. The infusion was terminated due to maximal dose administration. 2. Left ventricle: Systolic function is normal by the biplane method of disks. The estimated ejection fraction is 75%. 3. Baseline ECG: Normal sinus rhythm. 4. Stress: Peak heart rate during stress was 133 bpm (84% of maximal predicted heart rate). The maximal predicted heart rate was 159 bpm.The target heart rate was achieved. The heart rate response to stress was normal. 5. Stress ECG conclusions: There was no ischemic ST depression. No stress induced ECG changes suggestive of ischemia. 6. Stress echo: Left ventricular ejection fraction was normal at rest and with stress. There is no evidence for stress-induced ischemia. 7. Normal study after pharmacologic stress. --- STUDY DATA: Stress echocardiogram. Procedure: Initial setup. A baseline ECG was recorded. Surface ECG leads and blood pressure measurements were monitored. Image quality was suboptimal. The study was technically limited due to body habitus. Intravenous imaging enhancement (Definity) was administered to opacify the chamber. Definity lot #: [id number]. Definity dose administered: 9 ml. Definity wasted: 1 ml. Dobutamine stress test. Stress testing was performed, with dobutamine by intravenous infusion from 10 to 40 mcg/kg/min. Heart rate response was augmented by the addition of hand leather production artisan. The infusion was terminated due to maximal dose administration. Transthoracic stress echocardiography. Images were captured at baseline, low dose, peak dose, and recovery. Total time of infusion 14 min 46 sec M-mode, limited 2D, limited spectral Doppler, and color flow Doppler images were acquired and archived for permanent storage and are available for subsequent review. Study status: Routine. Patient status: Outpatient. Pre pain location is left side of chest. Post pain assessment is 0 out of 10. Location: Echo laboratory. Consent: The procedure was reviewed with the patient and the patient voices understanding. Study completion: The patient tolerated the procedure well. There were no complications. Administered medications: Atropine, for a total dose of 2mg, IV, during the study. Discharge: Discharge instructions given The patient was discharged to homewhile ambulatory. --- FINDINGS LEFT VENTRICLE: The cavity size is normal. Wall thickness is mildly increased. Systolic function is normal by the biplane method of disks. The estimated ejection fraction is 75%. There are no regional wall motion abnormalities. RIGHT VENTRICLE: The cavity size is normal. Wall thickness is normal. Systolic function is normal. Right ventricular systolic pressure is within the normal range. MITRAL VALVE: Structurally normal valve. Doppler: There is trivial, less than 1+ regurgitation. AORTIC VALVE: Structurally normal valve. Trileaflet. Doppler: There is no regurgitation. TRICUSPID VALVE: Structurally normal valve. Doppler: There is trivial, less than 1+ regurgitation. BASELINE ECG: Normal sinus rhythm. STRESS PROTOCOL: + +---+ +--------+ !Stage !HR !BP (mmHg) !Symptoms! + +---+ +--------+ !Baseline !68 !132/82 (99)!None ! + +---+ +--------+ !Dobutamine 10 ug/kg/min!78 !100/77 (85)!--------! + +---+ +--------+ !Peak stress !133!100/79 (86)!None ! + +---+ +--------+ !Recovery; 2 min !130!117/68 (84)!None ! + +---+ +--------+ !Late recovery !100!122/83 (96)!--------! + +---+ +--------+ STRESS RESULTS: Peak heart rate during stress was 133 bpm (84% of maximal predicted heart rate). The maximal predicted heart rate was 159 bpm.The target heart rate was achieved. The heart rate response to stress was normal. There is a normal resting blood pressure with an appropriate response to stress. The rate-pressure product for the peak heart rate and blood pressure was 45681 mm Hg/min. The patient experienced no chest pain during stress. STRESS ECG: There was no ischemic ST depression. Rare ventricular ectopy. No stress induced ECG changes suggestive of ischemia. Baseline: LV size is normal. LV global systolic function is normal. Normal wall motion; no LV regional wall motion abnormalities. Wall motion score: 1.00. Low dose: LV size is normal and unchanged from the prior stage. LV global systolic function is normal. No evidence for new LV regional wall motion abnormalities. Peak stress: LV size is normal and unchanged from the prior stage. LV global systolic function is normal. No evidence for new LV regional wall motion abnormalities. Recovery: LV size is normal and unchanged from the prior stage. LV global systolic function is normal. Normal wall motion; no LV regional wall motion abnormalities. No evidence for new LV regional wall motion abnormalities. Wall motion score: 1.00. STRESS ECHO RESULTS: Left ventricular ejection fraction was normal at rest and with stress. There is no evidence for stress-induced ischemia. --- Measurements Left ventricle Value 2017 Reference LV ID, ED 5.1 cm 4.0 4.2 - 5.9 LV ID, ES 3.5 cm 2.3 --------- LV PW thickness, ED (H) 1.2 cm 1.7 0.6 - 1.0 LV end-diastolic volume, 1-p A4C 112 ml 108 67 - 155 LV end-systolic volume, 1-p A4C 31 ml 23 22 - 58 LV end-diastolic volume, 2-p 115 ml 119 67 - 155 LV end-systolic volume, 2-p 29 ml 37 22 - 58 LV ejection fraction, 2-p 75 % 69 >=55 Ventricular septum Value 2017 Reference IVS thickness, ED (H) 1.2 cm 1.8 0.6 - 1.0 LVOT Value 2017 Reference LVOT ID, A-P 2.8 cm 1.7 --------- Aorta Value 2017 Reference Aortic root ID 3.8 cm 2.8 <4.5 Aortic root ID, STJ, ED 3.1 cm --------- Ascending aorta ID, A-P 4.0 cm --------- Ascending aorta ID, A-P, S 4.0 cm --------- Tricuspid valve Value 2017 Reference Tricuspid regurg peak velocity 2 m/sec 2.9 --------- Tricuspid peak RV-RA gradient 16 mm Hg 34 --------- Legend: (L) and (H) ino values outside specified reference range. Electronically signed by Dilan Pascual MD 02/26/2018 12:29 Final Dictated: 02/26/2018 12:30 pm Dictating Physician: Jany PASCUAL TED Signed Date and Time: 02/26/2018 12:30 pm Signed by: Jany PASCUAL TED PULMONARY FUNCTION Observed: 02/19/2018 Status: F Source: [place] REPORT COMP 6:58 AM [facility] [place] [facility] Pulmonary Services/Neurology [facility] [place] [place] [address] MR#: [id number] Acct: [id number] Name: ALLEN VALDES Rep #: [id number] : 1955 62 From: Ruy Rossi MD Referring Dr: Lexi Arceo LAUNCHMAN Status: REG CLI Ordering Dr: Date: Location: [facility] Sex: M C COMPLETE PULMONARY FUNCTION TEST INTERPRETATION Brief HPI: Patient is a 62 year old male, currently under the care of Lexi Arceo, who presents to [facility] for complete pulmonary function tests secondary to diagnosis of dyspnea. Respiratory therapist reports good effort and reproducible results. Interpretation: Forced expiration spirometry shows a mild large airways obstructive ventilatory defect with an FEV1 of 72 % predicted. There is no significant bronchodilator response by ATS criteria. Spirograms are of good quality and plateau slowly, indicating slowly emptying areas of the lungs. The respiratory flow volume loop shows decreased expiratory flow rates at high lung volumes consistent with small airways obstruction. Lung volumes by body plethysmography show a normal total lung capacity at 7.5 L, 102 % predicted. All other lung volumes are within normal limits. Diffusion capacity by carbon monoxide is normal at 79 % predicted. The airway resistance is normal. No previous pulmonary function tests were available for review. Impression: Irreversible mild large airways obstructive ventilatory defect with preserved lung volumes and diffusing capacity, consistent with a diagnosis of chronic bronchitis. 02/19/18 0658 <Electronically signed by Ruy Rossi MD> Date Ruy Rossi MD CC: Ruy Rossi MD; Lexi Soares DO Date Dictated: 02/19/18655 Date Transcribed: 02/19/18655 Sugar Refiner: MICHAEL Signed 6 MINUTE WALK TEST Observed: 02/17/2018 Status: F Source: [place] 5:23 PM [facility] [place] [facility] Pulmonary Services/Neurology [address] [place] [address] MR#: [id number] Acct: [id number] Name: ALLEN VALDES Rep #: [id number] : 1955 62 From: Ruy Rossi MD Referring Dr: Lexi Arceo NP Date: Ordering Dr: Sex: M C Location: PSN PSN 6 Minute Walk Test - 6 Minute Walk Test 6 Minute Walk Test: 6 Minute Walk Test PSN:6-Minute Walk Test Start: 02/17/18 13:35 Freq: Status: Active Protocol: RESP.6MINW Document 02/17/18 13:35 [facility] (Rec: 02/17/18 13:38 [facility] [id number]) 6 Minute Walk Test Date Performed 02/17/18 Time Performed 12:30 Height 6 ft 3 in Weight: 109.316 kg Weight in Pounds 241.[address]: Lexi Arceo Assistive device used: None Pre-test Oxygen Delivery Method Room Air Pulse Ox (%) 97 Pulse Rate (60-100 beats/min) 75 Dyspnea Jeimy Scale (0-10) 1 1st minute Oxygen Delivery Method Room Air Pulse Ox (%) 98 Pulse Rate (60-100 beats/min) 78 Dyspnea Jeimy Scale (0-10) 1 2nd minute Oxygen Delivery Method Room Air Pulse Ox (%) 96 Pulse Rate (60-100 beats/min) 81 Dyspnea Jeimy Scale (0-10) 1 3rd minute Oxygen Delivery Method Room Air Pulse Ox (%) 97 Pulse Rate (60-100 beats/min) 89 Dyspnea Jeimy Scale (0-10) 2 Reported Symptoms Increased Work of Breathing 4th minute Oxygen Delivery Method Room Air Pulse Ox (%) 98 Pulse Rate (60-100 beats/min) 92 Dyspnea Jeimy Scale (0-10) 2 Reported Symptoms Increased Work of Breathing 5th minute Oxygen Delivery Method Room Air Pulse Ox (%) 97 Pulse Rate (60-100 beats/min) 93 Dyspnea Jeimy Scale (0-10) 2 Reported Symptoms Increased Work of Breathing 6th minute Oxygen Delivery Method Room Air Pulse Ox (%) 97 Pulse Rate (60-100 beats/min) 96 Dyspnea Jeimy Scale (0-10) 2 Reported Symptoms Increased Work of Breathing Post-test Oxygen Delivery Method Room Air Pulse Ox (%) 98 Pulse Rate (60-100 beats/min) 78 Dyspnea Jeimy Scale (0-10) 1 Full Laps Walked 21 Partial Lap, Number of Tiles Walked 22 Total Distance Walked (ft) 1261 - Interpretation Interpretation: The patient was able to ambulate 1261 feet over the course of 6 minutes on room air with no significant desaturation or tachycardia. These findings are consistent with a normal exercise oximetry. - Recommendations Recommendations: No supplemental oxygen is indicated at this time. 02/17/181722 <Electronically signed by Ruy Rossi MD> Date Ruy Rossi MD CC: Date Dictated: 02/17/181720 Date Transcribed: 02/17/181720 Sugar Refiner: Ruy Rossi Signed PULMONARY VISIT REPORT Observed: 02/11/2018 Status: F Source: [place] 2:08 PM [facility] Medicine [address] [place] [address] OFFICE VISIT Date of Service: 02/10/18 MR#: [id number] Acct: [id number] Name: ALLEN VALDES Rep #: [id number] : [id number] Provider: Leix Arceo Age/Sex: 62/M Location: [facility] [place].[facility] Status: Signed Assessment AND Plan 1. SOB (shortness of breath) on exertion R06.02 Status Acute Plan Shortness of breath can be related to several possible etiologies, such as probable COPD given his significant smoking history. There is concern for possible pulmonary hypertension given his diagnosis of obstructive sleep apnea yet lack of pressure support therapy. Will do a thorough workup for his shortness of breath that includes a complete pulmonary function test to determine if in fact he has COPD and to quantify it as well as to determine if there are inhalers that would be appropriate. We will also check a formal pulmonary stress test to indicate if the patient is becoming hypoxic during ambulation and if supplemental oxygen as necessary. Thirdly, I have ordered an echocardiogram to determine if the patient possibly has diastolic dysfunction and or elevated right-sided heart pressures. These tests and how they would impact his care was discussed with the patient. He conveys understanding. He will then follow-up with Dr. Rossi in approximately 2 months to discuss test results. Orders Orders: 2. Tobacco abuse Z72.0 Status Chronic Plan Continue to encourage smoking cessation. Lengthy discussion with the patient, 11 minutes [id number], discussing smoking cessation and the pathophysiology connection of nicotine addiction. The patient has been encouraged to identify possible triggers and at that time he prepared to talk himself down under the circumstances. Plan Detail Other Orders Orders: Follow Up 2 Months ([facility]) [facility] FU: Chief Complaint: shortness of breath [facility] Comments Details: Patient is here for an initial consultation to establish care at this practice for shortness of breath. He previously saw Dr. Rossi at a former practice. Today, he is ambulatory and currently on room air. He has a significant smoking history of greater than 40 pack years. He quit smoking on December 02 of this year. He continues to admit to desire to smoke, but he has not picked they have it back up. He also reports that he has quit several times over the years. He reports being very motivated at this time. He continues to experience shortness of breath, mostly on exertion. He has been watching this shortness of breath over the past month and believes that it has increased. He is able to swim to [employer] [place] links prior to becoming short of breath. He denies any shortness of breath during conversation or at rest. He states that he had a nuclear stress test one year ago that was cleaned. He does have unstable angina and has a chest pain that is rated 1 out of 10 or 2 out of 10 that is random. He states the chest pain is not associated with activity. Nothing makes the chest pain better and eventually it goes away without intervention. His last echocardiogram was at least one year ago, he is not sure of the date. His last pulmonary function test was from 2012 at [facility]. Is currently under evaluation for the inspire device. He does have sleep apnea but secondary to intolerance and high stress levels associated with the mask he has been unable to be compliant. He has also been more active in trying to lose weight to treat his sleep apnea. He currently has an occasional dry cough. He denies any sputum production or hemoptysis. He denies any wheezing, chest tightness or chest heaviness. He denies any palpitations. He denies any fever, chills or body aches. See complete review of systems. He is not currently on any [id number] medications. Intake Vital Signs02/10/18 Height 6 ft 1 in 02/10/18 Weight: 239 lb Intake Visit Reasons: Hospital FU Accompanied by: Self Allergies chlorzoxazone Allergy (Severe, Verified 02/10/18 09:15) Unknown Medications aspirin 81 mg tablet,delayed release 81 mg PO QDAY tab 02/10/18 [History Confirmed 02/10/18] atorvastatin 80 mg tablet 80 mg PO QDAY 02/10/18 [History Confirmed 02/10/18] cilostazol 100 mg tablet 100 mg PO BID 02/10/18 [History Confirmed 02/10/18] clopidogrel 75 mg tablet 75 mg PO QDAY tab 02/10/18 [History Confirmed 02/10/18] gabapentin 300 mg capsule 900 mg PO QDAY cap 02/10/18 [History Confirmed 02/10/18] lamotrigine 25 mg tablet 50 mg PO BID tab 02/10/18 [History Confirmed 02/10/18] lisinopril 20 mg-hydrochlorothiazide 12.5 mg tablet 1 tab PO QDAY tab 02/10/18 [History Confirmed 02/10/18] metoprolol tartrate 25 mg tablet 25 mg PO BID 02/10/18 [History Confirmed 02/10/18] trazodone 100 mg tablet 100 mg PO QHS 02/10/18 [History Confirmed 02/10/18] venlafaxine ER 150 mg capsule,extended release 24 hr 150 mg PO QDAY 02/10/18 [History Confirmed 02/10/18] [facility] Medical History Heart attack (Acute) TIA (transient ischemic attack) (Acute) Asthma (Chronic) Coronary heart disease (Chronic) Depression (Chronic) HTN (hypertension) (Chronic) Osteoarthritis (Chronic) Peripheral vascular disease (Chronic) Sleep apnea (Chronic) Surgical History H/O heart artery stent (Resolved) H/O knee surgery (Resolved) Hx of cataract surgery (Resolved) S/P AAA repair (Resolved) Social History household members: spouse housing: house pets and animals: Yes pets and animals: dog(s) Smoking Status: Former smoker quit date: 11/30/17 how long ago did patient quit smokin, 1.5p/d second hand exposure: No alcohol intake: never substance use type: does not use Review of Systems Const CONSTITUTIONAL: Positive daytime sleepiness and fatigue; negative anorexia, body ache, chills, fever(s), night sweats, oral thrush, stops breathing during sleep, weight loss, sleeping in chair, weight loss, weight gain, frequent colds, seasonal allergies, other, headache(s) or orthopnea EETM Ear Nose Throat Mouth: Positive hearing normal; negative hard of hearing, hoarseness, dry mouth in morning, change in vision, itchy eyes, eye pain, swallowing Difficulty, ear pain, nose bleed, headache(s), mouth pain, nasal congestion, nasal discharge, post nasal drip, sinus pain, sinus pressure, sore throat or other Cardio Cardiovascular: Positive chest pain and chest pain at rest; negative chest pain with activity, irregular heart rhythm, edema, shortness of breath when lying down, palpitations, murmur or other Resp Respiratory: Positive as per HPI, shortness of breath shortness of breath: Positive with activity and other (at rest ) and cough cough: Positive non-productive; negative pain with cough, wheezing, chest congestion, chest tightness, pain on inspiration, inhalers, increase use of rescue inhalers, snoring, apnea or other Gastro Gastrointestional: Negative bloody stools, change in appetite, difficulty swallowing, reflux, hematemesis, melena stool, loose stool, constipation or other Genitourinary: Negative blood in urine, nocturia, pain with urination or other Musc Musculoskeletal: Negative body pain, back pain, neck pain or other Skin/Breast Skin/Breast: Negative dry skin, itching, rash, unusual bruising, breast lump or other Neuro Neurological: Negative restless legs, confusion, weakness or other Psych Psychocological: Positive abnormal sleep pattern, anxiety and hopelessness; negative thoughts of hurting self/others or other (PTSD) Lymph Lymphatic: Negative easy bleeding, easy bruising, swollen lymph nodes or other Exam Const Constitutional: Positive conversant, cooperative, in no acute respiratory distress, healthy appearing, well developed, well nourished, good hygiene and obese Head Head: Positive normocephalic and atraumatic; negative cyanosis of lips/distal nose Eyes Eye: Positive clear conjunctiva and nystagmus; negative scleral abnormality Ears Ear: Positive hearing normal and external ears normal; negative hard of hearing Nose Nose: Positive external nose normal and no nasal discharge; negative epistaxis Mouth Mouth: Positive oral mucosae normal, no lesions, good dentition and posterior oropharynx is adequate; negative post nasal drip, malodorous breath or oral thrush present Mallampati Score: II: Mallampati Score Neck Neck: Positive normal visual inspection, full ROM and trachea midline; negative lymphadenopathy, JVD or tender Chest Wall Chest: Positive normal inspection of the chest and symmetric chest movement; negative increased A/P diameter Resp lung sounds: Positive clear to auscultation, good air exchange, normal expiratory time and normal respiratory effort; negative diminished, wheezes, rhonchi, rales, dullness to percussion or wheeze present on forced exhalation Cardio Cardiac: Positive regular rate, regular rhythm, S1 normal and S2 normal; negative murmur GI GI: Positive normal to inspection, normal bowel sounds and obese; negative distended Genitourinary: Positive deferred Musc Musculoskeletal: Positive steady gait and ROM normal; negative kyphosis or scoliosis Skin Pulmonary Skin Exam: Positive intact; negative rash, lesion, ulcers, erythema, scaly or dermal atrophy Pulses Pulse: Yes pulses normal x4 extremities Extremities Extremities: Yes capillary refill normal, No clubbing, No cyanosis, No edema, No stasis dermatitis Neuro Neurologic: Yes conversant, Yes no focal neuro deficits, Yes cooperative, Yes normal cognition, Yes normal coordination, Yes normal concentration, Yes understands questions Lymph Lymphatic: No lymphadenopathy, No tenderness, No cervical adenopathy, No axillary adenopathy Psych Appearance: Positive grossly normal, eye contact and well kempt Mental Status: Positive mental status grossly normal Mood: Positive manic mood Affect: Positive animated Office Procedures Smoking Cessation Time Spent greater than 10 minutes: Yes Coding Level of Care Code Off vis,new,level 4 Diagnoses SOB (shortness of breath) on exertion R06.02 Tobacco abuse Z72.0 Additional Codes Time Spent - greater than 10 minutes: Yes (20740) 02/11/18 1408 <Electronically signed by Lexi Arceo NP-C> Date Lexi Arceo NP-C Cosigner Signature: Date (if applicable) CC: Mary Jane Gan MD PROGRESS Observed: 01/21/2018 Status: COMPLETED Source: [place] 10:52 AM [facility] REPOS[facility]ORY HNO ID: [id number] Author: Sammy Neves Jr. Service: (none) Author Type: Physician Type: Progress Notes Filed: 01/21/2018 12:26 PM Note Text: ESTABLISHED PATIENT VISIT HISTORY OF PRESENT ILLNESS: Allen Valdes is a 62 year old male, BMI 31.66 kg/m2 with a PMH significant for LICA occlusion, TIA, mood disorder with nightmares (followed by psychiatry), DIMAS, PLMD. Patient since last visit was in [facility] (this last weekend). Patient reports he consumed a large amount of ETOH, and on way to the hospital became short of breath. Work up showed patient to have PVCs, but per patient rest of cardiac workup was unremarkable. He was supposed to have nuclear stress test but the machine broke -- scheduled for upcoming weeks. He also has history of fall 2 weeks ago, in which he had mechanical fall walking down a hill. Patient reports no new stroke like symptoms or TIAs. He also reports he quit smoking in November of 2017. He has seen psychiatry who changed patient from Cymbalta to Effexor. Patient reports he packed on a few pounds since med change, but feels his mood is good on these medications. Nightmares have improved. He still does not want to investigate further therapies for his DIMAS - failed PAP. He has been going to the gym regularly and doing water exercises. Regarding Rx meds, he has continued on gabapentin but only taking 900mg at night. States on higher dose had an episode of somnambulism. still feels patient is up and down quite a bit through the night. Patient snores: really, really, really loud per . On further discussion today patient would be interested in seeing dentistry for possible mandibular advancement device. He also notes interest in possible Inspire. REVIEW OF SYSTEMS GENERAL:No weight loss, malaise or fevers. HEENT:Negative for frequent or significant headaches, No changes in hearing or vision, no nose bleeds or other nasal problems NECK:Negative for lumps, goiter, pain and significant neck swelling RESPIRATORY: Negative for cough, wheezing or shortness of breath. CARDIOVASCULAR: Negative for chest pain, leg swelling or palpitations. GASTROINTESTINAL: Negative for abdominal discomfort, blood in stools or black stools or change in bowel habits GENITOURINARY: No history of dysuria, frequency or incontinence NEUROLOGIC:Negative for focal numbness or weakness, headaches and dizziness or syncope, vision changes, speech/languag changes - EXCEPT that as per HPI above. SKIN:Negative for lesions, rash, and itching. PSYCHIATRIC: See HPI. HEMATOLOGIC/LYMPHATIC/IMMUNOLOGIC:Negative for prolonged bleeding, bruising easily or swollen nodes. ENDOCRINE: Negative for cold or heat intolerance, polyuria, polydipsia and goiter. The remainder of the ROS was reviewed and is negative. LAB/IMAGING: Those performed since patient's last visit have been reviewed. WBC (thou/cmm) Date Value 06/23/2016 7.4 RBC (mil/cmm) Date Value 06/23/2016 4.88 Hemoglobin (g/dL) Date Value 11/11/2015 13.3 HGB (g/dL) Date Value 06/23/2016 14.9 Hematocrit (%) Date Value 06/23/2016 43.0 MCV (fl) Date Value 06/23/2016 88.1 MCH (pg) Date Value 06/23/2016 30.5 MCHC (%) Date Value 06/23/2016 34.7 Platelet Count (thou/cmm) Date Value 06/23/2016 140 (L) MPV (fl) Date Value 06/23/2016 11.6 Glucose (mg/dL) Date Value 06/24/2016 98 BUN (mg/dL) Date Value 06/24/2016 13 Creatinine (mg/dL) Date Value 06/24/2016 1.10 Sodium (mEq/L) Date Value 06/24/2016 142 Potassium (mEq/L) Date Value 06/24/2016 3.6 Chloride (mEq/L) Date Value 06/24/2016 110 (H) CO2 (mEq/L) Date Value 06/24/2016 26 Protein, Total (g/dL) Date Value 06/01/2015 7.1 Albumin (g/dL) Date Value 06/01/2015 3.7 Calcium (mg/dL) Date Value 06/24/2016 8.2 (L) Alkaline Phosphatase (U/L) Date Value 06/01/2015 146 (H) Bilirubin, Total (mg/dL) Date Value 06/01/2015 0.6 AST (U/L) Date Value 06/01/2015 13 ALT (U/L) Date Value 06/01/2015 29 ALEBRT (no units) Date Value 12/28/2014 Negative <1:40 Rheumatoid Factor (IU/mL) Date Value 12/28/2014 <10.0 MEDICATIONS: gabapentin (NEURONTIN) 300 mg capsule Take 4 to 5 capsules at bedtime. venlafaxine (EFFEXOR) 75 mg tablet Take 75 mg by mouth three times daily. BUPROPION HCL ORAL Take by mouth once daily. Ciclopirox (PENLAC) 8 % solution Apply 1 application to affected area daily at bedtime. ALBUTEROL INHALATION Inhale 2 Puffs as instructed every 6 hours as needed (wheezing). HYDROcodone-acetaminophen (NORCO) 5-325 mg per tablet One to Two tablets every 8 hours as needed for pain lisinopril-hydrochlorothiazide (PRINZIDE,ZESTORETIC) 20-12.5 mg per tablet Take 1 tablet by mouth once daily. traZODone (DESYREL) 150 mg tablet Take 1 tablet by mouth daily at bedtime. lamoTRIgine (LAMICTAL) 150 mg tablet Take 1 tablet by mouth twice daily. clopidogrel (PLAVIX) 75 mg tablet Take 75 mg by mouth once daily. metoprolol tartrate, short acting, (LOPRESSOR) 100 mg tablet Take 100 mg by mouth once daily. clonazePAM (KLONOPIN) 0.5 mg tablet Take 0.5 mg by mouth twice daily as needed for Anxiety. ACETAMINOPHEN ORAL Take 650 mg by mouth every 4 hours as needed. aspirin, enteric coated (ASPIRIN, ENTERIC COATED) 81 mg EC tablet Take 81 mg by mouth once daily. HYDROcodone-acetaminophen (NORCO) 5-325 mg per tablet One to Two tablets every 8 hours as needed for pain atorvastatin (LIPITOR) 80 mg tablet Take 80 mg by mouth once daily. cilostazol (PLETAL) 100 mg tablet Take 100 mg by mouth twice daily. NEOMYCIN 3.5 MG/G-POLYMYXIN B 10,000 UNIT/G-DEXAMETH 0.1 % EYE OINT Use 1 application in the right eye twice daily. Apply 0.5 inches into RUL margin and eye 2 times a day. Ketorolac Tromethamine (ACLUAR LS) 0.4 % drop Use 1 Drop in the right eye four times daily. prednisoLONE acetate (PRED FORTE) 1 % ophthalmic suspension Use 1 Drop in the right eye four times daily. KRILL OIL ORAL Take 300 mg by mouth twice daily. VENTOLIN HFA 90 mcg/actuation inhaler VIRTUSSIN AC 10-100 mg/5 mL syrup doxycycline (VIBRA-TABS) 100 mg tablet predniSONE (DELTASONE) 20 mg tablet lisinopril (ZESTRIL, PRINIVIL) 20 mg tablet DULoxetine (CYMBALTA) 30 mg capsule 3 caps po daily morning tamsulosin ER (FLOMAX) 0.4 mg cp24 lisinopril (ZESTRIL, PRINIVIL) 10 mg tablet Take 10 mg by mouth once daily. DOCOSAHEXANOIC ACID/EPA (FISH OIL ORAL) Take by mouth. HISTORIES PAST MEDICAL HISTORY Diagnosis Date - Abdominal aortic aneurysm (HCC) - Abdominal aortic aneurysm without rupture (HCC) - Acute myocardial infarction of inferior wall (HCC) - Adrenal adenoma - Adrenal mass (HCC) - Arthritis - Asthma - Avascular necrosis of bone (HCC) - Chronic obstructive lung disease (HCC) - Closed fracture carpal bone S/p perc screw fixation right. - Closed fracture of hip (HCC) - Closed fracture of patella - Coronary arteriosclerosis OM disease with good collaterals on cardiac catheterization 2010. - Depression - Depressive disorder - Gastroesophageal reflux disease - HTN (hypertension) - Hyperlipidemia - Iron deficiency anemia - Known medical problems Current tear of medial cartilage AND/OR meniscus of knee. S/p repair left knee. Morteza Doherty MD. - Known medical problems Post percutaneous transluminal coronary angioplasty. SAMSON 09/12 - Malaise and fatigue - Old anterior cruciate ligament disruption S/p repair, Morteza Doherty MD - Old myocardial infarction - Olecranon bursitis S/p excision bursa Morteza Doherty MD - Osteoarthritis of knee Left. - Pain in finger Right middle, splinting. Que Ruiz MD - Peripheral vascular disease (HCC) - Posttraumatic stress disorder - Skin cancer - Stroke (HCC) - TIA (transient ischemic attack) - Unexplained weight loss FAMILY HISTORY Problem Relation Age of Onset - Cancer Father - CARDIAC [OTHER] Father - HTN [OTHER] Father SOCIAL HISTORY Social History Substance Use Topics - Smoking status: Former Smoker Types: Cigarettes Quit date: 12/01/2017 - Smokeless tobacco: Never Used - Alcohol use 4.0 - 8.0 oz/week 1 Glasses of Wine (5oz), 1 - 3 Cans of Beer (12oz), 1 - 2 Shots of liquor per week Comment: SOCIAL/RARE PHYSICAL EXAMINATION BP 149/79 (BP Site: Left Arm, BP Position: Sitting, BP Cuff Size: Regular Adult) Pulse 62 Wt 108.9 kg (240 lb) SpO2 99% BMI 31.66 kg/m2 GENERAL EXAM: General appearance: NAD, pleasant. HEENT: NC/AT, nasal congestion absent, no oral lesions, membranes moist. NECK: No masses, supple. Lungs: CTA bilaterally. CV: RRR nl S1, S2. No carotid bruits. Abd: Soft, nontender, nondistended. Bowel sounds present. Extr: No cyanosis, clubbing or edema. Extremity pulses palpable and normal. Skin: Cool to touch. ? NEUROLOGICAL EXAM: General: Awake, alert, oriented x3 (person,place,time), speech fluent, no dysarthria; comprehension, naming, repetition intact. 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 Fund of knowledge grossly normal by MOCA. CN: PERRL, EOMI and without nystagmus, VFF to confrontation, facial sensation and strength are normal and symmetric, hearing is intact to finger rub bilaterally, palate and tongue movements are intact and symmetric. SCM and trapezius strength normal. Motor: Normal tone, bulk and strength (5/5) bilaterally (throughout extremities x4). Reflexes: 2/4 and symmetric. Coordination: FNF, VIKI, HTS intact. No tremors. Sensation: LT, PP intact throughout. No evidence of neglect. Gait: Narrow based and stable with normal stride and arm swing although he does use a cane. Assessment and Plan: 1. Occlusion of left carotid artery - ICD9: 433.10, ICD10: I65.22 (primary diagnosis) No new focal neuro deficits or transient symptoms to suggest TIA or stroke --Recommend continued dual anti-plt therapy. --Continue statin therapy -- needs to follow up with PCP for follow up lipid profiles -- med can be adjusted based on results. --Goal BP <140/90. --Goal glucose <140. --Encouraged exercise. ? 2. History of TIAs - ICD9: V12.54, ICD10: Z86.73 See #1 ? 3. Chronic intractable headache, unspecified headache type - ICD9: 784.0, ICD10: R51 Improved over past year and currently well controlled with headache only about once day per week. Frequency not severe enough to add new preventative med. --Continue Gabapentin 900mg QHS. ? 4. PLMD (periodic limb movement disorder) - ICD9: 327.51, ICD10: G47.61 Possible that symptoms persist and causing fragmentation of sleep. --Continue Gabapentin 900mg QHS. Per , no actual kicking movements in sleep. ? 5. Obstructive sleep apnea syndrome - ICD9: 327.23, ICD10: G47.33 Declines PAP. Previously declined other therapies including dental, UPPP and Inspire. He reports he would now like ENT eval. Will refer to see Dr. Roman at [facility]. ? 6. Insomnia, unspecified type - ICD9: 780.52, ICD10: G47.00 Likely components of PLMD, untreated DIMAS, and depression. --Referral to ENT as above. --Gabapentin as above. --Encouraged psychiatry follow up. I spent 30 minutes in the visit, with more than 50% of the total [id number] time of the visit in counseling / coordination of care. CR CHEST PORTABLE Observed: 01/17/2018 Status: F Source: [place] 1:57 PM SYSTEM REPOSITORY Patient Name: ALLEN VALDES Diagnostic Radiology Exam Date/Time 01/17/2018 13:45:00 EST Exam CR Chest Portable Ordering Physician AUBREY WANG BETH A. Accession Number [id number] CPT4 Codes 30419 () Reason For Exam chest pain, sob Report PORTABLE CHEST CLINICAL INDICATION: Chest pain and shortness of breath TECHNIQUE: Portable AP COMPARISON: 11/24/2017 FINDINGS: Heart is mildly enlarged and calcification of the aorta is noted. The lungs are clear. The costophrenic angles are sharp. The osseous structures are unremarkable. IMPRESSION: Borderline cardiomegaly. No acute abnormality Report Dictated on Final Dictating Physician: MD ROME JEFFREY Signed Date and Time: 01/17/2018 1:58 pm Signed by: MD ROME JEFFREY Transcribed Date and Time: 01/17/2018 1:59 PROGRESS Observed: 01/12/2018 Status: COMPLETED Source: [place] 9:00 AM CLINIC OTHER CAMPUS REPOSITORY O ID: [id number] Author: Lynsey Lyons Service: (none) Author Type: Physician Type: Progress Notes Filed: 01/12/2018 9:18 AM Note Text: Allen Valdes is a 62 year old male who presents for a one week follow-up of his right knee strain after slipping a fall. Initial evaluation showed his knee to be structurally intact. Over the last week his pain, swelling and tenderness have improved. He's been able to ambulate full weightbearing. He's been able to wean himself out of his brace. His knee has felt stable. His only areas of pain are at the tibial tubercle and the superior lateral peripatellar area. Reviewed nursing note and current pain scale. PAST MEDICAL HISTORY Diagnosis Date - Abdominal aortic aneurysm (HCC) - Abdominal aortic aneurysm without rupture (HCC) - Acute myocardial infarction of inferior wall (HCC) - Adrenal adenoma - Adrenal mass (HCC) - Arthritis - Asthma - Avascular necrosis of bone (HCC) - Chronic obstructive lung disease (HCC) - Closed fracture carpal bone S/p perc screw fixation right. - Closed fracture of hip (HCC) - Closed fracture of patella - Coronary arteriosclerosis OM disease with good collaterals on cardiac catheterization 2010. - Depression - Depressive disorder - Gastroesophageal reflux disease - HTN (hypertension) - Hyperlipidemia - Iron deficiency anemia - Known medical problems Current tear of medial cartilage AND/OR meniscus of knee. S/p repair left knee. Morteza Doherty MD. - Known medical problems Post percutaneous transluminal coronary angioplasty. SAMSON 09/12 - Malaise and fatigue - Old anterior cruciate ligament disruption S/p repair, Morteza Doherty MD - Old myocardial infarction - Olecranon bursitis S/p excision bursa Morteza Doherty MD - Osteoarthritis of knee Left. - Pain in finger Right middle, splinting. Que Ruiz MD - Peripheral vascular disease (HCC) - Posttraumatic stress disorder - Skin cancer - Stroke (HCC) - TIA (transient ischemic attack) - Unexplained weight loss PAST SURGICAL HISTORY Procedure Laterality Date - ABD AORTIC ANEURYSM REPAIR 2015 - CARDIAC CATH 09/05/2014 Single vessel CAD. - KNEE ARTHROSCOPY/SURGERY 02/01/1999 EUA, joint lavage, chondroplasty medial femoral condyle and patella. Huey Doherty MD - KNEE SURGERY HX 05/24/2010 Removal of cemented spacer and insertion of Shaina II constrained condylar total knee replacement. Morteza Doherty MD - PAST SURGICAL HISTORY OF Right 04/26/2002 Anesth, elbow area surgery. Excision olecranon bursa right elbow. Morteza Doherty MD - PAST SURGICAL HISTORY OF 09/05/2014 Cardiac Stent. SAMSON ostial/prox RCA - PAST SURGICAL HISTORY OF 06/03/2015 Endovascr repair abd aortic aneur - REVISION OF KNEE JOINT Right 2009 - TOTAL KNEE REPLACEMENT 01/25/2010 Right posterior stabilized Shaina II total knee replacements. Morteza Doherty MD - TREAT HIP FRACTURE(S) Right 08/30/2011 Percutaneous screw fixation of right femoral neck fracture with fluoroscopic interpretation. Hina Huggins MD - TREAT HIP FRACTURE(S) Right 2011 FAMILY HISTORY Problem Relation Age of Onset - Cancer Father - CARDIAC [OTHER] Father - HTN [OTHER] Father Social History Substance Use Topics - Smoking status: Current Every Day Smoker Packs/day: 1.00 Years: 45.00 Types: Cigarettes - Smokeless tobacco: Never Used Comment: Quit 28 days 03/28/2014. Her restarted smoking as of March 26, 2015 office visit - Alcohol use 4.0 - 8.0 oz/week 1 Glasses of Wine (5oz), 1 - 3 Cans of Beer (12oz), 1 - 2 Shots of liquor per week Comment: SOCIAL/RARE REVIEW OF SYSTEMS: GENERAL: Well developed, well nourished. No acute distress PAIN: Right knee pain. CARDIOVASCULAR: Hypertension and hyperlipidemia. MSK: Osteoarthritis. SKIN: Negative for lesions, rash, itching, metal sensitivity NEURO: TIA. ENDOCRINE: Negative for Diabetes Type 1 and Type 2 HEMATOLOGY: Negative for excessive bleeding, clots, bleeding disorders. Medications: Current Outpatient Prescriptions: HYDROcodone-acetaminophen (NORCO) 5-325 mg per tablet One tablet every 6 - 8 hours as needed for pain gabapentin (NEURONTIN) 300 mg capsule Take 4 to 5 capsules at bedtime. venlafaxine (EFFEXOR) 75 mg tablet Take 75 mg by mouth three times daily. NEOMYCIN 3.5 MG/G-POLYMYXIN B 10,000 UNIT/G-DEXAMETH 0.1 % EYE OINT Use 1 application in the right eye twice daily. Apply 0.5 inches into RUL margin and eye 2 times a day. Ketorolac Tromethamine (ACLUAR LS) 0.4 % drop Use 1 Drop in the right eye four times daily. prednisoLONE acetate (PRED FORTE) 1 % ophthalmic suspension Use 1 Drop in the right eye four times daily. BUPROPION HCL ORAL Take by mouth once daily. Ciclopirox (PENLAC) 8 % solution Apply 1 application to affected area daily at bedtime. ALBUTEROL INHALATION Inhale 2 Puffs as instructed every 6 hours as needed (wheezing). HYDROcodone-acetaminophen (NORCO) 5-325 mg per tablet One to Two tablets every 8 hours as needed for pain lisinopril-hydrochlorothiazide (PRINZIDE,ZESTORETIC) 20-12.5 mg per tablet Take 1 tablet by mouth once daily. traZODone (DESYREL) 150 mg tablet Take 1 tablet by mouth daily at bedtime. lamoTRIgine (LAMICTAL) 150 mg tablet Take 1 tablet by mouth twice daily. clopidogrel (PLAVIX) 75 mg tablet Take 75 mg by mouth once daily. metoprolol tartrate, short acting, (LOPRESSOR) 100 mg tablet Take 100 mg by mouth once daily. clonazePAM (KLONOPIN) 0.5 mg tablet Take 0.5 mg by mouth twice daily as needed for Anxiety. ACETAMINOPHEN ORAL Take 650 mg by mouth every 4 hours as needed. aspirin, enteric coated (ASPIRIN, ENTERIC COATED) 81 mg EC tablet Take 81 mg by mouth once daily. HYDROcodone-acetaminophen (NORCO) 5-325 mg per tablet One to Two tablets every 8 hours as needed for pain DOCOSAHEXANOIC ACID/EPA (FISH OIL ORAL) Take by mouth. atorvastatin (LIPITOR) 80 mg tablet Take 80 mg by mouth once daily. KRILL OIL ORAL Take 300 mg by mouth twice daily. VENTOLIN HFA 90 mcg/actuation inhaler VIRTUSSIN AC 10-100 mg/5 mL syrup doxycycline (VIBRA-TABS) 100 mg tablet predniSONE (DELTASONE) 20 mg tablet lisinopril (ZESTRIL, PRINIVIL) 20 mg tablet DULoxetine (CYMBALTA) 30 mg capsule 3 caps po daily morning tamsulosin ER (FLOMAX) 0.4 mg cp24 lisinopril (ZESTRIL, PRINIVIL) 10 mg tablet Take 10 mg by mouth once daily. cilostazol (PLETAL) 100 mg tablet Take 100 mg by mouth twice daily. No current facility-administered medications for this visit. Allergies: ALLERGIES Allergen Reactions - Estelita Faye Dsc [* Itching Physical Examination: Resp 16 Ht 6' 1 (1.85m) Wt 240 lb (108.9kg) BMI 31.67 kg/(m2). General Appearance: Well appearing, alert, in no acute distress, well-hydrated, well nourished. Skin: Skin color, texture, turgor normal, no suspicious rashes or lesions. Extremities: His knee shows well-healed multiple incisions. He has active flexion and 90?. Active extension to -5? with good strength. Good palpable integrity of his extensor mechanism. Stable to varus and valgus stressing. No warmth, erythema. Slight swelling to the knee but improved. Assessment and Plan: 1. Quadriceps muscle strain, right, subsequent encounter - ICD9: V58.89, 843.8, ICD10: S76.111D Functional Plan: advised again that his knee is structurally sound. Has symptoms of a resolving strain. Continue with symptomatic treatment. He can wean himself out of his brace. Continue use a cane for fall prevention. Plan on seeing him back in 6 weeks' time if his symptoms fail to improve or worsen. Return in about 6 weeks (around 02/23/2018), or if symptoms worsen or fail to improve. Lynsey Lyons MD CNOV Observed: 01/12/2018 Status: COMPLETED Source: [facility] 8:45 AM [facility] OTHER CAMPUS REPOSITORY Office Visit ([id number]) ALLEN VALDES ([id number]) 1955 M Date Time Provider Department 01/12/18 8:45 AM LYNSEY LYONS [id number] During your visit today, we recorded the following information about you: Respiration Weight Height 16/minute 108.9 kg 1.854 m Lynsey Lyons MD 01/12/2018 9:18 AM Signed Allennathan Valdes is a 62 year old male who presents for a one week follow-up of his right knee strain after slipping a fall. Initial evaluation showed his knee to be structurally intact. Over the last week his pain, swelling and tenderness have improved. He's been able to ambulate full weightbearing. He's been able to wean himself out of his brace. His knee has felt stable. His only areas of pain are at the tibial tubercle and the superior lateral peripatellar area. Reviewed nursing note and current pain scale. PAST MEDICAL HISTORY Diagnosis Date - Abdominal aortic aneurysm (HCC) - Abdominal aortic aneurysm without rupture (HCC) - Acute myocardial infarction of inferior wall (HCC) - Adrenal adenoma - Adrenal mass (HCC) - Arthritis - Asthma - Avascular necrosis of bone (HCC) - Chronic obstructive lung disease (HCC) - Closed fracture carpal bone S/p perc screw fixation right. - Closed fracture of hip (HCC) - Closed fracture of patella - Coronary arteriosclerosis OM disease with good collaterals on cardiac catheterization 2010. - Depression - Depressive disorder - Gastroesophageal reflux disease - HTN (hypertension) - Hyperlipidemia - Iron deficiency anemia - Known medical problems Current tear of medial cartilage AND/OR meniscus of knee. S/p repair left knee. Morteza Doherty MD. - Known medical problems Post percutaneous transluminal coronary angioplasty. SAMSON 09/12 - Malaise and fatigue - Old anterior cruciate ligament disruption S/p repair, Morteza Doherty MD - Old myocardial infarction - Olecranon bursitis S/p excision bursa Morteza Doherty MD - Osteoarthritis of knee Left. - Pain in finger Right middle, splinting. Que Ruiz MD - Peripheral vascular disease (HCC) - Posttraumatic stress disorder - Skin cancer - Stroke (HCC) - TIA (transient ischemic attack) - Unexplained weight loss PAST SURGICAL HISTORY Procedure Laterality Date - ABD AORTIC ANEURYSM REPAIR 2014 - CARDIAC CATH 09/05/2014 Single vessel CAD. - KNEE ARTHROSCOPY/SURGERY 02/01/1999 EUA, joint lavage, chondroplasty medial femoral condyle and patella. Huey Doherty MD - KNEE SURGERY HX 05/24/2010 Removal of cemented spacer and insertion of Shaina II constrained condylar total knee replacement. Morteza Doherty MD - PAST SURGICAL HISTORY OF Right 04/26/2002 Anesth, elbow area surgery. Excision olecranon bursa right elbow. Morteza Doherty MD - PAST SURGICAL HISTORY OF 09/05/2014 Cardiac Stent. SAMSON ostial/prox RCA - PAST SURGICAL HISTORY OF 06/03/2015 Endovascr repair abd aortic aneur - REVISION OF KNEE JOINT Right 2009 - TOTAL KNEE REPLACEMENT 01/25/2010 Right posterior stabilized Shaina II total knee replacements. Morteza Doherty MD - TREAT HIP FRACTURE(S) Right 08/30/2011 Percutaneous screw fixation of right femoral neck fracture with fluoroscopic interpretation. Hina Huggins MD - TREAT HIP FRACTURE(S) Right 2011 FAMILY HISTORY Problem Relation Age of Onset - Cancer Father - CARDIAC [OTHER] Father - HTN [OTHER] Father Social History Substance Use Topics - Smoking status: Current Every Day Smoker Packs/day: 1.00 Years: 45.00 Types: Cigarettes - Smokeless tobacco: Never Used Comment: Quit 28 days 03/28/2014. Her restarted smoking as of March 26, 2015 office visit - Alcohol use 4.0 - 8.0 oz/week 1 Glasses of Wine (5oz), 1 - 3 Cans of Beer (12oz), 1 - 2 Shots of liquor per week Comment: SOCIAL/RARE REVIEW OF SYSTEMS: GENERAL: Well developed, well nourished. No acute distress PAIN: Right knee pain. CARDIOVASCULAR: Hypertension and hyperlipidemia. MSK: Osteoarthritis. SKIN: Negative for lesions, rash, itching, metal sensitivity NEURO: TIA. ENDOCRINE: Negative for Diabetes Type 1 and Type 2 HEMATOLOGY: Negative for excessive bleeding, clots, bleeding disorders. Medications: Current Outpatient Prescriptions: HYDROcodone-acetaminophen (NORCO) 5-325 mg per tablet One tablet every 6 - 8 hours as needed for pain gabapentin (NEURONTIN) 300 mg capsule Take 4 to 5 capsules at bedtime. venlafaxine (EFFEXOR) 75 mg tablet Take 75 mg by mouth three times daily. NEOMYCIN 3.5 MG/G-POLYMYXIN B 10,000 UNIT/G-DEXAMETH 0.1 % EYE OINT Use 1 application in the right eye twice daily. Apply 0.5 inches into RUL margin and eye 2 times a day. Ketorolac Tromethamine (ACLUAR LS) 0.4 % drop Use 1 Drop in the right eye four times daily. prednisoLONE acetate (PRED FORTE) 1 % ophthalmic suspension Use 1 Drop in the right eye four times daily. BUPROPION HCL ORAL Take by mouth once daily. Ciclopirox (PENLAC) 8 % solution Apply 1 application to affected area daily at bedtime. ALBUTEROL INHALATION Inhale 2 Puffs as instructed every 6 hours as needed (wheezing). HYDROcodone-acetaminophen (NORCO) 5-325 mg per tablet One to Two tablets every 8 hours as needed for pain lisinopril-hydrochlorothiazide (PRINZIDE,ZESTORETIC) 20-12.5 mg per tablet Take 1 tablet by mouth once daily. traZODone (DESYREL) 150 mg tablet Take 1 tablet by mouth daily at bedtime. lamoTRIgine (LAMICTAL) 150 mg tablet Take 1 tablet by mouth twice daily. clopidogrel (PLAVIX) 75 mg tablet Take 75 mg by mouth once daily. metoprolol tartrate, short acting, (LOPRESSOR) 100 mg tablet Take 100 mg by mouth once daily. clonazePAM (KLONOPIN) 0.5 mg tablet Take 0.5 mg by mouth twice daily as needed for Anxiety. ACETAMINOPHEN ORAL Take 650 mg by mouth every 4 hours as needed. aspirin, enteric coated (ASPIRIN, ENTERIC COATED) 81 mg EC tablet Take 81 mg by mouth once daily. HYDROcodone-acetaminophen (NORCO) 5-325 mg per tablet One to Two tablets every 8 hours as needed for pain DOCOSAHEXANOIC ACID/EPA (FISH OIL ORAL) Take by mouth. atorvastatin (LIPITOR) 80 mg tablet Take 80 mg by mouth once daily. KRILL OIL ORAL Take 300 mg by mouth twice daily. VENTOLIN HFA 90 mcg/actuation inhaler VIRTUSSIN AC 10-100 mg/5 mL syrup doxycycline (VIBRA-TABS) 100 mg tablet predniSONE (DELTASONE) 20 mg tablet lisinopril (ZESTRIL, PRINIVIL) 20 mg tablet DULoxetine (CYMBALTA) 30 mg capsule 3 caps po daily morning tamsulosin ER (FLOMAX) 0.4 mg cp24 lisinopril (ZESTRIL, PRINIVIL) 10 mg tablet Take 10 mg by mouth once daily. cilostazol (PLETAL) 100 mg tablet Take 100 mg by mouth twice daily. No current facility-administered medications for this visit. Allergies: ALLERGIES Allergen Reactions - Parafon Forte Dsc [* Itching Physical Examination: Resp 16 Ht 6' 1ANDquot; (1.85m) Wt 240 lb (108.9kg) BMI 31.67 kg/(m2). General Appearance: Well appearing, alert, in no acute distress, well-hydrated, well nourished. Skin: Skin color, texture, turgor normal, no suspicious rashes or lesions. Extremities: His knee shows well-healed multiple incisions. He has active flexion and 90?. Active extension to -5? with good strength. Good palpable integrity of his extensor mechanism. Stable to varus and valgus stressing. No warmth, erythema. Slight swelling to the knee but improved. Assessment and Plan: 1. Quadriceps muscle strain, right, subsequent encounter - ICD9: V58.89, 843.8, ICD10: S76.111D Functional Plan: advised again that his knee is structurally sound. Has symptoms of a resolving strain. Continue with symptomatic treatment. He can wean himself out of his brace. Continue use a cane for fall prevention. Plan on seeing him back in 6 weeks' time if his symptoms fail to improve or worsen. Return in about 6 weeks (around 02/23/2018), or if symptoms worsen or fail to improve. Lynsey Lyons MD Referring Provider: SELF [[id number]] Allergies As of Date: 01/12/2018 Noted Allergy Reaction PARAFON FORTE DSC (CHLORZOXAZONE) 08/08/2015 9 - Itching Date Reviewed: 01/12/2018 Reviewed by: Kaylah Gan - Fully Assessed Reason for Visit: Follow Up [171] Cmt: Right knee check up. Doing better since last visit. Primary Visit Diagnosis:Quadriceps muscle strain, right, subsequent encounter [S76.466B] Prescriptions as of 01/12/2018 Sig: HYDROCODONE 5 MG-ACETAMINOPHE* One tablet every 6 - 8 hours * GABAPENTIN 300 MG CAPSULE Take 4 to 5 capsules at bedti* VENLAFAXINE 75 MG TABLET Take 75 mg by mouth three kang* NEOMYCIN 3.5 MG/G-POLYMYXIN B* Use 1 application in the righ* KETOROLAC 0.4 % EYE DROPS Use 1 Drop in the right eye f* PREDNISOLONE ACETATE 1 % EYE * Use 1 Drop in the right eye f* BUPROPION HCL ORAL Take by mouth once daily. CICLOPIROX 8 % TOPICAL SOLUTI* Apply 1 application to affect* ALBUTEROL INHALATION Inhale 2 Puffs as instructed * HYDROCODONE 5 MG-ACETAMINOPHE* One to Two tablets every 8 ho* LISINOPRIL 20 MG-HYDROCHLOROT* Take 1 tablet by mouth once d* TRAZODONE 150 MG TABLET Take 1 tablet by mouth daily * LAMOTRIGINE 150 MG TABLET Take 1 tablet by mouth twice * CLOPIDOGREL 75 MG TABLET Take 75 mg by mouth once shahla* METOPROLOL TARTRATE 100 MG TA* Take 100 mg by mouth once latha* CLONAZEPAM 0.5 MG TABLET Take 0.5 mg by mouth twice da* ACETAMINOPHEN ORAL Take 650 mg by mouth every 4 * ASPIRIN 81 MG TABLET,DELAYED * Take 81 mg by mouth once shahla* HYDROCODONE 5 MG-ACETAMINOPHE* One to Two tablets every 8 h* FISH OIL ORAL Take by mouth. ATORVASTATIN 80 MG TABLET Take 80 mg by mouth once shahla* KRILL OIL ORAL Take 300 mg by mouth twice da* VENTOLIN HFA 90 MCG/ACTUATION* VIRTUSSIN AC 10 MG-100 MG/5 M* DOXYCYCLINE HYCLATE 100 MG TA* PREDNISONE 20 MG TABLET LISINOPRIL 20 MG TABLET DULOXETINE 30 MG CAPSULE,MANUELA* 3 caps po daily morning TAMSULOSIN 0.4 MG CAPSULE LISINOPRIL 10 MG TABLET Take 10 mg by mouth once shahla* CILOSTAZOL 100 MG TABLET Take 100 mg by mouth twice da* Problem List As Of Date 01/12/2018 Noted Resolved Failed total knee arthroplasty (HCC) [T84.018A,*INVALID FOR* Contusion of right knee [S80.01XA] INVALID FOR* Primary osteoarthritis of left knee [M17.12] INVALID FOR* TIA (transient ischemic attack) [G45.9] Severe episode of recurrent major depressive di*INVALID FOR* Chronic post-traumatic stress disorder (PTSD) [*INVALID FOR* Cigarette nicotine dependence with nicotine-ind*INVALID FOR* DIMAS (obstructive sleep apnea) [G47.33] INVALID FOR* 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 Follow-up and Disposition History Recorded Encounter Status:Closed by LYNSEY LYONS MD on 01/12/18 PROGRESS Observed: 01/08/2018 Status: COMPLETED Source: [facility] 10:07 AM [facility] OTHER CAMPUS REPOSITORY O ID: [id number] Author: Lynsey Lyons Service: (none) Author Type: Physician Type: Progress Notes Filed: 01/08/2018 10:15 AM Note Text: Allen Valdes is a 62 year old male who presents for evaluation of acute injury to his right total knee. He's had multiple surgeries on this right knee, and is well known to me. He had a slip and fall about a week ago. He twisted his knee. Doesn't know the exact mechanism of how he landed. Have diffuse pain and swelling that worsened over 24 hours. He's been using crutches. Has had some improvement of the pain and swelling over the last 48 hours. No other injuries. No loss of consciousness. Reviewed nursing note and current pain scale. PAST MEDICAL HISTORY Diagnosis Date - Abdominal aortic aneurysm (HCC) - Abdominal aortic aneurysm without rupture (HCC) - Acute myocardial infarction of inferior wall (HCC) - Adrenal adenoma - Adrenal mass (HCC) - Arthritis - Asthma - Avascular necrosis of bone (HCC) - Chronic obstructive lung disease (HCC) - Closed fracture carpal bone S/p perc screw fixation right. - Closed fracture of hip (HCC) - Closed fracture of patella - Coronary arteriosclerosis OM disease with good collaterals on cardiac catheterization 2010. - Depression - Depressive disorder - Gastroesophageal reflux disease - HTN (hypertension) - Hyperlipidemia - Iron deficiency anemia - Known medical problems Current tear of medial cartilage AND/OR meniscus of knee. S/p repair left knee. Morteza Doherty MD. - Known medical problems Post percutaneous transluminal coronary angioplasty. SAMSON 09/12 - Malaise and fatigue - Old anterior cruciate ligament disruption S/p repair, Morteza Doherty MD - Old myocardial infarction - Olecranon bursitis S/p excision bursa Morteza Doherty MD - Osteoarthritis of knee Left. - Pain in finger Right middle, splinting. Que Ruiz MD - Peripheral vascular disease (HCC) - Posttraumatic stress disorder - Skin cancer - Stroke (HCC) - TIA (transient ischemic attack) - Unexplained weight loss PAST SURGICAL HISTORY Procedure Laterality Date - ABD AORTIC ANEURYSM REPAIR 2014 - CARDIAC CATH 09/05/2014 Single vessel CAD. - KNEE ARTHROSCOPY/SURGERY 02/01/1999 EUA, joint lavage, chondroplasty medial femoral condyle and patella. Huey Doherty MD - KNEE SURGERY HX 05/24/2010 Removal of cemented spacer and insertion of Shaina II constrained condylar total knee replacement. Morteza Doherty MD - PAST SURGICAL HISTORY OF Right 04/26/2002 Anesth, elbow area surgery. Excision olecranon bursa right elbow. Morteza Doherty MD - PAST SURGICAL HISTORY OF 09/05/2014 Cardiac Stent. SAMSON ostial/prox RCA - PAST SURGICAL HISTORY OF 06/03/2015 Endovascr repair abd aortic aneur - REVISION OF KNEE JOINT Right 2009 - TOTAL KNEE REPLACEMENT 01/25/2010 Right posterior stabilized Shaina II total knee replacements. Morteza Doherty MD - TREAT HIP FRACTURE(S) Right 08/30/2011 Percutaneous screw fixation of right femoral neck fracture with fluoroscopic interpretation. Hina Huggins MD - TREAT HIP FRACTURE(S) Right 2011 FAMILY HISTORY Problem Relation Age of Onset - Cancer Father - CARDIAC [OTHER] Father - HTN [OTHER] Father Social History Substance Use Topics - Smoking status: Current Every Day Smoker Packs/day: 1.00 Years: 45.00 Types: Cigarettes - Smokeless tobacco: Never Used Comment: Quit 28 days 03/28/2014. Her restarted smoking as of March 26, 2015 office visit - Alcohol use 4.0 - 8.0 oz/week 1 Glasses of Wine (5oz), 1 - 3 Cans of Beer (12oz), 1 - 2 Shots of liquor per week Comment: SOCIAL/RARE Medications: Current Outpatient Prescriptions: gabapentin (NEURONTIN) 300 mg capsule Take 4 to 5 capsules at bedtime. venlafaxine (EFFEXOR) 75 mg tablet Take 75 mg by mouth three times daily. NEOMYCIN 3.5 MG/G-POLYMYXIN B 10,000 UNIT/G-DEXAMETH 0.1 % EYE OINT Use 1 application in the right eye twice daily. Apply 0.5 inches into RUL margin and eye 2 times a day. Ketorolac Tromethamine (ACLUAR LS) 0.4 % drop Use 1 Drop in the right eye four times daily. prednisoLONE acetate (PRED FORTE) 1 % ophthalmic suspension Use 1 Drop in the right eye four times daily. BUPROPION HCL ORAL Take by mouth once daily. Ciclopirox (PENLAC) 8 % solution Apply 1 application to affected area daily at bedtime. ALBUTEROL INHALATION Inhale 2 Puffs as instructed every 6 hours as needed (wheezing). HYDROcodone-acetaminophen (NORCO) 5-325 mg per tablet One to Two tablets every 8 hours as needed for pain lisinopril-hydrochlorothiazide (PRINZIDE,ZESTORETIC) 20-12.5 mg per tablet Take 1 tablet by mouth once daily. traZODone (DESYREL) 150 mg tablet Take 1 tablet by mouth daily at bedtime. lamoTRIgine (LAMICTAL) 150 mg tablet Take 1 tablet by mouth twice daily. clopidogrel (PLAVIX) 75 mg tablet Take 75 mg by mouth once daily. metoprolol tartrate, short acting, (LOPRESSOR) 100 mg tablet Take 100 mg by mouth once daily. clonazePAM (KLONOPIN) 0.5 mg tablet Take 0.5 mg by mouth twice daily as needed for Anxiety. ACETAMINOPHEN ORAL Take 650 mg by mouth every 4 hours as needed. aspirin, enteric coated (ASPIRIN, ENTERIC COATED) 81 mg EC tablet Take 81 mg by mouth once daily. HYDROcodone-acetaminophen (NORCO) 5-325 mg per tablet One to Two tablets every 8 hours as needed for pain DOCOSAHEXANOIC ACID/EPA (FISH OIL ORAL) Take by mouth. atorvastatin (LIPITOR) 80 mg tablet Take 80 mg by mouth once daily. HYDROcodone-acetaminophen (NORCO) 5-325 mg per tablet One tablet every 6 - 8 hours as needed for pain KRILL OIL ORAL Take 300 mg by mouth twice daily. VENTOLIN HFA 90 mcg/actuation inhaler VIRTUSSIN AC 10-100 mg/5 mL syrup doxycycline (VIBRA-TABS) 100 mg tablet predniSONE (DELTASONE) 20 mg tablet lisinopril (ZESTRIL, PRINIVIL) 20 mg tablet DULoxetine (CYMBALTA) 30 mg capsule 3 caps po daily morning tamsulosin ER (FLOMAX) 0.4 mg cp24 lisinopril (ZESTRIL, PRINIVIL) 10 mg tablet Take 10 mg by mouth once daily. cilostazol (PLETAL) 100 mg tablet Take 100 mg by mouth twice daily. No current facility-administered medications for this visit. Allergies: ALLERGIES Allergen Reactions - Estelita Faye Dsc [* Itching Physical Examination: Resp 16 Ht 6' 1 (1.85m) Wt 239 lb (108.4kg) BMI 31.54 kg/(m2). General Appearance: Well appearing, alert, in no acute distress, well-hydrated, well nourished. Skin: Skin color, texture, turgor normal, no suspicious rashes or lesions. Extremities: his right knee shows swelling. Multiple well-healed incisions. No ecchymosis. He has palpable integrity of his extensor mechanism. Pain inhibited straight leg raising but he is able to maintain extension. Flexion to about 40? currently. No varus or valgus instability. No pain on hip rotation. Peripheral Pulses: Normal. Images: X-ray Interpretation: We ordered, obtained and reviewed an AP, lateral, and sunrise radiograph for follow-up of a total right knee arthroplasty. Compared to views of 2016 shows a GALLARDO NEPHEW revision right total knee in good position without loosening or complication. Small patellar fragment from a previous partial patellectomy unchanged. Cemented femoral and tibial stems unchanged. Impression: Stable follow up complex revision right total knee, without acute change. Assessment and Plan: 1. Quadriceps strain, right, initial encounter - ICD9: 843.8, ICD10: S76.111A (primary diagnosis) 2. Failure of total knee replacement, sequela - ICD9: 909.3, ICD10: T84.018S, Z96.659 Functional Plan: I advised him that radiographically his knee is sound. By physical exam he has no ligamentous injury and I think his extensor mechanism is intact although it is sprained. Advanced imaging will be difficult given all the hardware in his knee. At this point I recommended rest, ice and activity limitation. We'll fit him with a knee immobilizer for stability. He can weight- bear on this to pain tolerance with his crutches. We'll see him back in a week's time for repeat examination. Return in 1 week (on 01/12/2018). Lynsey Lyons MD CNOV Observed: 01/05/2018 Status: COMPLETED Source: [facility] 3:45 PM [facility] OTHER CAMPUS REPOSITORY Office Visit (AGPOB1) ALLEN VALDES ([id number]) 1955 M Date Time Provider Department 01/05/18 3:45 PM LYNSEY LYONS During your visit today, we recorded the following information about you: Respiration Weight Height 16/minute 108.4 kg 1.854 m Lynsey Lyons MD 01/08/2018 10:15 AM Signed Allen Valdes is a 62 year old male who presents for evaluation of acute injury to his right total knee. He's had multiple surgeries on this right knee, and is well known to me. He had a slip and fall about a week ago. He twisted his knee. Doesn't know the exact mechanism of how he landed. Have diffuse pain and swelling that worsened over 24 hours. He's been using crutches. Has had some improvement of the pain and swelling over the last 48 hours. No other injuries. No loss of consciousness. Reviewed nursing note and current pain scale. PAST MEDICAL HISTORY Diagnosis Date - Abdominal aortic aneurysm (HCC) - Abdominal aortic aneurysm without rupture (HCC) - Acute myocardial infarction of inferior wall (HCC) - Adrenal adenoma - Adrenal mass (HCC) - Arthritis - Asthma - Avascular necrosis of bone (HCC) - Chronic obstructive lung disease (HCC) - Closed fracture carpal bone S/p perc screw fixation right. - Closed fracture of hip (HCC) - Closed fracture of patella - Coronary arteriosclerosis OM disease with good collaterals on cardiac catheterization 2010. - Depression - Depressive disorder - Gastroesophageal reflux disease - HTN (hypertension) - Hyperlipidemia - Iron deficiency anemia - Known medical problems Current tear of medial cartilage AND/OR meniscus of knee. S/p repair left knee. Morteza Doherty MD. - Known medical problems Post percutaneous transluminal coronary angioplasty. SAMSON 09/12 - Malaise and fatigue - Old anterior cruciate ligament disruption S/p repair, Morteza Doherty MD - Old myocardial infarction - Olecranon bursitis S/p excision bursa Morteza Doherty MD - Osteoarthritis of knee Left. - Pain in finger Right middle, splinting. Que Ruiz MD - Peripheral vascular disease (HCC) - Posttraumatic stress disorder - Skin cancer - Stroke (HCC) - TIA (transient ischemic attack) - Unexplained weight loss PAST SURGICAL HISTORY Procedure Laterality Date - ABD AORTIC ANEURYSM REPAIR 2015 - CARDIAC CATH 09/05/2014 Single vessel CAD. - KNEE ARTHROSCOPY/SURGERY 02/01/1999 EUA, joint lavage, chondroplasty medial femoral condyle and patella. Huey Doherty MD - KNEE SURGERY HX 05/24/2010 Removal of cemented spacer and insertion of Shaina II constrained condylar total knee replacement. Morteza Doherty MD - PAST SURGICAL HISTORY OF Right 04/26/2002 Anesth, elbow area surgery. Excision olecranon bursa right elbow. Morteza Doherty MD - PAST SURGICAL HISTORY OF 09/05/2014 Cardiac Stent. SAMSON ostial/prox RCA - PAST SURGICAL HISTORY OF 06/03/2015 Endovascr repair abd aortic aneur - REVISION OF KNEE JOINT Right 2009 - TOTAL KNEE REPLACEMENT 01/25/2010 Right posterior stabilized Shaina II total knee replacements. Morteza Doherty MD - TREAT HIP FRACTURE(S) Right 08/30/2011 Percutaneous screw fixation of right femoral neck fracture with fluoroscopic interpretation. Hina Huggins MD - TREAT HIP FRACTURE(S) Right 2011 FAMILY HISTORY Problem Relation Age of Onset - Cancer Father - CARDIAC [OTHER] Father - HTN [OTHER] Father Social History Substance Use Topics - Smoking status: Current Every Day Smoker Packs/day: 1.00 Years: 45.00 Types: Cigarettes - Smokeless tobacco: Never Used Comment: Quit 28 days 03/28/2014. Her restarted smoking as of March 26, 2015 office visit - Alcohol use 4.0 - 8.0 oz/week 1 Glasses of Wine (5oz), 1 - 3 Cans of Beer (12oz), 1 - 2 Shots of liquor per week Comment: SOCIAL/RARE Medications: Current Outpatient Prescriptions: gabapentin (NEURONTIN) 300 mg capsule Take 4 to 5 capsules at bedtime. venlafaxine (EFFEXOR) 75 mg tablet Take 75 mg by mouth three times daily. NEOMYCIN 3.5 MG/G-POLYMYXIN B 10,000 UNIT/G-DEXAMETH 0.1 % EYE OINT Use 1 application in the right eye twice daily. Apply 0.5 inches into RUL margin and eye 2 times a day. Ketorolac Tromethamine (ACLUAR LS) 0.4 % drop Use 1 Drop in the right eye four times daily. prednisoLONE acetate (PRED FORTE) 1 % ophthalmic suspension Use 1 Drop in the right eye four times daily. BUPROPION HCL ORAL Take by mouth once daily. Ciclopirox (PENLAC) 8 % solution Apply 1 application to affected area daily at bedtime. ALBUTEROL INHALATION Inhale 2 Puffs as instructed every 6 hours as needed (wheezing). HYDROcodone-acetaminophen (NORCO) 5-325 mg per tablet One to Two tablets every 8 hours as needed for pain lisinopril-hydrochlorothiazide (PRINZIDE,ZESTORETIC) 20-12.5 mg per tablet Take 1 tablet by mouth once daily. traZODone (DESYREL) 150 mg tablet Take 1 tablet by mouth daily at bedtime. lamoTRIgine (LAMICTAL) 150 mg tablet Take 1 tablet by mouth twice daily. clopidogrel (PLAVIX) 75 mg tablet Take 75 mg by mouth once daily. metoprolol tartrate, short acting, (LOPRESSOR) 100 mg tablet Take 100 mg by mouth once daily. clonazePAM (KLONOPIN) 0.5 mg tablet Take 0.5 mg by mouth twice daily as needed for Anxiety. ACETAMINOPHEN ORAL Take 650 mg by mouth every 4 hours as needed. aspirin, enteric coated (ASPIRIN, ENTERIC COATED) 81 mg EC tablet Take 81 mg by mouth once daily. HYDROcodone-acetaminophen (NORCO) 5-325 mg per tablet One to Two tablets every 8 hours as needed for pain DOCOSAHEXANOIC ACID/EPA (FISH OIL ORAL) Take by mouth. atorvastatin (LIPITOR) 80 mg tablet Take 80 mg by mouth once daily. HYDROcodone-acetaminophen (NORCO) 5-325 mg per tablet One tablet every 6 - 8 hours as needed for pain KRILL OIL ORAL Take 300 mg by mouth twice daily. VENTOLIN HFA 90 mcg/actuation inhaler VIRTUSSIN AC 10-100 mg/5 mL syrup doxycycline (VIBRA-TABS) 100 mg tablet predniSONE (DELTASONE) 20 mg tablet lisinopril (ZESTRIL, PRINIVIL) 20 mg tablet DULoxetine (CYMBALTA) 30 mg capsule 3 caps po daily morning tamsulosin ER (FLOMAX) 0.4 mg cp24 lisinopril (ZESTRIL, PRINIVIL) 10 mg tablet Take 10 mg by mouth once daily. cilostazol (PLETAL) 100 mg tablet Take 100 mg by mouth twice daily. No current facility-administered medications for this visit. Allergies: ALLERGIES Allergen Reactions - Estelita Faye Dsc [* Itching Physical Examination: Resp 16 Ht 6' 1ANDquot; (1.85m) Wt 239 lb (108.4kg) BMI 31.54 kg/(m2). General Appearance: Well appearing, alert, in no acute distress, well-hydrated, well nourished. Skin: Skin color, texture, turgor normal, no suspicious rashes or lesions. Extremities: his right knee shows swelling. Multiple well- healed incisions. No ecchymosis. He has palpable integrity of his extensor mechanism. Pain inhibited straight leg raising but he is able to maintain extension. Flexion to about 40? currently. No varus or valgus instability. No pain on hip rotation. Peripheral Pulses: Normal. Images: X-ray Interpretation: We ordered, obtained and reviewed an AP, lateral, and sunrise radiograph for follow-up of a total right knee arthroplasty. Compared to views of 2016 shows a GALLARDO NEPHEW revision right total knee in good position without loosening or complication. Small patellar fragment from a previous partial patellectomy unchanged. Cemented femoral and tibial stems unchanged. Impression: Stable follow up complex revision right total knee, without acute change. Assessment and Plan: 1. Quadriceps strain, right, initial encounter - ICD9: 843.8, ICD10: S76.111A (primary diagnosis) 2. Failure of total knee replacement, sequela - ICD9: 909.3, ICD10: T84.018S, Z96.659 Functional Plan: I advised him that radiographically his knee is sound. By physical exam he has no ligamentous injury and I think his extensor mechanism is intact although it is sprained. Advanced imaging will be difficult given all the hardware in his knee. At this point I recommended rest, ice and activity limitation. We'll fit him with a knee immobilizer for stability. He can weight-bear on this to pain tolerance with his crutches. We'll see him back in a week's time for repeat examination. Return in 1 week (on 01/12/2018). Lynsey Lyons MD Referring Provider: SELF [[id number]] Allergies As of Date: 01/05/2018 Noted Allergy Reaction PARAFON FORTE DSC (CHLORZOXAZONE) 08/08/2015 9 - Itching Date Reviewed: 01/05/2018 Reviewed by: Kaylah ([facility]) Elvia - Fully Assessed Reason for Visit: Right Knee Pain [1209] Cmt: Post right knee TKA 2009. On 01/01/18 slipped [place] fell [place] and has not been able to weight bear since. Primary Visit Diagnosis:Quadriceps strain, right, initial encounter [S76.111A] Other Visit Diagnosis:Failure of total knee replacement, sequela [T84.018S, Z96.659] Order(s):XR KNEE 3V FLEX/LAT/MERCH RT (AK) [[id number]] Order #: [id number] KO IMMOBILIZER, CANVAS LONGITUDE [[id number]] Order #: [id number] HYDROcodone-acetaminophen (NORCO) 5-325 mg per tabletOne tablet every 6 - 8 hours as needed for painDisp: 30 tabletRfl: 0 Prescriptions as of 01/05/2018 Sig: GABAPENTIN 300 MG CAPSULE Take 4 to 5 capsules at bedti* VENLAFAXINE 75 MG TABLET Take 75 mg by mouth three kang* NEOMYCIN 3.5 MG/G-POLYMYXIN B* Use 1 application in the righ* KETOROLAC 0.4 % EYE DROPS Use 1 Drop in the right eye f* PREDNISOLONE ACETATE 1 % EYE * Use 1 Drop in the right eye f* BUPROPION HCL ORAL Take by mouth once daily. CICLOPIROX 8 % TOPICAL SOLUTI* Apply 1 application to affect* ALBUTEROL INHALATION Inhale 2 Puffs as instructed * HYDROCODONE 5 MG-ACETAMINOPHE* One to Two tablets every 8 ho* LISINOPRIL 20 MG-HYDROCHLOROT* Take 1 tablet by mouth once d* TRAZODONE 150 MG TABLET Take 1 tablet by mouth daily * LAMOTRIGINE 150 MG TABLET Take 1 tablet by mouth twice * CLOPIDOGREL 75 MG TABLET Take 75 mg by mouth once shahla* METOPROLOL TARTRATE 100 MG TA* Take 100 mg by mouth once latha* CLONAZEPAM 0.5 MG TABLET Take 0.5 mg by mouth twice da* ACETAMINOPHEN ORAL Take 650 mg by mouth every 4 * ASPIRIN 81 MG TABLET,DELAYED * Take 81 mg by mouth once shahla* HYDROCODONE 5 MG-ACETAMINOPHE* One to Two tablets every 8 h* FISH OIL ORAL Take by mouth. ATORVASTATIN 80 MG TABLET Take 80 mg by mouth once shahla* HYDROCODONE 5 MG-ACETAMINOPHE* One tablet every 6 - 8 hours * KRILL OIL ORAL Take 300 mg by mouth twice da* VENTOLIN HFA 90 MCG/ACTUATION* VIRTUSSIN AC 10 MG-100 MG/5 M* DOXYCYCLINE HYCLATE 100 MG TA* PREDNISONE 20 MG TABLET LISINOPRIL 20 MG TABLET DULOXETINE 30 MG CAPSULE,MANUELA* 3 caps po daily morning TAMSULOSIN 0.4 MG CAPSULE LISINOPRIL 10 MG TABLET Take 10 mg by mouth once shahla* CILOSTAZOL 100 MG TABLET Take 100 mg by mouth twice da* Problem List As Of Date 01/05/2018 Noted Resolved Failed total knee arthroplasty (HCC) [T84.018A,*INVALID FOR* Contusion of right knee [S80.01XA] INVALID FOR* Primary osteoarthritis of left knee [M17.12] INVALID FOR* TIA (transient ischemic attack) [G45.9] Severe episode of recurrent major depressive di*INVALID FOR* Chronic post-traumatic stress disorder (PTSD) [*INVALID FOR* Cigarette nicotine dependence with nicotine-ind*INVALID FOR* DIMAS (obstructive sleep apnea) [G47.33] INVALID FOR* 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] INVALID FOR* Tendinitis of right rotator cuff [M75.81] INVALID FOR* Age-related nuclear cataract of right eye [H25.*INVALID FOR* Age-related nuclear cataract of left eye [H25.1*INVALID FOR* AAA (abdominal aortic aneurysm) without rupture*INVALID FOR* Degenerative disc disease, cervical [M50.30] INVALID FOR* Cervical radicular pain [M54.12] INVALID FOR* Quadriceps strain, right, initial encounter [S7*INVALID FOR* Prescriptions ordered this encounter Disp Refills Start End HYDROCODONE 5 MG-ACETAMINOPHEN 325 M* 30 t* 0 01/05/2018 01/19/2018 Class: Print RX Sig: One tablet every 6 - 8 hours as needed for pain Disposition: Return in 1 week (on 01/12/2018). Follow-up and Disposition History Recorded Encounter Status:Closed by LYNSEY LYONS MD on 01/08/18 PROGRESS Observed: 12/30/2017 Status: COMPLETED Source: [facility] 1:20 PM [facility] OTHER CAMPUS REPOSITORY HNO ID: [id number] Author: Chandu Murphy Service: (none) Author Type: Physician Type: Progress Notes Filed: 12/30/2017 1:24 PM Note Text: HISTORY OF PRESENT ILLNESS: Allen Valdes is a 62-year-old left-hand dominant male on disability regarding multiple previous bilateral knee surgeries S/P right TKR (Dr. Lyons) who returns for follow-up multilevel cervical degenerative disc disease and radiating left shoulder pain and upper extremity dysesthesias. Patient is very pleased with essentially resolved left posterior shoulder pain. He has not had residual dysesthesias radiating down the left arm responding to physical therapy including cervical posture exercises and cervical traction. He notes occasional residual (tolerable) neck discomfort at night depending on neck position, graded 3/10 at worst, and improving with use of a cervical pillow. He is not requiring cervical pain management. He takes occasional Zap for chronic knee pain as needed. PAST HISTORY: PAST MEDICAL HISTORY Diagnosis Date - Abdominal aortic aneurysm (HCC) - Abdominal aortic aneurysm without rupture (HCC) - Acute myocardial infarction of inferior wall (HCC) - Adrenal adenoma - Adrenal mass (HCC) - Arthritis - Asthma - Avascular necrosis of bone (HCC) - Chronic obstructive lung disease (HCC) - Closed fracture carpal bone S/p perc screw fixation right. - Closed fracture of hip (HCC) - Closed fracture of patella - Coronary arteriosclerosis OM disease with good collaterals on cardiac catheterization 2010. - Depression - Depressive disorder - Gastroesophageal reflux disease - HTN (hypertension) - Hyperlipidemia - Iron deficiency anemia - Known medical problems Current tear of medial cartilage AND/OR meniscus of knee. S/p repair left knee. Morteza Doherty MD. - Known medical problems Post percutaneous transluminal coronary angioplasty. SAMSON 09/12 - Malaise and fatigue - Old anterior cruciate ligament disruption S/p repair, Morteza Doherty MD - Old myocardial infarction - Olecranon bursitis S/p excision bursa Morteza Doherty MD - Osteoarthritis of knee Left. - Pain in finger Right middle, splinting. Que Ruiz MD - Peripheral vascular disease (HCC) - Posttraumatic stress disorder - Skin cancer - Stroke (HCC) - TIA (transient ischemic attack) - Unexplained weight loss PAST SURGICAL HISTORY Procedure Laterality Date - ABD AORTIC ANEURYSM REPAIR 2014 - CARDIAC CATH 09/05/2014 Single vessel CAD. - KNEE ARTHROSCOPY/SURGERY 02/01/1999 EUA, joint lavage, chondroplasty medial femoral condyle and patella. Huey Doherty MD - KNEE SURGERY HX 05/24/2010 Removal of cemented spacer and insertion of Shaina II constrained condylar total knee replacement. Morteza Doherty MD - PAST SURGICAL HISTORY OF Right 04/26/2002 Anesth, elbow area surgery. Excision olecranon bursa right elbow. Morteza Doherty MD - PAST SURGICAL HISTORY OF 09/05/2014 Cardiac Stent. SAMSON ostial/prox RCA - PAST SURGICAL HISTORY OF 06/03/2015 Endovascr repair abd aortic aneur - REVISION OF KNEE JOINT Right 2009 - TOTAL KNEE REPLACEMENT 01/25/2010 Right posterior stabilized Shaina II total knee replacements. Morteza Doherty MD - TREAT HIP FRACTURE(S) Right 08/30/2011 Percutaneous screw fixation of right femoral neck fracture with fluoroscopic interpretation. Hina Huggins MD - TREAT HIP FRACTURE(S) Right 2011 Current Outpatient Prescriptions: gabapentin (NEURONTIN) 300 mg capsule Take 4 to 5 capsules at bedtime. venlafaxine (EFFEXOR) 75 mg tablet Take 75 mg by mouth three times daily. NEOMYCIN 3.5 MG/G-POLYMYXIN B 10,000 UNIT/G-DEXAMETH 0.1 % EYE OINT Use 1 application in the right eye twice daily. Apply 0.5 inches into RUL margin and eye 2 times a day. Ketorolac Tromethamine (ACLUAR LS) 0.4 % drop Use 1 Drop in the right eye four times daily. prednisoLONE acetate (PRED FORTE) 1 % ophthalmic suspension Use 1 Drop in the right eye four times daily. BUPROPION HCL ORAL Take by mouth once daily. Ciclopirox (PENLAC) 8 % solution Apply 1 application to affected area daily at bedtime. ALBUTEROL INHALATION Inhale 2 Puffs as instructed every 6 hours as needed (wheezing). KRILL OIL ORAL Take 300 mg by mouth twice daily. HYDROcodone-acetaminophen (NORCO) 5-325 mg per tablet One to Two tablets every 8 hours as needed for pain VENTOLIN HFA 90 mcg/actuation inhaler VIRTUSSIN AC 10-100 mg/5 mL syrup doxycycline (VIBRA-TABS) 100 mg tablet lisinopril-hydrochlorothiazide (PRINZIDE,ZESTORETIC) 20-12.5 mg per tablet Take 1 tablet by mouth once daily. predniSONE (DELTASONE) 20 mg tablet lisinopril (ZESTRIL, PRINIVIL) 20 mg tablet traZODone (DESYREL) 150 mg tablet Take 1 tablet by mouth daily at bedtime. DULoxetine (CYMBALTA) 30 mg capsule 3 caps po daily morning lamoTRIgine (LAMICTAL) 150 mg tablet Take 1 tablet by mouth twice daily. clopidogrel (PLAVIX) 75 mg tablet Take 75 mg by mouth once daily. metoprolol tartrate, short acting, (LOPRESSOR) 100 mg tablet Take 100 mg by mouth once daily. tamsulosin ER (FLOMAX) 0.4 mg cp24 clonazePAM (KLONOPIN) 0.5 mg tablet Take 0.5 mg by mouth twice daily as needed for Anxiety. ACETAMINOPHEN ORAL Take 650 mg by mouth every 4 hours as needed. aspirin, enteric coated (ASPIRIN, ENTERIC COATED) 81 mg EC tablet Take 81 mg by mouth once daily. lisinopril (ZESTRIL, PRINIVIL) 10 mg tablet Take 10 mg by mouth once daily. HYDROcodone-acetaminophen (NORCO) 5-325 mg per tablet One to Two tablets every 8 hours as needed for pain DOCOSAHEXANOIC ACID/EPA (FISH OIL ORAL) Take by mouth. atorvastatin (LIPITOR) 80 mg tablet Take 80 mg by mouth once daily. cilostazol (PLETAL) 100 mg tablet Take 100 mg by mouth twice daily. No current facility-administered medications for this visit. ALLERGIES Allergen Reactions - Jaquelinenithin Neyda Melanie [* Itching Tobacco Use: 1 packs/day, for 45 years. Types: Cigarettes (Quit 28 days 03/28/2014. Her restarted smoking as of March 26, 2015 office visit) Alcohol Use: Approximately 4 - 8 oz/week [which includes 1 Glasses of Wine (5oz), 1-3 Cans of Beer (12oz), 1-2 Shots of liquor per week] (SOCIAL/RARE) PHYSICAL EXAMINATION: Vital Signs Resp 16 Ht 6' 1 (1.85m) Wt 224 lb (101.6kg) BMI 29.56 kg/(m2). Physical exam reveals mild tenderness of the posterior cervical spine. Less tenderness of the posterior cervical spine. No current radiating left shoulder pain on cervical motion. Left shoulder symmetrical contour without swelling, ecchymosis or erythema. No palpable shoulder joint or bursal effusion. No apparent left shoulder rotator cuff muscle atrophy. No deformity of the biceps left anterior arm. Left acromioclavicular joint symmetrical contour and remains nontender. No scapular winging. No left shoulder palpable subacromial crepitance. No local tenderness of the coracoacromial arch. No distinct palpable defect of the left cuff insertion region. Left shoulder active forward elevation to 145? sitting. Left shoulder active external rotation 50? bilateral. Internal rotation behind the back to T11. Left shoulder good flexibility on cross body reaching. Negative impingement and reinforcement sign passively. Good strength on resisted shoulder abduction, forward flexion and external rotation. Good strength on left shoulder supraspinatus cuff testing, grade 5/5 strength. Good strength on resisted elbow flexion. Biceps testing non-provocative. Intact liftoff test. Distal neurologic testing C6-T1 upper extremities unremarkable. Radial pulse symmetrical. Opposite right shoulder without local tenderness. Intact right shoulder active range of motion. Good flexibility on right shoulder internal rotation behind the back and cross body reaching. Good strength on supraspinatus testing right shoulder with mild residual ache. RADIOGRAPHS: Previous cervical spine radiographs, 11/18/17, including AP, obliques and lateral view reveals degenerative disc space narrowing and spurring multilevel, C4-C7 with loss of normal cervical lordosis. Foraminal narrowing on cervical oblique radiographs at the same vertebral levels. Previous left shoulder radiographs, 11/18/17, including AP, axillary and outlet view reveals normal glenohumeral joint space and alignment. No humeral head superior migration. No acromial spurring or subacromial calcification. Normal acromioclavicular joint alignment. Past opposite right shoulder radiographs, 05/19/17, reveals no acute osseous abnormality. Normal glenohumeral joint space and alignment. No apparent humeral head superior migration. Normal acromioclavicular joint alignment. ASSESSMENT: M50.30 Degenerative disc disease, cervical (primary encounter diagnosis) Comment: Satisfactory symptomatic improvement with radiographic multilevel cervical degenerative disc disease C4-C7. No current clinical cervical radiculopathy. F11.90 Chronic narcotic use Comment: Zap for chronic knee pain status post bilateral knee surgeries. PLAN: 1. Degenerative disc disease, cervical Patient encouraged to continue a home maintenance cervical postural exercise program as previously instructed in therapy. He is not requiring neck or left shoulder pain management. Patient to avoid extreme neck positions or head forward position as possible. He may continue the use of the cervical pillow. He elects to follow-up as needed. Chandu Murphy MD CNOV Observed: 12/30/2017 Status: COMPLETED Source: [facility] 1:00 PM [facility] OTHER CAMPUS REPOSITORY Office Visit (AGPOB1) ALLEN VALDES ([id number]) 1955 M Date Time Provider Department 12/30/17 1:00 PM CHANDU MURPHY During your visit today, we recorded the following information about you: Respiration Weight Height 16/minute 101.6 kg 1.854 m Chandu Murphy MD 12/30/2017 1:20 PM Signed Patient encouraged to continue a home maintenance cervical postural exercise program as previously instructed in therapy. He is not requiring neck or left shoulder pain management. Patient to avoid extreme neck positions or head forward position as possible. He may continue the use of the cervical pillow. He elects to follow-up as needed. Chandu Murphy MD 12/30/2017 1:24 PM Signed HISTORY OF PRESENT ILLNESS: Allen Valdes is a 62-year-old left-hand dominant male on disability regarding multiple previous bilateral knee surgeries S/P right TKR (Dr. Lyons) who returns for follow-up multilevel cervical degenerative disc disease and radiating left shoulder pain and upper extremity dysesthesias. Patient is very pleased with essentially resolved left posterior shoulder pain. He has not had residual dysesthesias radiating down the left arm responding to physical therapy including cervical posture exercises and cervical traction. He notes occasional residual (tolerable) neck discomfort at night depending on neck position, graded 3/10 at worst, and improving with use of a cervical pillow. He is not requiring cervical pain management. He takes occasional Zap for chronic knee pain as needed. PAST HISTORY: PAST MEDICAL HISTORY Diagnosis Date - Abdominal aortic aneurysm (HCC) - Abdominal aortic aneurysm without rupture (HCC) - Acute myocardial infarction of inferior wall (HCC) - Adrenal adenoma - Adrenal mass (HCC) - Arthritis - Asthma - Avascular necrosis of bone (HCC) - Chronic obstructive lung disease (HCC) - Closed fracture carpal bone S/p perc screw fixation right. - Closed fracture of hip (HCC) - Closed fracture of patella - Coronary arteriosclerosis OM disease with good collaterals on cardiac catheterization 2010. - Depression - Depressive disorder - Gastroesophageal reflux disease - HTN (hypertension) - Hyperlipidemia - Iron deficiency anemia - Known medical problems Current tear of medial cartilage AND/OR meniscus of knee. S/p repair left knee. Morteza Doherty MD. - Known medical problems Post percutaneous transluminal coronary angioplasty. SAMSON 09/12 - Malaise and fatigue - Old anterior cruciate ligament disruption S/p repair, Morteza Doherty MD - Old myocardial infarction - Olecranon bursitis S/p excision bursa Morteza Doherty MD - Osteoarthritis of knee Left. - Pain in finger Right middle, splinting. Que Ruiz MD - Peripheral vascular disease (HCC) - Posttraumatic stress disorder - Skin cancer - Stroke (HCC) - TIA (transient ischemic attack) - Unexplained weight loss PAST SURGICAL HISTORY Procedure Laterality Date - ABD AORTIC ANEURYSM REPAIR 2014 - CARDIAC CATH 09/05/2014 Single vessel CAD. - KNEE ARTHROSCOPY/SURGERY 02/01/1999 EUA, joint lavage, chondroplasty medial femoral condyle and patella. Huey Doherty MD - KNEE SURGERY HX 05/24/2010 Removal of cemented spacer and insertion of Shaina II constrained condylar total knee replacement. Morteza Doherty MD - PAST SURGICAL HISTORY OF Right 04/26/2002 Anesth, elbow area surgery. Excision olecranon bursa right elbow. Morteza Doherty MD - PAST SURGICAL HISTORY OF 09/05/2014 Cardiac Stent. SAMSON ostial/prox RCA - PAST SURGICAL HISTORY OF 06/03/2015 Endovascr repair abd aortic aneur - REVISION OF KNEE JOINT Right 2009 - TOTAL KNEE REPLACEMENT 01/25/2010 Right posterior stabilized Shaina II total knee replacements. Morteza Doherty MD - TREAT HIP FRACTURE(S) Right 08/30/2011 Percutaneous screw fixation of right femoral neck fracture with fluoroscopic interpretation. Hina Huggins MD - TREAT HIP FRACTURE(S) Right 2011 Current Outpatient Prescriptions: gabapentin (NEURONTIN) 300 mg capsule Take 4 to 5 capsules at bedtime. venlafaxine (EFFEXOR) 75 mg tablet Take 75 mg by mouth three times daily. NEOMYCIN 3.5 MG/G-POLYMYXIN B 10,000 UNIT/G-DEXAMETH 0.1 % EYE OINT Use 1 application in the right eye twice daily. Apply 0.5 inches into RUL margin and eye 2 times a day. Ketorolac Tromethamine (ACLUAR LS) 0.4 % drop Use 1 Drop in the right eye four times daily. prednisoLONE acetate (PRED FORTE) 1 % ophthalmic suspension Use 1 Drop in the right eye four times daily. BUPROPION HCL ORAL Take by mouth once daily. Ciclopirox (PENLAC) 8 % solution Apply 1 application to affected area daily at bedtime. ALBUTEROL INHALATION Inhale 2 Puffs as instructed every 6 hours as needed (wheezing). KRILL OIL ORAL Take 300 mg by mouth twice daily. HYDROcodone-acetaminophen (NORCO) 5-325 mg per tablet One to Two tablets every 8 hours as needed for pain VENTOLIN HFA 90 mcg/actuation inhaler VIRTUSSIN AC 10-100 mg/5 mL syrup doxycycline (VIBRA-TABS) 100 mg tablet lisinopril-hydrochlorothiazide (PRINZIDE,ZESTORETIC) 20-12.5 mg per tablet Take 1 tablet by mouth once daily. predniSONE (DELTASONE) 20 mg tablet lisinopril (ZESTRIL, PRINIVIL) 20 mg tablet traZODone (DESYREL) 150 mg tablet Take 1 tablet by mouth daily at bedtime. DULoxetine (CYMBALTA) 30 mg capsule 3 caps po daily morning lamoTRIgine (LAMICTAL) 150 mg tablet Take 1 tablet by mouth twice daily. clopidogrel (PLAVIX) 75 mg tablet Take 75 mg by mouth once daily. metoprolol tartrate, short acting, (LOPRESSOR) 100 mg tablet Take 100 mg by mouth once daily. tamsulosin ER (FLOMAX) 0.4 mg cp24 clonazePAM (KLONOPIN) 0.5 mg tablet Take 0.5 mg by mouth twice daily as needed for Anxiety. ACETAMINOPHEN ORAL Take 650 mg by mouth every 4 hours as needed. aspirin, enteric coated (ASPIRIN, ENTERIC COATED) 81 mg EC tablet Take 81 mg by mouth once daily. lisinopril (ZESTRIL, PRINIVIL) 10 mg tablet Take 10 mg by mouth once daily. HYDROcodone-acetaminophen (NORCO) 5-325 mg per tablet One to Two tablets every 8 hours as needed for pain DOCOSAHEXANOIC ACID/EPA (FISH OIL ORAL) Take by mouth. atorvastatin (LIPITOR) 80 mg tablet Take 80 mg by mouth once daily. cilostazol (PLETAL) 100 mg tablet Take 100 mg by mouth twice daily. No current facility-administered medications for this visit. ALLERGIES Allergen Reactions - Paranithin Faye Dsc [* Itching Tobacco Use: 1 packs/day, for 45 years. Types: Cigarettes (Quit 28 days 03/28/2014. Her restarted smoking as of March 26, 2015 office visit) Alcohol Use: Approximately 4 - 8 oz/week [which includes 1 Glasses of Wine (5oz), 1-3 Cans of Beer (12oz), 1-2 Shots of liquor per week] (SOCIAL/RARE) PHYSICAL EXAMINATION: Vital Signs Resp 16 Ht 6' 1ANDquot; (1.85m) Wt 224 lb (101.6kg) BMI 29.56 kg/(m2). Physical exam reveals mild tenderness of the posterior cervical spine. Less tenderness of the posterior cervical spine. No current radiating left shoulder pain on cervical motion. Left shoulder symmetrical contour without swelling, ecchymosis or erythema. No palpable shoulder joint or bursal effusion. No apparent left shoulder rotator cuff muscle atrophy. No deformity of the biceps left anterior arm. Left acromioclavicular joint symmetrical contour and remains nontender. No scapular winging. No left shoulder palpable subacromial crepitance. No local tenderness of the coracoacromial arch. No distinct palpable defect of the left cuff insertion region. Left shoulder active forward elevation to 145? sitting. Left shoulder active external rotation 50? bilateral. Internal rotation behind the back to T11. Left shoulder good flexibility on cross body reaching. Negative impingement and reinforcement sign passively. Good strength on resisted shoulder abduction, forward flexion and external rotation. Good strength on left shoulder supraspinatus cuff testing, grade 5/5 strength. Good strength on resisted elbow flexion. Biceps testing non-provocative. Intact liftoff test. Distal neurologic testing C6-T1 upper extremities unremarkable. Radial pulse symmetrical. Opposite right shoulder without local tenderness. Intact right shoulder active range of motion. Good flexibility on right shoulder internal rotation behind the back and cross body reaching. Good strength on supraspinatus testing right shoulder with mild residual ache. RADIOGRAPHS: Previous cervical spine radiographs, 11/18/17, including AP, obliques and lateral view reveals degenerative disc space narrowing and spurring multilevel, C4-C7 with loss of normal cervical lordosis. Foraminal narrowing on cervical oblique radiographs at the same vertebral levels. Previous left shoulder radiographs, 11/18/17, including AP, axillary and outlet view reveals normal glenohumeral joint space and alignment. No humeral head superior migration. No acromial spurring or subacromial calcification. Normal acromioclavicular joint alignment. Past opposite right shoulder radiographs, 05/19/17, reveals no acute osseous abnormality. Normal glenohumeral joint space and alignment. No apparent humeral head superior migration. Normal acromioclavicular joint alignment. ASSESSMENT: M50.30 Degenerative disc disease, cervical (primary encounter diagnosis) Comment: Satisfactory symptomatic improvement with radiographic multilevel cervical degenerative disc disease C4-C7. No current clinical cervical radiculopathy. F11.90 Chronic narcotic use Comment: Zap for chronic knee pain status post bilateral knee surgeries. PLAN: 1. Degenerative disc disease, cervical Patient encouraged to continue a home maintenance cervical postural exercise program as previously instructed in therapy. He is not requiring neck or left shoulder pain management. Patient to avoid extreme neck positions or head forward position as possible. He may continue the use of the cervical pillow. He elects to follow-up as needed. Chandu Murphy MD Referring Provider: CHANDU MURPHY [[id number]] Allergies As of Date: 12/30/2017 Noted Allergy Reaction ESTELITA FAYE DSC (CHLORZOXAZONE) 08/08/2015 9 - Itching Date Reviewed: 12/30/2017 Reviewed by: Chandu Murphy - Fully Assessed Reason for Visit: Follow Up [171] Cmt: left shoulder Primary Visit Diagnosis:Degenerative disc disease, cervical [M50.30] Prescriptions as of 12/30/2017 Sig: GABAPENTIN 300 MG CAPSULE Take 4 to 5 capsules at bedti* VENLAFAXINE 75 MG TABLET Take 75 mg by mouth three kang* NEOMYCIN 3.5 MG/G-POLYMYXIN B* Use 1 application in the righ* KETOROLAC 0.4 % EYE DROPS Use 1 Drop in the right eye f* PREDNISOLONE ACETATE 1 % EYE * Use 1 Drop in the right eye f* BUPROPION HCL ORAL Take by mouth once daily. CICLOPIROX 8 % TOPICAL SOLUTI* Apply 1 application to affect* ALBUTEROL INHALATION Inhale 2 Puffs as instructed * KRILL OIL ORAL Take 300 mg by mouth twice da* HYDROCODONE 5 MG-ACETAMINOPHE* One to Two tablets every 8 ho* VENTOLIN HFA 90 MCG/ACTUATION* VIRTUSSIN AC 10 MG-100 MG/5 M* DOXYCYCLINE HYCLATE 100 MG TA* LISINOPRIL 20 MG-HYDROCHLOROT* Take 1 tablet by mouth once d* PREDNISONE 20 MG TABLET LISINOPRIL 20 MG TABLET TRAZODONE 150 MG TABLET Take 1 tablet by mouth daily * DULOXETINE 30 MG CAPSULE,MANUELA* 3 caps po daily morning LAMOTRIGINE 150 MG TABLET Take 1 tablet by mouth twice * CLOPIDOGREL 75 MG TABLET Take 75 mg by mouth once shahla* METOPROLOL TARTRATE 100 MG TA* Take 100 mg by mouth once latha* TAMSULOSIN 0.4 MG CAPSULE CLONAZEPAM 0.5 MG TABLET Take 0.5 mg by mouth twice da* ACETAMINOPHEN ORAL Take 650 mg by mouth every 4 * ASPIRIN 81 MG TABLET,DELAYED * Take 81 mg by mouth once shahla* LISINOPRIL 10 MG TABLET Take 10 mg by mouth once shahla* HYDROCODONE 5 MG-ACETAMINOPHE* One to Two tablets every 8 h* FISH OIL ORAL Take by mouth. 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,*INVALID FOR* Contusion of right knee [S80.01XA] INVALID FOR* Primary osteoarthritis of left knee [M17.12] INVALID FOR* TIA (transient ischemic attack) [G45.9] Severe episode of recurrent major depressive di*INVALID FOR* Chronic post-traumatic stress disorder (PTSD) [*INVALID FOR* Cigarette nicotine dependence with nicotine-ind*INVALID FOR* DIMAS (obstructive sleep apnea) [G47.33] INVALID FOR* 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 He is not requiring neck or left shoulder pain management. Patient to avoid extreme neck positions or head forward position as possible. He may continue the use of the cervical pillow. He elects to follow-up as needed. Disposition: Return if symptoms worsen or fail to improve. Follow-up and Disposition History Recorded Encounter Status:Closed by CHANDU MURPHY MD on 12/30/17 ALLERGIES ALLERGIES DATE TYPE / NAME / CODE REACTION SEVERITY SOURCE CODE 12/01/2018 Drug chlorzoxazone/F0060 also known as SV [place] Allergy/41 43028(RXNORM) Parafon Forte: pt Community 5542578([facility]) disoriented Repository 08/08/2015 DRUG CHLORZOXAZONE ITCHING [place] INGREDI/41 Clinic Other [id number](SN [place] OMED CT) Repository /[id number] CHLORZOXAZONE [place] [address]([facility] CT) Repository ENCOUNTERS ENCOUNTERS ADMIT/DISCHARGE ACCOUNT NUMBER ADMITTING ENCOUNTER LOCATION SOURCE CLASS 12/16/2018 [id number] Ambulatory [facility] ding:SL Repository 12/14/2018 [id number] Ambulatory [facility] Repository 12/14/2018/12/14/19 [id number] Ambulatory [address] MEDICAL Repository CENTERBuildi ng:AKLBB 12/14/2018/12/14/19 [id number] Ambulatory [address] Repository 12/14/2018/12/14/19 [id number] Ambulatory [address] MEDICAL Repository CENTERBuildi ng:NAHG 12/08/2018 [id number] Ambulatory [facility] ding:SP Repository 12/01/2018/12/01/19 [id number] Ambulatory BMSBuilding: [place] 19 BMS.[facility] Repository 11/17/2018 [id number] Ambulatory BMSBuilding: [facility] Repository 11/16/2018 [id number] Ambulatory BMSBuilding: [place] BMS.[facility] Repository 11/16/2018 [id number] Ambulatory BMSBuilding: [facility] Repository 11/15/2018/11/18/20 [id number] [place], Ambulatory [address] ding:PCURoom Repository : [id number]: 1 11/15/2018 [id number] [place], Ambulatory BMSBuilding: [place] Ino BMS.[facility] Repository 11/15/2018 [id number] [place], Ambulatory BMSBuilding: [place] Ino BMS.[facility] Repository 11/15/2018 [id number] [place]sky, Ambulatory BMSBuilding: [place] Ino BMS.[facility] Repository 11/15/2018 [id number] [place], Ambulatory BMSBuilding: [place] Ino BMS.CF.[facility] Repository 11/15/2018 [id number] Tereletsky, Ambulatory BMSBuilding: [place] Ino BMS.[facility] Repository 11/15/2018 [id number] [place]sky, Ambulatory BMSBuilding: [place] [facility] 11/15/2018 [id number] Ambulatory BMSBuilding: [place] BMS.CF.[facility] Repository 11/04/2018 [id number] Ambulatory BMSBuilding: [facility] Repository 11/04/2018 [id number] Ambulatory [facility] ding:PSN Repository 11/01/2018 [id number] Ambulatory [facility] ding:PAVLAB Repository 11/01/2018/11/01/20 [id number] Ambulatory BMSBuilding: [place] 18 BMS.[facility] Repository 10/27/2018/10/28/20 [id number] Ambulatory [address] Repository 10/27/2018/10/28/20 [id number] Ambulatory [address] MEDICAL Repository CENTERBuildi ng:AGVASACC 10/22/2018 [id number] Ambulatory BMSBuilding: [facility] Repository 10/22/2018 [id number] Ambulatory [facility] ding:CVS Repository 10/18/2018 [id number] Ambulatory BMSBuilding: [facility] Repository 10/18/2018 [id number] Ambulatory [facility] ding:PSN Repository 10/07/2018/10/07/20 [id number] Emergency [address] ding:ED Repository 10/05/2018 [id number] Ambulatory [facility] Repository 10/05/2018/10/05/20 [id number] Ambulatory BMSBuilding: [place] 18 BMS.[facility] Repository 10/04/2018 [id number] Ambulatory [facility] Repository 10/04/2018/10/04/20 [id number] Ambulatory [address] MEDICAL Repository CENTERBuildi ng:AKXRCT 09/29/2018/09/29/20 [id number] Ambulatory BMSBuilding: [place] 18 BMS.[facility] Repository 09/24/2018 [id number] Ambulatory [facility] 5ERoom: System [id number]: Repository [id number] 09/22/2018 [id number] Ambulatory [facility] ding:LABSPEC Repository 09/22/2018/09/22/20 [id number] Ambulatory BMSBuilding: [place] 18 [facility] Repository 09/19/2018 [id number] Emergency [facility] ERRoom: System [id number]: Repository [id number] 2018 [id number] Ambulatory [facility] Repository 09/13/2018 [id number] Emergency [facility] ERRoom: System [id number]: Repository [id number] 07/14/2018/07/14/20 [id number] Ambulatory [address] Other [place] Repository 07/14/2018/07/14/20 [id number] Ambulatory [address] MEDICAL Repository CENTERBuildi ng:AGPOB1 07/07/2018 [id number] Ambulatory [facility] MEDICAL Repository CENTERBuildi ng:AGPOB1 07/06/2018/07/06/20 [id number] Ambulatory [address] Other [place] Repository 07/06/2018/07/06/20 [id number] Ambulatory [address] MEDICAL Repository CENTERBuildi ng:AGPOB1 06/30/2018/06/30/20 [id number] Ambulatory [address] Other [place] Repository 06/30/2018/06/30/20 [id number] Ambulatory [address] MEDICAL Repository CENTERBuildi ng:AGPOB1 06/09/2018 [id number] Ambulatory [facility] MEDICAL Repository CENTERBuildi ng:AGPOB1 04/12/2018/04/13/20 [id number] Ambulatory [address] Main [place] Repository 04/08/2018/04/08/20 [id number] Ambulatory BMSBuilding: [place] 18 [facility] Repository 03/01/2018 [id number] Ambulatory [facility] ding:CVS Repository 02/26/2018 [id number] Ambulatory [facility] Repository 02/19/2018 [id number] Ambulatory BMSBuilding: [facility] Repository 02/18/2018 [id number] Ambulatory [facility] ding:PSN Repository 02/17/2018 [id number] Ambulatory BMSBuilding: [facility] Repository 02/17/2018 [id number] Ambulatory [facility] ding:PSN Repository 02/10/2018/02/11/20 [id number] Ambulatory BMSBuilding: [address] Repository 01/21/2018/01/21/20 [id number] Ambulatory [address] Main [place] Repository 01/17/2018 [id number] Ambulatory [address] [place] [address] 2ERoom: System [id number]: Repository [id number] 01/12/2018/01/12/20 [id number] Ambulatory [address] Other [place] Repository 01/12/2018/01/12/20 [id number] Ambulatory [address] MEDICAL Repository CENTERBuildi ng:AGPOB1 01/05/2018/01/05/20 [id number] Ambulatory [address] Other [place] Repository 01/05/2018/01/05/20 [id number] Ambulatory [address] MEDICAL Repository CENTERBuildi ng:AGPOB1 12/30/2017/12/30/19 [id number] Ambulatory [address] Other [place] Repository 12/30/2017/12/30/19 [id number] Ambulatory [address] MEDICAL Repository CENTERBuildi ng:AGPOB1 PAYERS PAYERS ENCOUNTER GUARANTOR PAYER SUBSCRIBER SOURCE 12/16/2018 ALLEN Valentino Primary ALLEN Melchor [id number] Insurance:HUMANA KEISHADOB: Community [place] PPOPolicy [id number] Number: Repository [address]Wlp: [phone]) [id number] [phone] () Date:[id number] [id number] [place] [address]NL: 12/16/2018 Secondary NOT GIVENUNK [place] Insurance:SELF PAY [facility] Number: Effective Repository Date:2018-12-09 12/14/2018 ALLEN Valentino Primary ALLEN [facility] KESLINGDOB: Insurance:HUMANA KESLINGDOB: Health System E MEDICARE [facility] [id number] Repository [place] Number: GISELA GREWAL [id number] [address]Vom: (330) Date: [phone] (HP) 12/14/2018 ALLEN Valentino Primary ALLEN [facility] KEZaheerLINGDOB: Insurance:HUMANA KESLINGDOB: [facility] [id number] Repository [place] Number: [place] [id number]: (330) Date: [phone] (HP) 12/08/2018 ALLEN Valentino Primary ALLEN Melchor [id number] E Insurance:HUMANA KESLINGDOB: Community [place] PPOPolicy [id number] Number: Repository [address]Efs: [phone]) [id number] [phone] () Date:[id number] [address] [address]YU: 12/08/2018 Secondary NOT GIVENUNK [place] Insurance:SELF PAY [facility] Number: Effective Repository Date:2018-11-19 12/01/2018 ALLEN Valentino Primary ALLEN Valentino [place] [id number] E Insurance:HUMANA KESLINGDOB: Community [place] PPOPolicy [id number] Number: Repository [address]Zct: [phone] [id number] [phone] (HP) Date:7971-05-99ZZ [address] [address]FW: 12/01/2018 Secondary NOT GIVENUNK [place] Insurance:SELF PAY [facility] Number: Effective Repository Date:2018-11-29 11/17/2018 ALLEN Valentino Primary ALLEN Melchor [id number] Insurance:HUMANA KESLINGDOB: Community [place] PPOPolicy [id number] [place] Number: Repository [address]Mam: [phone] [id number] [phone] (HP) Date:2103-14-02WI [address] [address]WU: 11/17/2018 Secondary NOT GIVENUNK [place] Insurance:SELF PAY [facility] Number: Effective Repository Date:2018-11-17 11/16/2018 ALLEN Valentino Primary ALLEN Melchor [id number] E Insurance:HUMANA KESLINGDOB: Community [place] PPOPolicy [id number] [facility] Number: Repository [address]Gsk: [phone]) [id number] [phone] (HP) Date:2538-53-31UC [address]4601WP: 11/16/2018 Secondary NOT GIVENUNK [place] Insurance:SELF PAY [facility] Number: Effective Repository Date:2018-11-02 11/16/2018 ALLEN Valentino Primary ALLEN Melchor [id number] E Insurance:HUMANA KESLINGDOB: Community [place] PPOPolicy [id number] [facility] Number: Repository [address]Uis: [phone] [id number] [phone] (HP) Date:1366-38-63QP [address] [address]CZ: 11/16/2018 Secondary NOT GIVENUNK [place] Insurance:SELF PAY [facility] Number: Effective Repository Date:2018-11-16 11/15/2018 ALLEN Valentino Primary ALLEN Melchor [id number] E Insurance:HUMANA KESLINGDOB: Community [place] PPOPolicy [id number] [facility] Number: Repository [address]Atz: (330 [id number] [phone] (HP) Date:2570-95-07LQ [address] [place] [address]BN: 11/15/2018 Secondary NOT GIVENUNK [place] Insurance:SELF PAY [facility] Number: Effective Repository Date:2018-11-15 11/15/2018 ALLEN Valentino Primary ALLEN Melchor [id number] Insurance:HUMANA KESLINGDOB: Community [place] PPOPolicy [id number] [facility] Number: Repository [address]Chk: (330 [id number] [phone] (HP) Date:2494-60-29AH [address] [address]YH: 11/15/2018 Secondary NOT GIVENUNK [place] Insurance:SELF PAY [facility] Number: Effective Repository Date:2018-11-15 11/15/2018 ALLEN Valentino Primary ALLEN Melchor [id number] E Insurance:HUMANA KESLINGDOB: Community [place] PPOPolicy [id number] Medical [facility] [place] Number: Repository [address]Fnn: 330 [id number] [phone] (HP) Date:2452-29-17OX [address] [address]WY: 11/15/2018 Secondary NOT GIVENUNK [place] Insurance:SELF PAY [facility] Number: Effective Repository Date:2018-11-15 11/15/2018 ALLEN Valentino Primary ALLEN Melchor [id number] E Insurance:HUMANA KESLINGDOB: Community [place] PPOPolicy [id number] Medical Center [place] Number: Repository [address]Lvc: 330 [id number] [phone] (HP) Date:7640-10-43ND [address] [address]OZ: 11/15/2018 Secondary NOT GIVENUNK [place] Insurance:SELF PAY [facility] Number: Effective Repository Date:2018-11-15 11/15/2018 ALLEN Valentino Primary ALLEN Melchor [id number] E Insurance:HUMANA KESLINGDOB: Community [place] PPOPolicy [id number] [facility], [place] Number: Repository [phone]: (330 [id number] [phone] (HP) Date:6942-12-64IZ [address] [address]EL: 11/15/2018 Secondary NOT GIVENUNK [place] Insurance:SELF PAY [facility] Number: Effective Repository Date:2018-11-15 11/15/2018 ALLEN Valentino Primary ALLEN Melchor [id number] E Insurance:HUMANA KESLINGDOB: Community [place] PPOPolicy [id number] [place] Number: Repository [address]Vmb: 330 [id number] [phone] (HP) Date:0193-68-99AQ[address] [address]ZN: 11/15/2018 Secondary NOT GIVENUNK Jill Insurance:SELF PAY [facility] Number: Effective Repository Date:2018-11-15 11/15/2018 ALLEN Valentino Primary ALLEN Melchor [id number] E Insurance:HUMANA KESLINGDOB: Community [place] PPOPolicy [id number] Sacred [facility] Number: Repository [phone]: (330) [id number] [phone] (HP) Date:3379-11-06ZP [address] [address]RD: 11/15/2018 Secondary NOT GIVENUNK Jill Insurance:SELF PAY [facility] Number: Effective Repository Date:2018-11-15 11/15/2018 ALLEN Valentino Primary ALLEN Melchor [id number] E Insurance:HUMANA KESLINGDOB: Community [place] PPOPolicy [id number] Sacred [facility], [place] Number: Repository [phone]: (330 [id number] [phone] (HP) Date:1418-74-31AQ [address] [place] [address]RR: 11/15/2018 Secondary NOT GIVENUNK Jill Insurance:SELF PAY [facility] Number: Effective Repository Date:2018-11-15 11/04/2018 ALLEN Valentino Primary ALLEN Melchor [id number] E Insurance:HUMANA KESLINGDOB: Community [place] PPOPolicy [id number] Medical Center [place] Number: Repository [phone]: (330 [id number] [phone]) Date:8120-39-79OK [address] [address]OU: 11/04/2018 Secondary NOT GIVENUNK Jill Insurance:SELF PAY [facility] Number: Effective Repository Date:2018-11-04 11/04/2018 ALLEN Valentino Primary ALLEN Melchor [id number] E Insurance:HUMANA KESLINGDOB: Community [place] PPOPolicy [id number] Medical Center [place] Number: Repository [phone]: (330 [id number] [phone] (HP) Date:2024-81-15FZ [address] [address]BV: 11/04/2018 Secondary NOT GIVENUNK [place] Insurance:SELF PAY [facility] Number: Effective Repository Date:2018-11-01 11/01/2018 ALLEN Valentino Primary ALLEN Melchor [id number] E Insurance:HUMANA KESLINGDOB: Community [place] PPOPolicy [id number] Medical Center [place] Number: Repository [phone]: (330 [id number] [phone] (HP) Date:8517-96-62QL [address] [address]ZO: 11/01/2018 Secondary NOT GIVENUNK Jill Insurance:SELF PAY [facility] Number: Effective Repository Date:2018-11-01 11/01/2018 ALLEN Valentino Primary ALLEN Melchor [id number] E Insurance:HUMANA KESLINGDOB: Community [place] PPOPolicy [id number] Number: Repository [address]Sgg: (330 [id number] [phone] (HP) Date:3227-28-77MG [address] [address]BI: 11/01/2018 Secondary NOT GIVENUNK [place] Insurance:SELF PAY [facility] Number: Effective Repository Date:2018-10-26 10/27/2018 ALLEN Valentino Primary ALLEN Valentino [facility] KEISHADOB: Insurance:HUMANA KESLINGDOB: Health System E MEDICARE PPOPolicy [id number] Number: [place], [place] [id number] [phone]: 330) Date: 563 () 10/22/2018 ALLEN Valentino Primary ALLEN Gonzalesoster [id number] E Insurance:HUMANA KESLINGDOB: Community [place] PPOPolicy [id number], [place] Number: Repository [address]Yfv: (330) [id number] [phone] (HP) Date:4772-93-26FT[address] [address]DQ: 10/22/2018 Secondary NOT GIVENUNK [place] Insurance:SELF PAY [facility] Number: Effective Repository Date:2018-10-22 10/22/2018 ALLEN Valentino Primary ALLEN Gonzalesoster [id number] E Insurance:HUMANA KESLINGDOB: Community [place] PPOPolicy [id number], [place] Number: Repository [address]Hzu: 330 [id number] [phone] (HP) Date:4480-47-92ZT [address] [address]WT: 10/22/2018 Secondary NOT GIVENUNK Jill Insurance:SELF PAY [facility] Number: Effective Repository Date:2018-10-07 10/18/2018 ALLEN Valentino Primary ALLEN Melchor [id number] E Insurance:HUMANA KESLINGDOB: Community [place] PPOPolicy [id number], [place] Number: Repository [address]Qvv: 330 [id number] [phone] () Date:7825-60-94QG [address] [place] [address]UD: 10/18/2018 Secondary NOT GIVENUNK [place] Insurance:SELF PAY [facility] Number: Effective Repository Date:2018-10-18 10/18/2018 ALLEN Valentino Primary ALLEN Valentino Jill [id number] E Insurance:HUMANA KESLINGDOB: Community [place] PPOPolicy [id number] Sacred Heart Medical [facility], [place] Number: Repository [address]Rip: 330 [id number] [phone] () Date:2765-67-09VO [address] [place] [address]SM: 10/18/2018 Secondary NOT GIVENUNK [place] Insurance:SELF PAY [facility] Number: Effective Repository Date:2018-10-07 10/07/2018 ALLEN Valentino Primary ALLEN Melchor [id number] E Insurance:HUMANA KESLINGDOB: Community [place] PPOPolicy [id number], [place] Number: Repository [address]Pzp: 330 [id number] [phone] () Date:9314-68-03TQ [address] [place] [address]HV: 10/07/2018 Secondary NOT GIVENUNK [place] Insurance:SELF PAY [facility] Number: Effective Repository Date:2018-10-07 10/05/2018 Allen Valentino Primary Allen Valentino [facility] KeslingDOB: Insurance:HumanaPol KeslingDOB: System [id number] E y Number: Effective [id number] Repository [facility] Date: [place], [place] [address]Caa: () 10/05/2018 ALLEN Valentino Primary ALLEN Gonzalesoster [id number] E Insurance:HUMANA KESLINGDOB: Community [place] PPOPolicy [id number] [place] Number: Repository [address]Uen: (330) [id number] [phone] (HP) Date:3797-92-91QD [address] [address]CS: 10/05/2018 Secondary NOT GIVENUNK Jill Insurance:SELF PAY [facility] Number: Effective Repository Date:2018-09-27 10/04/2018 ALLEN Valentino Primary ALLEN Valentino [facility]: Insurance:HUMANA KESLINGDOB: Health System E MEDICARE PPOPolicy [id number] Hill Hospital Number: [place], [place] [id number]: 330) Date: [phone] () 09/29/2018 ALLEN Valentino Primary ALLEN Valentino [place] [id number] E Insurance:HUMANA KESLINGDOB: Community [place] PPOPolicy [id number] [place] Number: Repository [address]Kry: (330) [id number] [phone] (HP) Date:7621-82-30BS [address] [address]QL: 09/29/2018 Secondary NOT GIVENUNK Jill Insurance:SELF PAY [facility] Number: Effective Repository Date:2018-09-28 09/24/2018 Allen Valentino Primary Allen Valentino [facility]: Insurance:HumanaPolic KeslingDOB: System E y Number: Effective [id number] [facility] Date: [place], [place] [address]Hgu: (HP) 09/22/2018 ALLEN Valentino Primary ALLEN Valentino Jill [id number] E Insurance:HUMANA KESLINGDOB: Community [place] PPOPolicy [id number] [place], [place] Number: Repository [address]Jvq: 330 [id number] [phone] (HP) Date:8344-53-62SM [address]46[address]WP: 09/22/2018 Secondary NOT GIVENUNK [place] Insurance:SELF PAY [facility] Number: Effective Repository Date:2018-09-22 09/22/2018 ALLEN Valentino Primary ALLEN Valentino [place] [id number] E Insurance:HUMANA KESLINGDOB: Community [place] PPOPolicy [id number] Bay, [place] Number: Repository [address]Gsm: 330 [id number] [phone] () Date:5899-50-47RR [address] [address]GA: 09/22/2018 Secondary NOT GIVENUNK [place] Insurance:SELF PAY [facility] Number: Effective Repository Date:2018-09-21 09/19/2018 Allen Valentino Primary Allen [facility] KeslingDOB: Insurance:HumanaPolic KeslingDOB: System E y Number: Effective [id number] [facility] Date: [place], [place] [address]Cao: (HP) 2018 Allen Valentino Primary Allen [facility] KeslingDOB: Insurance:HumanaPolic KeslingDOB: System E y Number: Effective [id number] [facility] Date: [place], [place] [address]Pjh: (HP) 09/13/2018 Allen Valentino Primary Allen [facility] KeslingDOB: Insurance:HumanaPolic KeslingDOB: System E y Number: Effective [id number] Repository [facility] Date: [place] [address]Dlb: (HP) 07/14/2018 ALLEN Valentino Primary ALLEN ZAYASLINGDOB: Insurance:HUMANA KESLINGDOB: Health System E MEDICARE PPOPoly [id number] Repository [place] Number: [place] [id number]: (330) Date: 753-1815 (HP) 07/06/2018 ALLEN Valentino Primary ALLEN [facility] KESLINGDOB: Insurance:HUMANA [facility]: [facility] System E MEDICARE OPoly [id number] Repository [place] Number: [place] [id number]: (330) Date: 753-1815 (HP) 06/30/2018 ALLEN Valentino Primary ALLEN [facility] KEZaheerDECATUR COUNTY HOSPITALDOB: Insurance:HUMANA [facility]AMPUSDOB: [facility] E MEDICARE OPoly [id number] [facility]ository [facility] Number: [place] [id number]: (330) Date: 753-1815 (HP) 06/09/2018 ALLEN Valentino Primary ALLEN ZAYASLINGDOB: Insurance:HUMANA [facility]LINGDOB: Health System E MEDICARE OPoly [id number] [facility]ository [facility] Number: [place] [id number]: (330) Date: 753-1815 (HP) 04/08/2018 ALLEN Valentino Primary ALLEN Valentino Jill [id number] E Insurance:HUMANA KESLINGDOB: [facility] [place] [facility]Pol[facility] [id number] [facility] [place] Number: Repository [address]Rqw: (330) [id number] [phone] (HP) Date:4481-82-10MK [address] [place] [address]EN: 04/08/2018 Secondary NOT GIVENUNK [place] Insurance:SELF PAY [facility] Number: Effective Repository Date:2018-04-06 03/01/2018 ALLEN Valentino Primary ALLEN Melchor [id number] E Insurance:HUMANA KESLINGDOB: Community [place] PPOPolicy [id number] [place], [place] Number: Repository [address]Mxd: (330 [id number] [phone] () Date:1856-38-31YX[address] [address]AV: 03/01/2018 Secondary NOT GIVENUNK [place] Insurance:SELF PAY [facility] Number: Effective Repository Date:2018-02-10 02/26/2018 Allen Valentino Primary Allen Valentino [facility] KeslingDOB: Insurance:HumanaPolic KeslingDOB: System E y Number: Effective [id number] Memorial Medical [facility] Date: [place] [id number]: () 02/19/2018 ALLEN Valentino Primary ALLEN Melchor [id number] E Insurance:HUMANA KESLINGDOB: Community [place] PPOPolicy [id number] [place], [place] Number: Repository [address]Yqg: (330) [id number] [phone] (HP) Date:4175-80-38KH [address] [address]TL: 02/19/2018 Secondary NOT GIVENUNK Jill Insurance:SELF PAY [facility] Number: Effective Repository Date:2018-02-19 02/18/2018 ALLEN Valentino Primary ALLEN Melchor [id number] E Insurance:HUMANA KESLINGDOB: Community [place]ARE PPOPolicy [id number] Bay, [place] Number: Repository [address]Nmp: (330) [id number] [phone] (HP) Date:5243-33-56EI [address] [place] [address]OS: 02/18/2018 Secondary NOT GIVENUNK [place] Insurance:SELF PAY [facility] Number: Effective Repository Date:2018-02-10 02/17/2018 ALLEN Vaelntino Primary ALLEN Melchor [id number] E Insurance:HUMANA KESLINGDOB: Community [place] PPOPolicy [id number] [place] Number: Repository [phone]: (330 [id number] [phone] (HP) Date:3711-80-00VR [address] [address]EQ: 02/17/2018 Secondary NOT GIVENUNK Jill Insurance:SELF PAY [facility] Number: Effective Repository Date:2018-02-17 02/17/2018 ALLEN Valentino Primary ALLEN Melchor [id number] E Insurance:HUMANA KESLINGDOB: Community [place] MEDICARE PPOPolicy [id number] [place] Number: Repository [address]Dqc: (330) [id number] [phone] (HP) Date:6758-92-70RB [address] [address]SS: 02/17/2018 Secondary NOT GIVENUNK Jill Insurance:SELF PAY [facility] Number: Effective Repository Date:2018-02-10 02/10/2018 ALLEN Primary ALLEN Melchor [id number] E. Insurance:HUMANA KESLINGDOB: Community [place]ARE PPOPolicy [id number] [place] Number: Repository [address]Nbq: (330) [id number] [phone] (HP) Date:7754-13-83WT [address] [address]US: 02/10/2018 Secondary NOT GIVENUNK [place] Insurance:SELF PAY [facility] Number: Effective Repository Date:2018-02-01 01/17/2018 Allen Valentino Primary Allen Valentino [facility] KeslingDOB: Insurance:HumanaPolic KeslingDOB: System E y Number: Effective [id number] Repository Date: [place] [address]Kzk: (HP) 01/12/2018 ALLEN Valentino Primary ALLEN [facility] HLTHDOB: Insurance:HUMANA KESLINGDOB: Health System E MEDICARE PPOPolicy [id number] Repository Number: [place] [id number]: (330) Date: 75 (HP) 01/05/2018 ALLEN Valentino Primary ALLEN [facility] KEZaheerDECATUR COUNTY HOSPITALDOB: Insurance:HUMANA KESLINGDOB: Health System E MEDICARE PPOPolicy [id number] Repository Number: [place] [id number]: (330) Date: 753 (HP) 12/30/2017 ALLEN Valentino Primary ALLEN Kelly [facility] KELINGDOB: Insurance:HUMANA KESLINGDOB: Health System E MEDICARE PPOPolicy [id number] Repository Number: [place] [id number]: (330) Date: 75 (HP)
== END 2018-11-18 17:52 | disposition home or self-care (01) ==
LOC: ED 12:18 → PCU 14:34
PROVIDERS: Internal Medicine Cardiovascular Disease; Internal Medicine Critical Care Medicine; Admitting Provider Internal Medicine; Emergency Provider Emergency Medicine; Family Provider Family Medicine; PCP Family Medicine; Referring Provider Internal Medicine; Visit Provider Internal Medicine
PROC: 0BJ08ZZ Inspection of Tracheobronchial Tree, Via Natural or Artificial Opening Endoscopic (ICD-10-PCS; CPT 31622; principal; 2018-11-18 07:45)
DX: R07.89 Other chest pain (principal); I73.9 Peripheral vascular disease, unspecified; F43.12 Post-traumatic stress disorder, chronic; I10 Essential (primary) hypertension; I25.10 Atherosclerotic heart disease of native coronary artery without angina pectoris; G47.33 Obstructive sleep apnea (adult) (pediatric); F32.9 Major depressive disorder, single episode, unspecified; I27.20 Pulmonary hypertension, unspecified; Z95.5 Presence of coronary angioplasty implant and graft; E78.00 Pure hypercholesterolemia, unspecified; I25.2 Old myocardial infarction; Z87.891 Personal history of nicotine dependence; Z79.899 Other long term (current) drug therapy; Z79.02 Long term (current) use of antithrombotics/antiplatelets; Z79.82 Long term (current) use of aspirin; J44.9 Chronic obstructive pulmonary disease, unspecified; J32.9 Chronic sinusitis, unspecified; Z91.19 Patient's noncompliance with other medical treatment and regimen; E66.9 Obesity, unspecified; Z68.33 Body mass index [BMI] 33.0-33.9, adult; Z71.3 Dietary counseling and surveillance; Q32.1 Other congenital malformations of trachea; R06.00 Dyspnea, unspecified; F80.89 Other developmental disorders of speech and language
CPT/HCPCS: 31622; 36415; 71045; 71250; 80048; 84484; 85025; 85049; 85610; 85652; 85730; 86140; 92522; 93005; 93458; 94640; 96374; 96375; 96376; 97802; 99152; 99153; 99218; 99283; A4216; C1769; C1894; G0378; G9171; G9173; Q9967

== ENCOUNTER → 2018-12-16 20:35 | Outpatient (CLI) | payer MEDICARE, SELFPAY ==
[2018-12-01 06:30] VITALS: BMI 33.9
== END ==
PROVIDERS: Family Provider Family Medicine; PCP Family Medicine; Referring Provider Internal Medicine Critical Care Medicine; Visit Provider Internal Medicine Critical Care Medicine
DX: G47.30 Sleep apnea, unspecified (principal)
CPT/HCPCS: 95810

== ENCOUNTER 2018-12-20 14:00 | Outpatient (RCR) | payer MEDICARE, SELFPAY ==
[2018-11-18 07:11] VITALS: BMI 33.1
[2018-12-01 06:30] VITALS: BMI 33.9
--- NOTE | 2018-12-14 13:49 | HP.SP.AD_ITS ---
History - History Date of Eval: 12/08/18 Medical Diagnosis (from RX): Respiration Muscle Discoordination Date of Onset of Diagnosis: January 2018 Previous speech therapy: No Other Relevant Medical History/Diagnoses/Surgery: PAD (peripheral artery disease) (Chronic). Pt on Pletal therapy. Carotid artery disease (Chronic). Chronically occluded left ICA. PTSD (post-traumatic stress disorder) (Chronic). History of inferior wall myocardial infarction (Chronic 09/05/14). Treated at [facility]. Atherosclerotic heart disease of [place] coronary artery with other forms of angina pectoris (Chronic). Acute inferior infarct, SAMSON to ostial-proximal RCA using 2.75 X 32 mm everolimus SAMSON per Dr. Geiger, [facility] 09/05/2014. Stented coronary artery (Chronic 09/05/14). Acute inferior infarct, SAMSON to ostial- proximal RCA using 2.75 X 32 mm everolimus SAMSON per Dr. Geiger, [facility]. Asthma (Chronic). Sleep apnea (Chronic). HTN (hypertension) (Chronic). Peripheral vascular disease (Chronic). Depression (Chronic). S/P AAA repair (Chronic 06/03/15). 06/03/[address] Stephanie Sosa @ [facility]: Endovascular repair with [place] excluder device. TIA (transient ischemic attack) (Chronic). 04/13. Atherosclerosis of coronary artery of [place] heart with angina pectoris (Chronic). Pulmonary hypertension (Chronic). RVSP 36 mmHg. Chronic bronchitis (Chronic). DIMAS (obstructive sleep apnea) (Chronic). Tobacco abuse (Chronic) Smoking Status: Former smoker Hx Smoking: Yes Years Smokin Hx Smoking Cessation Date: 1 year Hx Tobacco Use: Yes Hx Smoking Exposure: No - Pain Is pain an issue with your current prescribed condition?: Yes - Personal Education History: College Degree Occupation: Disability Right Hearing Abillity: Normal Left Hearing Abillity: Normal Visual Assistive Devices: None Patients Living Arrangements: With Significant Other Patient Allergies - Allergies Allergies chlorzoxazone Adverse Reaction (Severe, Verified 12/01/18 13:19) also known as Parafon Forte: pt becomes disoriented Subjective Voice - Informal Questioner Do you scream (anger, sporting event, work, noisy envirmonment): None Do you raise your voice (e.g. parenting, calling from room to room, etc.): None Do you talk for long periods of time without a break (teacher, donis): None Are you a talker: None Do you clear your throat: More than average Do you cough: More than average How often do you use the telephone: Less than average - Intubation Was the Client intubated: No - Alcoholic Beverage Intake Intake: Never - Other Product Usage Do you use products containing menthol (if yes, list): No Subjective Clinical Impression - Non-Phonatory Behaviors/Respiration Limited breath support for speech: Present Throat clearing/coughing: Present Objective Voice - Objective data Objective Data: Objective data: Sound pressure level (SPL acoustic correlation of vocal loudness) was measured with a sound level meter at a distance of 40 cm from the patient's mouth. Average conversational loudness is 70-80 dB and sustained phonation duration is 15 to 20 seconds for a typical adult. Sustained Phonatin duration (seconds): 5 - Observational Assessment Maximum Phonation Time in seconds: 5 Other Impressions - Comments Short of breath -: This patient is significantly short of breath. He was able to speak in phrases to short sentences. When attempting sustained phonation he had an increase his chest pain (shooting pains to a scale of 5) which then decreased. He also reported feeling dizzy after attempting sustained phonation. He exhibits near constant shortness of breath. Strategies -: At this time the patient reported that hIS physical exertion increases his shortness of breath,however, he is nearly always short of breath to some degree. His shortness of breath increases his anxiety which in turn increases difficulties with breathing. Plan - Plan Plan: Therapy is recommended short term to trial breath support strategies and laryngeal control. - Recommendations Treatment Warranted: Yes - Frequency Frequency: 1x/Week Duration: 4 Weeks - Prognosis Prognosis: Fair - Goals that are Established: Determination:: Goals will be added/modified as deemed necessary and appropriate. Therapy will be discontinued when results of re-evaluation indicate therapy is no longer needed or lack of progress has been documented. - Goal #1-5 Goal #1: The patient will learn breathing methods in order to control and ultimately prevent an. attack by demonstrating said methods with 90% accuracy independently in 2/3 sessions. Education - Patient Instruction Patient Education: Diagnosis, Treatment Plan Person Taught: Patient Teaching Method: Discussion
--- NOTE | 2019-01-28 15:28 | HP.SP.DC ---
ST Discharge Summary - Discharged: Discharge: Wally Romero is discharged from outpatient speech-language therapy effective 01/28/2019. Wally attended one session following his initial evaluation targeting possible vocal fold dysfunction. The pt presented with many questionable symptoms which did not likely add up to a vocal fold dysfunction diagnosis. The pt was provided with breathing exercises to see if they improved the pt's symptoms, however, the pt experienced no improvement and was going for further neurological workup. Please reconsult as necessary.
== END 2018-12-20 19:00 | disposition home or self-care (01) ==
LOC: SP 14:00
PROVIDERS: Family Provider Family Medicine; PCP Family Medicine; Referring Provider Internal Medicine; Visit Provider Internal Medicine
DX: J98.8 Other specified respiratory disorders (principal)
CPT/HCPCS: 92507; 92524

== ENCOUNTER → 2019-02-10 07:45 | Outpatient (CLI) | payer MEDICARE, SELFPAY ==
[2018-12-01 06:30] VITALS: BMI 33.9
--- NOTE | 2019-02-11 10:56 | PFT ---
INTRODUCTION: The patient is a 63-year-old male that presents for pulmonary function studies secondary to a diagnosis of pulmonary hypertension. Respiratory therapy reports good patient effort. Bronchodilators were used during testing. INTERPRETATION: Forced expiration spirometry demonstrates the presence of a very severe large airways obstructive ventilatory defect with an FEV1 of 27% of predicted. There was no significant response to aerosolized bronchodilators. Spirograms are of poor quality and do not plateau. The respiratory flow volume loop is of similar poor quality. Body plethysmography was performed and reveals a decreased TLC to 5.04 L, 69% of predicted, indicative of a moderate restrictive ventilatory impairment. The remainder of the lung volumes are symmetrically reduced. Diffusing capacity by single breath CO is also reduced at 46% of predicted. When compared to prior pulmonary function studies dated September 2018, there has been a significant reduction in the patient's FEV1 and DLCO. IMPRESSION: These pulmonary function studies demonstrate the presence of an irreversible very severe mixed ventilatory defect with a symmetric reduction in diffusing capacity. There has been worsening in the patient's pulmonary function study since they were last completed in September 2018, as noted above.
== END ==
PROVIDERS: Family Provider Family Medicine; PCP Family Medicine; Referring Provider Internal Medicine Critical Care Medicine; Visit Provider Internal Medicine Critical Care Medicine
DX: I27.20 Pulmonary hypertension, unspecified (principal); J42 Unspecified chronic bronchitis; Z72.0 Tobacco use
CPT/HCPCS: 94060; 94726; 94729

== ENCOUNTER → 2019-02-15 08:28 | Outpatient (CLI) | payer MEDICARE, SELFPAY ==
[2018-12-01 06:30] VITALS: BMI 33.9
[2019-02-15 08:30] VITALS: PULSE 54; PULSE 58; PULSE 60; PULSE 61; PULSE 91; O2SAT 94; O2SAT 95; O2SAT 96; O2SAT 97
--- NOTE | 2019-02-15 13:58 | PCM.PSN.6M ---
PSN 6 Minute Walk Test - 6 Minute Walk Test 6 Minute Walk Test: 6 Minute Walk Test PSN:6-Minute Walk Test Start: 02/15/19 08:47 Freq: Status: Active Protocol: [id number] Document 02/15/19 08:30 JLA (Rec: 02/15/19 08:51 JLA [id number]) 6 Minute Walk Test Date Performed 02/15/19 Time Performed 08:30 Height 6 ft 1 in Weight: 117.934 kg Weight in Pounds 260.[address]: Ruy Rossi Assistive device used: Cane Pre-test Oxygen Delivery Method Room Air Pulse Ox (%) 96 Pulse Rate (60-100 beats/min) 54 L Dyspnea Jeimy Scale (0-10) 3 Exertion Jeimy Scale (6-20) 6 1st minute Oxygen Delivery Method Room Air Pulse Ox (%) 94 Pulse Rate (60-100 beats/min) 91 Number of Rests Taken 1 2nd minute Oxygen Delivery Method Room Air Pulse Ox (%) 96 Pulse Rate (60-100 beats/min) 61 Number of Rests Taken 1 3rd minute Oxygen Delivery Method Room Air Pulse Ox (%) 97 Pulse Rate (60-100 beats/min) 58 L Number of Rests Taken 1 4th minute Oxygen Delivery Method Room Air Pulse Ox (%) 96 Pulse Rate (60-100 beats/min) 60 Number of Rests Taken 1 5th minute Oxygen Delivery Method Room Air Pulse Ox (%) 96 Pulse Rate (60-100 beats/min) 58 L Number of Rests Taken 1 6th minute Oxygen Delivery Method Room Air Pulse Ox (%) 95 Pulse Rate (60-100 beats/min) 58 L Dyspnea Jeimy Scale (0-10) 4 Exertion Jeimy Scale (6-20) 14 Post-test Oxygen Delivery Method Room Air Pulse Ox (%) 96 Pulse Rate (60-100 beats/min) 58 L Full Laps Walked 4 Partial Lap, Number of Tiles Walked 20 Total Distance Walked (ft) 256 - Interpretation Interpretation: The patient was able to ambulate only 256 feet over the course of 6 minutes on room air with the assistance of a cane and 5 breaks. The patient did not have any significant tachycardia or desaturation noted during testing. These findings are consistent with a musculoskeletal limitation exercise tolerance. - Recommendations Recommendations: No supplemental oxygen is indicated at this time, but sensitivity is severely limited given minimal distance traveled.
== END ==
PROVIDERS: Family Provider Family Medicine; PCP Family Medicine; Referring Provider Internal Medicine Critical Care Medicine; Visit Provider Internal Medicine Critical Care Medicine
DX: I27.20 Pulmonary hypertension, unspecified (principal)
CPT/HCPCS: 94618

== ENCOUNTER 2019-03-09 10:54 | Emergency (ER) | payer MEDICARE, SELFPAY ==
[2019-02-22 13:03] VITALS: BMI 34.2
[2019-03-09 10:55] VITALS: BP 134/87; PULSE 83; RESP 18; TEMP 36.3; O2SAT 97; BMI 34.5
--- NOTE | 2019-03-09 11:07 | EKG12_ITS ---
Test Reason : CP Blood Pressure : / mmHG Vent. Rate : 070 BPM Atrial Rate : 070 BPM P-R Int : 158 ms QRS Dur : 082 ms QT Int : 402 ms P-R-T Axes : 043 014 052 degrees QTc Int : 434 ms Normal sinus rhythm Normal ECG Confirmed by BEULAH GIMENEZ, RANDALL ([id number]), staff editor BETSY FLEMING ([id number]) on 03/14/2019 4:22:16 PM Referred By: PARVIZ Confirmed By:RANDALL RIOJAS MD
--- NOTE | 2019-03-09 11:07 | RAD_ITS ---
STUDY: X-RAY CHEST REASON FOR EXAM: Male, 63 years old. Chronic shortness of breath and chest pain. TECHNIQUE: PA and lateral views of the chest. COMPARISON: Comparison is made with prior study dated November 15, 2018. FINDINGS: EKG markings are seen. Minimal increased linear markings at the left lung base suggestive of linear atelectasis and/or scarring. There is no demonstrated pleural abnormality. There is borderline cardiomegaly. Normal mediastinum and juan diego. Normal visualized pulmonary arteries. There is atherosclerotic tortuosity of the aortic arch and descending thoracic aorta. There are degenerative changes of the visualized thoracic spine. Normal visualized ribs, clavicles, and shoulders. There is no demonstrated abnormality of the visualized soft tissue structures of the upper abdomen. RAD/Chest PA and Lateral IMPRESSION: Mild increased linear markings at the left lung base suggestive of linear atelectasis and/or scarring. Electronically Signed: Boris Huff, at 12:34 EDT , Service support ,
[2019-03-09 11:09] VITALS: BP 127/88; PULSE 73; RESP 20; O2SAT 98
--- NOTE | 2019-03-09 11:10 | ED.VIS.GEN ---
History of Present Illness Chief Complaint: Chest Pain Detail of Chief Complaint: Main complaint is dyspnea on exertion Informant: Patient, Significant Other Onset: Month(s) - Onset January 2018. Symptoms worsened August 2018. Patient reports significant worsening past 3 days. He also complains of fleeting chest pain that is migratory. Context: Gradual Onset - With regards to the respiratory symptoms, Sudden Onset - With regards to chest pain Timing: Continuous - Continuous shortness of breath since January 2018., Intermittent - Intermittent left-sided chest pain that lasts seconds to minutes and possibly longer Quality: Read narrative Location: Thorax Current Severity: Mild Maximum Severity: Moderate Worsened by: Activity makes breathing worse Relieved by: Nothing Associated Symptoms: Runny nose, congestion and postnasal drainage for some time Narrative: Patient is a elderly male with progressive shortness of breath. informed me that his pulmonary function tests have progressively gotten worse. He is scheduled to follow-up with pulmonology at [facility]. Locally he is seen by Dr. Ruy Rossi. He does have history of TIA and occlusion of the left internal carotid artery. He also has history of STEMI with placement of stent by Dr. Torres. Patient denies fever, chills night sweats. He denies history of PE or DVT. He denies GI symptoms. He denies symptoms. He denies history of allergic rhinitis. Prior similar symptoms: Yes Recent Illness/Hospitalization: Yes - Past Medical History (1) Atherosclerosis of coronary artery of [place] heart with angina pectoris Status: Chronic (2) Carotid artery disease Status: Chronic Comment: Chronically occluded left ICA (3) Chronic bronchitis Status: Chronic (4) Depression Status: Chronic (5) Generalized anxiety disorder with panic attacks Status: Chronic (6) HTN (hypertension) Status: Chronic (7) DIMAS (obstructive sleep apnea) Status: Chronic (8) PAD (peripheral artery disease) Status: Chronic Comment: Pt on Pletal therapy (9) PTSD (post-traumatic stress disorder) Status: Chronic (10) Peripheral vascular disease Status: Chronic (11) Pulmonary hypertension Status: Chronic Comment: RVSP 36 mmHg (12) S/P AAA repair Status: Chronic Comment: 06/03/[address] Stephanie Sosa @ [facility]: Endovascular repair with [place] excluder device (13) TIA (transient ischemic attack) Status: Chronic Comment: 04/13 Past Medical History - Allergies and Home Meds Allergies/Adverse Reactions: Allergies chlorzoxazone Adverse Reaction (Severe, Verified 02/22/19 12:59) also known as Parafon Forte: pt becomes disoriented Primary Care Physician: Elijah Perez DO [Primary Care Provider] - Surgical History: appendectomy, tonsillectomy, - - Cardiac stent placement 2014, several knee surgeries including knee replacement, AAA repair-endovascular Lives: Spouse/ Significant Other Smoking Status: Former smoker Alcohol: None Drugs: None - Family History Maternal Family History: Reports: No pertinent history - in motor vehicle accident Paternal Family History: Reports: Cancer - from brain cancer Review of Systems General: Denies: Chills, Fever, Malaise, Subjective, Sweats, Weight loss, - Eyes: Denies: Visual changes - bilaterally, Blurred Vision - bilaterally, Diplopia ENT: Reports: Rhinorrhea. Denies: Bilateral ear pain, Sore throat Cardiovascular: Reports: Chest pain. Denies: Palpitations, Heart racing, -, - Respiratory: Reports: Dyspnea, Cough, Dyspnea on exertion. 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 Negative for: Dry mucous membranes Neck: Supple, Nontender, No lymphadenopathy, No JVD, - Cardiovascular: Regular rate, Regular rhythm, No murmurs, Normal S1, Normal S2 Respiratory: CTA bilaterally, Chest nontender, Decreased Air Movement Abdomen: Soft, Nontender, Nondistended, Normal bowel sounds, No masses Back: Nontender, Normal Inspection Extremities: Nontender, No edema, - - There is no asymmetry, swelling, discoloration, leg vein distention, palpable cords or tenderness along the distribution of the deep venous system. Skin: Normal color, No rash. Negative for: Cyanosis, Jaundice Neurological: Alert, Oriented x3, Cranial nerves II-XII grossly intact, Normal Strength, Normal Sensation Psychological: Depressed Diagnostic/Tx/Re-eval Chest X-Ray - ED: 2 View, Read by ED Physician, Normal, Heart, Mediastinum, Bony Structures, No Acute Disease, Chronic Changes, - - There is slight increased markings right lower lobe; however, not as many ribs are seen. There is a comparison view from November 15, 2018. There is no significant interval change other than decreased inspiratory volume on today's film. 03/09/19 11:07 Chest PA and Lateral [RAD] Stat Laboratory Results 03/09/19 03/09/19 11:22 11:22 WBC 7.0 RBC 5.21 Hgb 16.0 Hct 45.5 MCV 87.3 MCH 30.7 MCHC 35.2 RDW 12.6 RDW Differential 40.2 Plt Count 163 MPV 10.6 Immature Gran % (Auto) 0.100 Neut % (Auto) 60.1 Lymph % (Auto) 30.2 [place] % (Auto) 8.3 Eos % (Auto) 1.0 Baso % (Auto) 0.3 Absolute Neuts (auto) 4.2 Absolute Lymphs (auto) 2.11 Total Counted Not Reportable Sodium 139 Potassium 4.3 Chloride 105 Carbon Dioxide 31.0 Anion Gap 3 L BUN 13 Creatinine 1.29 Estim Creat Clear Calc 67.10 Est GFR (MDRD) Af Amer 73 Est GFR (MDRD) Non-Af 60 BUN/Creatinine Ratio 10.1 Glucose 92 Calcium 9.0 Troponin I < 0.015 - Rhythm Strip Rhythm Strip: Sinus Rhythm Rate: 90 Ectopy: None - EKG Initial EKG Interpretation: Sinus Rhythm - Ventricular rate is 70. ME interval, Q orthodox QT interval normal. [place] normal. EKG is normal. - Medical Decision Making Patient presents with increased shortness of breath. This may represent progression of his pulmonary disease. Will need to evaluate for pneumonia, congestive heart failure, anginal equivalent dyspnea. Appropriate blood work and EKG was obtained. After results are available and reviewed will contact Dr. Ruy Rossi who sent patient to the emergency department. Patient's workup is unremarkable. Dr. Ruy Rossi was paged. I was informed that Dr. Goss is on-call. Case was discussed with Dr. Ralph Goss covering for Dr. Ruy Rossi. He contacted his staff. He has an appointment to be seen tomorrow morning at 9:30 AM. ED Disposition - Plan for ED Patient: Disposition: Home or Assisted Living Diagnosis: Dyspnea on effort, History of asthma, Non-cardiac chest pain, Lymphedema Instructions: ED Dyspnea Shortness of Breath, ED Chest Pain NonCardiac Referrals: Elijah Perez DO [Primary Care Provider] - Ruy Rossi MD [STAFF PHYSICIAN] - 03/10/19 9:30 am
[2019-03-09 11:42] LABS: Absolute Lymphocyte Count 2.11 X10^3/ul (0.83-4.51); Absolute Neutrophil Count 4.2 X10^3/uL (2.0-7.7); Basophil# 0.02 X10^3/uL; Basophil% 0.3 % (0-1); Eosinophil# 0.07 X10^3/uL; Hematocrit 45.5 % (40-54); Lymphocyte # 2.11 X10^3/ul (4.0); Lymphocyte % 30.2 % (19-41); Mean Corp Hgb Conc 35.2 g/gl (32-36); Mean Corpuscular Hgb 30.7 pg (27.0-32.0); Mean Corpuscular Volume 87.3 fL (80-94); Mean Platelet Vol. 10.6 fl (6.2-12.0); Monocyte# 0.58 X10^3/uL; Monocyte% 8.3 % (0-10); Neutrophil % 60.1 % (47-70); POSITIVE COUNT NO; POSITIVE DIFFERENTIAL NO; POSITIVE MORPHOLOGY NO; Platelet Count 163 K/mm3 (150-450); RBC Distribution Width CV 12.6 % (11.6-14.6); RBC Distribution Width SD 40.2 fl (35.1-43.9); Red Blood Count 5.21 M/mm3 (4.6-6.2)
[2019-03-09 11:51] LABS: Anion Gap 3 (5-15); BUN 13 mg/dL (7-18); BUN/Creat Ratio 10.1 RATIO (10-20); Chloride 105 mmol/L (98-107); Creatinine, Serum 1.29 mg/dL (0.70-1.30); EST Glomerular Filtration Rate 60 mL/min (>60); Est Glom Filt Rate - Afr Amer 73 mL/min (>60); Glucose 92 mg/dL (74-106); Potassium 4.3 mmol/L (3.5-5.1); Sodium Level 139 mmol/L (136-145)
[2019-03-09 12:27] VITALS: BP 121/86; PULSE 73; RESP 15
== END 2019-03-09 12:40 | disposition home or self-care (01) ==
PROVIDERS: Emergency Provider Emergency Medicine; Family Provider Family Medicine; PCP Family Medicine
DX: R06.09 Other forms of dyspnea (principal); J45.909 Unspecified asthma, uncomplicated; R07.89 Other chest pain; I89.0 Lymphedema, not elsewhere classified; I25.119 Atherosclerotic heart disease of native coronary artery with unspecified angina pectoris; I10 Essential (primary) hypertension; I25.2 Old myocardial infarction; I73.9 Peripheral vascular disease, unspecified; I27.20 Pulmonary hypertension, unspecified; G47.33 Obstructive sleep apnea (adult) (pediatric); F32.9 Major depressive disorder, single episode, unspecified; F43.12 Post-traumatic stress disorder, chronic; F41.1 Generalized anxiety disorder; F41.0 Panic disorder [episodic paroxysmal anxiety]; Z95.5 Presence of coronary angioplasty implant and graft; Z79.82 Long term (current) use of aspirin; Z79.899 Other long term (current) drug therapy; Z87.891 Personal history of nicotine dependence; Z86.73 Personal history of transient ischemic attack (TIA), and cerebral infarction without residual deficits
CPT/HCPCS: 71046; 80048; 84484; 85025; 93005; 99284